=== PATIENT | female | born 1970 | race Caucasian/White ===

== ENCOUNTER 2017-02-10 13:30 | Outpatient (RCR) | payer MEDICAID, SELFPAY ==
--- NOTE | 2017-01-15 08:18 | ST ---
Primary/Secondary Diagnosis: Dysphagia R13.10 Referring Physician: Aleida Carmona Medical History: 46 y/o female presents for outpatient modified barium swallow study with complaints of difficulty swallowing for years that has seemed to have gotten progressively worse. Pt could not say exactly when she noticed increased symptoms, but reports she does have coughing approximately one time per meal/snack. She reports improvement if she drinks soda. Pt describes her swallow as premature which she clarifies as swallowing starts before she is ready. She reports choking on saliva. She reports 40lb weight gain over the past 3 years. 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 Pt reports having increased stress for most of her life. She reports she does see a mental health counselor and works on [employer] with journaling and exercise. Other PMH: asthma, fibromyalgia, back pain, ADHD, anxiety, depression, tobacco use. Reason for Referral: further evaluation of pharyngeal swallow function Current Diet: regular/thin Dentition: present, natural Mental Status: pleasant, reports nervous Respiratory Status: oxygenating on room air Previous Modified Barium Swallow: none Study Findings: This patient was seen for a Modified Barium Swallow. Dr. Chacon was the radiologist present for this evaluation. This study was recorded in the lateral view and images were sent to PACs for storage. The following consistencies were presented to this patient for analysis of oropharyngeal swallow function: thin liquid, pudding, and a cookie. Oral Phase ? Labial seal: no labial escape ? Tongue control during bolus hold: posterior escape of less than half of bolus ? Bolus preparation/mastication: timely and efficient chewing and mashing ? Bolus transport/lingual motion: delayed initiation of tongue motion ? Oral residue: complete oral clearance Pharyngeal Phase ? Initiation of pharyngeal swallow: bolus head in pyriforms ? Soft palate elevation: no bolus between soft palate and pharyngeal wall ? Laryngeal elevation: complete superior movement of thyroid cartilage with complete approximation of arytenoids cartilage to epiglottic petiole ? Anterior hyoid excursion: complete anterior movement ? Epiglottic movement: complete inversion ? Laryngeal vestibule closure at height of swallow: incomplete; narrow column of air/contrast in laryngeal vestibule ? Pharyngeal stripping wave: present complete ? Pharyngoesophageal segment opening: complete distension and complete duration; no obstruction of flow ? Tongue base retraction: no contrast between tongue base and posterior pharyngeal wall trace column of contrast between tongue base and posterior pharyngeal wall ? Pharyngeal residue: trace residue within or on pharyngeal structures Esophageal Phase ? Esophageal bolus clearance in the upright position: complete clearance Penetration-Aspiration Scale 1 = does not enter airway 2 = enters airway/above vocal folds/ejected 3 = enters airway/above vocal folds/not ejected 4 = enters airway/contacts vocal folds/ejected 5 = enters airway/contacts vocal folds/not ejected 6 = enters airway/below vocal folds/ejected 7 = enters airway/below vocal folds/not ejected despite effort 8 = enters airway/below vocal folds/no effort Penetration-Aspiration Scale Score: thin tsp 4 = enters airway/contacts vocal folds/ejected thin cup (natural chin tuck) 1 = does not enter airway NOTE: pt coughed after thin sequential 2 = enters airway/above vocal folds/ejected pudding 1 = does not enter airway cookie 1 = does not enter airway thin via straw 1 = does not enter airway Effects of Treatment Strategies Attempted: natural chin tuck = effective to prevent penetration Diagnosis: Mild oropharyngeal dysphagia Impression: Patient presents with swallow function that is mildly impaired. Oral phase grossly WFL marked by no anterior spillage of bolus efficient rotary mastication effective bolus preparation and manipulation Oropharyngeal phase mildly impaired premature a-p transit of bolus delayed swallow onset initiates at the level of the pyriforms with liquids cohesive bolus no nasal regurgitation Pharyngeal phase marked by no aspiration transient penetration with thin liquids, all penetration is ejected smooth bolus flow through the pharynx into the PE segment timely and efficient hyolaryngeal excursion resulting in full epiglottic range of motion incomplete laryngeal vestibule closure with thin liquids, resulting in penetration minimal to no residue on pharyngeal structures after the swallow. Esophageal phase unremarkable at this time. Recommendations Diet: regular/thin, consider use of chin tuck with liquids Compensatory Strategies Recommended: chin tuck, fully upright, slow rate of intake Need for Skilled Speech Therapy Services: Consider outpatient speech/swallow therapy services to target oropharyngeal swallow deficits. Consider exercise program that may include franklin, effortful swallow as well as training in use of chin tuck. ADDITIONAL COMMENTS/RECOMMENDATIONS: Results were reported to the pt following this study as well as recommendations to continue with use of chin tuck and consider ongoing swallow therapy. For Medicare only: Swallowing [id number] Current status: Swallowing [id number] Goal Status: 12/09/16 1524 <Electronically signed by Skye Infante > Date Skye Infante
--- NOTE | 2017-01-15 08:23 | HP.SP.AD_ITS ---
History - History Date of Eval: 01/13/17 Medical Diagnosis (from RX): Dysphagia Date of Onset of Diagnosis: 12/09/16 Previous speech therapy: No Other Relevant Medical History/Diagnoses/Surgery: asthma, fibromyalgia, back pain, adhd, anxiety, depression. 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 Right Hearing Abillity: Normal Left Hearing Abillity: Normal Visual Assistive Devices: None Patients Living Arrangements: With Family Patient Allergies - Allergies Allergies doxycycline Allergy (Verified 09/04/16 15:47) Rash latex Allergy (Verified 09/04/16 15:47) Rash nabumetone [From Relafen] Allergy (Verified 09/04/16 15:47) Other Penicillins Allergy (Verified 09/04/16 15:47) Rash pseudoephedrine Allergy (Verified 09/04/16 15:47) Other Sulfa (Sulfonamide Antibiotics) Allergy (Verified 09/04/16 15:47) Rash acetaminophen [From Darvocet-N] Adverse Reaction (Verified 09/04/16 15:47) Other amitriptyline Adverse Reaction (Verified 09/04/16 15:47) Other budesonide [From Symbicort] Adverse Reaction (Verified 09/04/16 15:47) Rash celecoxib [From Celebrex] Adverse Reaction (Verified 09/04/16 15:47) Other duloxetine HCl [From Cymbalta] Adverse Reaction (Verified 09/04/16 15:47) Other formoterol fumarate [From Symbicort] Adverse Reaction (Verified 09/04/16 15:47) Rash naproxen sodium [From Aleve] Adverse Reaction (Verified 09/04/16 15:47) Vomiting pregabalin [From Lyrica] Adverse Reaction (Verified 09/04/16 15:47) Other propoxyphene napsylate [From Darvocet-N] Adverse Reaction (Verified 09/04/16 15: 47) Other tramadol Adverse Reaction (Verified 09/04/16 15:47) Other CAMEL HAIR Allergy (Uncoded 07/22/16 12:15) Rash FEATHERS Allergy (Uncoded 07/22/16 12:15) Rash FRAGRANCES Allergy (Uncoded 07/22/16 12:15) Rash SAGEBRUSH Allergy (Uncoded 07/22/16 12:15) Rash Subjective Oral Motor - Comments Comments: Patient reported biting herself often when eating in oral cavity. Objective Oral Motor - Oral Status Dentition: WNL - Labial Observation at Rest: WNL Closure: WNL Pucker: WNL Retraction: WNL Alternating Pucker/Retraction: WNL Involuntary Movement noted: No - Lingual Protrusion: WNL Retraction: WNL Lateralization: WNL Involuntary Movement: No - Jaw Opening: WNL Closing: WNL - Respiratory Status Respiratory Status: Room Air Subjective Dysphagia - Symptoms Reported Symptoms/Problems with: Choking, Difficulty Swallowing Liquids, Food gets stuck - Current Diet Solids Current Diet: Regular - Current Diet Liquids Current Liquids: Thin Objective Dysphagia - Administered by Administered by: Self - Thin Liquids Administred via: Cup Laryngeal Elevation: WFL Oral Holding: No Duration: Slight holding noted. Gagging: No Patient Report: Patient reported needing to double/triple swallow. Comments: Patient had a natural double swallow. No overt signs or symptoms of dysphagia today. Patient reports that nearly every meal she coughs or chokes at least once. She now eats alone to reduce distractions. - Results Swallowing Diagnosis: Oropharyngeal Phase Dysphagia Severity: Mild Modified Barium Results Hx MBS Report Entered: Yes MBS Results (from prior exam): 01/15/17 08:18 Speech Therapy by Fidencio Shah Primary/Secondary Diagnosis: Dysphagia R13.10 Referring Physician: Aleida Carmona Medical History: 46 y/o female presents for outpatient modified barium swallow study with complaints of difficulty swallowing for years that has seemed to have gotten progressively worse. Pt could not say exactly when she noticed increased symptoms, but reports she does have coughing approximately one time per meal/snack. She reports improvement if she drinks soda. Pt describes her swallow as premature which she clarifies as swallowing starts before she is ready. She reports choking on saliva. She reports 40lb weight gain over the past 3 years. 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 Pt reports having increased stress for most of her life. She reports she does see a mental health counselor and works on [employer] with journaling and exercise. Other PMH: asthma, fibromyalgia, back pain, ADHD, anxiety, depression, tobacco use. Reason for Referral: further evaluation of pharyngeal swallow function Current Diet: regular/thin Dentition: present, natural Mental Status: pleasant, reports nervous Respiratory Status: oxygenating on room air Previous Modified Barium Swallow: none Study Findings: This patient was seen for a Modified Barium Swallow. Dr. Chacon was the radiologist present for this evaluation. This study was recorded in the lateral view and images were sent to PACs for storage. The following consistencies were presented to this patient for analysis of oropharyngeal swallow function: thin liquid, pudding, and a cookie. Oral Phase ? Labial seal: no labial escape ? Tongue control during bolus hold: posterior escape of less than half of bolus ? Bolus preparation/mastication: timely and efficient chewing and mashing ? Bolus transport/lingual motion: delayed initiation of tongue motion ? Oral residue: complete oral clearance Pharyngeal Phase ? Initiation of pharyngeal swallow: bolus head in pyriforms ? Soft palate elevation: no bolus between soft palate and pharyngeal wall ? Laryngeal elevation: complete superior movement of thyroid cartilage with complete approximation of arytenoids cartilage to epiglottic petiole ? Anterior hyoid excursion: complete anterior movement ? Epiglottic movement: complete inversion ? Laryngeal vestibule closure at height of swallow: incomplete; narrow column of air/contrast in laryngeal vestibule ? Pharyngeal stripping wave: present complete ? Pharyngoesophageal segment opening: complete distension and complete duration; no obstruction of flow ? Tongue base retraction: no contrast between tongue base and posterior pharyngeal wall trace column of contrast between tongue base and posterior pharyngeal wall ? Pharyngeal residue: trace residue within or on pharyngeal structures Esophageal Phase ? Esophageal bolus clearance in the upright position: complete clearance Penetration-Aspiration Scale 1 = does not enter airway 2 = enters airway/above vocal folds/ejected 3 = enters airway/above vocal folds/not ejected 4 = enters airway/contacts vocal folds/ejected 5 = enters airway/contacts vocal folds/not ejected 6 = enters airway/below vocal folds/ejected 7 = enters airway/below vocal folds/not ejected despite effort 8 = enters airway/below vocal folds/no effort Penetration-Aspiration Scale Score: thin tsp 4 = enters airway/contacts vocal folds/ejected thin cup (natural chin tuck) 1 = does not enter airway NOTE: pt coughed after thin sequential 2 = enters airway/above vocal folds/ejected pudding 1 = does not enter airway cookie 1 = does not enter airway thin via straw 1 = does not enter airway Effects of Treatment Strategies Attempted: natural chin tuck = effective to prevent penetration Diagnosis: Mild oropharyngeal dysphagia Impression: Patient presents with swallow function that is mildly impaired. Oral phase grossly WFL marked by no anterior spillage of bolus efficient rotary mastication effective bolus preparation and manipulation Oropharyngeal phase mildly impaired premature a-p transit of bolus delayed swallow onset initiates at the level of the pyriforms with liquids cohesive bolus no nasal regurgitation Pharyngeal phase marked by no aspiration transient penetration with thin liquids, all penetration is ejected smooth bolus flow through the pharynx into the PE segment timely and efficient hyolaryngeal excursion resulting in full epiglottic range of motion incomplete laryngeal vestibule closure with thin liquids, resulting in penetration minimal to no residue on pharyngeal structures after the swallow. Esophageal phase unremarkable at this time. Recommendations Diet: regular/thin, consider use of chin tuck with liquids Compensatory Strategies Recommended: chin tuck, fully upright, slow rate of intake Need for Skilled Speech Therapy Services: Consider outpatient speech/swallow therapy services to target oropharyngeal swallow deficits. Consider exercise program that may include franklin, effortful swallow as well as training in use of chin tuck. ADDITIONAL COMMENTS/RECOMMENDATIONS: Results were reported to the pt following this study as well as recommendations to continue with use of chin tuck and consider ongoing swallow therapy. For Medicare only: Swallowing G8996 Current status: Swallowing G8997 Goal Status: 12/09/16 1524 <Electronically signed by Skye Infante > Date Skye Infante Electronically signed by Fidencio Shah M.A., [facility] on 01/15/17 08:19 Initialized on 01/15/17 08:18 - END OF NOTE Dysphagia Assessment - Swallowing Impairment Contributing Factors to Swallowing Impairment: Impaired Oral-Pharyngeal Transport - Impact Impact on Safety & Functioning: Risk for Aspiration - Recommendations Modified Barium Swallow/Cookie Swallow Recommended: No Swallowing Treatment: Yes - Diet Texture Recommendations Solids Other: Regular Liquids: Thin - Safety Saftey Precautions/Swallowing Recommendations (Check all that Apply): Reduce Distractions, Upright Position at Least 30 Minutes After Meals, Small Sips & Bites when Eating, Multiple Swallows Other: Double swallow as needed. - Compensatory Strategies Compensatory Strategies: Chin Tuck Plan - Plan Plan: Speech therapy is warranted for dysphagia therapy as during her modified barium swallow study she exhibited penetration on thin liquids. - Recommendations MBS: No Treatment Warranted: Yes - Frequency Frequency: Monthly Duration: 3 Months Visits in this POC: 3 - Prognosis Prognosis: Good - Goals that are Established: Determination:: Goals will be added/modified as deemed necessary and appropriate. Therapy will be discontinued when results of re-evaluation indicate therapy is no longer needed or lack of progress has been documented. - Goal #1-5 Goal #1: Helena will complete pharyngeal strengthening exercises independently. Goal #2: Helena will report decreased need to double swallows to less than half her swallows. Goal #3: Recommend a follow up MBS in 3-6 months to determine progress. Education - Patient Instruction Patient Education: Diagnosis, Treatment Plan, Goals, Safety Precautions, Diet Level, Home Exercise Program Other Education: Dysphagia exercises. Person Taught: Patient Teaching Method: Discussion, Handout
--- NOTE | 2017-08-26 15:22 | HP.SP.DC_ITS ---
ST Discharge Summary - Discharged: Discharge: Helena Gray is discharged from [facility] as of August 26, 2017. She was evaluated on January 13, 2017 and had one follow up appointment scheduled in which she did not show. She was contacted as a follow up in July 2017 to determine if she was still having difficulty swallowing. She stated that she was and she would call back to schedule. She has not scheduled any further visits and will be discharged. A copy of this discharge summary will be sent to her referring physician.
== END 2017-02-10 14:00 | disposition home or self-care (01) ==
LOC: SP 13:30
PROVIDERS: Family Provider Internal Medicine; PCP Internal Medicine; Visit Provider Internal Medicine
DX: R13.12 Dysphagia, oropharyngeal phase (principal)
CPT/HCPCS: 92610

== ENCOUNTER 2018-08-07 21:16 | Emergency (ER) | payer MEDICAID, SELFPAY ==
[2018-08-07 21:17] VITALS: BP 118/79; PULSE 91; RESP 18; TEMP 36.8; O2SAT 95; BMI 33.6
--- NOTE | 2018-08-07 21:38 | ED.DCSUM_ITS ---
- ER Visit Summary Date of Service: 08/07/18 Chief Complaint: [] History of Present Illness: The patient is a 48 F presents to the emergency department after mechanical fall. The patient was at the top of her stairs. She that she was walking down, lost her balance, and fell. She struck her left knee, left foot, and right elbow. She did not strike her head. She denies loss of consciousness. She did suffer an abrasion to the foot and was having difficulty walking on it. She presented here for further evaluation. Physical Examination: Exam relatively unremarkable. Well-appearing female no acute distress. GCS 15. Head is normocephalic, atraumatic. Pupils equal round reactive. Neck nontender. Shoulders nontender. Chest is nontender. Lungs are clear. Heart is regular rhythm. Abdomen soft, nontender, nondistended. Pelvis stable. Patient has mild tenderness palpation of the right elbow, left knee, and an abrasion on the left foot. Pulses are normal. Test Results: [] Emergency Department Course and Treatment: The patient presents after mechanical fall. She does have an abrasion on the dorsum of the left foot. Pulses are normal. I did obtain plain films of the right elbow, left foot, and left knee. These are unremarkable for acute fracture. The patient's wound was cleaned and dressed. She declined analgesics. At this time, she will be discharged home. She will continue ice and elevation. She will return with any worsening symptoms. Treatment Plan: [] Disposition: Discharge Impression: 1. Left foot abrasion status post fall 2. Left knee contusion status post fall 3. Right elbow contusion status post fall This note was generated with [employer] dictation software. It may contain incorrect words, spelling, and punctuation that were not noted in review of the chart prior to signing ED Disposition - Plan for ED Patient: Chief Complaint: Fall Instructions: ED Mechanical Fall, ED [facility] [facility] Referrals: Aleida Carmona MD [Primary Care Provider] -
--- NOTE | 2018-08-07 21:42 | RAD_ITS ---
HISTORY: PAIN S/P FALL COMPARISON: None FINDINGS: # of images incl. paperwork: 3 XR Elbow Min 3 Views: 3 view right elbow. SOFT TISSUES: Unremarkable. No radiopaque foreign body. BONES: No acute fracture or subluxation. No sclerotic or destructive changes observed. JOINTS: Preservation of the joint space. Articular surfaces are unremarkable. RAD/Elbow min 3 Views IMPRESSION: Negative. at 2213 Reported and signed by: Matt Jane MD Electronically Signed: Matt Jane, at 22:12 EST Tel , Service support ,
--- NOTE | 2018-08-07 21:42 | RAD_ITS ---
HISTORY: PAIN S/P FALL COMPARISON: None FINDINGS: # of images incl. paperwork: 3 XR Foot Min 3 Views: 3 view left foot. SOFT TISSUES: Unremarkable. No radiopaque foreign body. BONES: No acute fracture or subluxation. No sclerotic or destructive changes observed. Small plantar calcaneal spur. JOINTS: Preservation of the joint space. Articular surfaces are unremarkable. RAD/Foot min 3 Views IMPRESSION: Negative. at 2214 Reported and signed by: Matt Jane MD Electronically Signed: Matt Jane, at 22:13 EST Tel , Service support ,
--- NOTE | 2018-08-07 21:42 | RAD_ITS ---
HISTORY: PAIN S/P FALL COMPARISON: None FINDINGS: # of images incl. paperwork: 4 XR Knee Complete 4 Views or More: 4 view left knee. SOFT TISSUES: Unremarkable. No radiopaque foreign body. BONES: No acute fracture or subluxation. No sclerotic or destructive changes observed. JOINTS: Preservation of the joint space. Articular surfaces are unremarkable. No apparent effusion. RAD/Knee 4 or More Views IMPRESSION: Negative. at 2215 Reported and signed by: Matt Jane MD Electronically Signed: Matt Jane, at 22:14 EST Tel , Service support ,
[2018-08-07 22:30] VITALS: BP 121/80; PULSE 78; RESP 16; O2SAT 98
--- OUTSIDE RECORDS SUMMARY | 2018-10-12 08:45 | XMS RPT_ITS ---
:1970 Author Organization [facility] Care Team Providers Name Role Phone TALAMPAS, LISA D Referring Unavailable TALAMPAS, LISA D Attending Unavailable TALAMPAS, LISA D Referring Unavailable ARMANI, GENE A Attending Unavailable ARMANI, GENE A Attending Unavailable ARMANI, GENE A Attending Unavailable ARMANI, GENE A Attending Unavailable ARMANI, GENE A Attending Unavailable ARMANI, GENE A Attending Unavailable ARMANI, GENE A Attending Unavailable ARMANI, GENE A Attending Unavailable TALAMPAS, LISA D Attending Unavailable TALAMPAS, LISA D Referring Unavailable ARMANI, GENE A Attending Unavailable ARMANI, GENE A Attending Unavailable ARMANI, GENE A Attending Unavailable ARMANI, GENE A Attending Unavailable ARMANI, GENE A Attending Unavailable ARMANI, GENE A Attending Unavailable TALAMPAS, LISA D Attending Unavailable TALAMPAS, LISA D Attending Unavailable TALAMPAS, LISA D Referring Unavailable Talampas, Lisa Primary Care Unavailable Pete Sierra Attending Unavailable Talampas, Lisa Attending Unavailable Talampas, Lisa Primary Care Unavailable PROBLEMS PROBLEMS DATE TYPE CONDITION / CODE ATTENDING STATUS SOURCE 02/17/2018 Active Unknown / ARMANI, GENE A Active [facility] UNK(Unknown) [facility] [place] Rep[facility] 06/18/2016 Active Vitamin D NA Active [facility] deficiency, [facility] [place] unspecified / Repository E55.9(ICD-10) 10/27/2014 Active Copper deficiency / NA Active [facility] E61.0(ICD-10) [facility] [place] Rep[facility] 11/04/2017 Active Other care home NA Active [facility] (current) drug [facility] [place] therapy / Repository Z79.899(ICD-10) 11/04/2017 Active Metabolic syndrome NA Active [facility] / E88.81(ICD-10) [facility] [place] Rep[facility] 09/18/2017 Unknown R13.12 - Dysphagia, Lisa Carmona Active [facility] / R13.12(ICD-10) Hospital Repository PROCEDURES PROCEDURES No Procedure Records FoundRESULTS RESULTS EMERGENCY DEPARTMENT Observed: 08/07/2018 Status: F Source: KATIE SUMMARY 10:27 PM [facility] REPOSITORY [facility] Medical Records Department [address] [place] [address] Emergency Department Summary 08/07/18 2137 MR#: [id number] Acct: [id number] Name: HELENA POTTER Rep #: [id number] : 1970 48 From: Pete Sierra MD PCP: Lias Carmona MD Status: REG ER - ER Visit Summary Date of Service: 08/07/18 Chief Complaint: [] History of Present Illness: The patient is a 48 F presents to the emergency department after mechanical fall. The patient was at the top of her stairs. She that she was walking down, lost her balance, and fell. She struck her left knee, left foot, and right elbow. She did not strike her head. She denies loss of consciousness. She did suffer an abrasion to the foot and was having difficulty walking on it. She presented here for further evaluation. Physical Examination: Exam relatively unremarkable. Well- appearing female no acute distress. GCS 15. Head is normocephalic, atraumatic. Pupils equal round reactive. Neck nontender. Shoulders nontender. Chest is nontender. Lungs are clear. Heart is regular rhythm. Abdomen soft, nontender, nondistended. Pelvis stable. Patient has mild tenderness palpation of the right elbow, left knee, and an abrasion on the left foot. Pulses are normal. Test Results: [] Emergency Department Course and Treatment: The patient presents after mechanical fall. She does have an abrasion on the dorsum of the left foot. Pulses are normal. I did obtain plain films of the right elbow, left foot, and left knee. These are unremarkable for acute fracture. The patient's wound was cleaned and dressed. She declined analgesics. At this time, she will be discharged home. She will continue ice and elevation. She will return with any worsening symptoms. Treatment Plan: [] Disposition: Discharge Impression: 1. Left foot abrasion status post fall 2. Left knee contusion status post fall 3. Right elbow contusion status post fall This note was generated with [employer] dictation software. It may contain incorrect words, spelling, and punctuation that were not noted in review of the chart prior to signing ED Disposition - Plan for ED Patient: Chief Complaint: Fall Instructions: ED Mechanical Fall, ED Avulsion Dermal Referrals: Lisa Carmona MD [Primary Care Provider] - What to do if you have Problems For any increased pain, shortness of breath, bleeding, nausea or vomiting, chest pain, or any unexpected problems, contact your Primary Care Provider. Call [facility] ([phone]) or report to the closest Emergency Room. Call 911 if necessary. 08/07/182226 <Electronically signed by Pete Sierra MD> Date Pete Sierra MD Cosigner Signature (If Indicated): Date CC: Lisa Carmona MD ELBOW MIN 3 VIEWS Observed: 08/07/2018 Status: F Source: [place] 9:30 PM [facility] REPOSITORY [facility] Imaging Services [address] [place] [id number] Elbow min 3 Views MR#: [id number] Acct: [id number] Name: HELENA POTTER Rep #: [id number] : 1970 F 48 From: Matt Jnae MD PCP: Lisa Carmona MD Status: REG ER Study: Elbow min 3 Views Date of Exam: 08/07/18 Exam# [id number] Ordering Dr: Pete Sierra MD HISTORY: PAIN S/P FALL COMPARISON: None FINDINGS: # of images incl. paperwork: 3 XR Elbow Min 3 Views: 3 view right elbow. SOFT TISSUES: Unremarkable. No radiopaque foreign body. BONES: No acute fracture or subluxation. No sclerotic or destructive changes observed. JOINTS: Preservation of the joint space. Articular surfaces are unremarkable. RAD/Elbow min 3 Views IMPRESSION: Negative. at 2213 Reported and signed by: Matt Jane MD Electronically Signed: Matt Jane, at 22:12 EST Tel , Service support , CC: Lisa Carmona MD; Pete Sierra MD Rubber Thread Spooler: Signed FOOT MIN 3 VIEWS Observed: 08/07/2018 Status: F Source: KATIE 9:30 PM [facility] REPOSITORY [facility] Imaging Services [address] [place] [id number] Foot min 3 Views MR#: [id number] Acct: [id number] Name: HELENA POTTER Rep #: [id number] : 1970 F 48 From: Matt Jane MD PCP: Lisa Carmona MD Status: REG ER Study: Foot min 3 Views Date of Exam: 08/07/18 Exam# [id number] Ordering Dr: Pete Sierra MD HISTORY: PAIN S/P FALL COMPARISON: None FINDINGS: # of images incl. paperwork: 3 XR Foot Min 3 Views: 3 view left foot. SOFT TISSUES: Unremarkable. No radiopaque foreign body. BONES: No acute fracture or subluxation. No sclerotic or destructive changes observed. Small plantar calcaneal spur. JOINTS: Preservation of the joint space. Articular surfaces are unremarkable. RAD/Foot min 3 Views IMPRESSION: Negative. at 2214 Reported and signed by: Matt Jane MD Electronically Signed: Matt Jane, at 22:13 EST Tel , Service support , CC: Lisa Carmona MD; Pete Sierra MD Rubber Thread Spooler: Signed KNEE 4 OR MORE Observed: 08/07/2018 Status: F Source: KATIE VIEWS 9:30 PM [facility] REPOSITORY [facility] Imaging Services [address] [place] [address] Knee 4 or More Views MR#: [id number] Acct: [id number] Name: HELENA POTTER Rep #: [id number] : 1970 F 48 From: Matt Jane MD PCP: Lisa Carmona MD Status: REG ER Study: Knee 4 or More Views Date of Exam: 08/07/18 Exam# [id number] Ordering Dr: Pete Sierra MD HISTORY: PAIN S/P FALL COMPARISON: None FINDINGS: # of images incl. paperwork: 4 XR Knee Complete 4 Views or More: 4 view left knee. SOFT TISSUES: Unremarkable. No radiopaque foreign body. BONES: No acute fracture or subluxation. No sclerotic or destructive changes observed. JOINTS: Preservation of the joint space. Articular surfaces are unremarkable. No apparent effusion. RAD/Knee 4 or More Views IMPRESSION: Negative. at 2215 Reported and signed by: Matt Jane MD Electronically Signed: Matt Jane, at 22:14 EST Tel , Service support , CC: Lisa Carmona MD; Pete Sierra MD Rubber Thread Spooler: Signed PROGRESS Observed: 06/15/2018 Status: COMPLETED Source: [place] 4:[address] [facility] [place] REPOSITORY HNO ID: [id number] Author: Lisa Carmona Service: (none) Author Type: Physician Type: Progress Notes Filed: 07/01/2018 7:09 AM Note Text: Patient presents with: Recheck: Follow up Imm/Inj: Flu Vaccine SUBJECTIVE: Helena Potter is a 48 year old year old lady here today for 6 month follow up appointment for review of medical conditions. Had sacral injection and did well for a few months--was sleeping better and able to eat well and lose weight. A week started with storm of pain in legs. Will have facet injections in acouple weeks--was denied first time but was able to get prior authorization done finally. Already did lots of PT. Also noted bra line level of back pain with electric shock up and down spine when bends head down. Yesterday had episode that mouth went open then snapped shut. Made her bite tongue. None before or after this episode. Reviewed prior MRI 2012 with nonspecific white matter changes--neurologist did not think was MS. Noted gets trouble breathing certain perfumes, etc. Still gets episodes of stumbling--wonders if from pain from nerve being pinched. Knee can give out. Does do some chair yoga. PAST MEDICAL HISTORY Diagnosis Date - Abnormal glandular Papanicolaou smear of cervix Abn. Pap smear (cervix) - ADHD (attention deficit hyperactivity disorder) 07/29/2013 - Atherosclerosis of abdominal aorta ([facility]) 02/19/2012 <70% stenosisof celiac and superior mesenteric arteries; <60% stenosis of bilateral renal arteries - COPD (chronic obstructive pulmonary disease) ([facility]) - Degenerative disc disease lumbar - Dysthymic disorder Depression (non-psychotic). Patient contests this, Full Psychiatric evaluation found no evidence of this, 03/24/2014, TO - Eczema - Fibromyalgia - Hypercholesterolemia with LDL greater than 190 mg/dL Genetic with multiple family members; declines treatment and rechecking labs - IBS (irritable bowel syndrome) - Migraine, unspecified, with intractable migraine, so stated, without mention of status migrainosus Migraine - Shingles - Smoker - Steroid long-term use 3 months, 1979, prescribed by Demographic Analyst. TO 03/24/14 Current Outpatient Prescriptions: hydrOXYzine HCl (ATARAX) 25 mg tablet TAKE 1-4 TABLETS BY MOUTH EVERY 4 HOURS NEEDED FOR ITCHING/RASH (AND ALLERGIC RHINITIS). albuterol HFA (VENTOLIN HFA) 90 mcg/actuation inhaler Inhale 2 Puffs as instructed every 4 hours as needed for Wheezing/Shortness of Breath. acetaminophen-codeine (TYLENOL-COD #3) 300-30 mg per tablet Take 1-2 tablets by mouth every 4 hours as needed for up to 30 days. Takes up to 5 pills max per day during a flare up MUCINEX 600 mg 12 hr tablet TAKE 1-2 TABLETS BY MOUTH TWICE DAILY. NEEDED montelukast (SINGULAIR) 10 mg tablet Take 1 tablet by mouth daily at bedtime. orphenadrine ER (NORFLEX) 100 mg tablet Take 1 tablet by mouth twice daily as needed. Cholecalciferol, Vitamin D3, 5,000 unit cap Take 1 capsule by mouth once daily. acetaminophen 325 mg-caffeine 40 mg-butalbital 50 mg (FIORICET) per tablet Take 1 tablet by mouth every 6 hours as needed for Headache. azelastine (ASTELIN,ASTEPRO) 0.1% nasal spray Use 1-2 Sprays in each nostril twice daily. As directed fluticasone (FLONASE) 50 mcg/actuation nasal spray Use 2 sprays to each nostril one to two times daily fluticasone-salmeterol HFA (ADVAIR HFA) 230-21 mcg/actuation inhaler Inhale 2 Puffs as instructed twice daily. cetirizine (ZYRTEC) 10 mg tablet TAKE 1 TABLET BY MOUTH ONCE DAILY. diclofenac sodium (VOLTAREN) 1 % topical gel Apply 2 g to affected area four times daily. Ipratropium Nebo (ATROVENT) 0.03 % nasal spray Use 2 Sprays in the nose every 12 hours. As directed triamcinolone acetonide (KENALOG) 0.1 % ointment Apply to affected areas twice a day as needed. Avoid use on the face. albuterol (PROVENTIL) 2.5 mg /3 mL (0.083 %) nebulizer solution Use 3 mL via nebulizer every 6 hours as needed for Wheezing/Shortness of Breath. 1 vial contains 3 ml. hydrocortisone 2.5 % ointment Apply 1 application to affected area twice daily as needed. Avoid use on the eyelids. ceramides 1,3,6-11 (CERAVE) Apply 2 to 3 times daily. Dispense: one large tub (not 1g) DX: L30.9 Eczema EPINEPHrine (EPIPEN) 0.3 mg/0.3 mL (1:1,000) auto-injector Inject 0.3 mL intramuscularly as needed (for allergic reaction.Seek emergent medical care immediately after use.Disp:one 2-packw/personal trainer). Back Brace misc Use as instructed TENS Units Layne Use as directed. Copper Gluconate 5 mg Tab Take by mouth. vitamin b complex Tab Take 1 tablet by mouth once daily. multivitamin tablet Take 1 tablet by mouth once daily. CALCIUM CARBONATE/VITAMIN D3 (CALCIUM + D ORAL) Take by mouth. acetaminophen-codeine (TYLENOL-COD #3) 300-30 mg per tablet Take 1-2 tablets by mouth every 4 hours as needed for up to 30 days. Takes up to 5 pills max per day during a flare up acetaminophen-codeine (TYLENOL-COD #3) 300-30 mg per tablet Take 1-2 tablets by mouth every 4 hours as needed for up to 30 days. Takes up to 5 pills max per day during a flare up lidocaine (LIDODERM) 5 % Apply 1 Patch as directed every 12 hours as needed. Remove old patch prior to placing new patch. (Patient not taking: Reported on 12/01/2017 ) albuterol 5 mg/mL INHALATION Nebu Inhale 0.5 mL as instructed every 4 hours as needed for 7 days. 1 DOSE NOW - BACK OFFICE. PLACE 0.5 ML PER DROPPER AND 2.5 ML OF NORMAL SALINE INTO RESERVOIR. No current facility-administered medications for this visit. OBJECTIVE: BP 140/80 Pulse 104 Resp 20 Wt 87.9 kg (193 lb 12.8 oz) BMI 34.33 kg/m? Patient is alert, oriented times 3, no apparent distress, affect is bright, reactive. Last 5 Encounter BP Readings: Date: BP: 06/15/2018 140/80 02/10/2018 100/70 12/01/2017 110/66 11/04/2017 132/78 10/27/2017 124/86 Last 5 Encounter Wt Readings: Date: Wt: 06/15/2018 87.9 kg (193 lb 12.8 oz) 02/10/2018 89.4 kg (197 lb) 12/01/2017 88.9 kg (196 lb) 11/04/2017 88.5 kg (195 lb) 10/27/2017 88.9 kg (196 lb) Heart: Regular rate, rhythm, no murmurs, gallops, rubs. Lungs: Clear to auscultation, bilaterally, breathing non labored. Ext: No cyanosis, clubbing, or edema. ASSESSMENT AND PLAN: Encounter Diagnosis ICD-10-CM 1. Fibromyalgia M79.7 acetaminophen-codeine (TYLENOL-COD #3) 300-30 mg per tablet acetaminophen-codeine (TYLENOL-COD #3) 300-30 mg per tablet acetaminophen-codeine (TYLENOL-COD #3) 300-30 mg per tablet orphenadrine ER (NORFLEX) 100 mg tablet 2. PTSD (post-traumatic stress disorder) F43.10 3. TMJ (dislocation of temporomandibular joint), subsequent encounter S03.00XD acetaminophen-codeine (TYLENOL-COD #3) 300-30 mg per tablet acetaminophen-codeine (TYLENOL-COD #3) 300-30 mg per tablet acetaminophen-codeine (TYLENOL-COD #3) 300-30 mg per tablet orphenadrine ER (NORFLEX) 100 mg tablet DISCONTINUED: orphenadrine ER (NORFLEX) 100 mg tablet sounds like also had sialoadenitis in the right side 4. Lumbar radiculopathy M54.16 orphenadrine ER (NORFLEX) 100 mg tablet 5. Spinal stenosis of lumbar region, unspecified whether neurogenic claudication present M48.061 orphenadrine ER (NORFLEX) 100 mg tablet 6. Muscle spasm of back M62.830 orphenadrine ER (NORFLEX) 100 mg tablet 7. TONNY (generalized anxiety disorder) F41.1 8. Need for vaccination Z23 INFLUENZA VACCINE QUADRIVALENT AGE 3 YRS PLUS + IM Above issues addressed with patient. Patient involved in shared decision making for management of medical issues. History and medications reviewed. Epic updated as needed Refills taken care of and meds adjusted as indicated after reviewed history, exam and labs. Health Maintenance reviewed. Updated record and/or ordered tests as recorded. Encouraged on efforts at healthy diet and regular exercise and adequate sleep. Needs to keep working on diet and exercise with lifestyle changes for effective weight loss. Noted anxiety with seeing providers but able to come to appointment with me without severe anxiety now. Emotional support given. Stable with control of pain with Tylenol with codeine but having exacerbation of pain as noted in HPI--following with for procedure as noted in HPI. No signs of diversion or abuse of medication(s); no adverse effects. Continue present management. Further evaluation and treatment as indicated. PDMP website checked and validated. All prescriptions have been APPROPRIATELY filled. No suspicious activity was identified. 06/15/2018 by Lisa Carmona MD The majority of the visit was spent counseling and/or coordinating care for the patient. Mgbd-wa-lmaf time was at least 25 minutes. Lisa Carmona MD PROGRESS Observed: 06/15/2018 Status: COMPLETED Source: [place]I 4:[address] [facility] REPOSITORY HNO ID: [id number] Author: Bridget Raines LPN Service: (none) Author Type: (none) Type: Progress Notes Filed: 07/01/2018 7:09 AM Note Text: 48 year old female here for INACTIVATED INFLUENZA VACCINE. 0260-1425 Season Patient is identified by name and date of : Yes [] CONTRAINDICATIONS color enhanced section Age less than 6 months? No Allergy to eggs, chicken, chicken feathers, or chicken dander? No Allergy to thimerosal (a preservative) or formaldehyde, gelatin? No History of severe reaction to any vaccine component or a previous dose of influenza vaccination? No History of Guillain-Cherry Log Syndrome within 6 weeks after a previous influenza vaccine? No Patient is not moderately or severely ill? No Current temperature greater or equal to 100.4F? No History of Bone Marrow Transplant prior 6 months or solid organ transplant in the past 3 months ? No History of fainting after a prior injection or medical procedure? No- ? If patient has fainted in the past, the CDC recommends sitting or lying down for 15 minutes after the vaccination. [] VERIFICATION color enhanced section Was the answer Yes for any of the above contraindications? No contraindications present. Acceptable to proceed with vaccine. Patient/guardian agrees the above answers are true to the best of their knowledge? Yes Flu vaccine information sheet given? Yes See immunization activity in [facility] for details of immunizations adminstered today. Patient age: [age] year old For The 7008-3176 Flu Season 6-35 months old: Fluzone 0.25 ml - IM (Preservative Free) 3 years of age: Fluzone 0.5 ml - IM (Preservative Free) 3 years and older: Fluzone 0.5 ml- IM-(with Preservatives) 65+ years old: 2-49 years old Fluzone High-Dose 0.5 ml - IM (Preservative Free) FLUMIST- intranasal REMEMBER: If patient is less than 9 years of age and this is the first vaccine of Influenza to be received in any flu season, they should receive a second dose in one months time. CNOV Observed: 06/15/2018 Status: COMPLETED Source: [place] 3:40 PM [facility] REPOSITORY Office Visit (INTMWS) HELENA POTTER ([id number]) 1970 F Date Time Provider Department 06/15/18 3:40 PM LISA CARMONA INTMWS During your visit today, we recorded the following information about you: Pulse Respiration Blood pressure Weight 104/minute 20/minute 140/80 87.9 kg Bridget Raines LPN 07/01/2018 7:09 AM Signed 48 year old female here for INACTIVATED INFLUENZA VACCINE. 1987-7583 Season Patient is identified by name and date of : Yes [] CONTRAINDICATIONS color enhanced section Age less than 6 months? No Allergy to eggs, chicken, chicken feathers, or chicken dander? No Allergy to thimerosal (a preservative) or formaldehyde, gelatin? No History of severe reaction to any vaccine component or a previous dose of influenza vaccination? No History of Guillain-Cherry Log Syndrome within 6 weeks after a previous influenza vaccine? No Patient is not moderately or severely ill? No Current temperature greater or equal to 100.4F? No History of Bone Marrow Transplant prior 6 months or solid organ transplant in the past 3 months ? No History of fainting after a prior injection or medical procedure? No- ? If patient has fainted in the past, the CDC recommends sitting or lying down for 15 minutes after the vaccination. [] VERIFICATION color enhanced section Was the answer Yes for any of the above contraindications? No contraindications present. Acceptable to proceed with vaccine. Patient/guardian agrees the above answers are true to the best of their knowledge? Yes Flu vaccine information sheet given? Yes See immunization activity in [facility] for details of immunizations adminstered today. Patient age: [age] year old For The 4175-7225 Flu Season 6-35 months old: Fluzone 0.25 ml - IM (Preservative Free) 3 years of age: Fluzone 0.5 ml - IM (Preservative Free) 3 years and older: Fluzone 0.5 ml- IM-(with Preservatives) 65+ years old: 2-49 years old Fluzone High-Dose 0.5 ml - IM (Preservative Free) FLUMIST- intranasal REMEMBER: If patient is less than 9 years of age and this is the first vaccine of Influenza to be received in any flu season, they should receive a second dose in one months time. Lisa Carmona MD 07/01/2018 7:09 AM Signed Patient presents with: Recheck: Follow up Imm/Inj: Flu Vaccine SUBJECTIVE: Helena Potter is a 48 year old year old lady here today for 6 month follow up appointment for review of medical conditions. Had sacral injection and did well for a few months--was sleeping better and able to eat well and lose weight. A week started with storm of pain in legs. Will have facet injections in acouple weeks--was denied first time but was able to get prior authorization done finally. Already did lots of PT. Also noted bra line level of back pain with electric shock up and down spine when bends head down. Yesterday had episode that mouth went open then snapped shut. Made her bite tongue. None before or after this episode. Reviewed prior MRI 2012 with nonspecific white matter changes--neurologist did not think was MS. Noted gets trouble breathing certain perfumes, etc. Still gets episodes of stumbling--wonders if from pain from nerve being pinched. Knee can give out. Does do some chair yoga. PAST MEDICAL HISTORY Diagnosis Date - Abnormal glandular Papanicolaou smear of cervix Abn. Pap smear (cervix) - ADHD (attention deficit hyperactivity disorder) 07/29/2013 - Atherosclerosis of abdominal aorta ([facility]) 02/19/2012 <70% stenosisof celiac and superior mesenteric arteries; <60% stenosis of bilateral renal arteries - COPD (chronic obstructive pulmonary disease) ([facility]) - Degenerative disc disease lumbar - Dysthymic disorder Depression (non-psychotic). Patient contests this, Full Psychiatric evaluation found no evidence of this, 03/24/2014, TO - Eczema - Fibromyalgia - Hypercholesterolemia with LDL greater than 190 mg/dL Genetic with multiple family members; declines treatment and rechecking labs - IBS (irritable bowel syndrome) - Migraine, unspecified, with intractable migraine, so stated, without mention of status migrainosus Migraine - Shingles - Smoker - Steroid long-term use 3 months, 1979, prescribed by Demographic Analyst. TO 03/24/14 Current Outpatient Prescriptions: hydrOXYzine HCl (ATARAX) 25 mg tablet TAKE 1-4 TABLETS BY MOUTH EVERY 4 HOURS NEEDED FOR ITCHING/RASH (AND ALLERGIC RHINITIS). albuterol HFA (VENTOLIN HFA) 90 mcg/actuation inhaler Inhale 2 Puffs as instructed every 4 hours as needed for Wheezing/Shortness of Breath. acetaminophen-codeine (TYLENOL-COD #3) 300-30 mg per tablet Take 1-2 tablets by mouth every 4 hours as needed for up to 30 days. Takes up to 5 pills max per day during a flare up MUCINEX 600 mg 12 hr tablet TAKE 1-2 TABLETS BY MOUTH TWICE DAILY. NEEDED montelukast (SINGULAIR) 10 mg tablet Take 1 tablet by mouth daily at bedtime. orphenadrine ER (NORFLEX) 100 mg tablet Take 1 tablet by mouth twice daily as needed. Cholecalciferol, Vitamin D3, 5,000 unit cap Take 1 capsule by mouth once daily. acetaminophen 325 mg-caffeine 40 mg-butalbital 50 mg (FIORICET) per tablet Take 1 tablet by mouth every 6 hours as needed for Headache. azelastine (ASTELIN,ASTEPRO) 0.1% nasal spray Use 1-2 Sprays in each nostril twice daily. As directed fluticasone (FLONASE) 50 mcg/actuation nasal spray Use 2 sprays to each nostril one to two times daily fluticasone-salmeterol HFA (ADVAIR HFA) 230-21 mcg/actuation inhaler Inhale 2 Puffs as instructed twice daily. cetirizine (ZYRTEC) 10 mg tablet TAKE 1 TABLET BY MOUTH ONCE DAILY. diclofenac sodium (VOLTAREN) 1 % topical gel Apply 2 g to affected area four times daily. Ipratropium Nebo (ATROVENT) 0.03 % nasal spray Use 2 Sprays in the nose every 12 hours. As directed triamcinolone acetonide (KENALOG) 0.1 % ointment Apply to affected areas twice a day as needed. Avoid use on the face. albuterol (PROVENTIL) 2.5 mg /3 mL (0.083 %) nebulizer solution Use 3 mL via nebulizer every 6 hours as needed for Wheezing/Shortness of Breath. 1 vial contains 3 ml. hydrocortisone 2.5 % ointment Apply 1 application to affected area twice daily as needed. Avoid use on the eyelids. ceramides 1,3,6-11 (CERAVE) Apply 2 to 3 times daily. Dispense: one large tub (not 1g) DX: L30.9 Eczema EPINEPHrine (EPIPEN) 0.3 mg/0.3 mL (1:1,000) auto-injector Inject 0.3 mL intramuscularly as needed (for allergic reaction.Seek emergent medical care immediately after use.Disp:one 2-packw/personal trainer). Back Brace misc Use as instructed TENS Units Layne Use as directed. Copper Gluconate 5 mg Tab Take by mouth. vitamin b complex Tab Take 1 tablet by mouth once daily. multivitamin tablet Take 1 tablet by mouth once daily. CALCIUM CARBONATE/VITAMIN D3 (CALCIUM + D ORAL) Take by mouth. acetaminophen-codeine (TYLENOL-COD #3) 300-30 mg per tablet Take 1-2 tablets by mouth every 4 hours as needed for up to 30 days. Takes up to 5 pills max per day during a flare up acetaminophen-codeine (TYLENOL-COD #3) 300-30 mg per tablet Take 1-2 tablets by mouth every 4 hours as needed for up to 30 days. Takes up to 5 pills max per day during a flare up lidocaine (LIDODERM) 5 % Apply 1 Patch as directed every 12 hours as needed. Remove old patch prior to placing new patch. (Patient not taking: Reported on 12/01/2017 ) albuterol 5 mg/mL INHALATION Nebu Inhale 0.5 mL as instructed every 4 hours as needed for 7 days. 1 DOSE NOW - BACK OFFICE. PLACE 0.5 ML PER DROPPER AND 2.5 ML OF NORMAL SALINE INTO RESERVOIR. No current facility-administered medications for this visit. OBJECTIVE: BP 140/80 Pulse 104 Resp 20 Wt 87.9 kg (193 lb 12.8 oz) BMI 34.33 kg/m? Patient is alert, oriented times 3, no apparent distress, affect is bright, reactive. Last 5 Encounter BP Readings: Date: BP: 06/15/2018 140/80 02/10/2018 100/70 12/01/2017 110/66 11/04/2017 132/78 10/27/2017 124/86 Last 5 Encounter Wt Readings: Date: Wt: 06/15/2018 87.9 kg (193 lb 12.8 oz) 02/10/2018 89.4 kg (197 lb) 12/01/2017 88.9 kg (196 lb) 11/04/2017 88.5 kg (195 lb) 10/27/2017 88.9 kg (196 lb) Heart: Regular rate, rhythm, no murmurs, gallops, rubs. Lungs: Clear to auscultation, bilaterally, breathing non labored. Ext: No cyanosis, clubbing, or edema. ASSESSMENT AND PLAN: Encounter Diagnosis ICD-10-CM 1. Fibromyalgia M79.7 acetaminophen-codeine (TYLENOL-COD #3) 300-30 mg per tablet acetaminophen-codeine (TYLENOL-COD #3) 300-30 mg per tablet acetaminophen-codeine (TYLENOL-COD #3) 300-30 mg per tablet orphenadrine ER (NORFLEX) 100 mg tablet 2. PTSD (post-traumatic stress disorder) F43.10 3. TMJ (dislocation of temporomandibular joint), subsequent encounter S03.00XD acetaminophen-codeine (TYLENOL-COD #3) 300-30 mg per tablet acetaminophen-codeine (TYLENOL-COD #3) 300-30 mg per tablet acetaminophen-codeine (TYLENOL-COD #3) 300-30 mg per tablet orphenadrine ER (NORFLEX) 100 mg tablet DISCONTINUED: orphenadrine ER (NORFLEX) 100 mg tablet sounds like also had sialoadenitis in the right side 4. Lumbar radiculopathy M54.16 orphenadrine ER (NORFLEX) 100 mg tablet 5. Spinal stenosis of lumbar region, unspecified whether neurogenic claudication present M48.061 orphenadrine ER (NORFLEX) 100 mg tablet 6. Muscle spasm of back M62.830 orphenadrine ER (NORFLEX) 100 mg tablet 7. TONNY (generalized anxiety disorder) F41.1 8. Need for vaccination Z23 INFLUENZA VACCINE QUADRIVALENT AGE 3 YRS PLUS + IM Above issues addressed with patient. Patient involved in shared decision making for management of medical issues. History and medications reviewed. Epic updated as needed Refills taken care of and meds adjusted as indicated after reviewed history, exam and labs. Health Maintenance reviewed. Updated record and/or ordered tests as recorded. Encouraged on efforts at healthy diet and regular exercise and adequate sleep. Needs to keep working on diet and exercise with lifestyle changes for effective weight loss. Noted anxiety with seeing providers but able to come to appointment with me without severe anxiety now. Emotional support given. Stable with control of pain with Tylenol with codeine but having exacerbation of pain as noted in HPI--following with for procedure as noted in HPI. No signs of diversion or abuse of medication(s); no adverse effects. Continue present management. Further evaluation and treatment as indicated. PDMP website checked and validated. All prescriptions have been APPROPRIATELY filled. No suspicious activity was identified. 06/15/2018 by Lisa Carmona MD The majority of the visit was spent counseling and/or coordinating care for the patient. [id number] time was at least 25 minutes. Lisa Carmona MD Referring Provider: SELF [200] Allergies As of Date: 06/15/2018 Noted Allergy Reaction DOXYCYCLINE 07/13/2013 2 - Rash Comments: 07/13/13 LATEX 03/05/2010 2 - Rash Comments: Positive Latex Skin Test 11/29/13 ALEVE (NAPROXEN SODIUM) 03/05/2010 11 - Vomiting Comments: DIZZINESS AMITRIPTYLINE 03/05/2010 Comments: SLEEPWALKING CAMEL HAIR 08/21/2012 2 - Rash CELEBREX (CELECOXIB) 03/05/2010 1 - Mental Status Change Comments: RAGE CYMBALTA (DULOXETINE) 03/29/2010 1 - Mental Status Change Comments: Made her angry, in a rage DARVOCET A500 (PROPOXYPHENE N-REBECCA*03/05/2010 1 - Mental Status Change Comments: HALLUCINATIONS DULERA (MOMETASONE-FORMOTEROL) 03/21/2015 12 - Shortness of Breath FEATHERS 08/21/2012 2 - Rash FRAGRANCES 03/05/2010 2 - Rash INSECTICIDES 08/21/2012 2 - Rash LYRICA (PREGABALIN) 07/30/2011 5 - Intolerance Comments: Did not tolerate even lowest dose; did not help much; made her loopy and happy NAPROXEN 03/05/2010 11 - Vomiting Comments: DIZZINESS PENICILLINS 03/05/2010 2 - Rash POLLEN 03/05/2010 2 - Rash PSEUDOEPHEDRINE 03/05/2010 5 - Intolerance Comments: SPASMS of blood vesselsIN FEET RELAFEN (NABUMETONE) 03/05/2010 5 - Intolerance Comments: SPASMS of blood vessels IN FEET SAGEBRUSH 08/14/2012 2 - Rash 9 - Itching SEASONAL ALLERGIES 11/29/2013 14 - Other: See Comments Comments: Cats Horses Cockroach Dust mites trees (September, October and November) grasses (November and December) weeds (February, March and April) ragweed (February, March and April) SULFA (SULFONAMIDE ANTIBIOTICS) 03/05/2010 2 - Rash SYMBICORT (BUDESONIDE-FORMOTEROL) 03/13/2015 14 - Other: See Comments Comments: Stinging/burning mouth, itchy roof of throat/palette TRAMADOL HCL 03/29/2010 5 - Intolerance Comments: States it made her dizzy and nauseated Date Reviewed: 02/10/2018 Reviewed by: Bridget Raines LPN - Fully Assessed Reason for Visit: Recheck [92] Cmt: Follow up Imm/Inj [58] Cmt: Flu Vaccine Reason For Visit History Recorded Primary Visit Diagnosis:Fibromyalgia [M79.7] Other Visit Diagnoses:PTSD (post-traumatic stress disorder) [F43.10] TMJ (dislocation of temporomandibular joint), subsequent encounter [S03.00XD] Comment:sounds like also had sialoadenitis in the right side Lumbar radiculopathy [M54.16] Spinal stenosis of lumbar region, unspecified whether neurogenic claudication present [M48.061] Muscle spasm of back [M62.830] TONNY (generalized anxiety disorder) [F41.1] Need for vaccination [Z23] Order(s):INFLUENZA VACCINE QUADRIVALENT AGE 3 YRS PLUS + IM [[id number]] Order #: [id number] acetaminophen-codeine (TYLENOL-COD #3) 300-30 mg per tabletTake 1-2 tablets by mouth every 4 hours as needed for up to 30 days. Takes up to 5 pills max per day during a flare upDisp: 30 tabletRfl: 0 [START ON 07/23/2018] acetaminophen-codeine (TYLENOL- COD #3) 300-30 mg per tabletTake 1-2 tablets by mouth every 4 hours as needed for up to 30 days. Takes up to 5 pills max per day during a flare upDisp: 30 tabletRfl: 0 [START ON 08/22/2018] acetaminophen-codeine (TYLENOL- COD #3) 300-30 mg per tabletTake 1-2 tablets by mouth every 4 hours as needed for up to 30 days. Takes up to 5 pills max per day during a flare upDisp: 30 tabletRfl: 0 [START ON 07/15/2018] orphenadrine ER (NORFLEX) 100 mg tabletTake 1 tablet by mouth twice daily as needed.Disp: 30 tabletRfl: 2 Prescriptions as of 06/15/2018 Sig: [id number]* Take 1 tablet by mouth every * ACETAMINOPHEN 300 MG-CODEINE * Take 1-2 tablets by mouth hien* ACETAMINOPHEN 300 MG-CODEINE * Take 1-2 tablets by mouth hien* ACETAMINOPHEN 300 MG-CODEINE * Take 1-2 tablets by mouth hien* ALBUTEROL SULFATE 2.5 MG/3 ML* Use 3 mL via nebulizer every * ALBUTEROL SULFATE HFA 90 MCG/* Inhale 2 Puffs as instructed * AZELASTINE 137 MCG (0.1 %) NA* Use 1-2 Sprays in each nostri* BACK BRACE Use as instructed * CALCIUM + D ORAL Take by mouth. CERAMIDES 1,3,6-11 TOPICAL CR* Apply 2 to 3 times daily. D* CETIRIZINE 10 MG TABLET TAKE 1 TABLET BY MOUTH ONCE D* CHOLECALCIFEROL (VITAMIN D3) * Take 1 capsule by mouth once * COPPER 5 MG TABLET Take by mouth. DICLOFENAC 1 % TOPICAL GEL Apply 2 g to affected area fo* EPINEPHRINE 0.3 MG/0.3 ML INJ* Inject 0.3 mL intramuscularly* FLUTICASONE 50 MCG/ACTUATION * Use 2 sprays to each nostril * FLUTICASONE-SALMETEROL 230 MC* Inhale 2 Puffs as instructed * HYDROCORTISONE 2.5 % TOPICAL * Apply 1 application to affect* HYDROXYZINE HCL 25 MG TABLET TAKE 1-4 TABLETS BY MOUTH HIEN* IPRATROPIUM BROMIDE 0.03 % NA* Use 2 Sprays in the nose ever* MONTELUKAST 10 MG TABLET Take 1 tablet by mouth daily * MUCINEX 600 MG TABLET, EXTEND* TAKE 1-2 TABLETS BY MOUTH TWI* * MULTIVITAMIN TABLET Take 1 tablet by mouth once d* ORPHENADRINE CITRATE ER 100 M* Take 1 tablet by mouth twice * TRANSCUTANEOUS ELECTRICAL NER* Use as directed. TRIAMCINOLONE ACETONIDE 0.1 %* Apply to affected areas twice* VITAMIN B COMPLEX TABLET Take 1 tablet by mouth once d* ALBUTEROL SULFATE CONCENTRATE* Inhale 0.5 mL as instructed e* LIDOCAINE 5 % TOPICAL PATCH Apply 1 Patch as directed hien* Patient not taking: Reported on 12/01/2017 Medication notes this encounter ORPHENADRINE CITRATE ER 100 MG TABLET,EXTENDED RELEASE >> Lisa Carmona MD 06/15/2018 5:01 PM >> LISA CARMONA MD FriJun 15, 2018 5:01 PM Printed one in case pharmacy loses refill in computer since does not need yet Problem List As Of Date 06/15/2018 Noted Resolved Fibromyalgia [M79.7] Dysthymic Disorder [F34.1] More... Eczema [L30.9] More... Shingles [B02.9] Migraine NOS/Intractable [G43.919] More... IBS (Irritable Bowel Syndrome) [K58.9] Degenerative Disc Disease [RAQ8908] Dyspareunia [EKL2382] INVALID FOR* Lumbago [M54.5] INVALID FOR* Lumbar disc displacement without myelopathy [M5*INVALID FOR* Lumbar radiculopathy [M54.16] INVALID FOR* Family history of abdominal aortic aneurysm [Z8*INVALID FOR* Atherosclerosis of abdominal aorta [I70.0] INVALID FOR* More... 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 Takes up to 5 pills max per day during a flare up ACETAMINOPHEN 300 MG-CODEINE 30 MG T* 30 t* 0 07/23/2018 08/22/2018 Class: Print RX Route: ORAL Sig: Take 1-2 tablets by mouth every 4 hours as needed for up to 30 days. Takes up to 5 pills max per day during a flare up ACETAMINOPHEN 300 MG-CODEINE 30 MG T* 30 t* 0 08/22/2018 09/21/2018 Class: Print RX Route: ORAL Sig: Take 1-2 tablets by mouth every 4 hours as needed for up to 30 days. Takes up to 5 pills max per day during a flare up ORPHENADRINE CITRATE ER 100 MG TABLE* 30 t* 2 07/15/2018 06/15/2018 Route: ORAL Sig: Take 1 tablet by mouth twice daily as needed. ORPHENADRINE CITRATE ER 100 MG TABLE* 30 t* 2 07/15/2018 Class: Print RX Route: ORAL Sig: Take 1 tablet by mouth twice daily as needed. Medications Discontinued During This Encounter acetaminophen-codeine (TYLENOL-COD #* 30 t* 0 05/23/2018 06/15/2018 Class: Print RX Route: ORAL Sig: Take 1-2 tablets by mouth every 4 hours as needed for up to 30 days. Takes up to 5 pills max per day during a flare up Disc: Reason for discontinue is not on file. orphenadrine ER (NORFLEX) 100 mg tab* 30 t* 2 02/10/2018 06/15/2018 Route: ORAL Sig: Take 1 tablet by mouth twice daily as needed. Disc: Reason for discontinue is not on file. orphenadrine ER (NORFLEX) 100 mg tab* 30 t* 2 07/15/2018 06/15/2018 Route: ORAL Sig: Take 1 tablet by mouth twice daily as needed. Disc: Reason for discontinue is not on file. acetaminophen-codeine (TYLENOL-COD #* 30 t* 0 04/04/2018 06/15/2018 Class: Print RX Cmt: Will be getting prior authorization for oil heaterman pain medication Route: ORAL Sig: Take 1-2 tablets by mouth every 4 hours as needed for up to 30 days. Takes up to 5 pills max per day during a flare up Disc: Reason for discontinue is not on file. acetaminophen-codeine (TYLENOL-COD #* 30 t* 0 05/04/2018 06/15/2018 Class: Print RX Cmt: Will be getting prior authorization for care home pain medication Route: ORAL Sig: Take 1-2 tablets by mouth every 4 hours as needed for up to 30 days. Takes up to 5 pills max per day during a flare up Disc: Reason for discontinue is not on file. Disposition: Return for Add next 3 month follow up (has the next one scheduled). Follow-up and Disposition History Recorded Encounter Status:Closed by LISA CARMONA MD on 07/01/18 PROGRESS Observed: 05/19/2018 Status: COMPLETED Source: [place] 4:[address] [facility] [place] REPOSITORY HNO ID: [id number] Author: Omar Bravo Service: (none) Author Type: Psychologist Type: Progress Notes Filed: 05/19/2018 4:04 PM Note Text: [facility] Progress Note Helena Potter 05/19/2018 [id number] Provider: Omar Bravo, PHD CPT Code: 18809 Psychotherapy 38-52 minutes Time: Approximately 50 minutes was spent in therapy. Parties Present: Patient Patient Presentation/Concerns: Pt doing better w her son and he at school... 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 Mental Status: Mood: variable Affect: mood-congruent Thoughts/Associations:goal directed Suicidal/Homicidal Ideation: None expressed or evidenced Other Observations: None Therapy Focus Self-care, Stress management, Mood/affect regulation, Parenting and Self-esteem MEDICATIONS: Per medical record: Current Outpatient Prescriptions: MUCINEX 600 mg 12 hr tablet TAKE 1-2 TABLETS BY MOUTH TWICE DAILY. NEEDED acetaminophen-codeine (TYLENOL-COD #3) 300-30 mg per tablet Take 1-2 tablets by mouth every 4 hours as needed for up to 30 days. Takes up to 5 pills max per day during a flare up acetaminophen-codeine (TYLENOL-COD #3) 300-30 mg per tablet Take 1-2 tablets by mouth every 4 hours as needed for up to 30 days. Takes up to 5 pills max per day during a flare up acetaminophen-codeine (TYLENOL-COD #3) 300-30 mg per tablet Take 1-2 tablets by mouth every 4 hours as needed for up to 30 days. Takes up to 5 pills max per day during a flare up montelukast (SINGULAIR) 10 mg tablet Take 1 tablet by mouth daily at bedtime. orphenadrine ER (NORFLEX) 100 mg tablet Take 1 tablet by mouth twice daily as needed. Cholecalciferol, Vitamin D3, 5,000 unit cap Take 1 capsule by mouth once daily. hydrOXYzine HCl (ATARAX) 25 mg tablet TAKE 1-4 TABLETS BY MOUTH EVERY 4 HOURS NEEDED FOR ITCHING/RASH (AND ALLERGIC RHINITIS). acetaminophen 325 mg-caffeine 40 mg-butalbital 50 mg (FIORICET) per tablet Take 1 tablet by mouth every 6 hours as needed for Headache. azelastine (ASTELIN,ASTEPRO) 0.1% nasal spray Use 1-2 Sprays in each nostril twice daily. As directed fluticasone (FLONASE) 50 mcg/actuation nasal spray Use 2 sprays to each nostril one to two times daily fluticasone-salmeterol HFA (ADVAIR HFA) 230-21 mcg/actuation inhaler Inhale 2 Puffs as instructed twice daily. cetirizine (ZYRTEC) 10 mg tablet TAKE 1 TABLET BY MOUTH ONCE DAILY. diclofenac sodium (VOLTAREN) 1 % topical gel Apply 2 g to affected area four times daily. Ipratropium Nebo (ATROVENT) 0.03 % nasal spray Use 2 Sprays in the nose every 12 hours. As directed albuterol HFA (VENTOLIN HFA) 90 mcg/actuation inhaler Inhale 2 Puffs as instructed every 4 hours as needed for Wheezing/Shortness of Breath. triamcinolone acetonide (KENALOG) 0.1 % ointment Apply to affected areas twice a day as needed. Avoid use on the face. lidocaine (LIDODERM) 5 % Apply 1 Patch as directed every 12 hours as needed. Remove old patch prior to placing new patch. (Patient not taking: Reported on 12/01/2017 ) albuterol (PROVENTIL) 2.5 mg /3 mL (0.083 %) nebulizer solution Use 3 mL via nebulizer every 6 hours as needed for Wheezing/Shortness of Breath. 1 vial contains 3 ml. hydrocortisone 2.5 % ointment Apply 1 application to affected area twice daily as needed. Avoid use on the eyelids. ceramides 1,3,6-11 (CERAVE) Apply 2 to 3 times daily. Dispense: one large tub (not 1g) DX: L30.9 Eczema EPINEPHrine (EPIPEN) 0.3 mg/0.3 mL (1:1,000) auto-injector Inject 0.3 mL intramuscularly as needed (for allergic reaction.Seek emergent medical care immediately after use.Disp:one 2-packw/personal trainer). Back Brace misc Use as instructed TENS Units Layne Use as directed. Copper Gluconate 5 mg Tab Take by mouth. vitamin b complex Tab Take 1 tablet by mouth once daily. multivitamin tablet Take 1 tablet by mouth once daily. CALCIUM CARBONATE/VITAMIN D3 (CALCIUM + D ORAL) Take by mouth. No current facility-administered medications for this visit. Psychiatric Medication Issues: No change from previous appointment DIAGNOSIS: [place] I:?? 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 ADHD, Combined Type ? PTSD ? Fibromyalgia Chronic Pain ? AXIS II :?Deferred ? AXIS III :?See Epic medical notes ? AXIS IV:?Problems related to the social environment, Occupational problems, Economic problems and Other psychosocial and environmental problems ? AXIS V:?GAF: 50 ---50-41 Serious symptoms or any serious impairment in social, occupational or school functioning Treatment Modality/Interventions: Cognitive Behavioral Reassurance/Supportive Problem solving TREATMENT ASSESSMENT/PROGRESS: . Progressing satisfactorily. TREATMENT PLAN/GOALS: Continue in therapy focusing on self- care, stress management, affect management and self-esteem. Next appointment: as scheduled Omar Bravo PHD PROGRESS Observed: 05/12/2018 Status: COMPLETED Source: [place] 6:[address] [facility] REPOSITORY O ID: [id number] Author: Omar Bravo Service: (none) Author Type: Psychologist Type: Progress Notes Filed: 05/12/2018 6:55 PM Note Text: [facility] Progress Note Helena Potter 05/12/2018 [id number] Provider: Omar Bravo, PHD CPT Code: 59683 Psychotherapy 38-52 minutes Time: Approximately 50 minutes was spent in therapy. Parties Present: Patient Patient Presentation/Concerns: pt churning around some distress about son slowly getting to do better again... working w the school who are helpful ... he is doing better at home only so far pt tends to have to break thru fatigue and anxiety to get going in the day once there... she does quite a bit better.... likes to sleep in the day when son away at school Mental Status: Mood: variable Affect: mood-congruent Thoughts/Associations:goal directed Suicidal/Homicidal Ideation: None expressed or evidenced Other Observations: None Therapy Focus Self-care, Stress management, Mood/affect regulation, Parenting and Self-esteem MEDICATIONS: Per medical record: Current Outpatient Prescriptions: MUCINEX 600 mg 12 hr tablet TAKE 1-2 TABLETS BY MOUTH TWICE DAILY. NEEDED acetaminophen-codeine (TYLENOL-COD #3) 300-30 mg per tablet Take 1-2 tablets by mouth every 4 hours as needed for up to 30 days. Takes up to 5 pills max per day during a flare up acetaminophen-codeine (TYLENOL-COD #3) 300-30 mg per tablet Take 1-2 tablets by mouth every 4 hours as needed for up to 30 days. Takes up to 5 pills max per day during a flare up acetaminophen-codeine (TYLENOL-COD #3) 300-30 mg per tablet Take 1-2 tablets by mouth every 4 hours as needed for up to 30 days. Takes up to 5 pills max per day during a flare up montelukast (SINGULAIR) 10 mg tablet Take 1 tablet by mouth daily at bedtime. orphenadrine ER (NORFLEX) 100 mg tablet Take 1 tablet by mouth twice daily as needed. Cholecalciferol, Vitamin D3, 5,000 unit cap Take 1 capsule by mouth once daily. hydrOXYzine HCl (ATARAX) 25 mg tablet TAKE 1-4 TABLETS BY MOUTH EVERY 4 HOURS NEEDED FOR ITCHING/RASH (AND ALLERGIC RHINITIS). acetaminophen 325 mg-caffeine 40 mg-butalbital 50 mg (FIORICET) per tablet Take 1 tablet by mouth every 6 hours as needed for Headache. azelastine (ASTELIN,ASTEPRO) 0.1% nasal spray Use 1-2 Sprays in each nostril twice daily. As directed fluticasone (FLONASE) 50 mcg/actuation nasal spray Use 2 sprays to each nostril one to two times daily fluticasone-salmeterol HFA (ADVAIR HFA) 230-21 mcg/actuation inhaler Inhale 2 Puffs as instructed twice daily. cetirizine (ZYRTEC) 10 mg tablet TAKE 1 TABLET BY MOUTH ONCE DAILY. diclofenac sodium (VOLTAREN) 1 % topical gel Apply 2 g to affected area four times daily. Ipratropium Nebo (ATROVENT) 0.03 % nasal spray Use 2 Sprays in the nose every 12 hours. As directed albuterol HFA (VENTOLIN HFA) 90 mcg/actuation inhaler Inhale 2 Puffs as instructed every 4 hours as needed for Wheezing/Shortness of Breath. triamcinolone acetonide (KENALOG) 0.1 % ointment Apply to affected areas twice a day as needed. Avoid use on the face. lidocaine (LIDODERM) 5 % Apply 1 Patch as directed every 12 hours as needed. Remove old patch prior to placing new patch. (Patient not taking: Reported on 12/01/2017 ) albuterol (PROVENTIL) 2.5 mg /3 mL (0.083 %) nebulizer solution Use 3 mL via nebulizer every 6 hours as needed for Wheezing/Shortness of Breath. 1 vial contains 3 ml. hydrocortisone 2.5 % ointment Apply 1 application to affected area twice daily as needed. Avoid use on the eyelids. ceramides 1,3,6-11 (CERAVE) Apply 2 to 3 times daily. Dispense: one large tub (not 1g) DX: L30.9 Eczema EPINEPHrine (EPIPEN) 0.3 mg/0.3 mL (1:1,000) auto-injector Inject 0.3 mL intramuscularly as needed (for allergic reaction.Seek emergent medical care immediately after use.Disp:one 2-packw/personal trainer). Back Brace misc Use as instructed TENS Units Layne Use as directed. Copper Gluconate 5 mg Tab Take by mouth. vitamin b complex Tab Take 1 tablet by mouth once daily. multivitamin tablet Take 1 tablet by mouth once daily. CALCIUM CARBONATE/VITAMIN D3 (CALCIUM + D ORAL) Take by mouth. No current facility-administered medications for this visit. Psychiatric Medication Issues: see med record DIAGNOSIS: [place] I:?? 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 ADHD, Combined Type ? PTSD ? Fibromyalgia Chronic Pain ? AXIS II :?Deferred ? AXIS III :?See Epic medical notes ? AXIS IV:?Problems related to the social environment, Occupational problems, Economic problems and Other psychosocial and environmental problems ? AXIS V:?GAF: 50 ---50-41 Serious symptoms or any serious impairment in social, occupational or school functioning Treatment Modality/Interventions: Cognitive Behavioral Reassurance/Supportive Problem solving TREATMENT ASSESSMENT/PROGRESS: . Progressing satisfactorily. TREATMENT PLAN/GOALS: Continue in therapy focusing on self- care, stress management, affect management and anxiety management. Next appointment: as scheduled Omar Bravo PHD PROGRESS Observed: 04/28/2018 Status: COMPLETED Source: [place] 3:[address] [facility] REPOSITORY O ID: [id number] Author: Omar Bravo Service: (none) Author Type: Psychologist Type: Progress Notes Filed: 04/28/2018 3:59 PM Note Text: [facility] Progress Note Helena Potter 04/28/2018 [id number] Provider: Omar Bravo PHD CPT Code: 04048 Psychotherapy 38-52 minutes Time: Approximately 50 minutes was spent in therapy. Parties Present: Patient Patient Presentation/Concerns: breathing difficulties from allergies son's meds changed back to lower dose w lots of effort pt feeling 'down' from son's struggles at school and battling there along w allergies more severe discussed coping at length Mental Status: Mood: variable, dysphoric Affect: mood-congruent Thoughts/Associations:goal directed Suicidal/Homicidal Ideation: None expressed or evidenced Other Observations: None Therapy Focus Self-care, Stress management, Mood/affect regulation and Coping with chronic illness MEDICATIONS: Per medical record: Current Outpatient Prescriptions: acetaminophen-codeine (TYLENOL-COD #3) 300-30 mg per tablet Take 1-2 tablets by mouth every 4 hours as needed for up to 30 days. Takes up to 5 pills max per day during a flare up acetaminophen-codeine (TYLENOL-COD #3) 300-30 mg per tablet Take 1-2 tablets by mouth every 4 hours as needed for up to 30 days. Takes up to 5 pills max per day during a flare up [START ON 05/04/2018] acetaminophen-codeine (TYLENOL-COD #3) 300-30 mg per tablet Take 1-2 tablets by mouth every 4 hours as needed for up to 30 days. Takes up to 5 pills max per day during a flare up montelukast (SINGULAIR) 10 mg tablet Take 1 tablet by mouth daily at bedtime. orphenadrine ER (NORFLEX) 100 mg tablet Take 1 tablet by mouth twice daily as needed. Cholecalciferol, Vitamin D3, 5,000 unit cap Take 1 capsule by mouth once daily. hydrOXYzine HCl (ATARAX) 25 mg tablet TAKE 1-4 TABLETS BY MOUTH EVERY 4 HOURS NEEDED FOR ITCHING/RASH (AND ALLERGIC RHINITIS). acetaminophen 325 mg-caffeine 40 mg-butalbital 50 mg (FIORICET) per tablet Take 1 tablet by mouth every 6 hours as needed for Headache. azelastine (ASTELIN,ASTEPRO) 0.1% nasal spray Use 1-2 Sprays in each nostril twice daily. As directed fluticasone (FLONASE) 50 mcg/actuation nasal spray Use 2 sprays to each nostril one to two times daily fluticasone-salmeterol HFA (ADVAIR HFA) 230-21 mcg/actuation inhaler Inhale 2 Puffs as instructed twice daily. cetirizine (ZYRTEC) 10 mg tablet TAKE 1 TABLET BY MOUTH ONCE DAILY. diclofenac sodium (VOLTAREN) 1 % topical gel Apply 2 g to affected area four times daily. Ipratropium Nebo (ATROVENT) 0.03 % nasal spray Use 2 Sprays in the nose every 12 hours. As directed albuterol HFA (VENTOLIN HFA) 90 mcg/actuation inhaler Inhale 2 Puffs as instructed every 4 hours as needed for Wheezing/Shortness of Breath. guaiFENesin (MUCINEX) 600 mg 12 hr tablet Take 1-2 tablets by mouth twice daily. As needed triamcinolone acetonide (KENALOG) 0.1 % ointment Apply to affected areas twice a day as needed. Avoid use on the face. lidocaine (LIDODERM) 5 % Apply 1 Patch as directed every 12 hours as needed. Remove old patch prior to placing new patch. (Patient not taking: Reported on 12/01/2017 ) albuterol (PROVENTIL) 2.5 mg /3 mL (0.083 %) nebulizer solution Use 3 mL via nebulizer every 6 hours as needed for Wheezing/Shortness of Breath. 1 vial contains 3 ml. hydrocortisone 2.5 % ointment Apply 1 application to affected area twice daily as needed. Avoid use on the eyelids. ceramides 1,3,6-11 (CERAVE) Apply 2 to 3 times daily. Dispense: one large tub (not 1g) DX: L30.9 Eczema EPINEPHrine (EPIPEN) 0.3 mg/0.3 mL (1:1,000) auto-injector Inject 0.3 mL intramuscularly as needed (for allergic reaction.Seek emergent medical care immediately after use.Disp:one 2-packw/personal trainer). Back Brace misc Use as instructed TENS Units Layne Use as directed. Copper Gluconate 5 mg Tab Take by mouth. vitamin b complex Tab Take 1 tablet by mouth once daily. multivitamin tablet Take 1 tablet by mouth once daily. CALCIUM CARBONATE/VITAMIN D3 (CALCIUM + D ORAL) Take by mouth. No current facility-administered medications for this visit. Psychiatric Medication Issues: No change from previous appointment DIAGNOSIS: [place] I:?? 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 ADHD, Combined Type ? PTSD ? Fibromyalgia Chronic Pain ? AXIS II :?Deferred ? AXIS III :?See Epic medical notes ? AXIS IV:?Problems related to the social environment, Occupational problems, Economic problems and Other psychosocial and environmental problems ? AXIS V:?GAF: 50 ---50-41 Serious symptoms or any serious impairment in social, occupational or school functioning Treatment Modality/Interventions: Cognitive Behavioral Reassurance/Supportive Problem solving TREATMENT ASSESSMENT/PROGRESS: . Progressing satisfactorily. TREATMENT PLAN/GOALS: Continue in therapy focusing on self- care, stress management, affect management and anxiety management. Next appointment: as scheduled Omar Bravo PHD PROGRESS Observed: 04/21/2018 Status: COMPLETED Source: [place] 4:[address] [facility] REPOSITORY HNO ID: [id number] Author: Omar Bravo Service: (none) Author Type: Psychologist Type: Progress Notes Filed: 04/21/2018 4:18 PM Note Text: [facility] Progress Note Helena Potter 04/21/2018 [id number] Provider: Omar Bravo PHD CPT Code: 54765 Psychotherapy 38-52 minutes Time: Approximately 50 minutes was spent in therapy. Parties Present: Patient Patient Presentation/Concerns: son: acting out both home and school... aggressive and fatigued... has upped his med and also in school now several weeks...... pt feeling anxious trying to get everyone on the same page... she knows a little ritalin would likely help but doesnt do so discussed how her anomia gets in the way more when anxious Mental Status: Mood: variable, anxious Affect: mood-congruent Thoughts/Associations:goal directed Suicidal/Homicidal Ideation: None expressed or evidenced Other Observations: None Therapy Focus Self-care, Stress management, Mood/affect regulation, Parenting and Self-esteem MEDICATIONS: Per medical record: Current Outpatient Prescriptions: acetaminophen-codeine (TYLENOL-COD #3) 300-30 mg per tablet Take 1-2 tablets by mouth every 4 hours as needed for up to 30 days. Takes up to 5 pills max per day during a flare up acetaminophen-codeine (TYLENOL-COD #3) 300-30 mg per tablet Take 1-2 tablets by mouth every 4 hours as needed for up to 30 days. Takes up to 5 pills max per day during a flare up [START ON 05/04/2018] acetaminophen-codeine (TYLENOL-COD #3) 300-30 mg per tablet Take 1-2 tablets by mouth every 4 hours as needed for up to 30 days. Takes up to 5 pills max per day during a flare up montelukast (SINGULAIR) 10 mg tablet Take 1 tablet by mouth daily at bedtime. orphenadrine ER (NORFLEX) 100 mg tablet Take 1 tablet by mouth twice daily as needed. Cholecalciferol, Vitamin D3, 5,000 unit cap Take 1 capsule by mouth once daily. hydrOXYzine HCl (ATARAX) 25 mg tablet TAKE 1-4 TABLETS BY MOUTH EVERY 4 HOURS NEEDED FOR ITCHING/RASH (AND ALLERGIC RHINITIS). acetaminophen 325 mg-caffeine 40 mg-butalbital 50 mg (FIORICET) per tablet Take 1 tablet by mouth every 6 hours as needed for Headache. azelastine (ASTELIN,ASTEPRO) 0.1% nasal spray Use 1-2 Sprays in each nostril twice daily. As directed fluticasone (FLONASE) 50 mcg/actuation nasal spray Use 2 sprays to each nostril one to two times daily fluticasone-salmeterol HFA (ADVAIR HFA) 230-21 mcg/actuation inhaler Inhale 2 Puffs as instructed twice daily. cetirizine (ZYRTEC) 10 mg tablet TAKE 1 TABLET BY MOUTH ONCE DAILY. diclofenac sodium (VOLTAREN) 1 % topical gel Apply 2 g to affected area four times daily. Ipratropium Nebo (ATROVENT) 0.03 % nasal spray Use 2 Sprays in the nose every 12 hours. As directed albuterol HFA (VENTOLIN HFA) 90 mcg/actuation inhaler Inhale 2 Puffs as instructed every 4 hours as needed for Wheezing/Shortness of Breath. guaiFENesin (MUCINEX) 600 mg 12 hr tablet Take 1-2 tablets by mouth twice daily. As needed triamcinolone acetonide (KENALOG) 0.1 % ointment Apply to affected areas twice a day as needed. Avoid use on the face. lidocaine (LIDODERM) 5 % Apply 1 Patch as directed every 12 hours as needed. Remove old patch prior to placing new patch. (Patient not taking: Reported on 12/01/2017 ) albuterol (PROVENTIL) 2.5 mg /3 mL (0.083 %) nebulizer solution Use 3 mL via nebulizer every 6 hours as needed for Wheezing/Shortness of Breath. 1 vial contains 3 ml. hydrocortisone 2.5 % ointment Apply 1 application to affected area twice daily as needed. Avoid use on the eyelids. ceramides 1,3,6-11 (CERAVE) Apply 2 to 3 times daily. Dispense: one large tub (not 1g) DX: L30.9 Eczema EPINEPHrine (EPIPEN) 0.3 mg/0.3 mL (1:1,000) auto-injector Inject 0.3 mL intramuscularly as needed (for allergic reaction.Seek emergent medical care immediately after use.Disp:one 2-packw/personal trainer). Back Brace misc Use as instructed TENS Units Layne Use as directed. Copper Gluconate 5 mg Tab Take by mouth. vitamin b complex Tab Take 1 tablet by mouth once daily. multivitamin tablet Take 1 tablet by mouth once daily. CALCIUM CARBONATE/VITAMIN D3 (CALCIUM + D ORAL) Take by mouth. No current facility-administered medications for this visit. Psychiatric Medication Issues: No change from previous appointment DIAGNOSIS: [place] I:?? 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 ADHD, Combined Type ? PTSD ? Fibromyalgia Chronic Pain ? AXIS II :?Deferred ? AXIS III :?See Epic medical notes ? AXIS IV:?Problems related to the social environment, Occupational problems, Economic problems and Other psychosocial and environmental problems ? AXIS V:?GAF: 50 ---50-41 Serious symptoms or any serious impairment in social, occupational or school functioning Treatment Modality/Interventions: Cognitive Behavioral Reassurance/Supportive Problem solving Communication skills training TREATMENT ASSESSMENT/PROGRESS: . Progressing satisfactorily. TREATMENT PLAN/GOALS: Continue in therapy focusing on self-care, assertiveness skills and stress management. Next appointment: as scheduled Omar Bravo, PHD PROGRESS Observed: 03/24/2018 Status: COMPLETED Source: [place] 3:[address] [facility] [place] REPOSITORY O ID: [id number] Author: Omar Bravo Service: (none) Author Type: Psychologist Type: Progress Notes Filed: 03/24/2018 3:58 PM Note Text: [facility] Progress Note Helena Potter 03/24/2018 [id number] Provider: Omar Bravo, PHD CPT Code: 27970 Psychotherapy 38-52 minutes Time: Approximately 50 minutes was spent in therapy. Parties Present: Patient Patient Presentation/Concerns: Pt in a little more pain than usual from working on her special project [employer] she does every year It went better than expected had a tiff w her daughter but that has been resolved explored anxiety at length about having to be a witness in court about observing a parent mistreat a child Mental Status: Mood: variable Affect: mood-congruent Thoughts/Associations:goal directed Suicidal/Homicidal Ideation: None expressed or evidenced Other Observations: None Therapy Focus Self-care, Stress management and Mood/affect regulation MEDICATIONS: Per medical record: Current Outpatient Prescriptions: acetaminophen-codeine (TYLENOL-COD #3) 300-30 mg per tablet Take 1-2 tablets by mouth every 4 hours as needed for up to 30 days. Takes up to 5 pills max per day during a flare up [START ON 04/04/2018] acetaminophen-codeine (TYLENOL-COD #3) 300-30 mg per tablet Take 1-2 tablets by mouth every 4 hours as needed for up to 30 days. Takes up to 5 pills max per day during a flare up [START ON 05/04/2018] acetaminophen-codeine (TYLENOL-COD #3) 300-30 mg per tablet Take 1-2 tablets by mouth every 4 hours as needed for up to 30 days. Takes up to 5 pills max per day during a flare up montelukast (SINGULAIR) 10 mg tablet Take 1 tablet by mouth daily at bedtime. orphenadrine ER (NORFLEX) 100 mg tablet Take 1 tablet by mouth twice daily as needed. Cholecalciferol, Vitamin D3, 5,000 unit cap Take 1 capsule by mouth once daily. hydrOXYzine HCl (ATARAX) 25 mg tablet TAKE 1-4 TABLETS BY MOUTH EVERY 4 HOURS NEEDED FOR ITCHING/RASH (AND ALLERGIC RHINITIS). acetaminophen 325 mg-caffeine 40 mg-butalbital 50 mg (FIORICET) per tablet Take 1 tablet by mouth every 6 hours as needed for Headache. azelastine (ASTELIN,ASTEPRO) 0.1% nasal spray Use 1-2 Sprays in each nostril twice daily. As directed fluticasone (FLONASE) 50 mcg/actuation nasal spray Use 2 sprays to each nostril one to two times daily fluticasone-salmeterol HFA (ADVAIR HFA) 230-21 mcg/actuation inhaler Inhale 2 Puffs as instructed twice daily. cetirizine (ZYRTEC) 10 mg tablet TAKE 1 TABLET BY MOUTH ONCE DAILY. diclofenac sodium (VOLTAREN) 1 % topical gel Apply 2 g to affected area four times daily. Ipratropium Nebo (ATROVENT) 0.03 % nasal spray Use 2 Sprays in the nose every 12 hours. As directed albuterol HFA (VENTOLIN HFA) 90 mcg/actuation inhaler Inhale 2 Puffs as instructed every 4 hours as needed for Wheezing/Shortness of Breath. guaiFENesin (MUCINEX) 600 mg 12 hr tablet Take 1-2 tablets by mouth twice daily. As needed triamcinolone acetonide (KENALOG) 0.1 % ointment Apply to affected areas twice a day as needed. Avoid use on the face. lidocaine (LIDODERM) 5 % Apply 1 Patch as directed every 12 hours as needed. Remove old patch prior to placing new patch. (Patient not taking: Reported on 12/01/2017 ) albuterol (PROVENTIL) 2.5 mg /3 mL (0.083 %) nebulizer solution Use 3 mL via nebulizer every 6 hours as needed for Wheezing/Shortness of Breath. 1 vial contains 3 ml. hydrocortisone 2.5 % ointment Apply 1 application to affected area twice daily as needed. Avoid use on the eyelids. ceramides 1,3,6-11 (CERAVE) Apply 2 to 3 times daily. Dispense: one large tub (not 1g) DX: L30.9 Eczema EPINEPHrine (EPIPEN) 0.3 mg/0.3 mL (1:1,000) auto-injector Inject 0.3 mL intramuscularly as needed (for allergic reaction.Seek emergent medical care immediately after use.Disp:one 2-packw/personal trainer). Back Brace misc Use as instructed TENS Units Layne Use as directed. Copper Gluconate 5 mg Tab Take by mouth. vitamin b complex Tab Take 1 tablet by mouth once daily. multivitamin tablet Take 1 tablet by mouth once daily. CALCIUM CARBONATE/VITAMIN D3 (CALCIUM + D ORAL) Take by mouth. No current facility-administered medications for this visit. Psychiatric Medication Issues: No change from previous appointment DIAGNOSIS: [place] I:?? 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 ADHD, Combined Type ? PTSD ? Fibromyalgia Chronic Pain ? AXIS II :?Deferred ? AXIS III :?See Epic medical notes ? AXIS IV:?Problems related to the social environment, Occupational problems, Economic problems and Other psychosocial and environmental problems ? AXIS V:?GAF: 50 ---50-41 Serious symptoms or any serious impairment in social, occupational or school functioning Treatment Modality/Interventions: Cognitive Behavioral Reassurance/Supportive Problem solving TREATMENT ASSESSMENT/PROGRESS: . Progressing satisfactorily. TREATMENT PLAN/GOALS: Continue in therapy focusing on self- care, stress management and affect management. Next appointment: as scheduled Omar Bravo PHD PROGRESS Observed: 02/17/2018 Status: COMPLETED Source: [place] 4:[address] [facility] [place] REPOSITORY HNO ID: [id number] Author: Omar Bravo Service: (none) Author Type: Psychologist Type: Progress Notes Filed: 02/17/2018 4:04 PM Note Text: [facility] Progress Note Helena Potter 02/17/2018 [id number] Provider: Omar Bravo, PHD CPT Code: 24866 Psychotherapy 38-52 minutes Time: Approximately 50 minutes was spent in therapy. Parties Present: Patient Patient Presentation/Concerns: MEDS: pt reports that Adderall has helped feel more like herself and brain and speech coordinate better She has been letting son know she is intentionally engaging/bonding w him daily and he has done well having the label AVIVA is going well... pt delighted worked on coping PLAN: do [employer] nxt visit Mental Status: Mood: variable Affect: mood-congruent Thoughts/Associations:goal directed Suicidal/Homicidal Ideation: None expressed or evidenced Other Observations: None Therapy Focus Self-care, Stress management, Mood/affect regulation, Parenting and Self-esteem MEDICATIONS: Per medical record: Current Outpatient Prescriptions: [START ON 03/05/2018] acetaminophen-codeine (TYLENOL-COD #3) 300-30 mg per tablet Take 1-2 tablets by mouth every 4 hours as needed for up to 30 days. Takes up to 5 pills max per day during a flare up [START ON 04/04/2018] acetaminophen-codeine (TYLENOL-COD #3) 300-30 mg per tablet Take 1-2 tablets by mouth every 4 hours as needed for up to 30 days. Takes up to 5 pills max per day during a flare up [START ON 05/04/2018] acetaminophen-codeine (TYLENOL-COD #3) 300-30 mg per tablet Take 1-2 tablets by mouth every 4 hours as needed for up to 30 days. Takes up to 5 pills max per day during a flare up montelukast (SINGULAIR) 10 mg tablet Take 1 tablet by mouth daily at bedtime. orphenadrine ER (NORFLEX) 100 mg tablet Take 1 tablet by mouth twice daily as needed. Cholecalciferol, Vitamin D3, 5,000 unit cap Take 1 capsule by mouth once daily. hydrOXYzine HCl (ATARAX) 25 mg tablet TAKE 1-4 TABLETS BY MOUTH EVERY 4 HOURS NEEDED FOR ITCHING/RASH (AND ALLERGIC RHINITIS). acetaminophen 325 mg-caffeine 40 mg-butalbital 50 mg (FIORICET) per tablet Take 1 tablet by mouth every 6 hours as needed for Headache. azelastine (ASTELIN,ASTEPRO) 0.1% nasal spray Use 1-2 Sprays in each nostril twice daily. As directed fluticasone (FLONASE) 50 mcg/actuation nasal spray Use 2 sprays to each nostril one to two times daily fluticasone-salmeterol HFA (ADVAIR HFA) 230-21 mcg/actuation inhaler Inhale 2 Puffs as instructed twice daily. cetirizine (ZYRTEC) 10 mg tablet TAKE 1 TABLET BY MOUTH ONCE DAILY. diclofenac sodium (VOLTAREN) 1 % topical gel Apply 2 g to affected area four times daily. Ipratropium Nebo (ATROVENT) 0.03 % nasal spray Use 2 Sprays in the nose every 12 hours. As directed albuterol HFA (VENTOLIN HFA) 90 mcg/actuation inhaler Inhale 2 Puffs as instructed every 4 hours as needed for Wheezing/Shortness of Breath. guaiFENesin (MUCINEX) 600 mg 12 hr tablet Take 1-2 tablets by mouth twice daily. As needed triamcinolone acetonide (KENALOG) 0.1 % ointment Apply to affected areas twice a day as needed. Avoid use on the face. lidocaine (LIDODERM) 5 % Apply 1 Patch as directed every 12 hours as needed. Remove old patch prior to placing new patch. (Patient not taking: Reported on 12/01/2017 ) albuterol (PROVENTIL) 2.5 mg /3 mL (0.083 %) nebulizer solution Use 3 mL via nebulizer every 6 hours as needed for Wheezing/Shortness of Breath. 1 vial contains 3 ml. hydrocortisone 2.5 % ointment Apply 1 application to affected area twice daily as needed. Avoid use on the eyelids. ceramides 1,3,6-11 (CERAVE) Apply 2 to 3 times daily. Dispense: one large tub (not 1g) DX: L30.9 Eczema EPINEPHrine (EPIPEN) 0.3 mg/0.3 mL (1:1,000) auto-injector Inject 0.3 mL intramuscularly as needed (for allergic reaction.Seek emergent medical care immediately after use.Disp:one 2-packw/personal trainer). Back Brace misc Use as instructed TENS Units Layne Use as directed. Copper Gluconate 5 mg Tab Take by mouth. vitamin b complex Tab Take 1 tablet by mouth once daily. multivitamin tablet Take 1 tablet by mouth once daily. CALCIUM CARBONATE/VITAMIN D3 (CALCIUM + D ORAL) Take by mouth. No current facility-administered medications for this visit. Psychiatric Medication Issues: No change from previous appointment DIAGNOSIS: [place] I:?? 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 ADHD, Combined Type ? PTSD ? Fibromyalgia Chronic Pain ? AXIS II :?Deferred ? AXIS III :?See [facility] medical notes ? AXIS IV:?Problems related to the social environment, Occupational problems, Economic problems and Other psychosocial and environmental problems ? AXIS V:?GAF: 50 ---50-41 Serious symptoms or any serious impairment in social, occupational or school functioning Treatment Modality/Interventions: Cognitive Behavioral Reassurance/Supportive Insight oriented Problem solving TREATMENT ASSESSMENT/PROGRESS: . Progressing satisfactorily. TREATMENT PLAN/GOALS: Continue in therapy focusing on self-care, improving communication, assertiveness skills, stress management, affect management and anxiety management. Next appointment: as scheduled Oamr Bravo, PHD PROGRESS Observed: 02/10/2018 Status: COMPLETED Source: [place] 5:[address] [facility] REPOSITORY O ID: [id number] Author: Lisa Carmona Service: (none) Author Type: Physician Type: Progress Notes Filed: 02/21/2018 7:33 PM Note Text: Patient presents with: Recheck: Follow up SUBJECTIVE: Helenayolanda Potter is a 47 year old year old lady here today for 3 month follow up appointment for review of medical conditions. Periods irregular. Lower back pain ongoing--voltaren gel helps a little but still hurts. Keeps waking her up at night. Dream sleep a lot. Restless when sleeping. Allergies acting up--taking antihistamines. Considering seeing product test specialist (?surgeon versus pain management). Pain can be debilitating. Interferes with ability to exercise and lose weight. Prefers to stay in [place]. Does have anxiety about seeing new providers because of anxiety and trust issues, but pain at this time pain bad enough willing to see a new provider to help get pain better controlled. PAST MEDICAL HISTORY Diagnosis Date - Abnormal glandular Papanicolaou smear of cervix Abn. Pap smear (cervix) - ADHD (attention deficit hyperactivity disorder) 07/29/2013 - Atherosclerosis of abdominal aorta ([facility]) 02/19/2012 <70% stenosisof celiac and superior mesenteric arteries; <60% stenosis of bilateral renal arteries - COPD (chronic obstructive pulmonary disease) ([facility]) - Degenerative disc disease lumbar - Dysthymic disorder Depression (non-psychotic). Patient contests this, Full Psychiatric evaluation found no evidence of this, 03/24/2014, TO - Eczema - Fibromyalgia - Hypercholesterolemia with LDL greater than 190 mg/dL Genetic with multiple family members; declines treatment and rechecking labs - IBS (irritable bowel syndrome) - Migraine, unspecified, with intractable migraine, so stated, without mention of status migrainosus Migraine - Shingles - Smoker - Steroid long-term use 3 months, 1979, prescribed by Demographic Analyst. TO 03/24/14 Current Outpatient Prescriptions: hydrOXYzine HCl (ATARAX) 25 mg tablet TAKE 1-4 TABLETS BY MOUTH EVERY 4 HOURS NEEDED FOR ITCHING/RASH (AND ALLERGIC RHINITIS). methylPREDNISolone (MEDROL DOSE-PACK) 4 mg Dose-Pack As Instructed per package acetaminophen 325 mg-caffeine 40 mg-butalbital 50 mg (FIORICET) per tablet Take 1 tablet by mouth every 6 hours as needed for Headache. azelastine (ASTELIN,ASTEPRO) 0.1% nasal spray Use 1-2 Sprays in each nostril twice daily. As directed fluticasone (FLONASE) 50 mcg/actuation nasal spray Use 2 sprays to each nostril one to two times daily fluticasone-salmeterol HFA (ADVAIR HFA) 230-21 mcg/actuation inhaler Inhale 2 Puffs as instructed twice daily. orphenadrine ER (NORFLEX) 100 mg tablet Take 1 tablet by mouth twice daily as needed. acetaminophen-codeine (TYLENOL-COD #3) 300-30 mg per tablet Take 1-2 tablets by mouth every 4 hours as needed for up to 90 days. cetirizine (ZYRTEC) 10 mg tablet TAKE 1 TABLET BY MOUTH ONCE DAILY. diclofenac sodium (VOLTAREN) 1 % topical gel Apply 2 g to affected area four times daily. Ipratropium Nebo (ATROVENT) 0.03 % nasal spray Use 2 Sprays in the nose every 12 hours. As directed albuterol HFA (VENTOLIN HFA) 90 mcg/actuation inhaler Inhale 2 Puffs as instructed every 4 hours as needed for Wheezing/Shortness of Breath. clotrimazole (LOTRIMIN, CLOTRIM) 1 % cream Apply 1 application to affected area twice daily. And continue for a week after rash resolves then as needed guaiFENesin (MUCINEX) 600 mg 12 hr tablet Take 1-2 tablets by mouth twice daily. As needed triamcinolone acetonide (KENALOG) 0.1 % ointment Apply to affected areas twice a day as needed. Avoid use on the face. montelukast (SINGULAIR) 10 mg tablet TAKE 1 TABLET BY MOUTH DAILY AT BEDTIME. lidocaine (LIDODERM) 5 % Apply 1 Patch as directed every 12 hours as needed. Remove old patch prior to placing new patch. (Patient not taking: Reported on 12/01/2017 ) albuterol (PROVENTIL) 2.5 mg /3 mL (0.083 %) nebulizer solution Use 3 mL via nebulizer every 6 hours as needed for Wheezing/Shortness of Breath. 1 vial contains 3 ml. hydrocortisone 2.5 % ointment Apply 1 application to affected area twice daily as needed. Avoid use on the eyelids. ceramides 1,3,6-11 (CERAVE) Apply 2 to 3 times daily. Dispense: one large tub (not 1g) DX: L30.9 Eczema Cholecalciferol, Vitamin D3, 2,000 unit cap Take 1 tablet by mouth once daily. (Taking OTC dose) EPINEPHrine (EPIPEN) 0.3 mg/0.3 mL (1:1,000) auto-injector Inject 0.3 mL intramuscularly as needed (for allergic reaction.Seek emergent medical care immediately after use.Disp:one 2-packw/personal trainer). Back Brace misc Use as instructed TENS Units Layne Use as directed. Copper Gluconate 5 mg Tab Take by mouth. vitamin b complex Tab Take 1 tablet by mouth once daily. multivitamin tablet Take 1 tablet by mouth once daily. CALCIUM CARBONATE/VITAMIN D3 (CALCIUM + D ORAL) Take by mouth. No current facility-administered medications for this visit. OBJECTIVE: BP 100/70 Pulse 76 Resp 12 Wt 89.4 kg (197 lb) BMI 34.90 kg/m? Last 5 Encounter BP Readings: Date: BP: 02/10/2018 100/70 12/01/2017 110/66 11/04/2017 132/78 10/27/2017 124/86 05/05/2017 120/82 Last 5 Encounter Wt Readings: Date: Wt: 02/10/2018 89.4 kg (197 lb) 12/01/2017 88.9 kg (196 lb) 11/04/2017 88.5 kg (195 lb) 10/27/2017 88.9 kg (196 lb) 05/05/2017 86.6 kg (191 lb) PHYSICAL EXAM: General Appearance: Well appearing, alert, in no acute distress, well-hydrated, well nourished. and Obese. Heart: RRR without murmur, gallop, or rubs. No ectopy. Abdomen: Normal abdominal exam, Abdomen soft, non-tender. Bowel sounds normal. No masses, organomegaly. Extremities: No deformities, edema, skin discoloration, clubbing or cyanosis. Good capillary refill. . Component Latest Ref Rng AND Units 11/16/2015 03/15/2016 09/17/2016 11/04/2017 WBC 3.70 - 11.00 k/uL 9.74 RBC 3.90 - 5.20 m/uL 4.82 Hemoglobin 11.5 - 15.5 g/dL 15.0 Hematocrit 36.0 - 46.0 % 44.8 MCV 80.0 - 100.0 fL 92.9 MCH 26.0 - 34.0 pG 31.1 MCHC 30.5 - 36.0 g/dL 33.5 RDW-CV 11.5 - 15.0 % 13.4 Platelet Count 150 - 400 k/uL 361 MPV 9.0 - 12.7 fL 9.5 Neut% % 64.0 Abs Neut (ANC) 1.45 - 7.50 k/uL 6.23 Lymph% % 28.9 Abs Lymph 1.00 - 4.00 k/uL 2.81 Whiteside% % 4.8 Abs [place]iteside <0.87 k/uL 0.47 Eosin% % 1.8 Abs Eosin <0.46 k/uL 0.18 Baso% % 0.5 Abs Baso <0.11 k/uL 0.05 Nucleated Reds 0 /100 WBC 0.0 Absolute nRBC <0.01 k/uL <0.01 Diff Type Auto Diff WBC, [place] 3.70 - 11.00 k/uL 6.57 RBC, [place] 3.90 - 5.20 m/uL 3.99 Hemoglobin, [place] 11.5 - 15.5 g/dL 12.8 Hematocrit, [place] 36.0 - 46.0 % 37.0 MCV, [place] 80.0 - 100.0 fL 92.7 MCH, [place] 26.0 - 34.0 pg 32.1 MCHC, [place] 30.5 - 36.0 g/dL 34.6 RDW, [place] 11.5 - 15.0 % 13.5 Platelet Cnt, [place] 150 - 400 k/uL 296 MPV, [place] 9.0 - 12.7 fL 8.7 (L) Neut%, [place] % 58.5 Lymp%, [place] % 31.1 Whiteside%, [place] % 7.2 Eos%, [place] % 2.9 Baso%, [place] % 0.3 Abs Neut, [place] 1.45 - 7.50 k/uL 3.85 Abs Lymp, [place] 1.00 - 4.00 k/uL 2.04 Abs Whiteside, [place] 0.00 - 0.86 k/uL 0.47 Abs Eos, [place] 0.00 - 0.45 k/uL 0.19 Abs Baso, [place] 0.00 - 0.10 k/uL 0.02 Protein, Total 6.3 - 8.0 g/dL 6.8 Albumin 3.9 - 4.9 g/dL 4.3 Calcium 8.5 - 10.2 mg/dL 9.4 8.4 (L) Bilirubin, Total 0.2 - 1.3 mg/dL 0.2 Alkaline Phosphatase 32 - 117 U/L 56 AST 13 - 35 U/L 14 Glucose 74 - 99 mg/dL 78 95 BUN 7 - 21 mg/dL 12 7 Creatinine 0.58 - 0.96 mg/dL 0.82 0.76 Sodium 136 - 144 mmol/L 134 134 (L) Potassium 3.7 - 5.1 mmol/L 4.5 4.1 Chloride 97 - 105 mmol/L 97 (L) 96 (L) CO2 22 - 30 mmol/L 22 (L) 20 (L) Anion Gap 9 - 18 mmol/L 15 18 ALT 7 - 38 U/L 11 eGFR- >60 >60 eGFR-All Other Races . >60 >60 Hemoglobin A1C 4.3 - 5.6 % 5.9 (H) Estimated Average Glucose mg/dL 123 TSH 0.400 - 5.500 uU/mL 1.530 1.800 1.890 Vitamin D 25 Hydroxy 31.0 - 80.0 ng/mL 11.8 (L) 5.9 (L) 5.1 (L) Magnesium 1.7 - 2.6 mg/dL 2.3 Copper 85 - 155 ug/dL 78 (L) 83 (L) Free T3 2.3 - 4.1 pg/mL 2.7 3.8 Free T4 0.9 - 1.7 ng/dL 1.0 1.2 WSR 0 - 20 mm/hr 2 CRP <0.9 mg/dL <0.1 Component Copper Latest Ref Rng AND Units 85 - 155 ug/dL 09/16/2012 76 (L) 10/28/2014 77 (L) 03/15/2016 78 (L) 11/04/2017 83 (L) ASSESSMENT AND PLAN: Encounter Diagnosis ICD-10-CM 1. Fibromyalgia M79.7 acetaminophen-codeine (TYLENOL-COD #3) 300-30 mg per tablet acetaminophen-codeine (TYLENOL-COD #3) 300-30 mg per tablet acetaminophen-codeine (TYLENOL-COD #3) 300-30 mg per tablet 2. TMJ (dislocation of temporomandibular joint), subsequent encounter S03.00XD acetaminophen-codeine (TYLENOL-COD #3) 300-30 mg per tablet acetaminophen-codeine (TYLENOL-COD #3) 300-30 mg per tablet acetaminophen-codeine (TYLENOL-COD #3) 300-30 mg per tablet sounds like also had sialoadenitis in the right side Staying as active as able. Referral placed for pain management. See how takes [facility]. Continue present management for now with prn Tylenol #3 and Norflex. Noted TMJ issues. Norflex for this and see if Tylenol #3 for above pain helps for this when takes it for chronic pain issues. Further evaluation and treatment as indicated. Above issues addressed with patient. Patient involved in shared decision making for management of her medical issues. History and medications reviewed. Epic updated as needed Refills taken care of and meds adjusted as indicated after reviewed history, exam and labs. Health Maintenance reviewed. Updated record and/or ordered tests as recorded. Encouraged on efforts at healthy diet and regular exercise and adequate sleep. The majority of the visit was spent counseling and/or coordinating care for the patient. [id number]-[id number] time was at least 25 minutes. Lisa Carmona MD CNOV Observed: 02/10/2018 Status: COMPLETED Source: [place] 5:40 PM [facility] REPOSITORY Office Visit (INTMWS) HELENA POTTER ([id number]) 1970 F Date Time Provider Department 02/10/18 5:40 PM LISA CARMONA INTMWS During your visit today, we recorded the following information about you: Pulse Respiration Blood pressure Weight 76/minute 12/minute 100/70 89.4 kg Lisa Carmona MD 02/21/2018 7:33 PM Signed Patient presents with: Recheck: Follow up SUBJECTIVE: Helena Potter is a 47 year old year old lady here today for 3 month follow up appointment for review of medical conditions. Periods irregular. Lower back pain ongoing--voltaren gel helps a little but still hurts. Keeps waking her up at night. Dream sleep a lot. Restless when sleeping. Allergies acting up--taking antihistamines. Considering seeing product test specialist (?surgeon versus pain management). Pain can be debilitating. Interferes with ability to exercise and lose weight. Prefers to stay in [place]. Does have anxiety about seeing new providers because of anxiety and trust issues, but pain at this time pain bad enough willing to see a new provider to help get pain better controlled. PAST MEDICAL HISTORY Diagnosis Date - Abnormal glandular Papanicolaou smear of cervix Abn. Pap smear (cervix) - ADHD (attention deficit hyperactivity disorder) 07/29/2013 - Atherosclerosis of abdominal aorta ([facility]) 02/19/2012 <70% stenosisof celiac and superior mesenteric arteries; <60% stenosis of bilateral renal arteries - COPD (chronic obstructive pulmonary disease) ([facility]) - Degenerative disc disease lumbar - Dysthymic disorder Depression (non-psychotic). Patient contests this, Full Psychiatric evaluation found no evidence of this, 03/24/2014, TO - Eczema - Fibromyalgia - Hypercholesterolemia with LDL greater than 190 mg/dL Genetic with multiple family members; declines treatment and rechecking labs - IBS (irritable bowel syndrome) - Migraine, unspecified, with intractable migraine, so stated, without mention of status migrainosus Migraine - Shingles - Smoker - Steroid long-term use 3 months, 1979, prescribed by Demographic Analyst. TO 03/24/14 Current Outpatient Prescriptions: hydrOXYzine HCl (ATARAX) 25 mg tablet TAKE 1-4 TABLETS BY MOUTH EVERY 4 HOURS NEEDED FOR ITCHING/RASH (AND ALLERGIC RHINITIS). methylPREDNISolone (MEDROL DOSE-PACK) 4 mg Dose-Pack As Instructed per package acetaminophen 325 mg-caffeine 40 mg-butalbital 50 mg (FIORICET) per tablet Take 1 tablet by mouth every 6 hours as needed for Headache. azelastine (ASTELIN,ASTEPRO) 0.1% nasal spray Use 1-2 Sprays in each nostril twice daily. As directed fluticasone (FLONASE) 50 mcg/actuation nasal spray Use 2 sprays to each nostril one to two times daily fluticasone-salmeterol HFA (ADVAIR HFA) 230-21 mcg/actuation inhaler Inhale 2 Puffs as instructed twice daily. orphenadrine ER (NORFLEX) 100 mg tablet Take 1 tablet by mouth twice daily as needed. acetaminophen-codeine (TYLENOL-COD #3) 300-30 mg per tablet Take 1-2 tablets by mouth every 4 hours as needed for up to 90 days. cetirizine (ZYRTEC) 10 mg tablet TAKE 1 TABLET BY MOUTH ONCE DAILY. diclofenac sodium (VOLTAREN) 1 % topical gel Apply 2 g to affected area four times daily. Ipratropium Nebo (ATROVENT) 0.03 % nasal spray Use 2 Sprays in the nose every 12 hours. As directed albuterol HFA (VENTOLIN HFA) 90 mcg/actuation inhaler Inhale 2 Puffs as instructed every 4 hours as needed for Wheezing/Shortness of Breath. clotrimazole (LOTRIMIN, CLOTRIM) 1 % cream Apply 1 application to affected area twice daily. And continue for a week after rash resolves then as needed guaiFENesin (MUCINEX) 600 mg 12 hr tablet Take 1-2 tablets by mouth twice daily. As needed triamcinolone acetonide (KENALOG) 0.1 % ointment Apply to affected areas twice a day as needed. Avoid use on the face. montelukast (SINGULAIR) 10 mg tablet TAKE 1 TABLET BY MOUTH DAILY AT BEDTIME. lidocaine (LIDODERM) 5 % Apply 1 Patch as directed every 12 hours as needed. Remove old patch prior to placing new patch. (Patient not taking: Reported on 12/01/2017 ) albuterol (PROVENTIL) 2.5 mg /3 mL (0.083 %) nebulizer solution Use 3 mL via nebulizer every 6 hours as needed for Wheezing/Shortness of Breath. 1 vial contains 3 ml. hydrocortisone 2.5 % ointment Apply 1 application to affected area twice daily as needed. Avoid use on the eyelids. ceramides 1,3,6-11 (CERAVE) Apply 2 to 3 times daily. Dispense: one large tub (not 1g) DX: L30.9 Eczema Cholecalciferol, Vitamin D3, 2,000 unit cap Take 1 tablet by mouth once daily. (Taking OTC dose) EPINEPHrine (EPIPEN) 0.3 mg/0.3 mL (1:1,000) auto-injector Inject 0.3 mL intramuscularly as needed (for allergic reaction.Seek emergent medical care immediately after use.Disp:one 2-packw/personal trainer). Back Brace misc Use as instructed TENS Units [place] Use as directed. Copper Gluconate 5 mg Tab Take by mouth. vitamin b complex Tab Take 1 tablet by mouth once daily. multivitamin tablet Take 1 tablet by mouth once daily. CALCIUM CARBONATE/VITAMIN D3 (CALCIUM + D ORAL) Take by mouth. No current facility-administered medications for this visit. OBJECTIVE: BP 100/70 Pulse 76 Resp 12 Wt 89.4 kg (197 lb) BMI 34.90 kg/m? Last 5 Encounter BP Readings: Date: BP: 02/10/2018 100/70 12/01/2017 110/66 11/04/2017 132/78 10/27/2017 124/86 05/05/2017 120/82 Last 5 Encounter Wt Readings: Date: Wt: 02/10/2018 89.4 kg (197 lb) 12/01/2017 88.9 kg (196 lb) 11/04/2017 88.5 kg (195 lb) 10/27/2017 88.9 kg (196 lb) 05/05/2017 86.6 kg (191 lb) PHYSICAL EXAM: General Appearance: Well appearing, alert, in no acute distress, well-hydrated, well nourished. and Obese. Heart: RRR without murmur, gallop, or rubs. No ectopy. Abdomen: Normal abdominal exam, Abdomen soft, non-tender. Bowel sounds normal. No masses, organomegaly. Extremities: No deformities, edema, skin discoloration, clubbing or cyanosis. Good capillary refill. . Component Latest Ref Rng AND Units 11/16/2015 03/15/2016 09/17/2016 11/04/2017 WBC 3.70 - 11.00 k/uL 9.74 RBC 3.90 - 5.20 m/uL 4.82 Hemoglobin 11.5 - 15.5 g/dL 15.0 Hematocrit 36.0 - 46.0 % 44.8 MCV 80.0 - 100.0 fL 92.9 MCH 26.0 - 34.0 pG 31.1 MCHC 30.5 - 36.0 g/dL 33.5 RDW-CV 11.5 - 15.0 % 13.4 Platelet Count 150 - 400 k/uL 361 MPV 9.0 - 12.7 fL 9.5 Neut% % 64.0 Abs Neut (ANC) 1.45 - 7.50 k/uL 6.23 Lymph% % 28.9 Abs Lymph 1.00 - 4.00 k/uL 2.81 Whiteside% % 4.8 Abs [place] <0.87 k/uL 0.47 Eosin% % 1.8 Abs Eosin <0.46 k/uL 0.18 Baso% % 0.5 Abs Baso <0.11 k/uL 0.05 Nucleated Reds 0 /100 WBC 0.0 Absolute nRBC <0.01 k/uL <0.01 Diff Type Auto Diff WBC, [place] 3.70 - 11.00 k/uL 6.57 RBC, [place] 3.90 - 5.20 m/uL 3.99 Hemoglobin, [place] 11.5 - 15.5 g/dL 12.8 Hematocrit, [place] 36.0 - 46.0 % 37.0 MCV, [place] 80.0 - 100.0 fL 92.7 MCH, [place] 26.0 - 34.0 pg 32.1 MCHC, [place] 30.5 - 36.0 g/dL 34.6 RDW, [place] 11.5 - 15.0 % 13.5 Platelet Cnt, [place] 150 - 400 k/uL 296 MPV, [place] 9.0 - 12.7 fL 8.7 (L) Neut%, [place] % 58.5 Lymp%, [place] % 31.1 Whiteside%, [place] % 7.2 Eos%, [place] % 2.9 Baso%, [place] % 0.3 Abs Neut, [place] 1.45 - 7.50 k/uL 3.85 Abs Lymp, [place] 1.00 - 4.00 k/uL 2.04 Abs Whiteside, [place] 0.00 - 0.86 k/uL 0.47 Abs Eos, [place] 0.00 - 0.45 k/uL 0.19 Abs Baso, [place] 0.00 - 0.10 k/uL 0.02 Protein, Total 6.3 - 8.0 g/dL 6.8 Albumin 3.9 - 4.9 g/dL 4.3 Calcium 8.5 - 10.2 mg/dL 9.4 8.4 (L) Bilirubin, Total 0.2 - 1.3 mg/dL 0.2 Alkaline Phosphatase 32 - 117 U/L 56 AST 13 - 35 U/L 14 Glucose 74 - 99 mg/dL 78 95 BUN 7 - 21 mg/dL 12 7 Creatinine 0.58 - 0.96 mg/dL 0.82 0.76 Sodium 136 - 144 mmol/L 134 134 (L) Potassium 3.7 - 5.1 mmol/L 4.5 4.1 Chloride 97 - 105 mmol/L 97 (L) 96 (L) CO2 22 - 30 mmol/L 22 (L) 20 (L) Anion Gap 9 - 18 mmol/L 15 18 ALT 7 - 38 U/L 11 eGFR- >60 >60 eGFR-All Other Races . >60 >60 Hemoglobin A1C 4.3 - 5.6 % 5.9 (H) Estimated Average Glucose mg/dL 123 TSH 0.400 - 5.500 uU/mL 1.530 1.800 1.890 Vitamin D 25 Hydroxy 31.0 - 80.0 ng/mL 11.8 (L) 5.9 (L) 5.1 (L) Magnesium 1.7 - 2.6 mg/dL 2.3 Copper 85 - 155 ug/dL 78 (L) 83 (L) Free T3 2.3 - 4.1 pg/mL 2.7 3.8 Free T4 0.9 - 1.7 ng/dL 1.0 1.2 WSR 0 - 20 mm/hr 2 CRP <0.9 mg/dL <0.1 Component Copper Latest Ref Rng AND Units 85 - 155 ug/dL 09/16/2012 76 (L) 10/28/2014 77 (L) 03/15/2016 78 (L) 11/04/2017 83 (L) ASSESSMENT AND PLAN: Encounter Diagnosis ICD-10-CM 1. Fibromyalgia M79.7 acetaminophen-codeine (TYLENOL-COD #3) 300-30 mg per tablet acetaminophen-codeine (TYLENOL-COD #3) 300-30 mg per tablet acetaminophen-codeine (TYLENOL-COD #3) 300-30 mg per tablet 2. TMJ (dislocation of temporomandibular joint), subsequent encounter S03.00XD acetaminophen-codeine (TYLENOL-COD #3) 300-30 mg per tablet acetaminophen-codeine (TYLENOL-COD #3) 300-30 mg per tablet acetaminophen-codeine (TYLENOL-COD #3) 300-30 mg per tablet sounds like also had sialoadenitis in the right side Staying as active as able. Referral placed for pain management. See how takes [facility]. Continue present management for now with prn Tylenol #3 and Norflex. Noted TMJ issues. Norflex for this and see if Tylenol #3 for above pain helps for this when takes it for chronic pain issues. Further evaluation and treatment as indicated. Above issues addressed with patient. Patient involved in shared decision making for management of her medical issues. History and medications reviewed. Epic updated as needed Refills taken care of and meds adjusted as indicated after reviewed history, exam and labs. Health Maintenance reviewed. Updated record and/or ordered tests as recorded. Encouraged on efforts at healthy diet and regular exercise and adequate sleep. The majority of the visit was spent counseling and/or coordinating care for the patient. [id number]-rg-xwwy time was at least 25 minutes. MD Sirena Alberts LPN 02/11/2018 8:26 AM Signed Printed rx for acetaminophen with codeine all faxed to the pharmacy. Referring Provider: LISA CARMONA [[id number]] Allergies As of Date: 02/10/2018 Noted Allergy Reaction DOXYCYCLINE 07/13/2013 2 - Rash Comments: 07/13/13 LATEX 03/05/2010 2 - Rash Comments: Positive Latex Skin Test 11/29/13 ALEVE (NAPROXEN SODIUM) 03/05/2010 11 - Vomiting Comments: DIZZINESS AMITRIPTYLINE 03/05/2010 Comments: SLEEPWALKING CAMEL HAIR 08/21/2012 2 - Rash CELEBREX (CELECOXIB) 03/05/2010 1 - Mental Status Change Comments: RAGE CYMBALTA (DULOXETINE) 03/29/2010 1 - Mental Status Change Comments: Made her angry, in a rage DARVOCET A500 (PROPOXYPHENE N-REBECCA*03/05/2010 1 - Mental Status Change Comments: HALLUCINATIONS DULERA (MOMETASONE-FORMOTEROL) 03/21/2015 12 - Shortness of Breath FEATHERS 08/21/2012 2 - Rash FRAGRANCES 03/05/2010 2 - Rash INSECTICIDES 08/21/2012 2 - Rash LYRICA (PREGABALIN) 07/30/2011 5 - Intolerance Comments: Did not tolerate even lowest dose; did not help much; made her loopy and happy NAPROXEN 03/05/2010 11 - Vomiting Comments: DIZZINESS PENICILLINS 03/05/2010 2 - Rash POLLEN 03/05/2010 2 - Rash PSEUDOEPHEDRINE 03/05/2010 5 - Intolerance Comments: SPASMS of blood vesselsIN FEET RELAFEN (NABUMETONE) 03/05/2010 5 - Intolerance Comments: SPASMS of blood vessels IN FEET SAGEBRUSH 08/14/2012 2 - Rash 9 - Itching SEASONAL ALLERGIES 11/29/2013 14 - Other: See Comments Comments: Cats Horses Cockroach Dust mites trees (September, October and November) grasses (November and December) weeds (February, March and April) ragweed (February, March and April) SULFA (SULFONAMIDE ANTIBIOTICS) 03/05/2010 2 - Rash SYMBICORT (BUDESONIDE-FORMOTEROL) 03/13/2015 14 - Other: See Comments Comments: Stinging/burning mouth, itchy roof of throat/palette TRAMADOL HCL 03/29/2010 5 - Intolerance Comments: States it made her dizzy and nauseated Date Reviewed: 02/10/2018 Reviewed by: Bridget Raines LPN - Fully Assessed Reason for Visit: Recheck [92] Cmt: Follow up Primary Visit Diagnosis:Fibromyalgia [M79.7] Other Visit Diagnoses: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 Takes up to 5 pills max per day during a flare upDisp: 30 tabletRfl: 0 [START ON 04/04/2018] acetaminophen-codeine (TYLENOL- COD #3) 300-30 mg per tabletTake 1-2 tablets by mouth every 4 hours as needed for up to 30 days. Takes up to 5 pills max per day during a flare upDisp: 30 tabletRfl: 0 [START ON 05/04/2018] acetaminophen-codeine (TYLENOL- COD #3) 300-30 mg per tabletTake 1-2 tablets by mouth every 4 hours as needed for up to 30 days. Takes up to 5 pills max per day during a flare upDisp: 30 tabletRfl: 0 montelukast (SINGULAIR) 10 mg tabletTake 1 tablet by mouth daily at bedtime.Disp: 90 tabletRfl: 3 orphenadrine ER (NORFLEX) 100 mg tabletTake 1 tablet by mouth twice daily as needed.Disp: 30 tabletRfl: 2 Cholecalciferol, Vitamin D3, 5,000 unit capTake 1 capsule by mouth once daily.Disp: 30 capsuleRfl: 11 CONSULT TO PAIN MGT ANESTHESIA [[id number]] Order #: [id number]: 1 Prescriptions as of 02/10/2018 Sig: MONTELUKAST 10 MG TABLET Take 1 tablet by mouth daily * ORPHENADRINE CITRATE ER 100 M* Take 1 tablet by mouth twice * HYDROXYZINE HCL 25 MG TABLET TAKE 1-4 TABLETS BY MOUTH HIEN* [id number]* Take 1 tablet by mouth every * AZELASTINE 137 MCG (0.1 %) NA* Use 1-2 Sprays in each nostri* FLUTICASONE 50 MCG/ACTUATION * Use 2 sprays to each nostril * FLUTICASONE-SALMETEROL 230 MC* Inhale 2 Puffs as instructed * CETIRIZINE 10 MG TABLET TAKE 1 TABLET BY MOUTH ONCE D* DICLOFENAC 1 % TOPICAL GEL Apply 2 g to affected area fo* IPRATROPIUM BROMIDE 0.03 % NA* Use 2 Sprays in the nose ever* ALBUTEROL SULFATE HFA 90 MCG/* Inhale 2 Puffs as instructed * GUAIFENESIN ER 600 MG TABLET,* Take 1-2 tablets by mouth twi* TRIAMCINOLONE ACETONIDE 0.1 %* Apply to affected areas twice* ALBUTEROL SULFATE 2.5 MG/3 ML* Use 3 mL via nebulizer every * HYDROCORTISONE 2.5 % TOPICAL * Apply 1 application to affect* CERAMIDES 1,3,6-11 TOPICAL CR* Apply 2 to 3 times daily. D* EPINEPHRINE 0.3 MG/0.3 ML INJ* Inject 0.3 mL intramuscularly* BACK BRACE Use as instructed TRANSCUTANEOUS ELECTRICAL NER* Use as directed. COPPER 5 MG TABLET Take by mouth. VITAMIN B COMPLEX TABLET Take 1 tablet by mouth once d* * MULTIVITAMIN TABLET Take 1 tablet by mouth once d* * CALCIUM + D ORAL Take by mouth. ACETAMINOPHEN 300 MG-CODEINE * Take 1-2 tablets by mouth hien* ACETAMINOPHEN 300 MG-CODEINE * Take 1-2 tablets by mouth hien* ACETAMINOPHEN 300 MG-CODEINE * Take 1-2 tablets by mouth hien* CHOLECALCIFEROL (VITAMIN D3) * Take 1 capsule by mouth once * LIDOCAINE 5 % TOPICAL PATCH Apply 1 Patch as directed hien* Patient not taking: Reported on 12/01/2017 Problem List As Of Date 02/10/2018 Noted Resolved Fibromyalgia [M79.7] Dysthymic Disorder [F34.1] More... Eczema [L30.9] More... Shingles [B02.9] Migraine NOS/Intractable [G43.919] More... IBS (Irritable Bowel Syndrome) [K58.9] Degenerative Disc Disease [[id number]] Dyspareunia [LOS1598] INVALID FOR* Lumbago [M54.5] INVALID FOR* Lumbar disc displacement without myelopathy [M5*INVALID FOR* Lumbar radiculopathy [M54.16] INVALID FOR* Family history of abdominal aortic aneurysm [Z8*INVALID FOR* Atherosclerosis of abdominal aorta [I70.0] INVALID FOR* More... 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 Prescriptions ordered this encounter Disp Refills Start End ACETAMINOPHEN 300 MG-CODEINE 30 MG T* 30 t* 0 03/05/2018 04/04/2018 Class: Print RX Cmt: Will be getting prior authorization for oil heaterman pain medication Route: ORAL Sig: Take 1-2 tablets by mouth every 4 hours as needed for up to 30 days. Takes up to 5 pills max per day during a flare up ACETAMINOPHEN 300 MG-CODEINE 30 MG T* 30 t* 0 04/04/2018 05/04/2018 Class: Print RX Cmt: Will be getting prior authorization for care home pain medication Route: ORAL Sig: Take 1-2 tablets by mouth every 4 hours as needed for up to 30 days. Takes up to 5 pills max per day during a flare up ACETAMINOPHEN 300 MG-CODEINE 30 MG T* 30 t* 0 05/04/2018 06/03/2018 Class: Print RX Cmt: Will be getting prior authorization for care home pain medication Route: ORAL Sig: Take 1-2 tablets by mouth every 4 hours as needed for up to 30 days. Takes up to 5 pills max per day during a flare up MONTELUKAST 10 MG TABLET 90 t* 3 02/10/2018 Route: ORAL Sig: Take 1 tablet by mouth daily at bedtime. ORPHENADRINE CITRATE ER 100 MG TABLE* 30 t* 2 02/10/2018 Route: ORAL Sig: Take 1 tablet by mouth twice daily as needed. CHOLECALCIFEROL (VITAMIN D3) 5,000 U* 30 c* 11 02/10/2018 Route: ORAL Sig: Take 1 capsule by mouth once daily. Medications Discontinued During This Encounter acetaminophen-codeine (TYLENOL-COD #* 30 t* 2 11/04/2017 02/10/2018 Class: Print RX Cmt: Each prescription lasts at least 30 days Route: ORAL Sig: Take 1-2 tablets by mouth every 4 hours as needed for up to 90 days. Disc: Reason for discontinue is not on file. clotrimazole (LOTRIMIN, CLOTRIM) 1 %* 60 g 1 05/05/2017 02/10/2018 Route: TOPICAL Sig: Apply 1 application to affected area twice daily. And continue for a week after rash resolves then as needed Patient not taking: Reported on 02/10/2018 Disc: Course of therapy completed methylPREDNISolone (MEDROL DOSE-PACK* 1 Pa* 0 12/01/2017 02/10/2018 Sig: As Instructed per package Patient not taking: Reported on 02/10/2018 Disc: Course of therapy completed montelukast (SINGULAIR) 10 mg tablet 90 t* 3 02/12/2017 02/10/2018 Sig: TAKE 1 TABLET BY MOUTH DAILY AT BEDTIME. Disc: Reason for discontinue is not on file. orphenadrine ER (NORFLEX) 100 mg tab* 30 t* 2 11/04/2017 02/10/2018 Class: Print RX Route: ORAL Sig: Take 1 tablet by mouth twice daily as needed. Disc: Reason for discontinue is not on file. Cholecalciferol, Vitamin D3, 2,000 u* 12/08/2015 02/10/2018 Class: OTC Route: ORAL Sig: Take 1 tablet by mouth once daily. (Taking OTC dose) Disc: Reason for discontinue is not on file.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 daily. multivitamin tablet Take 1 tablet by mouth once daily. CALCIUM CARBONATE/VITAMIN D3 (CALCIUM + D ORAL) Take by mouth. No current facility-administered medications for this visit. Psychiatric Medication Issues: No change from previous appointment DIAGNOSIS: [place] I:?? 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 ADHD, Combined Type ? PTSD ? Fibromyalgia Chronic Pain ? AXIS II :?Deferred ? AXIS III :?See [facility] medical notes ? AXIS IV:?Problems related to the social environment, Occupational problems, Economic problems and Other psychosocial and environmental problems ? AXIS V:?GAF: 50 ---50-41 Serious symptoms or any serious impairment in social, occupational or school functioning Treatment Modality/Interventions: Cognitive Behavioral Reassurance/Supportive Insight oriented Problem solving TREATMENT ASSESSMENT/PROGRESS: . Progressing satisfactorily. TREATMENT PLAN/GOALS: Continue in therapy focusing on self- care, affect management and self-esteem. Next appointment: as scheduled Omar Bravo PHD PROGRESS Observed: 01/01/2018 Status: COMPLETED Source: [place] 8:[address] [facility] REPOSITORY O ID: [id number] Author: Omar Bravo Service: (none) Author Type: Psychologist Type: Progress Notes Filed: 01/01/2018 8:33 PM Note Text: [facility] Progress Note Helena Potter 01/01/2018 [id number] Provider: Omar Bravo PHD CPT Code: 38466 Psychotherapy 38-52 minutes Time: Approximately 50 minutes was spent in therapy. Parties Present: Patient Patient Presentation/Concerns: Pt physical symptoms seem to be acting up likely because of weather changes discussed family relations and coping strategies at length Mental Status: Mood: variable Affect: mood-congruent Thoughts/Associations:goal directed Suicidal/Homicidal Ideation: None expressed or evidenced Other Observations: None Therapy Focus Self-care, Stress management and Mood/affect regulation MEDICATIONS: Per medical record: Current Outpatient Prescriptions: methylPREDNISolone (MEDROL DOSE-PACK) 4 mg Dose-Pack As Instructed per package acetaminophen 325 mg-caffeine 40 mg-butalbital 50 mg (FIORICET) per tablet Take 1 tablet by mouth every 6 hours as needed for Headache. azelastine (ASTELIN,ASTEPRO) 0.1% nasal spray Use 1-2 Sprays in each nostril twice daily. As directed fluticasone (FLONASE) 50 mcg/actuation nasal spray Use 2 sprays to each nostril one to two times daily fluticasone-salmeterol HFA (ADVAIR HFA) 230-21 mcg/actuation inhaler Inhale 2 Puffs as instructed twice daily. orphenadrine ER (NORFLEX) 100 mg tablet Take 1 tablet by mouth twice daily as needed. acetaminophen-codeine (TYLENOL-COD #3) 300-30 mg per tablet Take 1-2 tablets by mouth every 4 hours as needed for up to 90 days. cetirizine (ZYRTEC) 10 mg tablet TAKE 1 TABLET BY MOUTH ONCE DAILY. diclofenac sodium (VOLTAREN) 1 % topical gel Apply 2 g to affected area four times daily. Ipratropium Nebo (ATROVENT) 0.03 % nasal spray Use 2 Sprays in the nose every 12 hours. As directed albuterol HFA (VENTOLIN HFA) 90 mcg/actuation inhaler Inhale 2 Puffs as instructed every 4 hours as needed for Wheezing/Shortness of Breath. hydrOXYzine HCl (ATARAX) 25 mg tablet Take 1-4 tablets by mouth every 4 hours as needed for Itching/Rash (and allergic rhinitis). clotrimazole (LOTRIMIN, CLOTRIM) 1 % cream Apply 1 application to affected area twice daily. And continue for a week after rash resolves then as needed guaiFENesin (MUCINEX) 600 mg 12 hr tablet Take 1-2 tablets by mouth twice daily. As needed triamcinolone acetonide (KENALOG) 0.1 % ointment Apply to affected areas twice a day as needed. Avoid use on the face. montelukast (SINGULAIR) 10 mg tablet TAKE 1 TABLET BY MOUTH DAILY AT BEDTIME. lidocaine (LIDODERM) 5 % Apply 1 Patch as directed every 12 hours as needed. Remove old patch prior to placing new patch. (Patient not taking: Reported on 12/01/2017 ) albuterol (PROVENTIL) 2.5 mg /3 mL (0.083 %) nebulizer solution Use 3 mL via nebulizer every 6 hours as needed for Wheezing/Shortness of Breath. 1 vial contains 3 ml. hydrocortisone 2.5 % ointment Apply 1 application to affected area twice daily as needed. Avoid use on the eyelids. ceramides 1,3,6-11 (CERAVE) Apply 2 to 3 times daily. Dispense: one large tub (not 1g) DX: L30.9 Eczema Cholecalciferol, Vitamin D3, 2,000 unit cap Take 1 tablet by mouth once daily. (Taking OTC dose) EPINEPHrine (EPIPEN) 0.3 mg/0.3 mL (1:1,000) auto-injector Inject 0.3 mL intramuscularly as needed (for allergic reaction.Seek emergent medical care immediately after use.Disp:one 2-packw/personal trainer). Back Brace misc Use as instructed TENS Units Layne Use as directed. Copper Gluconate 5 mg Tab Take by mouth. vitamin b complex Tab Take 1 tablet by mouth once daily. multivitamin tablet Take 1 tablet by mouth once daily. CALCIUM CARBONATE/VITAMIN D3 (CALCIUM + D ORAL) Take by mouth. No current facility-administered medications for this visit. Psychiatric Medication Issues: No change from previous appointment DIAGNOSIS: [place] I:?? 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 ADHD, Combined Type ? PTSD ? Fibromyalgia Chronic Pain ? AXIS II :?Deferred ? AXIS III :?See [facility] medical notes ? AXIS IV:?Problems related to the social environment, Occupational problems, Economic problems and Other psychosocial and environmental problems ? AXIS V:?GAF: 50 ---50-41 Serious symptoms or any serious impairment in social, occupational or school functioning Treatment Modality/Interventions: Cognitive Behavioral Reassurance/Supportive Problem solving TREATMENT ASSESSMENT/PROGRESS: . Progressing satisfactorily. TREATMENT PLAN/GOALS: Continue in therapy focusing on self- care, stress management, affect management and anxiety management. Next appointment: as scheduled Omar Bravo, PHD PROGRESS Observed: 12/25/2017 Status: COMPLETED Source: [place] 2:[address] [facility] [place] REPOSITORY [facility] ID: [id number] Author: Omar Bravo Service: (none) Author Type: Psychologist Type: Progress Notes Filed: 12/25/2017 2:52 PM Note Text: [facility] Progress Note Helena Rae Tariq 12/25/2017 [id number] Provider: Omar Bravo, PHD CPT Code: 42618 Psychotherapy 38-52 minutes Time: Approximately 50 minutes was spent in therapy. Parties Present: Patient Patient Presentation/Concerns: anxiety Pt reports that central to her currently is that she has many thoughts and tangents of these thoughts that interrupt focus PLAN: she has a 3 min rule she can sometimes use .. so we explored how time or task might help with focus daughter missed $ deadlines a yr ago and is currently living w her father and undecided about school or not coping strategies were our central focus of discussion today also.... we talked about how difficult it is to read the nature of a question from the questioners point of view Mental Status: Mood: variable Affect: mood-congruent Thoughts/Associations:goal directed Suicidal/Homicidal Ideation: None expressed or evidenced Other Observations: None Therapy Focus Self-care, Stress management, Mood/affect regulation, Interpersonal and Self-esteem MEDICATIONS: Per medical record: Current Outpatient Prescriptions: methylPREDNISolone (MEDROL DOSE-PACK) 4 mg Dose-Pack As Instructed per package acetaminophen 325 mg-caffeine 40 mg-butalbital 50 mg (FIORICET) per tablet Take 1 tablet by mouth every 6 hours as needed for Headache. azelastine (ASTELIN,ASTEPRO) 0.1% nasal spray Use 1-2 Sprays in each nostril twice daily. As directed fluticasone (FLONASE) 50 mcg/actuation nasal spray Use 2 sprays to each nostril one to two times daily fluticasone-salmeterol HFA (ADVAIR HFA) 230-21 mcg/actuation inhaler Inhale 2 Puffs as instructed twice daily. orphenadrine ER (NORFLEX) 100 mg tablet Take 1 tablet by mouth twice daily as needed. acetaminophen-codeine (TYLENOL-COD #3) 300-30 mg per tablet Take 1-2 tablets by mouth every 4 hours as needed for up to 90 days. cetirizine (ZYRTEC) 10 mg tablet TAKE 1 TABLET BY MOUTH ONCE DAILY. diclofenac sodium (VOLTAREN) 1 % topical gel Apply 2 g to affected area four times daily. Ipratropium Nebo (ATROVENT) 0.03 % nasal spray Use 2 Sprays in the nose every 12 hours. As directed albuterol HFA (VENTOLIN HFA) 90 mcg/actuation inhaler Inhale 2 Puffs as instructed every 4 hours as needed for Wheezing/Shortness of Breath. hydrOXYzine HCl (ATARAX) 25 mg tablet Take 1-4 tablets by mouth every 4 hours as needed for Itching/Rash (and allergic rhinitis). clotrimazole (LOTRIMIN, CLOTRIM) 1 % cream Apply 1 application to affected area twice daily. And continue for a week after rash resolves then as needed guaiFENesin (MUCINEX) 600 mg 12 hr tablet Take 1-2 tablets by mouth twice daily. As needed triamcinolone acetonide (KENALOG) 0.1 % ointment Apply to affected areas twice a day as needed. Avoid use on the face. montelukast (SINGULAIR) 10 mg tablet TAKE 1 TABLET BY MOUTH DAILY AT BEDTIME. lidocaine (LIDODERM) 5 % Apply 1 Patch as directed every 12 hours as needed. Remove old patch prior to placing new patch. (Patient not taking: Reported on 12/01/2017 ) albuterol (PROVENTIL) 2.5 mg /3 mL (0.083 %) nebulizer solution Use 3 mL via nebulizer every 6 hours as needed for Wheezing/Shortness of Breath. 1 vial contains 3 ml. hydrocortisone 2.5 % ointment Apply 1 application to affected area twice daily as needed. Avoid use on the eyelids. ceramides 1,3,6-11 (CERAVE) Apply 2 to 3 times daily. Dispense: one large tub (not 1g) DX: L30.9 Eczema Cholecalciferol, Vitamin D3, 2,000 unit cap Take 1 tablet by mouth once daily. (Taking OTC dose) EPINEPHrine (EPIPEN) 0.3 mg/0.3 mL (1:1,000) auto-injector Inject 0.3 mL intramuscularly as needed (for allergic reaction.Seek emergent medical care immediately after use.Disp:one 2-packw/personal trainer). Back Brace misc Use as instructed TENS Units Layne Use as directed. Copper Gluconate 5 mg Tab Take by mouth. vitamin b complex Tab Take 1 tablet by mouth once daily. multivitamin tablet Take 1 tablet by mouth once daily. CALCIUM CARBONATE/VITAMIN D3 (CALCIUM + D ORAL) Take by mouth. No current facility-administered medications for this visit. Psychiatric Medication Issues: No change from previous appointment DIAGNOSIS: [place] I:?? 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 ADHD, Combined Type ? PTSD ? Fibromyalgia Chronic Pain ? AXIS II :?Deferred ? AXIS III :?See [facility] medical notes ? AXIS IV:?Problems related to the social environment, Occupational problems, Economic problems and Other psychosocial and environmental problems ? AXIS V:?GAF: 50 ---50-41 Serious symptoms or any serious impairment in social, occupational or school functioning Treatment Modality/Interventions: Cognitive Behavioral Reassurance/Supportive Problem solving TREATMENT ASSESSMENT/PROGRESS: . Progressing satisfactorily. TREATMENT PLAN/GOALS: Continue in therapy focusing on self-care, improving communication, stress management, affect management and anxiety management. Next appointment: as scheduled Omar Bravo, PHD PROGRESS Observed: 12/01/2017 Status: COMPLETED Source: [place] 2:[address] [facility] REPOSITORY O ID: [id number] Author: Sisi Maloney (El) Service: (none) Author Type: Nurse Practitioner Type: Progress Notes Filed: 12/01/2017 3:00 PM Note Text: Subjective HPI HPI Helena Potter is a 47 year old female who presents today for CC of bilateral jaw pain. This started 3 days ago. Has tried ibuprofen with mild relief, also tried heat/ice. Symptoms are worsened by opening mouth wide. Risk factors hx of chronic TMJ. Patient concerned bc jaw got stuck open on Friday. Has seen pcp and dentist for this. .Patient presents with: Pain: right side pain x friday, jaw stuck in place while eating PAST MEDICAL HISTORY Diagnosis Date - Abnormal glandular Papanicolaou smear of cervix Abn. Pap smear (cervix) - ADHD (attention deficit hyperactivity disorder) 07/29/2013 - Atherosclerosis of abdominal aorta (HCC) 02/19/2012 <70% stenosisof celiac and superior mesenteric arteries; <60% stenosis of bilateral renal arteries - COPD (chronic obstructive pulmonary disease) (HCC) - Degenerative disc disease lumbar - Dysthymic disorder Depression (non-psychotic). Patient contests this, Full Psychiatric evaluation found no evidence of this, 03/24/2014, TO - Eczema - Fibromyalgia - Hypercholesterolemia with LDL greater than 190 mg/dL Genetic with multiple family members; declines treatment and rechecking labs - IBS (irritable bowel syndrome) - Migraine, unspecified, with intractable migraine, so stated, without mention of status migrainosus Migraine - Shingles - Smoker - Steroid long-term use 3 months1979, prescribed by Demographic Analyst. TO 03/24/14 PAST SURGICAL HISTORY Procedure Laterality Date - APPENDECTOMY - DELIVERY ONLY 08/2010 , low transverse - PAST SURGICAL HISTORY OF RIGHT FOOT ALLERGIES Doxycycline; Latex; Aleve [Naproxen Sodium]; Amitriptyline; Camel Hair; Celebrex [Celecoxib]; Cymbalta [Duloxetine]; Darvocet A500 [Propoxyphene N-Acetaminophen]; Dulera [Mometasone-Formoterol]; Feathers; Fragrances; Insecticides; Lyrica [Pregabalin]; Naproxen; Penicillins; Pollen; Pseudoephedrine; Relafen [Nabumetone]; Sagebrush; Seasonal Allergies; Sulfa (Sulfonamide Antibiotics); Symbicort [Budesonide-Formoterol]; Tramadol Hcl MEDICATIONS acetaminophen 325 mg-caffeine 40 mg-butalbital 50 mg (FIORICET) per tablet Take 1 tablet by mouth every 6 hours as needed for Headache. azelastine (ASTELIN,ASTEPRO) 0.1% nasal spray Use 1-2 Sprays in each nostril twice daily. As directed fluticasone (FLONASE) 50 mcg/actuation nasal spray Use 2 sprays to each nostril one to two times daily fluticasone-salmeterol HFA (ADVAIR HFA) 230-21 mcg/actuation inhaler Inhale 2 Puffs as instructed twice daily. orphenadrine ER (NORFLEX) 100 mg tablet Take 1 tablet by mouth twice daily as needed. acetaminophen-codeine (TYLENOL-COD #3) 300-30 mg per tablet Take 1-2 tablets by mouth every 4 hours as needed for up to 90 days. cetirizine (ZYRTEC) 10 mg tablet TAKE 1 TABLET BY MOUTH ONCE DAILY. diclofenac sodium (VOLTAREN) 1 % topical gel Apply 2 g to affected area four times daily. Ipratropium Nebo (ATROVENT) 0.03 % nasal spray Use 2 Sprays in the nose every 12 hours. As directed albuterol HFA (VENTOLIN HFA) 90 mcg/actuation inhaler Inhale 2 Puffs as instructed every 4 hours as needed for Wheezing/Shortness of Breath. hydrOXYzine HCl (ATARAX) 25 mg tablet Take 1-4 tablets by mouth every 4 hours as needed for Itching/Rash (and allergic rhinitis). clotrimazole (LOTRIMIN, CLOTRIM) 1 % cream Apply 1 application to affected area twice daily. And continue for a week after rash resolves then as needed guaiFENesin (MUCINEX) 600 mg 12 hr tablet Take 1-2 tablets by mouth twice daily. As needed triamcinolone acetonide (KENALOG) 0.1 % ointment Apply to affected areas twice a day as needed. Avoid use on the face. montelukast (SINGULAIR) 10 mg tablet TAKE 1 TABLET BY MOUTH DAILY AT BEDTIME. albuterol (PROVENTIL) 2.5 mg /3 mL (0.083 %) nebulizer solution Use 3 mL via nebulizer every 6 hours as needed for Wheezing/Shortness of Breath. 1 vial contains 3 ml. hydrocortisone 2.5 % ointment Apply 1 application to affected area twice daily as needed. Avoid use on the eyelids. ceramides 1,3,6-11 (CERAVE) Apply 2 to 3 times daily. Dispense: one large tub (not 1g) DX: L30.9 Eczema Cholecalciferol, Vitamin D3, 2,000 unit cap Take 1 tablet by mouth once daily. (Taking OTC dose) EPINEPHrine (EPIPEN) 0.3 mg/0.3 mL (1:1,000) auto-injector Inject 0.3 mL intramuscularly as needed (for allergic reaction.Seek emergent medical care immediately after use.Disp:one 2-packw/personal trainer). Back Brace misc Use as instructed TENS Units Layne Use as directed. Copper Gluconate 5 mg Tab Take by mouth. vitamin b complex Tab Take 1 tablet by mouth once daily. multivitamin tablet Take 1 tablet by mouth once daily. CALCIUM CARBONATE/VITAMIN D3 (CALCIUM + D ORAL) Take by mouth. lidocaine (LIDODERM) 5 % Apply 1 Patch as directed every 12 hours as needed. Remove old patch prior to placing new patch. FAMILY HISTORY Problem Relation Age of Onset - Alcohol/Drug Paternal Grandfather - Arthritis Maternal Grandmother - Arthritis Mother - Cancer Paternal Grandfather - Cancer Father prostate and bladder - Diabetes Father - Diabetes Maternal Grandfather - Emphysema Maternal Grandfather - Emphysema Paternal Uncle - Heart Father - Hypertension Father - Hypertension Paternal Uncle - Lipids Father - Lipids Paternal Grandmother - Lipids Paternal Uncle - Lipids Brother - Lipids Paternal Uncle - Thyroid Paternal Grandmother - Emphysema Maternal Grandmother Social History Substance Use Topics - Smoking status: Current Every Day Smoker Packs/day: 1.30 Years: 25.00 Types: Cigarettes Start date: 03/24/1989 - Smokeless tobacco: Never Used Comment: Parents smoked in childhood home. Ex-spouse was smoker. - Alcohol use Yes Comment: Occasionally, but not when . Review of Systems Constitutional: Negative for chills and fever. Respiratory: Negative for cough and wheezing. Cardiovascular: Negative for chest pain. Skin: Negative for itching and rash. Objective Blood pressure 110/66, pulse 82, temperature 36.7 ?C (98 ?F), temperature source Tympanic, resp. rate 18, weight 88.9 kg (196 lb). Physical Exam Constitutional: She is oriented to person, place, and time and well-developed, well-nourished, and in no distress. Non-toxic appearance. She does not have a sickly appearance. No distress. HENT: Head: Normocephalic and atraumatic. Cardiovascular: Normal rate, regular rhythm and normal heart sounds. Pulmonary/Chest: Effort normal and breath sounds normal. No accessory muscle usage. No respiratory distress. Lymphadenopathy: She has no cervical adenopathy. Right cervical: No superficial cervical adenopathy present. Left cervical: No superficial cervical adenopathy present. Neurological: She is alert and oriented to person, place, and time. Skin: She is not diaphoretic. ASSESSMENT/PLAN: 1. Bilateral temporomandibular joint pain - ICD9: 524.62, ICD10: M26.623 Given educational handout -discussed exercises and lifestyle modification -f/u with pcp or dentist if symptoms persist. -can also try norflex she has at home. - METHYLPREDNISOLONE 4 MG TABLETS IN A DOSE PACK Prescription instructions reviewed with patient as applicable. Patient advised if symptoms do not improve or if symptoms worsen sooner, to contact the office for further evaluation by their primary care physician. Potential red flag symptoms discussed with the patient. Reviewed appropriate action plan to take if red flag symptoms occur. Patient agreeable to treatment plan. Sisi Maloney APRN.TECHNICAL DESIGNER CNOV Observed: 12/01/2017 Status: COMPLETED Source: [place] 2:15 PM [facility] REPOSITORY Office Visit (WSTR) TARIQHELENA ([id number]) 1970 F Date Time Provider Department 12/01/17 2:15 PM SISI MALONEY (EL) [facility] During your visit today, we recorded the following information about you: Temperature Pulse Respiration Blood pressure 98 degrees 82/minute 18/minute 110/66 Weight 88.9 kg Sisi Maloney (El) 12/01/2017 3:00 PM Signed Subjective HPI HPI Helena Kyra Vazqueztt is a 47 year old female who presents today for CC of bilateral jaw pain. This started 3 days ago. Has tried ibuprofen with mild relief, also tried heat/ice. Symptoms are worsened by opening mouth wide. Risk factors hx of chronic TMJ. Patient concerned bc jaw got stuck open on Friday. Has seen pcp and dentist for this. .Patient presents with: Pain: right side pain x friday, jaw stuck in place while eating PAST MEDICAL HISTORY Diagnosis Date - Abnormal glandular Papanicolaou smear of cervix Abn. Pap smear (cervix) - ADHD (attention deficit hyperactivity disorder) 07/29/2013 - Atherosclerosis of abdominal aorta (HCC) 02/19/2012 <70% stenosisof celiac and superior mesenteric arteries; <60% stenosis of bilateral renal arteries - COPD (chronic obstructive pulmonary disease) ([facility]) - Degenerative disc disease lumbar - Dysthymic disorder Depression (non-psychotic). Patient contests this, Full Psychiatric evaluation found no evidence of this, 03/24/2014, TO - Eczema - Fibromyalgia - Hypercholesterolemia with LDL greater than 190 mg/dL Genetic with multiple family members; declines treatment and rechecking labs - IBS (irritable bowel syndrome) - Migraine, unspecified, with intractable migraine, so stated, without mention of status migrainosus Migraine - Shingles - Smoker - Steroid long-term use 3 months1979, prescribed by Demographic Analyst. TO 03/24/14 PAST SURGICAL HISTORY Procedure Laterality Date - APPENDECTOMY - DELIVERY ONLY 08/2010 , low transverse - PAST SURGICAL HISTORY OF RIGHT FOOT ALLERGIES Doxycycline; Latex; Aleve [Naproxen Sodium]; Amitriptyline; Camel Hair; Celebrex [Celecoxib]; Cymbalta [Duloxetine]; Darvocet A500 [Propoxyphene N-Acetaminophen]; Dulera [Mometasone-Formoterol]; Feathers; Fragrances; Insecticides; Lyrica [Pregabalin]; Naproxen; Penicillins; Pollen; Pseudoephedrine; Relafen [Nabumetone]; Sagebrush; Seasonal Allergies; Sulfa (Sulfonamide Antibiotics); Symbicort [Budesonide-Formoterol]; Tramadol Hcl MEDICATIONS acetaminophen 325 mg-caffeine 40 mg-butalbital 50 mg (FIORICET) per tablet Take 1 tablet by mouth every 6 hours as needed for Headache. azelastine (ASTELIN,ASTEPRO) 0.1% nasal spray Use 1-2 Sprays in each nostril twice daily. As directed fluticasone (FLONASE) 50 mcg/actuation nasal spray Use 2 sprays to each nostril one to two times daily fluticasone-salmeterol HFA (ADVAIR HFA) 230-21 mcg/actuation inhaler Inhale 2 Puffs as instructed twice daily. orphenadrine ER (NORFLEX) 100 mg tablet Take 1 tablet by mouth twice daily as needed. acetaminophen-codeine (TYLENOL-COD #3) 300-30 mg per tablet Take 1-2 tablets by mouth every 4 hours as needed for up to 90 days. cetirizine (ZYRTEC) 10 mg tablet TAKE 1 TABLET BY MOUTH ONCE DAILY. diclofenac sodium (VOLTAREN) 1 % topical gel Apply 2 g to affected area four times daily. Ipratropium Nebo (ATROVENT) 0.03 % nasal spray Use 2 Sprays in the nose every 12 hours. As directed albuterol HFA (VENTOLIN HFA) 90 mcg/actuation inhaler Inhale 2 Puffs as instructed every 4 hours as needed for Wheezing/Shortness of Breath. hydrOXYzine HCl (ATARAX) 25 mg tablet Take 1-4 tablets by mouth every 4 hours as needed for Itching/Rash (and allergic rhinitis). clotrimazole (LOTRIMIN, CLOTRIM) 1 % cream Apply 1 application to affected area twice daily. And continue for a week after rash resolves then as needed guaiFENesin (MUCINEX) 600 mg 12 hr tablet Take 1-2 tablets by mouth twice daily. As needed triamcinolone acetonide (KENALOG) 0.1 % ointment Apply to affected areas twice a day as needed. Avoid use on the face. montelukast (SINGULAIR) 10 mg tablet TAKE 1 TABLET BY MOUTH DAILY AT BEDTIME. albuterol (PROVENTIL) 2.5 mg /3 mL (0.083 %) nebulizer solution Use 3 mL via nebulizer every 6 hours as needed for Wheezing/Shortness of Breath. 1 vial contains 3 ml. hydrocortisone 2.5 % ointment Apply 1 application to affected area twice daily as needed. Avoid use on the eyelids. ceramides 1,3,6-11 (CERAVE) Apply 2 to 3 times daily. Dispense: one large tub (not 1g) DX: L30.9 Eczema Cholecalciferol, Vitamin D3, 2,000 unit cap Take 1 tablet by mouth once daily. (Taking OTC dose) EPINEPHrine (EPIPEN) 0.3 mg/0.3 mL (1:1,000) auto-injector Inject 0.3 mL intramuscularly as needed (for allergic reaction.Seek emergent medical care immediately after use.Disp:one 2-packw/personal trainer). Back Brace misc Use as instructed TENS Units Layne Use as directed. Copper Gluconate 5 mg Tab Take by mouth. vitamin b complex Tab Take 1 tablet by mouth once daily. multivitamin tablet Take 1 tablet by mouth once daily. CALCIUM CARBONATE/VITAMIN D3 (CALCIUM + D ORAL) Take by mouth. lidocaine (LIDODERM) 5 % Apply 1 Patch as directed every 12 hours as needed. Remove old patch prior to placing new patch. FAMILY HISTORY Problem Relation Age of Onset - Alcohol/Drug Paternal Grandfather - Arthritis Maternal Grandmother - Arthritis Mother - Cancer Paternal Grandfather - Cancer Father prostate and bladder - Diabetes Father - Diabetes Maternal Grandfather - Emphysema Maternal Grandfather - Emphysema Paternal Uncle - Heart Father - Hypertension Father - Hypertension Paternal Uncle - Lipids Father - Lipids Paternal Grandmother - Lipids Paternal Uncle - Lipids Brother - Lipids Paternal Uncle - Thyroid Paternal Grandmother - Emphysema Maternal Grandmother Social History Substance Use Topics - Smoking status: Current Every Day Smoker Packs/day: 1.30 Years: 25.00 Types: Cigarettes Start date: 03/24/1989 - Smokeless tobacco: Never Used Comment: Parents smoked in childhood home. Ex-spouse was smoker. - Alcohol use Yes Comment: Occasionally, but not when . Review of Systems Constitutional: Negative for chills and fever. Respiratory: Negative for cough and wheezing. Cardiovascular: Negative for chest pain. Skin: Negative for itching and rash. Objective Blood pressure 110/66, pulse 82, temperature 36.7 ?C (98 ?F), temperature source Tympanic, resp. rate 18, weight 88.9 kg (196 lb). Physical Exam Constitutional: She is oriented to person, place, and time and well-developed, well-nourished, and in no distress. Non-toxic appearance. She does not have a sickly appearance. No distress. HENT: Head: Normocephalic and atraumatic. Cardiovascular: Normal rate, regular rhythm and normal heart sounds. Pulmonary/Chest: Effort normal and breath sounds normal. No accessory muscle usage. No respiratory distress. Lymphadenopathy: She has no cervical adenopathy. Right cervical: No superficial cervical adenopathy present. Left cervical: No superficial cervical adenopathy present. Neurological: She is alert and oriented to person, place, and time. Skin: She is not diaphoretic. ASSESSMENT/PLAN: 1. Bilateral temporomandibular joint pain - ICD9: 524.62, ICD10: M26.623 Given educational handout -discussed exercises and lifestyle modification -f/u with pcp or dentist if symptoms persist. -can also try norflex she has at home. - METHYLPREDNISOLONE 4 MG TABLETS IN A DOSE PACK Prescription instructions reviewed with patient as applicable. Patient advised if symptoms do not improve or if symptoms worsen sooner, to contact the office for further evaluation by their primary care physician. Potential red flag symptoms discussed with the patient. Reviewed appropriate action plan to take if red flag symptoms occur. Patient agreeable to treatment plan. Sisi Maloney APRN.Sisi Amaro (Clerical Administrative Assistant) 12/01/2017 2:39 PM Signed TEMPOROMANDIBULAR JOINT (TMJ) PAIN: Your exam shows that you have a problem with your TMJ, the joint that moves when you open your mouth or chew food. TMJ problems can result from direct injuries, bite abnormalities, or tension states which cause you to grind or clench your teeth. Typical symptoms include pain around the joint, clicking, restricted movement, and headaches. The TMJ is like any other joint in the body; when it is strained, it needs rest to repair itself. To keep the joint at rest it is important that you do not open your mouth wider than the width of your index finger. If you must yawn, be sure to support your chin with your hand so your mouth does not open wide. Eat a soft diet (nothing firmer than ground beef, no raw vegetables), and do not talk if it causes you pain. Apply topical heat by using a warm, moist cloth placed in front of the ear for 15-20 minutes several times daily. Anti-inflammatory pain medicine and muscle relaxants can also be helpful. A dental orthotic or splint may be used for temporary relief. Long-term problems may require treatment for stress as well as braces or surgery. Please check with your doctor or dentist if your symptoms do not improve within one week. Referring Provider: SELF [[id number]] Allergies As of Date: 12/01/2017 Noted Allergy Reaction DOXYCYCLINE 07/13/2013 2 - Rash Comments: 07/13/13 LATEX 03/05/2010 2 - Rash Comments: Positive Latex Skin Test 11/29/13 ALEVE (NAPROXEN SODIUM) 03/05/2010 11 - Vomiting Comments: DIZZINESS AMITRIPTYLINE 03/05/2010 Comments: SLEEPWALKING CAMEL HAIR 08/21/2012 2 - Rash CELEBREX (CELECOXIB) 03/05/2010 1 - Mental Status Change Comments: RAGE CYMBALTA (DULOXETINE) 03/29/2010 1 - Mental Status Change Comments: Made her angry, in a rage DARVOCET A500 (PROPOXYPHENE N-REBECCA*03/05/2010 1 - Mental Status Change Comments: HALLUCINATIONS DULERA (MOMETASONE-FORMOTEROL) 03/21/2015 12 - Shortness of Breath FEATHERS 08/21/2012 2 - Rash FRAGRANCES 03/05/2010 2 - Rash INSECTICIDES 08/21/2012 2 - Rash LYRICA (PREGABALIN) 07/30/2011 5 - Intolerance Comments: Did not tolerate even lowest dose; did not help much; made her loopy and happy NAPROXEN 03/05/2010 11 - Vomiting Comments: DIZZINESS PENICILLINS 03/05/2010 2 - Rash POLLEN 03/05/2010 2 - Rash PSEUDOEPHEDRINE 03/05/2010 5 - Intolerance Comments: SPASMS of blood vesselsIN FEET RELAFEN (NABUMETONE) 03/05/2010 5 - Intolerance Comments: SPASMS of blood vessels IN FEET SAGEBRUSH 08/14/2012 2 - Rash 9 - Itching SEASONAL ALLERGIES 11/29/2013 14 - Other: See Comments Comments: Cats Horses Cockroach Dust mites trees (September, October and November) grasses (November and December) weeds (February, March and April) ragweed (February, March and April) SULFA (SULFONAMIDE ANTIBIOTICS) 03/05/2010 2 - Rash SYMBICORT (BUDESONIDE-FORMOTEROL) 03/13/2015 14 - Other: See Comments Comments: Stinging/burning mouth, itchy roof of throat/palette TRAMADOL HCL 03/29/2010 5 - Intolerance Comments: States it made her dizzy and nauseated Date Reviewed: 12/01/2017 Reviewed by: Sisi Maloney (El) - Fully Assessed Reason for Visit: Pain [78] Cmt: right side pain x friday, jaw stuck in place while eating Primary Visit Diagnosis:Bilateral temporomandibular joint pain [M26.623] Order(s):methylPREDNISolone (MEDROL DOSE-PACK) 4 mg Dose-PackAs Instructed per packageDisp: 1 PackageRfl: 0 Prescriptions as of 12/01/2017 Sig: [id number]* Take 1 tablet by mouth every * AZELASTINE 137 MCG (0.1 %) NA* Use 1-2 Sprays in each nostri* FLUTICASONE 50 MCG/ACTUATION * Use 2 sprays to each nostril * FLUTICASONE-SALMETEROL 230 MC* Inhale 2 Puffs as instructed * ORPHENADRINE CITRATE ER 100 M* Take 1 tablet by mouth twice * ACETAMINOPHEN 300 MG-CODEINE * Take 1-2 tablets by mouth hien* CETIRIZINE 10 MG TABLET TAKE 1 TABLET BY MOUTH ONCE D* DICLOFENAC 1 % TOPICAL GEL Apply 2 g to affected area fo* IPRATROPIUM BROMIDE 0.03 % NA* Use 2 Sprays in the nose ever* ALBUTEROL SULFATE HFA 90 MCG/* Inhale 2 Puffs as instructed * HYDROXYZINE HCL 25 MG TABLET Take 1-4 tablets by mouth hien* CLOTRIMAZOLE 1 % TOPICAL CREAM Apply 1 application to affect* GUAIFENESIN ER 600 MG TABLET,* Take 1-2 tablets by mouth twi* TRIAMCINOLONE ACETONIDE 0.1 %* Apply to affected areas twice* MONTELUKAST 10 MG TABLET TAKE 1 TABLET BY MOUTH DAILY * ALBUTEROL SULFATE 2.5 MG/3 ML* Use 3 mL via nebulizer every * HYDROCORTISONE 2.5 % TOPICAL * Apply 1 application to affect* CERAMIDES 1,3,6-11 TOPICAL CR* Apply 2 to 3 times daily. D* CHOLECALCIFEROL (VITAMIN D3) * Take 1 tablet by mouth once d* EPINEPHRINE 0.3 MG/0.3 ML INJ* Inject 0.3 mL intramuscularly* BACK BRACE Use as instructed TRANSCUTANEOUS ELECTRICAL NER* Use as directed. COPPER 5 MG TABLET Take by mouth. VITAMIN B COMPLEX TABLET Take 1 tablet by mouth once d* * MULTIVITAMIN TABLET Take 1 tablet by mouth once d* * CALCIUM + D ORAL Take by mouth. METHYLPREDNISOLONE 4 MG TABLE* As Instructed per package LIDOCAINE 5 % TOPICAL PATCH Apply 1 Patch as directed hien* Patient not taking: Reported on 12/01/2017 Problem List As Of Date 12/01/2017 Noted Resolved Fibromyalgia [M79.7] Dysthymic Disorder [F34.1] More... Eczema [L30.9] More... Shingles [B02.9] Migraine NOS/Intractable [G43.919] More... IBS (Irritable Bowel Syndrome) [K58.9] Degenerative Disc Disease [FII0308] Dyspareunia [ORU0078] INVALID FOR* Lumbago [M54.5] INVALID FOR* Lumbar disc displacement without myelopathy [M5*INVALID FOR* Lumbar radiculopathy [M54.16] INVALID FOR* Family history of abdominal aortic aneurysm [Z8*INVALID FOR* Atherosclerosis of abdominal aorta [I70.0] INVALID FOR* More... 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 TMJ problems can result from direct injuries, bite abnormalities, or tension states which cause you to grind or clench your teeth. Typical symptoms include pain around the joint, clicking, restricted movement, and headaches. The TMJ is like any other joint in the body; when it is strained, it needs rest to repair itself. To keep the joint at rest it is important that you do not open your mouth wider than the width of your index finger. If you must yawn, be sure to support your chin with your hand so your mouth does not open wide. Eat a soft diet (nothing firmer than ground beef, no raw vegetables), and do not talk if it causes you pain. Apply topical heat by using a warm, moist cloth placed in front of the ear for 15-20 minutes several times daily. Anti-inflammatory pain medicine and muscle relaxants can also be helpful. A dental orthotic or splint may be used for temporary relief. Long-term problems may require treatment for stress as well as braces or surgery. Please check with your doctor or dentist if your symptoms do not improve within one week. Prescriptions ordered this encounter Disp Refills Start End METHYLPREDNISOLONE 4 MG TABLETS IN A* 1 Pa* 0 12/01/2017 Sig: As Instructed per package Encounter Status:Closed by SISI MALONEY CNP on 12/01/17 PROGRESS Observed: 11/28/2017 Status: COMPLETED Source: [place] 10:[address] [facility] [place] REPOSITORY O ID: [id number] Author: Omar Bravo Service: (none) Author Type: Psychologist Type: Progress Notes Filed: 11/28/2017 10:13 AM Note Text: [facility] Progress Note Helena Potter 11/28/2017 [id number] Provider: Omar Bravo, PHD CPT Code: 37389 Psychotherapy 38-52 minutes Time: Approximately 50 minutes was spent in therapy. Parties Present: Patient Patient Presentation/Concerns: Pt struggling with pain and procrastination PLAN: starting to use model of Acting vs trying to get things perfect or wait for the right moment court: pt and son's bio father were evaluated and OUTCOME: continue to have supervised visitations which his father hasnt and may be unlikely to follow through on.... son seldom talks about father and usually sort of generic.. other kids have a dad why dont i PLAN: we discussed 1... he has people in the role of dad and actually 3 parents pt and her parents.... and his bio f wasnt able to be nice to pt so they and he wasnt able to be nice to son so supervised visitation father has been dx as Narcissistic PD and likely Antisocial PD Mental Status: Mood: variable Affect: mood-congruent Thoughts/Associations:goal directed Suicidal/Homicidal Ideation: None expressed or evidenced Other Observations: None Therapy Focus Self-care, Stress management, Mood/affect regulation, Family relationships and Parenting MEDICATIONS: Per medical record: Current Outpatient Prescriptions: acetaminophen 325 mg-caffeine 40 mg-butalbital 50 mg (FIORICET) per tablet Take 1 tablet by mouth every 6 hours as needed for Headache. azelastine (ASTELIN,ASTEPRO) 0.1% nasal spray Use 1-2 Sprays in each nostril twice daily. As directed fluticasone (FLONASE) 50 mcg/actuation nasal spray Use 2 sprays to each nostril one to two times daily fluticasone-salmeterol HFA (ADVAIR HFA) 230-21 mcg/actuation inhaler Inhale 2 Puffs as instructed twice daily. orphenadrine ER (NORFLEX) 100 mg tablet Take 1 tablet by mouth twice daily as needed. acetaminophen-codeine (TYLENOL-COD #3) 300-30 mg per tablet Take 1-2 tablets by mouth every 4 hours as needed for up to 90 days. cetirizine (ZYRTEC) 10 mg tablet TAKE 1 TABLET BY MOUTH ONCE DAILY. diclofenac sodium (VOLTAREN) 1 % topical gel Apply 2 g to affected area four times daily. Ipratropium Nebo (ATROVENT) 0.03 % nasal spray Use 2 Sprays in the nose every 12 hours. As directed albuterol HFA (VENTOLIN HFA) 90 mcg/actuation inhaler Inhale 2 Puffs as instructed every 4 hours as needed for Wheezing/Shortness of Breath. hydrOXYzine HCl (ATARAX) 25 mg tablet Take 1-4 tablets by mouth every 4 hours as needed for Itching/Rash (and allergic rhinitis). clotrimazole (LOTRIMIN, CLOTRIM) 1 % cream Apply 1 application to affected area twice daily. And continue for a week after rash resolves then as needed guaiFENesin (MUCINEX) 600 mg 12 hr tablet Take 1-2 tablets by mouth twice daily. As needed triamcinolone acetonide (KENALOG) 0.1 % ointment Apply to affected areas twice a day as needed. Avoid use on the face. montelukast (SINGULAIR) 10 mg tablet TAKE 1 TABLET BY MOUTH DAILY AT BEDTIME. lidocaine (LIDODERM) 5 % Apply 1 Patch as directed every 12 hours as needed. Remove old patch prior to placing new patch. albuterol (PROVENTIL) 2.5 mg /3 mL (0.083 %) nebulizer solution Use 3 mL via nebulizer every 6 hours as needed for Wheezing/Shortness of Breath. 1 vial contains 3 ml. hydrocortisone 2.5 % ointment Apply 1 application to affected area twice daily as needed. Avoid use on the eyelids. ceramides 1,3,6-11 (CERAVE) Apply 2 to 3 times daily. Dispense: one large tub (not 1g) DX: L30.9 Eczema Cholecalciferol, Vitamin D3, 2,000 unit cap Take 1 tablet by mouth once daily. (Taking OTC dose) EPINEPHrine (EPIPEN) 0.3 mg/0.3 mL (1:1,000) auto-injector Inject 0.3 mL intramuscularly as needed (for allergic reaction.Seek emergent medical care immediately after use.Disp:one 2-packw/personal trainer). Back Brace misc Use as instructed TENS Units Layne Use as directed. Copper Gluconate 5 mg Tab Take by mouth. vitamin b complex Tab Take 1 tablet by mouth once daily. multivitamin tablet Take 1 tablet by mouth once daily. CALCIUM CARBONATE/VITAMIN D3 (CALCIUM + D ORAL) Take by mouth. No current facility-administered medications for this visit. Psychiatric Medication Issues: see med record DIAGNOSIS: [place] I:?? 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 ADHD, Combined Type ? PTSD ? Fibromyalgia Chronic Pain ? AXIS II :?Deferred ? AXIS III :?See Epic medical notes ? AXIS IV:?Problems related to the social environment, Occupational problems, Economic problems and Other psychosocial and environmental problems ? AXIS V:?GAF: 50 ---50-41 Serious symptoms or any serious impairment in social, occupational or school functioning Treatment Modality/Interventions: Cognitive Behavioral Reassurance/Supportive Problem solving TREATMENT ASSESSMENT/PROGRESS: . Progressing satisfactorily. TREATMENT PLAN/GOALS: Continue in therapy focusing on self-care, interpersonal relationships, affect management and self-esteem. Next appointment: as scheduled Omra Bravo, PHD PROGRESS Observed: 11/04/2017 Status: COMPLETED Source: [place] 4:[address] [facility] [place] REPOS[facility]ORY [facility] ID: [id number] Author: Lisa Carmona Service: (none) Author Type: Physician Type: Progress Notes Filed: 11/11/2017 12:02 AM Note Text: Patient presents with: Recheck SUBJECTIVE: Helena Potter is a 47 year old year old lady here today for 3 month follow up appointment for review of medical conditions. Still good days and bad days. Back pain not can come out of the blue. Pain shoots down more diffusely instead of straight down the legs with a few branches. Episode of heat getting hot off and on throughout the day. Lasted a few hours per day for most of the winter. No discoloration. Some days just her baseline fibro pain. Muscle cramping with albuterol inhaler--takes sparingly only if wheezing bad enough to be worth cramping. Voltaren can help a lot a times. Sometimes not. No menses for several months, then started back 01 of October and then this past Friday. Started facial massage that found on YouTube. Does chair exercises too. Needs Advair but needs prior authorization because of formulary. Already tried other meds--either not effective or cause adverse effects. Reviewed that was told that [facility] requires having done other meds and treatments--already on prior meds for muscle relaxants, other pain meds including NSAIDs, as well as tramadol (did not tolerate). Or has been to PT and used TENS unit. Also using topicals--includes voltaren gel that has helped, and BioFreeze. Tylenol #3 effective without adverse effects. . PAST MEDICAL HISTORY Diagnosis Date - Abnormal glandular Papanicolaou smear of cervix Abn. Pap smear (cervix) - ADHD (attention deficit hyperactivity disorder) 07/29/2013 - Atherosclerosis of abdominal aorta ([facility]) 02/19/2012 <70% stenosisof celiac and superior mesenteric arteries; <60% stenosis of bilateral renal arteries - COPD (chronic obstructive pulmonary disease) ([facility]) - Degenerative disc disease lumbar - Dysthymic disorder Depression (non-psychotic). Patient contests this, Full Psychiatric evaluation found no evidence of this, 03/24/2014, TO - Eczema - Fibromyalgia - Hypercholesterolemia with LDL greater than 190 mg/dL Genetic with multiple family members; declines treatment and rechecking labs - IBS (irritable bowel syndrome) - Migraine, unspecified, with intractable migraine, so stated, without mention of status migrainosus Migraine - Shingles - Smoker - Steroid long-term use 3 months, 1979, prescribed by Demographic Analyst. TO 03/24/14 Current Outpatient Prescriptions: predniSONE (DELTASONE) 10 mg tablet Take 4 tabs daily for 3 days, then 2 tabs daily for 3 days, then 1 tab daily for 3 days with food. cetirizine (ZYRTEC) 10 mg tablet TAKE 1 TABLET BY MOUTH ONCE DAILY. acetaminophen 325 mg-caffeine 40 mg-butalbital 50 mg (FIORICET) per tablet Take 1 tablet by mouth every 6 hours as needed for Headache. diclofenac sodium (VOLTAREN) 1 % topical gel Apply 2 g to affected area four times daily. orphenadrine ER (NORFLEX) 100 mg tablet TAKE 1 TABLET BY MOUTH TWICE DAILY NEEDED. Ipratropium Nebo (ATROVENT) 0.03 % nasal spray Use 2 Sprays in the nose every 12 hours. As directed albuterol HFA (VENTOLIN HFA) 90 mcg/actuation inhaler Inhale 2 Puffs as instructed every 4 hours as needed for Wheezing/Shortness of Breath. hydrOXYzine HCl (ATARAX) 25 mg tablet Take 1-4 tablets by mouth every 4 hours as needed for Itching/Rash (and allergic rhinitis). clotrimazole (LOTRIMIN, CLOTRIM) 1 % cream Apply 1 application to affected area twice daily. And continue for a week after rash resolves then as needed guaiFENesin (MUCINEX) 600 mg 12 hr tablet Take 1-2 tablets by mouth twice daily. As needed triamcinolone acetonide (KENALOG) 0.1 % ointment Apply to affected areas twice a day as needed. Avoid use on the face. montelukast (SINGULAIR) 10 mg tablet TAKE 1 TABLET BY MOUTH DAILY AT BEDTIME. azelastine (ASTELIN,ASTEPRO) 0.1% nasal spray Use 1-2 Sprays in each nostril twice daily. As directed fluticasone (FLONASE) 50 mcg/actuation nasal spray Use 2 sprays to each nostril one to two times daily fluticasone-salmeterol HFA (ADVAIR HFA) 230-21 mcg/actuation inhaler Inhale 2 Puffs as instructed twice daily. diflunisal (DOLOBID) 500 mg tab Take 1 tablet by mouth three times daily. lidocaine (LIDODERM) 5 % Apply 1 Patch as directed every 12 hours as needed. Remove old patch prior to placing new patch. albuterol (PROVENTIL) 2.5 mg /3 mL (0.083 %) nebulizer solution Use 3 mL via nebulizer every 6 hours as needed for Wheezing/Shortness of Breath. 1 vial contains 3 ml. hydrocortisone 2.5 % ointment Apply 1 application to affected area twice daily as needed. Avoid use on the eyelids. ceramides 1,3,6-11 (CERAVE) Apply 2 to 3 times daily. Dispense: one large tub (not 1g) DX: L30.9 Eczema Cholecalciferol, Vitamin D3, 2,000 unit cap Take 1 tablet by mouth once daily. (Taking OTC dose) EPINEPHrine (EPIPEN) 0.3 mg/0.3 mL (1:1,000) auto-injector Inject 0.3 mL intramuscularly as needed (for allergic reaction.Seek emergent medical care immediately after use.Disp:one 2-packw/personal trainer). Back Brace misc Use as instructed TENS Units Layne Use as directed. Copper Gluconate 5 mg Tab Take by mouth. vitamin b complex Tab Take 1 tablet by mouth once daily. multivitamin tablet Take 1 tablet by mouth once daily. CALCIUM CARBONATE/VITAMIN D3 (CALCIUM + D ORAL) Take by mouth. No current facility-administered medications for this visit. OBJECTIVE: BP 132/78 Pulse 74 Resp 20 Wt 88.5 kg (195 lb) BMI 34.54 kg/m2 Patient is alert, oriented times 3, no apparent distress, affect is bright, reactive. Last 5 Encounter BP Readings: Date: BP: 11/04/2017 132/78 10/27/2017 124/86 05/05/2017 120/82 11/26/2016 120/72 09/17/2016 124/89 Last 5 Encounter Wt Readings: Date: Wt: 11/04/2017 88.5 kg (195 lb) 10/27/2017 88.9 kg (196 lb) 05/05/2017 86.6 kg (191 lb) 11/26/2016 88.9 kg (196 lb) 09/17/2016 88.5 kg (195 lb) Heart: Regular rate, rhythm, no murmurs, gallops, rubs. Lungs: Clear to auscultation, bilaterally, breathing non labored. Ext: No cyanosis, clubbing, or edema. ASSESSMENT AND PLAN: Encounter Diagnosis ICD-10-CM 1. Tension headache G44.209 acetaminophen 325 mg-caffeine 40 mg-butalbital 50 mg (FIORICET) per tablet 2. Fibromyalgia M79.7 acetaminophen-codeine (TYLENOL-COD #3) 300-30 mg per tablet 3. Lumbar disc displacement without myelopathy M51.26 4. Lumbar radiculopathy M54.16 5. Non-seasonal allergic rhinitis due to pollen J30.1 azelastine (ASTELIN,ASTEPRO) 0.1% nasal spray fluticasone (FLONASE) 50 mcg/actuation nasal spray 6. Chronic obstructive pulmonary disease, unspecified COPD type (HCC) J44.9 fluticasone-salmeterol HFA (ADVAIR HFA) 230-21 mcg/actuation inhaler 7. TMJ (dislocation of temporomandibular joint), subsequent encounter S03.00XD acetaminophen-codeine (TYLENOL-COD #3) 300-30 mg per tablet sounds like also had sialoadenitis in the right side Above issues addressed with patient. Patient involved in shared decision making for management of her medical issues. History and medications reviewed. Epic updated as needed Refills taken care of and meds adjusted as indicated after reviewed history, exam and labs. Health Maintenance reviewed. Updated record and/or ordered tests as recorded. Encouraged on efforts at healthy diet and regular exercise and adequate sleep. Constipation controlled--keeping her regular plus getting to bathroom right away. Good the past 6 months. Stable with pain control. No signs of diversion or abuse of medication(s); no adverse effects. Continue present management. OARRS website checked and validated. All prescriptions have been APPROPRIATELY filled. No suspicious activity was identified.- 11/11/2017 by Lisa Carmona MD The majority of the visit was spent counseling and/or coordinating care for the patient. Eewx-sx-aavg time was at least 25 minutes. Lisa Carmona MD CNOV Observed: 11/04/2017 Status: COMPLETED Source: [place] 3:20 PM [facility] REPOSITORY Office Visit (INTMWS) HELENA POTTER ([id number]) 1970 F Date Time Provider Department 11/04/17 3:20 PM LISA CARMONA INTMWS During your visit today, we recorded the following information about you: Pulse Respiration Blood pressure Weight 74/minute 20/minute 132/78 88.5 kg Lisa Carmona MD 11/11/2017 12:02 AM Signed Patient presents with: Recheck SUBJECTIVE: Helena Potter is a 47 year old year old lady here today for 3 month follow up appointment for review of medical conditions. Still good days and bad days. Back pain not can come out of the blue. Pain shoots down more diffusely instead of straight down the legs with a few branches. Episode of heat getting hot off and on throughout the day. Lasted a few hours per day for most of the winter. No discoloration. Some days just her baseline fibro pain. Muscle cramping with albuterol inhaler--takes sparingly only if wheezing bad enough to be worth cramping. Voltaren can help a lot a times. Sometimes not. No menses for several months, then started back 01 of October and then this past Friday. Started facial massage that found on YouTube. Does chair exercises too. Needs Advair but needs prior authorization because of formulary. Already tried other meds--either not effective or cause adverse effects. Reviewed that was told that [employer] requires having done other meds and treatments--already on prior meds for muscle relaxants, other pain meds including NSAIDs, as well as tramadol (did not tolerate). Or has been to PT and used TENS unit. Also using topicals--includes voltaren gel that has helped, and BioFreeze. Tylenol #3 effective without adverse effects. . PAST MEDICAL HISTORY Diagnosis Date - Abnormal glandular Papanicolaou smear of cervix Abn. Pap smear (cervix) - ADHD (attention deficit hyperactivity disorder) 07/29/2013 - Atherosclerosis of abdominal aorta (HCC) 02/19/2012 ANDlt;70% stenosisof celiac and superior mesenteric arteries; ANDlt;60% stenosis of bilateral renal arteries - COPD (chronic obstructive pulmonary disease) ([facility]) - Degenerative disc disease lumbar - Dysthymic disorder Depression (non-psychotic). Patient contests this, ANDquot;Full Psychiatric evaluation found no evidence of this,ANDquot; 03/24/2014, TO - Eczema - Fibromyalgia - Hypercholesterolemia with LDL greater than 190 mg/dL Genetic with multiple family members; declines treatment and rechecking labs - IBS (irritable bowel syndrome) - Migraine, unspecified, with intractable migraine, so stated, without mention of status migrainosus Migraine - Shingles - Smoker - Steroid long-term use 3 months, 1979, prescribed by Demographic Analyst. TO 03/24/14 Current Outpatient Prescriptions: predniSONE (DELTASONE) 10 mg tablet Take 4 tabs daily for 3 days, then 2 tabs daily for 3 days, then 1 tab daily for 3 days with food. cetirizine (ZYRTEC) 10 mg tablet TAKE 1 TABLET BY MOUTH ONCE DAILY. acetaminophen 325 mg-caffeine 40 mg-butalbital 50 mg (FIORICET) per tablet Take 1 tablet by mouth every 6 hours as needed for Headache. diclofenac sodium (VOLTAREN) 1 % topical gel Apply 2 g to affected area four times daily. orphenadrine ER (NORFLEX) 100 mg tablet TAKE 1 TABLET BY MOUTH TWICE DAILY NEEDED. Ipratropium Nebo (ATROVENT) 0.03 % nasal spray Use 2 Sprays in the nose every 12 hours. As directed albuterol HFA (VENTOLIN HFA) 90 mcg/actuation inhaler Inhale 2 Puffs as instructed every 4 hours as needed for Wheezing/Shortness of Breath. hydrOXYzine HCl (ATARAX) 25 mg tablet Take 1-4 tablets by mouth every 4 hours as needed for Itching/Rash (and allergic rhinitis). clotrimazole (LOTRIMIN, CLOTRIM) 1 % cream Apply 1 application to affected area twice daily. And continue for a week after rash resolves then as needed guaiFENesin (MUCINEX) 600 mg 12 hr tablet Take 1-2 tablets by mouth twice daily. As needed triamcinolone acetonide (KENALOG) 0.1 % ointment Apply to affected areas twice a day as needed. Avoid use on the face. montelukast (SINGULAIR) 10 mg tablet TAKE 1 TABLET BY MOUTH DAILY AT BEDTIME. azelastine (ASTELIN,ASTEPRO) 0.1% nasal spray Use 1-2 Sprays in each nostril twice daily. As directed fluticasone (FLONASE) 50 mcg/actuation nasal spray Use 2 sprays to each nostril one to two times daily fluticasone-salmeterol HFA (ADVAIR HFA) 230-21 mcg/actuation inhaler Inhale 2 Puffs as instructed twice daily. diflunisal (DOLOBID) 500 mg tab Take 1 tablet by mouth three times daily. lidocaine (LIDODERM) 5 % Apply 1 Patch as directed every 12 hours as needed. Remove old patch prior to placing new patch. albuterol (PROVENTIL) 2.5 mg /3 mL (0.083 %) nebulizer solution Use 3 mL via nebulizer every 6 hours as needed for Wheezing/Shortness of Breath. 1 vial contains 3 ml. hydrocortisone 2.5 % ointment Apply 1 application to affected area twice daily as needed. Avoid use on the eyelids. ceramides 1,3,6-11 (CERAVE) Apply 2 to 3 times daily. Dispense: one large tub (not 1g) DX: L30.9 Eczema Cholecalciferol, Vitamin D3, 2,000 unit cap Take 1 tablet by mouth once daily. (Taking OTC dose) EPINEPHrine (EPIPEN) 0.3 mg/0.3 mL (1:1,000) auto-injector Inject 0.3 mL intramuscularly as needed (for allergic reaction.Seek emergent medical care immediately after use.Disp:one 2-packw/personal trainer). Back Brace misc Use as instructed TENS Units Layne Use as directed. Copper Gluconate 5 mg Tab Take by mouth. vitamin b complex Tab Take 1 tablet by mouth once daily. multivitamin tablet Take 1 tablet by mouth once daily. CALCIUM CARBONATE/VITAMIN D3 (CALCIUM + D ORAL) Take by mouth. No current facility-administered medications for this visit. OBJECTIVE: BP 132/78 Pulse 74 Resp 20 Wt 88.5 kg (195 lb) BMI 34.54 kg/m2 Patient is alert, oriented times 3, no apparent distress, affect is bright, reactive. Last 5 Encounter BP Readings: Date: BP: 11/04/2017 132/78 10/27/2017 124/86 05/05/2017 120/82 11/26/2016 120/72 09/17/2016 124/89 Last 5 Encounter Wt Readings: Date: Wt: 11/04/2017 88.5 kg (195 lb) 10/27/2017 88.9 kg (196 lb) 05/05/2017 86.6 kg (191 lb) 11/26/2016 88.9 kg (196 lb) 09/17/2016 88.5 kg (195 lb) Heart: Regular rate, rhythm, no murmurs, gallops, rubs. Lungs: Clear to auscultation, bilaterally, breathing non labored. Ext: No cyanosis, clubbing, or edema. ASSESSMENT AND PLAN: Encounter Diagnosis ICD-10-CM 1. Tension headache G44.209 acetaminophen 325 mg-caffeine 40 mg-butalbital 50 mg (FIORICET) per tablet 2. Fibromyalgia M79.7 acetaminophen-codeine (TYLENOL-COD #3) 300-30 mg per tablet 3. Lumbar disc displacement without myelopathy M51.26 4. Lumbar radiculopathy M54.16 5. Non-seasonal allergic rhinitis due to pollen J30.1 azelastine (ASTELIN,ASTEPRO) 0.1% nasal spray fluticasone (FLONASE) 50 mcg/actuation nasal spray 6. Chronic obstructive pulmonary disease, unspecified COPD type (HCC) J44.9 fluticasone-salmeterol HFA (ADVAIR HFA) 230-21 mcg/actuation inhaler 7. TMJ (dislocation of temporomandibular joint), subsequent encounter S03.00XD acetaminophen-codeine (TYLENOL-COD #3) 300-30 mg per tablet sounds like also had sialoadenitis in the right side Above issues addressed with patient. Patient involved in shared decision making for management of her medical issues. History and medications reviewed. Epic updated as needed Refills taken care of and meds adjusted as indicated after reviewed history, exam and labs. Health Maintenance reviewed. Updated record and/or ordered tests as recorded. Encouraged on efforts at healthy diet and regular exercise and adequate sleep. Constipation controlled--keeping her regular plus getting to bathroom right away. Good the past 6 months. Stable with pain control. No signs of diversion or abuse of medication(s); no adverse effects. Continue present management. OARRS website checked and validated. All prescriptions have been APPROPRIATELY filled. No suspicious activity was identified.- 11/11/2017 by Lisa Carmona MD The majority of the visit was spent counseling and/or coordinating care for the patient. [place]-ia-zqwd time was at least 25 minutes. Lisa Carmona MD Referring Provider: LISA CARMONA [[id number]] Allergies As of Date: 11/04/2017 Noted Allergy Reaction DOXYCYCLINE 07/13/2013 2 - Rash Comments: 07/13/13 LATEX 03/05/2010 2 - Rash Comments: Positive Latex Skin Test 11/29/13 ALEVE (NAPROXEN SODIUM) 03/05/2010 11 - Vomiting Comments: DIZZINESS AMITRIPTYLINE 03/05/2010 Comments: SLEEPWALKING CAMEL HAIR 08/21/2012 2 - Rash CELEBREX (CELECOXIB) 03/05/2010 1 - Mental Status Change Comments: RAGE CYMBALTA (DULOXETINE) 03/29/2010 1 - Mental Status Change Comments: Made her angry, in a rage DARVOCET A500 (PROPOXYPHENE N-REBECCA*03/05/2010 1 - Mental Status Change Comments: HALLUCINATIONS DULERA (MOMETASONE-FORMOTEROL) 03/21/2015 12 - Shortness of Breath FEATHERS 08/21/2012 2 - Rash FRAGRANCES 03/05/2010 2 - Rash INSECTICIDES 08/21/2012 2 - Rash LYRICA (PREGABALIN) 07/30/2011 5 - Intolerance Comments: Did not tolerate even lowest dose; did not help much; made her loopy and happy NAPROXEN 03/05/2010 11 - Vomiting Comments: DIZZINESS PENICILLINS 03/05/2010 2 - Rash POLLEN 03/05/2010 2 - Rash PSEUDOEPHEDRINE 03/05/2010 5 - Intolerance Comments: SPASMS of blood vesselsIN FEET RELAFEN (NABUMETONE) 03/05/2010 5 - Intolerance Comments: SPASMS of blood vessels IN FEET SAGEBRUSH 08/14/2012 2 - Rash 9 - Itching SEASONAL ALLERGIES 11/29/2013 14 - Other: See Comments Comments: Cats Horses Cockroach Dust mites trees (September, October and November) grasses (November and December) weeds (February, March and April) ragweed (February, March and April) SULFA (SULFONAMIDE ANTIBIOTICS) 03/05/2010 2 - Rash SYMBICORT (BUDESONIDE-FORMOTEROL) 03/13/2015 14 - Other: See Comments Comments: Stinging/burning mouth, itchy roof of throat/palette TRAMADOL HCL 03/29/2010 5 - Intolerance Comments: States it made her dizzy and nauseated Date Reviewed: 11/04/2017 Reviewed by: Carmelita Concepcion Polishing Wheel Repairer - Fully Assessed Reason for Visit: Recheck [92] Primary Visit Diagnosis:Tension headache [G44.209] Other Visit Diagnoses:Fibromyalgia [M79.7] Lumbar disc displacement without myelopathy [M51.26] Lumbar radiculopathy [M54.16] Non-seasonal allergic rhinitis due to pollen [J30.1] Chronic obstructive pulmonary disease, unspecified COPD type (HCC) [J44.9] TMJ (dislocation of temporomandibular joint), subsequent encounter [S03.00XD] Comment:sounds like also had sialoadenitis in the right side Order(s):acetaminophen 325 mg-caffeine 40 mg-butalbital 50 mg (FIORICET) per tabletTake 1 tablet by mouth every 6 hours as needed for Headache.Disp: 20 tabletRfl: 1 azelastine (ASTELIN,ASTEPRO) 0.1% nasal sprayUse 1-2 Sprays in each nostril twice daily. As directedDisp: 1 BottleRfl: 11 fluticasone (FLONASE) 50 mcg/actuation nasal sprayUse 2 sprays to each nostril one to two times dailyDisp: 2 BottleRfl: 11 fluticasone-salmeterol HFA (ADVAIR HFA) 230-21 mcg/actuation inhalerInhale 2 Puffs as instructed twice daily.Disp: 1 InhalerRfl: 11 orphenadrine ER (NORFLEX) 100 mg tabletTake 1 tablet by mouth twice daily as needed.Disp: 30 tabletRfl: 2 acetaminophen-codeine (TYLENOL-COD #3) 300-30 mg per tabletTake 1-2 tablets by mouth every 4 hours as needed for up to 90 days.Disp: 30 tabletRfl: 2 Prescriptions as of 11/04/2017 Sig: [id number]* Take 1 tablet by mouth every * AZELASTINE 137 MCG (0.1 %) NA* Use 1-2 Sprays in each nostri* FLUTICASONE 50 MCG/ACTUATION * Use 2 sprays to each nostril * FLUTICASONE-SALMETEROL 230 MC* Inhale 2 Puffs as instructed * ORPHENADRINE CITRATE ER 100 M* Take 1 tablet by mouth twice * ACETAMINOPHEN 300 MG-CODEINE * Take 1-2 tablets by mouth hien* PREDNISONE 10 MG TABLET Take 4 tabs daily for 3 days,* CETIRIZINE 10 MG TABLET TAKE 1 TABLET BY MOUTH ONCE D* DICLOFENAC 1 % TOPICAL GEL Apply 2 g to affected area fo* IPRATROPIUM BROMIDE 0.03 % NA* Use 2 Sprays in the nose ever* ALBUTEROL SULFATE HFA 90 MCG/* Inhale 2 Puffs as instructed * HYDROXYZINE HCL 25 MG TABLET Take 1-4 tablets by mouth hien* CLOTRIMAZOLE 1 % TOPICAL CREAM Apply 1 application to affect* GUAIFENESIN ER 600 MG TABLET,* Take 1-2 tablets by mouth twi* TRIAMCINOLONE ACETONIDE 0.1 %* Apply to affected areas twice* MONTELUKAST 10 MG TABLET TAKE 1 TABLET BY MOUTH DAILY * LIDOCAINE 5 % TOPICAL PATCH Apply 1 Patch as directed hien* ALBUTEROL SULFATE 2.5 MG/3 ML* Use 3 mL via nebulizer every * HYDROCORTISONE 2.5 % TOPICAL * Apply 1 application to affect* CERAMIDES 1,3,6-11 TOPICAL CR* Apply 2 to 3 times daily. D* CHOLECALCIFEROL (VITAMIN D3) * Take 1 tablet by mouth once d* EPINEPHRINE 0.3 MG/0.3 ML INJ* Inject 0.3 mL intramuscularly* BACK BRACE Use as instructed TRANSCUTANEOUS ELECTRICAL NER* Use as directed. COPPER 5 MG TABLET Take by mouth. VITAMIN B COMPLEX TABLET Take 1 tablet by mouth once d* * MULTIVITAMIN TABLET Take 1 tablet by mouth once d* * CALCIUM + D ORAL Take by mouth. Medication notes this encounter DIFLUNISAL 500 MG TABLET >> Lisa Carmona MD 11/04/2017 5:02 PM stopped helping but might try again later Problem List As Of Date 11/04/2017 Noted Resolved Fibromyalgia [M79.7] Dysthymic Disorder [F34.1] More... Eczema [L30.9] More... Shingles [B02.9] Migraine NOS/Intractable [G43.919] More... IBS (Irritable Bowel Syndrome) [K58.9] Degenerative Disc Disease [NZC2052] Dyspareunia [REE9807] INVALID FOR* Lumbago [M54.5] INVALID FOR* Lumbar disc displacement without myelopathy [M5*INVALID FOR* Lumbar radiculopathy [M54.16] INVALID FOR* Family history of abdominal aortic aneurysm [Z8*INVALID FOR* Atherosclerosis of abdominal aorta [I70.0] INVALID FOR* More... 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 AZELASTINE 137 MCG (0.1 %) NASAL SPR* 1 Koko* 11 11/04/2017 Route: EACH NOSTRIL Sig: Use 1-2 Sprays in each nostril twice daily. As directed FLUTICASONE 50 MCG/ACTUATION NASAL S* 2 Koko* 11 11/04/2017 Sig: Use 2 sprays to each nostril one to two times daily FLUTICASONE-SALMETEROL 230 MCG-21 MC* 1 In* 11 11/04/2017 Cmt: Do not substitute with formulary meds since already tried formulary meds and failed to improve on them, except Flovent and Symbicort acaused allergic reaction Route: INHALATION Sig: Inhale 2 Puffs as instructed twice daily. ORPHENADRINE CITRATE ER 100 MG TABLE* 30 t* 2 11/04/2017 Class: Print RX Route: ORAL Sig: Take 1 tablet by mouth twice daily as needed. ACETAMINOPHEN 300 MG-CODEINE 30 MG T* 30 t* 2 11/04/2017 02/02/2018 Class: Print RX Cmt: Each prescription lasts at least 30 days Route: ORAL Sig: Take 1-2 tablets by mouth every 4 hours as needed for up to 90 days. Medications Discontinued During This Encounter acetaminophen 325 mg-caffeine 40 mg-* 20 t* 0 08/25/2017 11/04/2017 Route: ORAL Sig: Take 1 tablet by mouth every 6 hours as needed for Headache. Disc: Reason for discontinue is not on file. azelastine (ASTELIN,ASTEPRO) 0.1% na* 1 Koko* 11 12/11/2016 11/04/2017 Cmt: Give covered generic Route: EACH NOSTRIL Sig: Use 1-2 Sprays in each nostril twice daily. As directed Disc: Reason for discontinue is not on file. diflunisal (DOLOBID) 500 mg tab 30 t* 0 09/09/2016 11/04/2017 Route: ORAL Sig: Take 1 tablet by mouth three times daily. Disc: Reason for discontinue is not on file. fluticasone (FLONASE) 50 mcg/actuati* 2 Koko* 11 12/11/2016 11/04/2017 Sig: Use 2 sprays to each nostril one to two times daily Disc: Reason for discontinue is not on file. fluticasone-salmeterol HFA (ADVAIR H* 1 In* 11 11/26/2016 11/04/2017 Cmt: Will need prior authorization for this since did not tolerate other steroid/LABD inhalers. Route: INHALATION Sig: Inhale 2 Puffs as instructed twice daily. Disc: Reason for discontinue is not on file. orphenadrine ER (NORFLEX) 100 mg tab* 30 t* 2 07/29/2017 11/04/2017 Sig: TAKE 1 TABLET BY MOUTH TWICE DAILY NEEDED. Disc: Reason for discontinue is not on file. acetaminophen-codeine (TYLENOL-COD #* 30 t* 0 08/25/2017 11/04/2017 Class: Print RX Route: ORAL Sig: Take 1-2 tablets by mouth every 4 hours as needed for up to 30 days. Disc: Reason for discontinue is not on file. Disposition: Return for Keep next appt; add next 3 months appt. Follow-up and Disposition History Recorded Encounter Status:Closed by LISA CARMONA MD on 11/11/17 CBC AND DIFFERENTIAL Collected: 11/04/2017 Status: F Source: [place] 2:26 PM [facility] REPOS[facility]ORY TYPE CODE TESTS RESULT OUT OF REFERENCE UNITS RANGE LAB WBC 3.70-11.00 k/uL WBC 9.74 LAB RBC 3.90-5.20 m/uL RBC 4.82 LAB HGB 11.5-15.5 g/dL Hemoglobin 15.0 LAB HCT 36.0-46.0 % Hematocrit 44.8 LAB MCV 80.0-100.0 fL MCV 92.9 LAB MCH 26.0-34.0 pG MCH 31.1 LAB MCHC 30.5-36.0 g/dL MCHC 33.5 LAB RDWCV 11.5-15.0 % RDW-CV 13.4 LAB PLTCT 150-400 k/uL Platelet Count 361 LAB MPV 9.0-12.7 fL MPV 9.5 LAB ANEUT % Neut% 64.0 LAB AANEUT 1.45-7.50 k/uL Abs Neut 6.23 LAB ALYMP % Lymph% 28.9 LAB AALYMP 1.00-4.00 k/uL Abs Lymph 2.81 LAB AMONO % Whiteside% 4.8 LAB AAMONO <0.87 k/uL Abs Whiteside 0.47 LAB AEOS % Eosin% 1.8 LAB AAEOS <0.46 k/uL Abs Eosin 0.18 LAB ABASO % Baso% 0.5 LAB AABASO <0.11 k/uL Abs Baso 0.05 LAB AUNRBC 0 /100 WBC NRBCs 0.0 LAB ABNRBC <0.01 k/uL Absolute nRBC <0.01 LAB DTYP DTYPE Auto Diff Performed By: #### CBCDIF, CMP, TSH, HBA1C, VITD, FREET3, FT4, COPPER #### [facility] [address] [place] [id number] COMP METABOLIC PANEL Collected: 11/04/2017 Status: F Source: [place] 2:26 PM [facility] REPOSITORY TYPE CODE TESTS RESULT OUT OF REFERENCE UNITS RANGE LAB TP 6.3-8.0 g/dL Protein, Total 6.8 LAB ALB 3.9-4.9 g/dL Albumin 4.3 LAB CA 8.5-10.2 mg/dL Low Calcium, Total 8.4 LAB TBIL 0.2-1.3 mg/dL Bilirubin, Total 0.2 LAB ALKP 32-117 U/L Alkaline Phosphatase 56 LAB AST 13-35 U/L AST 14 LAB GLU 74-99 mg/dL Glucose 95 Result Comment: The [place] Diabetes Association (ADA) provides guidance for cutoff values for fasting glucose and random glucose. The ADA defines fasting as no caloric intake for at least 8 hours. Fas ting plasma glucose results between 100 to 125 mg/dL indicate increased risk for diabetes (prediabetes). Fasting plasma glucose results greater than or equal to 126 mg/dL meet the criteria for diagnosis of diabetes. In the absence of unequivocal hyperglycemia, results should be confirmed by repeat testing. In a patient with classic symptoms of hyperglycemia or hyperglycemic crisis, random plasma glucose results greater than or equal to 200 mg/dL meet the criteria for diagnosis of diabetes. Reference: Standards of Medical Care in Diabetes 2016, [place] Diabetes Association. Diabetes Care. 2016.39(Suppl 1). LAB BUN 7-21 mg/dL BUN 7 LAB CRET 0.58-0.96 mg/dL Creatinine 0.76 LAB NA 136-144 mmol/L Sodium Low 134 LAB K 3.7-5.1 mmol/L Potassium 4.1 LAB CL 97-105 mmol/L Chloride Low 96 LAB CO2 22-30 mmol/L CO2 Low 20 LAB AGAP 9-18 mmol/L Anion Gap 18 LAB ALT 7-38 U/L ALT 11 LAB GFRAA eGFR- Amer. >60 LAB GFRNAA . eGFR-All Other Races >60 Result Comment: eGFR (Estimated GFR) Units of measure: mL/min/1.73 meters squared eGFR is derived from the reexpressed MDRD Study equation using the following parameters: serum creatinine, age, gender and race. The creatinine assay has been calibrated to be traceable to IDMS. An eGFR <60 mL/min/1.73m2 for >3 months is consistent with chronic kidney disease. Refer to KDOQI guidelines for clinical interpretation. In patients with unstable renal function, e.g. those with acute kidney injury, the eGFR may not accurately reflect actual GFR. Performed By: #### CBCDIF, CMP, TSH, HBA1C, VITD, FREET3, FT4, COPPER #### [facility] [address] [place], [place] [address] TSH Collected: 11/04/2017 Status: F Source: [place] 2:[address] [facility] REPOSITORY TYPE CODE TESTS RESULT OUT OF RANGE REFERENCE UNITS LAB TSH 0.400-5.500 uU/mL TSH 1.890 Result Comment: If the patient is , TSH reference range varies by gestational period: First Trimester 0.100-2.500 uU/mL Second Trimester 0.200-3.000 uU/mL Third Trimester 0.300-3.000 uU/mL References: 1. Ocampo L, Nano M, Mauricio EK, et al. Management of Thyroid Dysfunction during and : An Endocrine Society Clinical Practice Guideline. J Clin Endocrinol Metab, 2012:97:5808-6828. 2. Preston ZURITA. Overview of thyroid disease in . UpToDate. 2016. Accessed on January 05, 2016. Performed By: #### CBCDIF, CMP, TSH, HBA1C, VITD, FREET3, FT4, COPPER #### [facility] [place] [address] [place] [id number] HEMOGLOBIN A1C Collected: 11/04/2017 Status: F Source: [place] 2:26 PM [facility] REPOSITORY TYPE CODE TESTS RESULT OUT OF REFERENCE UNITS RANGE LAB HGBA1C 4.3-5.6 % High Hemoglobin A1c 5.9 LAB HBA0 mg/dL Est. Average Glucose 123 Result Comment: eAG: (Estimated average glucose) is a calculated value from HgbA1c and is sales representative public utilities of the average blood glucose level in the last 2-3 month period. Performed By: #### CBCDIF, CMP, TSH, HBA1C, VITD, FREET3, FT4, COPPER #### [facility] [place] [address] [place] [address] VITAMIN D 25 HYDROXY Collected: 11/04/2017 Status: F Source: [place] 2:26 PM [facility] REPOSITORY TYPE CODE TESTS RESULT OUT OF REFERENCE UNITS RANGE LAB VITD 31.0-80.0 ng/mL Low Vitamin D 25 5.1 Hydroxy Result Comment: Classification of 25 [place] Vitamin D status: Insufficiency/Moderate Deficiency: < or = 30 ng/mL Sufficiency/Optimal Levels: 31 to 80 ng/mL Toxicity: > 100 ng/mL Test performed by chemiluminescent immunoassay. Performed By: #### CBCDIF, CMP, TSH, HBA1C, VITD, FREET3, FT4, COPPER #### [facility] [address] [place] [id number] FREE T3 Collected: 11/04/2017 Status: F Source: [place] 2:26 PM [facility] REPOSITORY TYPE CODE TESTS RESULT OUT OF RANGE REFERENCE UNITS LAB FREET3 2.3-4.1 pg/mL Free T3 3.8 Performed By: #### CBCDIF, CMP, TSH, HBA1C, VITD, FREET3, FT4, COPPER #### [facility] [address] [place] [address] FREE T4 Collected: 11/04/2017 Status: F Source: [place] 2:26 PM [facility] REPOSITORY TYPE CODE TESTS RESULT OUT OF RANGE REFERENCE UNITS LAB FT4 0.9-1.7 ng/dL Free T4 1.2 Performed By: #### CBCDIF, CMP, TSH, HBA1C, VITD, FREET3, FT4, COPPER #### [facility] [address] [place] [address] COPPER Collected: 11/04/2017 Status: F Source: [place] 2:26 PM [facility] REPOSITORY TYPE CODE TESTS RESULT OUT OF REFERENCE UNITS RANGE LAB COPPER 85-155 ug/dL Low Copper 83 Result Comment: This test was developed and its performance characteristics determined by [place] [facility] Pathology and Laboratory Medicine [place] ([facility]). It has not been cleared or approved by the FDA. [facility] is regulated under CLIA as qualified to perform high-complexity testing. This test is used for clinical purposes. It should not be regarded as investigational or for research. Performed By: #### CBCDIF, CMP, TSH, HBA1C, VITD, FREET3, FT4, COPPER #### [facility] [address] [id number] GROUP A STREP BY Collected: 10/27/2017 Status: F Source: [place] PCR 7:57 PM [facility] REPOSITORY TYPE CODE TESTS RESULT OUT OF REFERENCE UNITS RANGE LAB GASSR Throat Swab GAS Specimen Source LAB PCRGAS Negative for Group A Strep Group A PCR Streptococcus by PCR. Result Comment: This test was developed and its performance characteristics determined by [facility] Pathology and Laboratory Medicine [place] ([facility] It has not been cleared or approved by the FDA. [facility] is regulated under CLIA as qualified to perform high-complexity testing. This test is used for clinical purposes. It should not be regarded as inv estigational or for research. Performed By: #### GASPCR #### [facility] [address] [place], [place] [address] PROGRESS Observed: 10/27/2017 Status: COMPLETED Source: [place]I 6:[address] [facility] [place] REPOSITORY HNO ID: [id number] Author: Sisi Maloney Service: (none) Author Type: Nurse Practitioner Type: Progress Notes Filed: 10/27/2017 6:33 PM Note Text: Subjective HPI HPI Helena Potter is a 47 year old female who presents today for CC of sore throat, fatigue. This started 3 days ago. Has tried ibuprofen with relief. Symptoms are worsened by nothing. Risk factors sick exposures at home. Having body aches Did get flu vaccine this season. Denies possibility of being . Everyday smoker. .Patient presents with: Sore Throat: x last night, fatigue, bodyaches, cough x 3-4 days PAST MEDICAL HISTORY Diagnosis Date - Abnormal glandular Papanicolaou smear of cervix Abn. Pap smear (cervix) - ADHD (attention deficit hyperactivity disorder) 07/29/2013 - Atherosclerosis of abdominal aorta (HCC) 02/19/2012 <70% stenosisof celiac and superior mesenteric arteries; <60% stenosis of bilateral renal arteries - COPD (chronic obstructive pulmonary disease) ([facility]) - Degenerative disc disease lumbar - Dysthymic disorder Depression (non-psychotic). Patient contests this, Full Psychiatric evaluation found no evidence of this, 03/24/2014, TO - Eczema - Fibromyalgia - Hypercholesterolemia with LDL greater than 190 mg/dL Genetic with multiple family members; declines treatment and rechecking labs - IBS (irritable bowel syndrome) - Migraine, unspecified, with intractable migraine, so stated, without mention of status migrainosus Migraine - Shingles - Smoker - Steroid long-term use 3 months, 1979, prescribed by Demographic Analyst. TO 03/24/14 PAST SURGICAL HISTORY Procedure Laterality Date - APPENDECTOMY - DELIVERY ONLY 08/2010 , low transverse - PAST SURGICAL HISTORY OF RIGHT FOOT ALLERGIES Doxycycline; Latex; Aleve [Naproxen Sodium]; Amitriptyline; Camel Hair; Celebrex [Celecoxib]; Cymbalta [Duloxetine]; Darvocet A500 [Propoxyphene N-Acetaminophen]; Dulera [Mometasone-Formoterol]; Feathers; Fragrances; Insecticides; Lyrica [Pregabalin]; Naproxen; Penicillins; Pollen; Pseudoephedrine; Relafen [Nabumetone]; Sagebrush; Seasonal Allergies; Sulfa (Sulfonamide Antibiotics); Symbicort [Budesonide-Formoterol]; Tramadol Hcl MEDICATIONS cetirizine (ZYRTEC) 10 mg tablet TAKE 1 TABLET BY MOUTH ONCE DAILY. acetaminophen 325 mg-caffeine 40 mg-butalbital 50 mg (FIORICET) per tablet Take 1 tablet by mouth every 6 hours as needed for Headache. diclofenac sodium (VOLTAREN) 1 % topical gel Apply 2 g to affected area four times daily. orphenadrine ER (NORFLEX) 100 mg tablet TAKE 1 TABLET BY MOUTH TWICE DAILY NEEDED. Ipratropium Nebo (ATROVENT) 0.03 % nasal spray Use 2 Sprays in the nose every 12 hours. As directed albuterol HFA (VENTOLIN HFA) 90 mcg/actuation inhaler Inhale 2 Puffs as instructed every 4 hours as needed for Wheezing/Shortness of Breath. hydrOXYzine HCl (ATARAX) 25 mg tablet Take 1-4 tablets by mouth every 4 hours as needed for Itching/Rash (and allergic rhinitis). clotrimazole (LOTRIMIN, CLOTRIM) 1 % cream Apply 1 application to affected area twice daily. And continue for a week after rash resolves then as needed guaiFENesin (MUCINEX) 600 mg 12 hr tablet Take 1-2 tablets by mouth twice daily. As needed triamcinolone acetonide (KENALOG) 0.1 % ointment Apply to affected areas twice a day as needed. Avoid use on the face. montelukast (SINGULAIR) 10 mg tablet TAKE 1 TABLET BY MOUTH DAILY AT BEDTIME. azelastine (ASTELIN,ASTEPRO) 0.1% nasal spray Use 1-2 Sprays in each nostril twice daily. As directed fluticasone (FLONASE) 50 mcg/actuation nasal spray Use 2 sprays to each nostril one to two times daily fluticasone-salmeterol HFA (ADVAIR HFA) 230-21 mcg/actuation inhaler Inhale 2 Puffs as instructed twice daily. cyclobenzaprine (FLEXERIL) 10 mg tablet Take 1 tablet by mouth twice daily as needed for Muscle Spasm. FOR PAIN OR SPASMS diflunisal (DOLOBID) 500 mg tab Take 1 tablet by mouth three times daily. lidocaine (LIDODERM) 5 % Apply 1 Patch as directed every 12 hours as needed. Remove old patch prior to placing new patch. albuterol (PROVENTIL) 2.5 mg /3 mL (0.083 %) nebulizer solution Use 3 mL via nebulizer every 6 hours as needed for Wheezing/Shortness of Breath. 1 vial contains 3 ml. hydrocortisone 2.5 % ointment Apply 1 application to affected area twice daily as needed. Avoid use on the eyelids. ceramides 1,3,6-11 (CERAVE) Apply 2 to 3 times daily. Dispense: one large tub (not 1g) DX: L30.9 Eczema Cholecalciferol, Vitamin D3, 2,000 unit cap Take 1 tablet by mouth once daily. (Taking OTC dose) EPINEPHrine (EPIPEN) 0.3 mg/0.3 mL (1:1,000) auto-injector Inject 0.3 mL intramuscularly as needed (for allergic reaction.Seek emergent medical care immediately after use.Disp:one 2-packw/personal trainer). Back Brace misc Use as instructed TENS Units Layen Use as directed. Copper Gluconate 5 mg Tab Take by mouth. vitamin b complex Tab Take 1 tablet by mouth once daily. multivitamin tablet Take 1 tablet by mouth once daily. CALCIUM CARBONATE/VITAMIN D3 (CALCIUM + D ORAL) Take by mouth. predniSONE (DELTASONE) 10 mg tablet Take 4 tabs daily x 3 days, then 3 tabs x 3 days, 2 tabs x 3 days, then 1 tab x3 days with food. As directed FAMILY HISTORY Problem Relation Age of Onset - Alcohol/Drug Paternal Grandfather - Arthritis Maternal Grandmother - Arthritis Mother - Cancer Paternal Grandfather - Cancer Father prostate and bladder - Diabetes Father - Diabetes Maternal Grandfather - Emphysema Maternal Grandfather - Emphysema Paternal Uncle - Heart Father - Hypertension Father - Hypertension Paternal Uncle - Lipids Father - Lipids Paternal Grandmother - Lipids Paternal Uncle - Lipids Brother - Lipids Paternal Uncle - Thyroid Paternal Grandmother - Emphysema Maternal Grandmother Social History Substance Use Topics - Smoking status: Current Every Day Smoker Packs/day: 1.30 Years: 25.00 Types: Cigarettes Start date: 03/24/1989 - Smokeless tobacco: Never Used Comment: Parents smoked in childhood home. Ex-spouse was smoker. - Alcohol use Yes Comment: Occasionally, but not when . Review of Systems Constitutional: Negative for chills, fever and weight loss. HENT: Positive for congestion and sore throat. Negative for ear pain and nosebleeds. Respiratory: Positive for cough. Negative for shortness of breath and wheezing. Musculoskeletal: Negative for neck pain. Skin: Negative for itching and rash. Objective Blood pressure 124/86, pulse 76, temperature 37.1 ?C (98.8 ?F), temperature source Tympanic, resp. rate 16, weight 88.9 kg (196 lb). Physical Exam Constitutional: She is oriented to person, place, and time and well-developed, well-nourished, and in no distress. Non-toxic appearance. She does not have a sickly appearance. No distress. HENT: Head: Normocephalic and atraumatic. Right Ear: Hearing, tympanic membrane, external ear and ear canal normal. Left Ear: Hearing, tympanic membrane, external ear and ear canal normal. Nose: Nose normal. Mouth/Throat: Uvula is midline and mucous membranes are normal. Posterior oropharyngeal erythema (mild) present. No oropharyngeal exudate, posterior oropharyngeal edema or tonsillar abscesses. Eyes: Conjunctivae and lids are normal. Pupils are equal, round, and reactive to light. Right eye exhibits no discharge. Left eye exhibits no discharge. No scleral icterus. Neck: Trachea normal and normal range of motion. Neck supple. Cardiovascular: Normal rate, regular rhythm and normal heart sounds. Pulmonary/Chest: Effort normal. She has wheezes (scattered). Lymphadenopathy: She has no cervical adenopathy. Neurological: She is alert and oriented to person, place, and time. Skin: No rash noted. She is not diaphoretic. ASSESSMENT/PLAN: 1. Asthma with acute exacerbation, unspecified asthma severity, unspecified whether persistent - ICD9: 493.92, ICD10: J45.901 (primary diagnosis) -take medication as prescribed -use inhalers as prescribed -follow up in 3-5 days if symptoms persist, follow up sooner if worse - PREDNISONE 10 MG TABLET 2. Sore throat - ICD9: 462, ICD10: J02.9 - suspect viral - Rapid Strep negative in the office today and Throat culture pending - Discussed supportive care treatment with fluids, rest and analgesia. - The patient should follow up in 3-5 days if symptoms persist or worsen - Call back if drooling, increased temperature, symptoms of dehydration and/or still sick in one week - GROUP A STREPTOCOCCUS BY PCR - RAPID STREP TEST B/O Prescription instructions reviewed with patient as applicable. Patient advised if symptoms do not improve or if symptoms worsen sooner, to contact the office for further evaluation by their primary care physician. Potential red flag symptoms discussed with the patient. Reviewed appropriate action plan to take if red flag symptoms occur. Patient agreeable to treatment plan. Sisi Maloney APRN.CNP CNOV Observed: 10/27/2017 Status: COMPLETED Source: [place] 6:00 PM [facility] REPOSITORY Office Visit (WSTR) HELENA POTTER ([id number]) 1970 F Date Time Provider Department 10/27/17 6:00 PM SISI MALONEY (EL) [facility] During your visit today, we recorded the following information about you: Temperature Pulse Respiration Blood pressure 98.8 degrees 76/minute 16/minute 124/86 Weight 88.9 kg Sisi Maloney APRN.CNP 10/27/2017 6:33 PM Signed Subjective HPI HPI Helena Kyra Vazqueztt is a 47 year old female who presents today for CC of sore throat, fatigue. This started 3 days ago. Has tried ibuprofen with relief. Symptoms are worsened by nothing. Risk factors sick exposures at home. Having body aches Did get flu vaccine this season. Denies possibility of being . Everyday smoker. .Patient presents with: Sore Throat: x last night, fatigue, bodyaches, cough x 3-4 days PAST MEDICAL HISTORY Diagnosis Date - Abnormal glandular Papanicolaou smear of cervix Abn. Pap smear (cervix) - ADHD (attention deficit hyperactivity disorder) 07/29/2013 - Atherosclerosis of abdominal aorta (HCC) 02/19/2012 ANDlt;70% stenosisof celiac and superior mesenteric arteries; ANDlt;60% stenosis of bilateral renal arteries - COPD (chronic obstructive pulmonary disease) ([facility]) - Degenerative disc disease lumbar - Dysthymic disorder Depression (non-psychotic). Patient contests this, ANDquot;Full Psychiatric evaluation found no evidence of this,ANDquot; 03/24/2014, TO - Eczema - Fibromyalgia - Hypercholesterolemia with LDL greater than 190 mg/dL Genetic with multiple family members; declines treatment and rechecking labs - IBS (irritable bowel syndrome) - Migraine, unspecified, with intractable migraine, so stated, without mention of status migrainosus Migraine - Shingles - Smoker - Steroid long-term use 3 months, 1979, prescribed by Demographic Analyst. TO 03/24/14 PAST SURGICAL HISTORY Procedure Laterality Date - APPENDECTOMY - DELIVERY ONLY 08/2010 , low transverse - PAST SURGICAL HISTORY OF RIGHT FOOT ALLERGIES Doxycycline; Latex; Aleve [Naproxen Sodium]; Amitriptyline; Camel Hair; Celebrex [Celecoxib]; Cymbalta [Duloxetine]; Darvocet A500 [Propoxyphene N-Acetaminophen]; Dulera [Mometasone-Formoterol]; Feathers; Fragrances; Insecticides; Lyrica [Pregabalin]; Naproxen; Penicillins; Pollen; Pseudoephedrine; Relafen [Nabumetone]; Sagebrush; Seasonal Allergies; Sulfa (Sulfonamide Antibiotics); Symbicort [Budesonide-Formoterol]; Tramadol Hcl MEDICATIONS cetirizine (ZYRTEC) 10 mg tablet TAKE 1 TABLET BY MOUTH ONCE DAILY. acetaminophen 325 mg-caffeine 40 mg-butalbital 50 mg (FIORICET) per tablet Take 1 tablet by mouth every 6 hours as needed for Headache. diclofenac sodium (VOLTAREN) 1 % topical gel Apply 2 g to affected area four times daily. orphenadrine ER (NORFLEX) 100 mg tablet TAKE 1 TABLET BY MOUTH TWICE DAILY NEEDED. Ipratropium Nebo (ATROVENT) 0.03 % nasal spray Use 2 Sprays in the nose every 12 hours. As directed albuterol HFA (VENTOLIN HFA) 90 mcg/actuation inhaler Inhale 2 Puffs as instructed every 4 hours as needed for Wheezing/Shortness of Breath. hydrOXYzine HCl (ATARAX) 25 mg tablet Take 1-4 tablets by mouth every 4 hours as needed for Itching/Rash (and allergic rhinitis). clotrimazole (LOTRIMIN, CLOTRIM) 1 % cream Apply 1 application to affected area twice daily. And continue for a week after rash resolves then as needed guaiFENesin (MUCINEX) 600 mg 12 hr tablet Take 1-2 tablets by mouth twice daily. As needed triamcinolone acetonide (KENALOG) 0.1 % ointment Apply to affected areas twice a day as needed. Avoid use on the face. montelukast (SINGULAIR) 10 mg tablet TAKE 1 TABLET BY MOUTH DAILY AT BEDTIME. azelastine (ASTELIN,ASTEPRO) 0.1% nasal spray Use 1-2 Sprays in each nostril twice daily. As directed fluticasone (FLONASE) 50 mcg/actuation nasal spray Use 2 sprays to each nostril one to two times daily fluticasone-salmeterol HFA (ADVAIR HFA) 230-21 mcg/actuation inhaler Inhale 2 Puffs as instructed twice daily. cyclobenzaprine (FLEXERIL) 10 mg tablet Take 1 tablet by mouth twice daily as needed for Muscle Spasm. FOR PAIN OR SPASMS diflunisal (DOLOBID) 500 mg tab Take 1 tablet by mouth three times daily. lidocaine (LIDODERM) 5 % Apply 1 Patch as directed every 12 hours as needed. Remove old patch prior to placing new patch. albuterol (PROVENTIL) 2.5 mg /3 mL (0.083 %) nebulizer solution Use 3 mL via nebulizer every 6 hours as needed for Wheezing/Shortness of Breath. 1 vial contains 3 ml. hydrocortisone 2.5 % ointment Apply 1 application to affected area twice daily as needed. Avoid use on the eyelids. ceramides 1,3,6-11 (CERAVE) Apply 2 to 3 times daily. Dispense: one large tub (not 1g) DX: L30.9 Eczema Cholecalciferol, Vitamin D3, 2,000 unit cap Take 1 tablet by mouth once daily. (Taking OTC dose) EPINEPHrine (EPIPEN) 0.3 mg/0.3 mL (1:1,000) auto-injector Inject 0.3 mL intramuscularly as needed (for allergic reaction.Seek emergent medical care immediately after use.Disp:one 2-packw/personal trainer). Back Brace misc Use as instructed TENS Units Layne Use as directed. Copper Gluconate 5 mg Tab Take by mouth. vitamin b complex Tab Take 1 tablet by mouth once daily. multivitamin tablet Take 1 tablet by mouth once daily. CALCIUM CARBONATE/VITAMIN D3 (CALCIUM + D ORAL) Take by mouth. predniSONE (DELTASONE) 10 mg tablet Take 4 tabs daily x 3 days, then 3 tabs x 3 days, 2 tabs x 3 days, then 1 tab x3 days with food. As directed FAMILY HISTORY Problem Relation Age of Onset - Alcohol/Drug Paternal Grandfather - Arthritis Maternal Grandmother - Arthritis Mother - Cancer Paternal Grandfather - Cancer Father prostate and bladder - Diabetes Father - Diabetes Maternal Grandfather - Emphysema Maternal Grandfather - Emphysema Paternal Uncle - Heart Father - Hypertension Father - Hypertension Paternal Uncle - Lipids Father - Lipids Paternal Grandmother - Lipids Paternal Uncle - Lipids Brother - Lipids Paternal Uncle - Thyroid Paternal Grandmother - Emphysema Maternal Grandmother Social History Substance Use Topics - Smoking status: Current Every Day Smoker Packs/day: 1.30 Years: 25.00 Types: Cigarettes Start date: 03/24/1989 - Smokeless tobacco: Never Used Comment: Parents smoked in childhood home. Ex-spouse was smoker. - Alcohol use Yes Comment: Occasionally, but not when . Review of Systems Constitutional: Negative for chills, fever and weight loss. HENT: Positive for congestion and sore throat. Negative for ear pain and nosebleeds. Respiratory: Positive for cough. Negative for shortness of breath and wheezing. Musculoskeletal: Negative for neck pain. Skin: Negative for itching and rash. Objective Blood pressure 124/86, pulse 76, temperature 37.1 ?C (98.8 ?F), temperature source Tympanic, resp. rate 16, weight 88.9 kg (196 lb). Physical Exam Constitutional: She is oriented to person, place, and time and well-developed, well-nourished, and in no distress. Non-toxic appearance. She does not have a sickly appearance. No distress. HENT: Head: Normocephalic and atraumatic. Right Ear: Hearing, tympanic membrane, external ear and ear canal normal. Left Ear: Hearing, tympanic membrane, external ear and ear canal normal. Nose: Nose normal. Mouth/Throat: Uvula is midline and mucous membranes are normal. Posterior oropharyngeal erythema (mild) present. No oropharyngeal exudate, posterior oropharyngeal edema or tonsillar abscesses. Eyes: Conjunctivae and lids are normal. Pupils are equal, round, and reactive to light. Right eye exhibits no discharge. Left eye exhibits no discharge. No scleral icterus. Neck: Trachea normal and normal range of motion. Neck supple. Cardiovascular: Normal rate, regular rhythm and normal heart sounds. Pulmonary/Chest: Effort normal. She has wheezes (scattered). Lymphadenopathy: She has no cervical adenopathy. Neurological: She is alert and oriented to person, place, and time. Skin: No rash noted. She is not diaphoretic. ASSESSMENT/PLAN: 1. Asthma with acute exacerbation, unspecified asthma severity, unspecified whether persistent - ICD9: 493.92, ICD10: J45.901 (primary diagnosis) -take medication as prescribed -use inhalers as prescribed -follow up in 3-5 days if symptoms persist, follow up sooner if worse - PREDNISONE 10 MG TABLET 2. Sore throat - ICD9: 462, ICD10: J02.9 - suspect viral - Rapid Strep negative in the office today and Throat culture pending - Discussed supportive care treatment with fluids, rest and analgesia. - The patient should follow up in 3-5 days if symptoms persist or worsen - Call back if drooling, increased temperature, symptoms of dehydration and/or still sick in one week - GROUP A STREPTOCOCCUS BY PCR - RAPID STREP TEST B/O Prescription instructions reviewed with patient as applicable. Patient advised if symptoms do not improve or if symptoms worsen sooner, to contact the office for further evaluation by their primary care physician. Potential red flag symptoms discussed with the patient. Reviewed appropriate action plan to take if red flag symptoms occur. Patient agreeable to treatment plan. Sisi Maloney APRN.EL Maloney APRN.EL 10/27/2017 6:26 PM Signed ASSESSMENT/PLAN: 1. Asthma with acute exacerbation, unspecified asthma severity, unspecified whether persistent - ICD9: 493.92, ICD10: J45.901 (primary diagnosis) -take medication as prescribed -use inhalers as prescribed -follow up in 3-5 days if symptoms persist, follow up sooner if worse - PREDNISONE 10 MG TABLET 2. Sore throat - ICD9: 462, ICD10: J02.9 - suspect viral - Rapid Strep negative in the office today and Throat culture pending - Discussed supportive care treatment with fluids, rest and analgesia. - The patient should follow up in 3-5 days if symptoms persist or worsen - Call back if drooling, increased temperature, symptoms of dehydration and/or still sick in one week - GROUP A STREPTOCOCCUS BY PCR - RAPID STREP TEST B/O Referring Provider: SELF [200] Allergies As of Date: 10/27/2017 Noted Allergy Reaction DOXYCYCLINE 07/13/2013 2 - Rash Comments: 07/13/13 LATEX 03/05/2010 2 - Rash Comments: Positive Latex Skin Test 11/29/13 ALEVE (NAPROXEN SODIUM) 03/05/2010 11 - Vomiting Comments: DIZZINESS AMITRIPTYLINE 03/05/2010 Comments: SLEEPWALKING CAMEL HAIR 08/21/2012 2 - Rash CELEBREX (CELECOXIB) 03/05/2010 1 - Mental Status Change Comments: RAGE CYMBALTA (DULOXETINE) 03/29/2010 1 - Mental Status Change Comments: Made her angry, in a rage DARVOCET A500 (PROPOXYPHENE N-REBECCA*03/05/2010 1 - Mental Status Change Comments: HALLUCINATIONS DULERA (MOMETASONE-FORMOTEROL) 03/21/2015 12 - Shortness of Breath FEATHERS 08/21/2012 2 - Rash FRAGRANCES 03/05/2010 2 - Rash INSECTICIDES 08/21/2012 2 - Rash LYRICA (PREGABALIN) 07/30/2011 5 - Intolerance Comments: Did not tolerate even lowest dose; did not help much; made her loopy and happy NAPROXEN 03/05/2010 11 - Vomiting Comments: DIZZINESS PENICILLINS 03/05/2010 2 - Rash POLLEN 03/05/2010 2 - Rash PSEUDOEPHEDRINE 03/05/2010 5 - Intolerance Comments: SPASMS of blood vesselsIN FEET RELAFEN (NABUMETONE) 03/05/2010 5 - Intolerance Comments: SPASMS of blood vessels IN FEET SAGEBRUSH 08/14/2012 2 - Rash 9 - Itching SEASONAL ALLERGIES 11/29/2013 14 - Other: See Comments Comments: Cats Horses Cockroach Dust mites trees (September, October and November) grasses (November and December) weeds (February, March and April) ragweed (February, March and April) SULFA (SULFONAMIDE ANTIBIOTICS) 03/05/2010 2 - Rash SYMBICORT (BUDESONIDE-FORMOTEROL) 03/13/2015 14 - Other: See Comments Comments: Stinging/burning mouth, itchy roof of throat/palette TRAMADOL HCL 03/29/2010 5 - Intolerance Comments: States it made her dizzy and nauseated Date Reviewed: 10/27/2017 Reviewed by: [facility] Hospital[facility]enn Maloney - Fully Assessed Reason for Visit: Sore Throat [200] Cmt: x last night, fatigue, bodyaches, cough x 3-4 days Reason For Visit History Recorded Primary Visit Diagnosis:Asthma with acute exacerbation, unspecified asthma severity, unspecified whether persistent [J45.901] Other Visit Diagnosis:Sore throat [J02.9] Order(s):GROUP A STREPTOCOCCUS BY PCR [SQGASPCR] Order #: [id number] RAPID STREP TEST B/O [[id number]] Order #: [id number] predniSONE (DELTASONE) 10 mg tabletTake 4 tabs daily for 3 days, then 2 tabs daily for 3 days, then 1 tab daily for 3 days with food.Disp: 21 tabletRfl: 0 Prescriptions as of 10/27/2017 Sig: CETIRIZINE 10 MG TABLET TAKE 1 TABLET BY MOUTH ONCE D* [id number]-[id number]* Take 1 tablet by mouth every * DICLOFENAC 1 % TOPICAL GEL Apply 2 g to affected area fo* ORPHENADRINE CITRATE ER 100 M* TAKE 1 TABLET BY MOUTH TWICE * IPRATROPIUM BROMIDE 0.03 % NA* Use 2 Sprays in the nose ever* ALBUTEROL SULFATE HFA 90 MCG/* Inhale 2 Puffs as instructed * HYDROXYZINE HCL 25 MG TABLET Take 1-4 tablets by mouth hien* CLOTRIMAZOLE 1 % TOPICAL CREAM Apply 1 application to affect* GUAIFENESIN ER 600 MG TABLET,* Take 1-2 tablets by mouth twi* TRIAMCINOLONE ACETONIDE 0.1 %* Apply to affected areas twice* MONTELUKAST 10 MG TABLET TAKE 1 TABLET BY MOUTH DAILY * AZELASTINE 137 MCG (0.1 %) NA* Use 1-2 Sprays in each nostri* FLUTICASONE 50 MCG/ACTUATION * Use 2 sprays to each nostril * FLUTICASONE-SALMETEROL 230 MC* Inhale 2 Puffs as instructed * DIFLUNISAL 500 MG TABLET Take 1 tablet by mouth three * LIDOCAINE 5 % TOPICAL PATCH Apply 1 Patch as directed hien* ALBUTEROL SULFATE 2.5 MG/3 ML* Use 3 mL via nebulizer every * HYDROCORTISONE 2.5 % TOPICAL * Apply 1 application to affect* CERAMIDES 1,3,6-11 TOPICAL CR* Apply 2 to 3 times daily. D* CHOLECALCIFEROL (VITAMIN D3) * Take 1 tablet by mouth once d* EPINEPHRINE 0.3 MG/0.3 ML INJ* Inject 0.3 mL intramuscularly* BACK BRACE Use as instructed TRANSCUTANEOUS ELECTRICAL NER* Use as directed. COPPER 5 MG TABLET Take by mouth. VITAMIN B COMPLEX TABLET Take 1 tablet by mouth once d* * MULTIVITAMIN TABLET Take 1 tablet by mouth once d* * CALCIUM + D ORAL Take by mouth. PREDNISONE 10 MG TABLET Take 4 tabs daily for 3 days,* Medication notes this encounter PREDNISONE 10 MG TABLET >> Hilaria Moya Ma 10/27/2017 5:57 PM >> HILARIA MOYA MA FriOct 27, 2017 5:57 PM done Problem List As Of Date 10/27/2017 Noted Resolved Fibromyalgia [M79.7] Dysthymic Disorder [F34.1] More... Eczema [L30.9] More... Shingles [B02.9] Migraine NOS/Intractable [G43.919] More... IBS (Irritable Bowel Syndrome) [K58.9] Degenerative Disc Disease [LHF9890] Dyspareunia [RVN8318] INVALID FOR* Lumbago [M54.5] INVALID FOR* Lumbar disc displacement without myelopathy [M5*INVALID FOR* Lumbar radiculopathy [M54.16] INVALID FOR* Family history of abdominal aortic aneurysm [Z8*INVALID FOR* Atherosclerosis of abdominal aorta [I70.0] INVALID FOR* More... 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 Asthma with acute exacerbation, unspecified asthma severity, unspecified whether persistent - ICD9: 493.92, ICD10: J45.901 (primary diagnosis) -take medication as prescribed -use inhalers as prescribed -follow up in 3-5 days if symptoms persist, follow up sooner if worse - PREDNISONE 10 MG TABLET 2. Sore throat - ICD9: 462, ICD10: J02.9 - suspect viral - Rapid Strep negative in the office today and Throat culture pending - Discussed supportive care treatment with fluids, rest and analgesia. - The patient should follow up in 3-5 days if symptoms persist or worsen - Call back if drooling, increased temperature, symptoms of dehydration and/or still sick in one week - GROUP A STREPTOCOCCUS BY PCR - RAPID STREP TEST B/O Prescriptions ordered this encounter Disp Refills Start End PREDNISONE 10 MG TABLET 21 t* 0 10/27/2017 11/05/2017 Sig: Take 4 tabs daily for 3 days, then 2 tabs daily for 3 days, then 1 tab daily for 3 days with food. Medications Discontinued During This Encounter cyclobenzaprine (FLEXERIL) 10 mg tab* 30 t* 0 11/20/2016 10/27/2017 Cmt: Trying this med while trying to get prior authorization for Norflex; please let me know if this needs prior authorization too Route: ORAL Sig: Take 1 tablet by mouth twice daily as needed for Muscle Spasm. FOR PAIN OR SPASMS Disc: Discontinued by another Health Care Provider predniSONE (DELTASONE) 10 mg tablet 30 t* 0 08/19/2017 10/27/2017 Sig: Take 4 tabs daily x 3 days, then 3 tabs x 3 days, 2 tabs x 3 days, then 1 tab x3 days with food. As directed Disc: Discontinued by another Health Care Provider Encounter Status:Closed by SISI MALONEY CNP on 10/27/17 JESSICA Observed: 10/21/2017 Status: COMPLETED Source: N[place] 12:00 AM [facility] REPOSITORY Patient Outreach (FAMPST) HELENA POTTER ([id number]) 1970 F Date Time Provider Department 10/21/17 [facility] During your visit today, we recorded the following information about you: Allergies As of Date: 10/21/2017 Noted Allergy Reaction DOXYCYCLINE 07/13/2013 2 - Rash Comments: 07/13/13 LATEX 03/05/2010 2 - Rash Comments: Positive Latex Skin Test 11/29/13 ALEVE (NAPROXEN SODIUM) 03/05/2010 11 - Vomiting Comments: DIZZINESS AMITRIPTYLINE 03/05/2010 Comments: SLEEPWALKING CAMEL HAIR 08/21/2012 2 - Rash CELEBREX (CELECOXIB) 03/05/2010 1 - Mental Status Change Comments: RAGE CYMBALTA (DULOXETINE) 03/29/2010 1 - Mental Status Change Comments: Made her angry, in a rage DARVOCET A500 (PROPOXYPHENE N-REBECCA*03/05/2010 1 - Mental Status Change Comments: HALLUCINATIONS DULERA (MOMETASONE-FORMOTEROL) 03/21/2015 12 - Shortness of Breath FEATHERS 08/21/2012 2 - Rash FRAGRANCES 03/05/2010 2 - Rash INSECTICIDES 08/21/2012 2 - Rash LYRICA (PREGABALIN) 07/30/2011 5 - Intolerance Comments: Did not tolerate even lowest dose; did not help much; made her loopy and happy NAPROXEN 03/05/2010 11 - Vomiting Comments: DIZZINESS PENICILLINS 03/05/2010 2 - Rash POLLEN 03/05/2010 2 - Rash PSEUDOEPHEDRINE 03/05/2010 5 - Intolerance Comments: SPASMS of blood vesselsIN FEET RELAFEN (NABUMETONE) 03/05/2010 5 - Intolerance Comments: SPASMS of blood vessels IN FEET SAGEBRUSH 08/14/2012 2 - Rash 9 - Itching SEASONAL ALLERGIES 11/29/2013 14 - Other: See Comments Comments: Cats Horses Cockroach Dust mites trees (September, October and November) grasses (November and December) weeds (February, March and April) ragweed (February, March and April) SULFA (SULFONAMIDE ANTIBIOTICS) 03/05/2010 2 - Rash SYMBICORT (BUDESONIDE-FORMOTEROL) 03/13/2015 14 - Other: See Comments Comments: Stinging/burning mouth, itchy roof of throat/palette TRAMADOL HCL 03/29/2010 5 - Intolerance Comments: States it made her dizzy and nauseated Date Reviewed: 05/05/2017 Reviewed by: Carmelita Concepcion Polishing Wheel Repairer - Fully Assessed Visit Diagnosis:Medication management [Z79.899] Order(s):LIPID PANEL BASIC [SQLIPB] Order #: [id number] FUTURE Prescriptions as of 10/21/2017 Sig: CETIRIZINE 10 MG TABLET TAKE 1 TABLET BY MOUTH ONCE D* X [id number]* Take 1 tablet by mouth every * X ACETAMINOPHEN 300 MG-CODEINE * Take 1-2 tablets by mouth hien* DICLOFENAC 1 % TOPICAL GEL Apply 2 g to affected area fo* X PREDNISONE 10 MG TABLET Take 4 tabs daily x 3 days, t* X ORPHENADRINE CITRATE ER 100 M* TAKE 1 TABLET BY MOUTH TWICE * IPRATROPIUM BROMIDE 0.03 % NA* Use 2 Sprays in the nose ever* ALBUTEROL SULFATE HFA 90 MCG/* Inhale 2 Puffs as instructed * X HYDROXYZINE HCL 25 MG TABLET Take 1-4 tablets by mouth hien* X CLOTRIMAZOLE 1 % TOPICAL CREAM Apply 1 application to affect* Patient not taking: Reported on 02/10/2018 X GUAIFENESIN ER 600 MG TABLET,* Take 1-2 tablets by mouth twi* TRIAMCINOLONE ACETONIDE 0.1 %* Apply to affected areas twice* X MONTELUKAST 10 MG TABLET TAKE 1 TABLET BY MOUTH DAILY * X AZELASTINE 137 MCG (0.1 %) NA* Use 1-2 Sprays in each nostri* X FLUTICASONE 50 MCG/ACTUATION * Use 2 sprays to each nostril * X FLUTICASONE-SALMETEROL 230 MC* Inhale 2 Puffs as instructed * X CYCLOBENZAPRINE 10 MG TABLET Take 1 tablet by mouth twice * LIDOCAINE 5 % TOPICAL PATCH Apply 1 Patch as directed hien* Patient not taking: Reported on 12/01/2017 X DIFLUNISAL 500 MG TABLET Take 1 tablet by mouth three * ALBUTEROL SULFATE 2.5 MG/3 ML* Use 3 mL via nebulizer every * HYDROCORTISONE 2.5 % TOPICAL * Apply 1 application to affect* CERAMIDES 1,3,6-11 TOPICAL CR* Apply 2 to 3 times daily. D* X CHOLECALCIFEROL (VITAMIN D3) * Take 1 tablet by mouth once d* EPINEPHRINE 0.3 MG/0.3 ML INJ* Inject 0.3 mL intramuscularly* BACK BRACE Use as instructed TRANSCUTANEOUS ELECTRICAL NER* Use as directed. COPPER 5 MG TABLET Take by mouth. VITAMIN B COMPLEX TABLET Take 1 tablet by mouth once d* * MULTIVITAMIN TABLET Take 1 tablet by mouth once d* * CALCIUM + D ORAL Take by mouth. Problem List As Of Date 10/21/2017 Noted Resolved Fibromyalgia [M79.7] Dysthymic Disorder [F34.1] More... Eczema [L30.9] More... Shingles [B02.9] Migraine NOS/Intractable [G43.919] More... IBS (Irritable Bowel Syndrome) [K58.9] Degenerative Disc Disease [NYG3012] Dyspareunia [ZEO2653] INVALID FOR* Lumbago [M54.5] INVALID FOR* Lumbar disc displacement without myelopathy [M5*INVALID FOR* Lumbar radiculopathy [M54.16] INVALID FOR* Family history of abdominal aortic aneurysm [Z8*INVALID FOR* Atherosclerosis of abdominal aorta [I70.0] INVALID FOR* More... 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] INVALID FOR* Menstrual pain [N94.6] INVALID FOR* Chronic pain [G89.29] INVALID FOR* Copper deficiency [E61.0] INVALID FOR* COPD (chronic obstructive pulmonary disease) (H* Attention deficit hyperactivity disorder (ADHD)*INVALID FOR* Vitamin D deficiency [E55.9] INVALID FOR* Acute midline low back pain without sciatica [M*INVALID FOR* Encounter Status:Closed by SADAF, PRODUSER on 05/01/18 D/C SUMMARY- SP Observed: 08/26/2017 Status: F Source: KATIE 3:22 PM [facility] REPOSITORY [facility] Speech Pathology [facility] [address] [place] [address] Rd[address] [place] [address] Fax REHABILITATION SERVICES DISCHARGE SUMMARY MR#: [id number] Acct: [id number] Name: HELENA POTTER Rep #: [id number] : 1970 47 From: Fidencio Shah M.A., CCC-BUILDING GUARD DEPUTY SHERIFF Referring Dr.: Lisa Carmona MD Status: REG R Insurance: [facility] Hot[employer] Discharge Summary - Discharged: Discharge: Helena Potter is discharged from [facility] as of August 26, 2017. She was evaluated on January 13, 2017 and had one follow up appointment scheduled in which she did not show. She was contacted as a follow up in July 2017 to determine if she was still having difficulty swallowing. She stated that she was and she would call back to schedule. She has not scheduled any further visits and will be discharged. A copy of this discharge summary will be sent to her referring physician. <Electronically signed by Fidencio Shah M.A., CCC-BUILDING GUARD DEPUTY SHERIFF> 08/26/17 1522 CC: Lisa Carmona MD SANDRA Signed ADULT EVALUATION - SP Observed: 01/15/2017 Status: F Source: KATIE 8:23 AM [facility] REPOSITORY [facility] Speech [facility] [address] [place] [address] [address] [place], [place] [id number] Fax REHABILITATION SERVICES INITIAL EVALUATION MR#: [id number] Acct: [id number] Name: HELENA POTTER Rep #: [id number] : 1970 46 From: Fidencio Shah M.A., [facility]-BUILDING GUARD DEPUTY SHERIFF Referring DrBarry: Lisa Carmona MD Status: REG [facility] Insurance: [facility] History - History Date of Eval: 01/13/17 Medical Diagnosis (from RX): Dysphagia Date of Onset of Diagnosis: 12/09/16 Previous speech therapy: No Other Relevant Medical History/Diagnoses/Surgery: asthma, fibromyalgia, back pain, adhd, anxiety, depression. 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 Right Hearing Abillity: Normal Left Hearing Abillity: Normal Visual Assistive Devices: None Patients Living Arrangements: With Family Patient Allergies - Allergies Allergies doxycycline Allergy (Verified 09/04/16 15:47) Rash latex Allergy (Verified 09/04/16 15:47) Rash nabumetone [From Relafen] Allergy (Verified 09/04/16 15:47) Other Penicillins Allergy (Verified 09/04/16 15:47) Rash pseudoephedrine Allergy (Verified 09/04/16 15:47) Other Sulfa (Sulfonamide Antibiotics) Allergy (Verified 09/04/16 15:47) Rash acetaminophen [From Darvocet-N] Adverse Reaction (Verified 09/04/16 15:47) Other amitriptyline Adverse Reaction (Verified 09/04/16 15:47) Other budesonide [From Symbicort] Adverse Reaction (Verified 09/04/16 15:47) Rash celecoxib [From Celebrex] Adverse Reaction (Verified 09/04/16 15:47) Other duloxetine HCl [From Cymbalta] Adverse Reaction (Verified 09/04/16 15:47) Other formoterol fumarate [From Symbicort] Adverse Reaction (Verified 09/04/16 15:47) Rash naproxen sodium [From Aleve] Adverse Reaction (Verified 09/04/16 15:47) Vomiting pregabalin [From Lyrica] Adverse Reaction (Verified 09/04/16 15:47) Other propoxyphene napsylate [From Darvocet-N] Adverse Reaction (Verified 09/04/16 15:47) Other tramadol Adverse Reaction (Verified 09/04/16 15:47) Other CAMEL HAIR Allergy (Uncoded 07/22/16 12:15) Rash FEATHERS Allergy (Uncoded 07/22/16 12:15) Rash FRAGRANCES Allergy (Uncoded 07/22/16 12:15) Rash SAGEBRUSH Allergy (Uncoded 07/22/16 12:15) Rash Subjective Oral Motor - Comments Comments: Patient reported biting herself often when eating in oral cavity. Objective Oral Motor - Oral Status Dentition: WNL - Labial Observation at Rest: WNL Closure: WNL Pucker: WNL Retraction: WNL Alternating Pucker/Retraction: WNL Involuntary Movement noted: No - Lingual Protrusion: WNL Retraction: WNL Lateralization: WNL Involuntary Movement: No - Jaw Opening: WNL Closing: WNL - Respiratory Status Respiratory Status: Room Air Subjective Dysphagia - Symptoms Reported Symptoms/Problems with: Choking, Difficulty Swallowing Liquids, Food gets stuck - Current Diet Solids Current Diet: Regular - Current Diet Liquids Current Liquids: Thin Objective Dysphagia - Administered by Administered by: Self - Thin Liquids Administred via: Cup Laryngeal Elevation: WFL Oral Holding: No Duration: Slight holding noted. Gagging: No Patient Report: Patient reported needing to double/triple swallow. Comments: Patient had a natural double swallow. No overt signs or symptoms of dysphagia today. Patient reports that nearly every meal she coughs or chokes at least once. She now eats alone to reduce distractions. - Results Swallowing Diagnosis: Oropharyngeal Phase Dysphagia Severity: Mild Modified Barium Results Hx MBS Report Entered: Yes MBS Results (from prior exam): 01/15/17 08:18 Speech Therapy by Fidencio Shah Primary/Secondary Diagnosis: Dysphagia R13.10 Referring Physician: Lisa Carmona Medical History: 46 y/o female presents for outpatient modified barium swallow study with complaints of difficulty swallowing for years that has seemed to have gotten progressively worse. Pt could not say exactly when she noticed increased symptoms, but reports she does have coughing approximately one time per meal/snack. She reports improvement if she drinks soda. Pt describes her swallow as premature which she clarifies as swallowing starts before she is ready. She reports choking on saliva. She reports 40lb weight gain over the past 3 years. 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 Pt reports having increased stress for most of her life. She reports she does see a mental health counselor and works on destressing with journaling and exercise. Other PMH: asthma, fibromyalgia, back pain, ADHD, anxiety, depression, tobacco use. Reason for Referral: further evaluation of pharyngeal swallow function Current Diet: regular/thin Dentition: present, natural Mental Status: pleasant, reports nervous Respiratory Status: oxygenating on room air Previous Modified Barium Swallow: none Study Findings: This patient was seen for a Modified Barium Swallow. Dr. Chacon was the radiologist present for this evaluation. This study was recorded in the lateral view and images were sent to PACs for storage. The following consistencies were presented to this patient for analysis of oropharyngeal swallow function: thin liquid, pudding, and a cookie. Oral Phase Labial seal: no labial escape Tongue control during bolus hold: posterior escape of less than half of bolus Bolus preparation/mastication: timely and efficient chewing and mashing Bolus transport/lingual motion: delayed initiation of tongue motion Oral residue: complete oral clearance Pharyngeal Phase Initiation of pharyngeal swallow: bolus head in pyriforms Soft palate elevation: no bolus between soft palate and pharyngeal wall Laryngeal elevation: complete superior movement of thyroid cartilage with complete approximation of arytenoids cartilage to epiglottic petiole Anterior hyoid excursion: complete anterior movement Epiglottic movement: complete inversion Laryngeal vestibule closure at height of swallow: incomplete; narrow column of air/contrast in laryngeal vestibule Pharyngeal stripping wave: present complete Pharyngoesophageal segment opening: complete distension and complete duration; no obstruction of flow Tongue base retraction: no contrast between tongue base and posterior pharyngeal wall trace column of contrast between tongue base and posterior pharyngeal wall Pharyngeal residue: trace residue within or on pharyngeal structures Esophageal Phase Esophageal bolus clearance in the upright position: complete clearance Penetration-Aspiration Scale 1 = does not enter airway 2 = enters airway/above vocal folds/ejected 3 = enters airway/above vocal folds/not ejected 4 = enters airway/contacts vocal folds/ejected 5 = enters airway/contacts vocal folds/not ejected 6 = enters airway/below vocal folds/ejected 7 = enters airway/below vocal folds/not ejected despite effort 8 = enters airway/below vocal folds/no effort Penetration-Aspiration Scale Score: thin tsp 4 = enters airway/contacts vocal folds/ejected thin cup (natural chin tuck) 1 = does not enter airway NOTE: pt coughed after thin sequential 2 = enters airway/above vocal folds/ejected pudding 1 = does not enter airway cookie 1 = does not enter airway thin via straw 1 = does not enter airway Effects of Treatment Strategies Attempted: natural chin tuck = effective to prevent penetration Diagnosis: Mild oropharyngeal dysphagia Impression: Patient presents with swallow function that is mildly impaired. Oral phase grossly WFL marked by no anterior spillage of bolus efficient rotary mastication effective bolus preparation and manipulation Oropharyngeal phase mildly impaired premature a-p transit of bolus delayed swallow onset initiates at the level of the pyriforms with liquids cohesive bolus no nasal regurgitation Pharyngeal phase marked by no aspiration transient penetration with thin liquids, all penetration is ejected smooth bolus flow through the pharynx into the PE segment timely and efficient hyolaryngeal excursion resulting in full epiglottic range of motion incomplete laryngeal vestibule closure with thin liquids, resulting in penetration minimal to no residue on pharyngeal structures after the swallow. Esophageal phase unremarkable at this time. Recommendations Diet: regular/thin, consider use of chin tuck with liquids Compensatory Strategies Recommended: chin tuck, fully upright, slow rate of intake Need for Skilled Speech Therapy Services: Consider outpatient speech/swallow therapy services to target oropharyngeal swallow deficits. Consider exercise program that may include franklin, effortful swallow as well as training in use of chin tuck. ADDITIONAL COMMENTS/RECOMMENDATIONS: Results were reported to the pt following this study as well as recommendations to continue with use of chin tuck and consider ongoing swallow therapy. For Medicare only: Swallowing G8996 Current status: Swallowing G8997 Goal Status: 12/09/16 1524 <Electronically signed by Skye Infante > Date Skye Infante Electronically signed by Fidencio Shah M.A., [facility]-BUILDING GUARD DEPUTY SHERIFF on 01/15/17 08:19 Initialized on 01/15/17 08:18 - END OF NOTE Dysphagia Assessment - Swallowing Impairment Contributing Factors to Swallowing Impairment: Impaired Oral- Pharyngeal Transport - Impact Impact on Safety AND Functioning: Risk for Aspiration - Recommendations Modified Barium Swallow/Cookie Swallow Recommended: No Swallowing Treatment: Yes - Diet Texture Recommendations Solids Other: Regular Liquids: Thin - Safety Saftey Precautions/Swallowing Recommendations (Check all that Apply): Reduce Distractions, Upright Position at Least 30 Minutes After Meals, Small Sips AND Bites when Eating, Multiple Swallows Other: Double swallow as needed. - Compensatory Strategies Compensatory Strategies: Chin Tuck Plan - Plan Plan: Speech therapy is warranted for dysphagia therapy as during her modified barium swallow study she exhibited penetration on thin liquids. - Recommendations MBS: No Treatment Warranted: Yes - Frequency Frequency: Monthly Duration: 3 Months Visits in this POC: 3 - Prognosis Prognosis: Good - Goals that are Established: Determination:: Goals will be added/modified as deemed necessary and appropriate. Therapy will be discontinued when results of re-evaluation indicate therapy is no longer needed or lack of progress has been documented. - Goal #1-5 Goal #1: Helena will complete pharyngeal strengthening exercises independently. Goal #2: Helena will report decreased need to double swallows to less than half her swallows. Goal #3: Recommend a follow up MBS in 3-6 months to determine progress. Education - Patient Instruction Patient Education: Diagnosis, Treatment Plan, Goals, Safety Precautions, Diet Level, Home Exercise Program Other Education: Dysphagia exercises. Person Taught: Patient Teaching Method: Discussion, Handout <Electronically signed by Fidencio Shah M.A., [facility]-BUILDING GUARD DEPUTY SHERIFF> 01/15/17 0823 CC: Lisa Carmona MD SANDRA Signed For Medicare only, by signing this I certify the plan of care. Physicians Signature Date ALLERGIES ALLERGIES DATE TYPE / CODE NAME / CODE REACTION SEVERITY SOURCE 08/07/19 Drug propoxyphene Other Unknown [place] [facility] Allergy/[id number] napsylate/[id number] [facility] (SNOM[facility] 6([facility]NORM) [facility] Repository 08/07/19 Drug naproxen Vomiting Unknown [place] [facility] Allergy/966437575 sodium/[id number](R [facility] (SN[facility]) XNORM) [facility] Repository 08/07/19 Drug formoterol Rash Unknown [place] [facility] Allergy/871731289 fumarate/[id number] [facility] (SNOMED CT) (RXNORM) Hospital Repository 08/07/19 Drug duloxetine Other Unknown [place] 19 Allergy/237589828 HCl/[id number](RXNO [facility] (SNOMED [facility]) ) Hospital Repository 08/07/19 Drug Penicillins/Q070488 Rash Unknown [place] [facility] Allergy/588168543 476(RXNORM) [facility] (SNOMED CT) Hospital Repository 08/07/19 Drug Sulfa (Sulfonamide Rash Unknown [place] 19 Allergy/892241415 Antibiotics)/[id number] [facility] (SNOMED CT) 0491(RXNORM) Hospital Repository 08/07/19 Drug chlordiazepoxide/F0 Rash Unknown [place] 19 Allergy/825237275 95395380(RXNORM) [facility] (SNOMED CT) Hospital Repository 08/07/19 Drug acetaminophen/F0060 Other Unknown [place] 19 Allergy/725001150 87102(RXNORM) [facility] (SNOMED CT) Hospital Repository 08/07/19 Drug pseudoephedrine/F00 Other Unknown [place] 19 Allergy/513944703 1758553(RXNORM) [facility] (SNOMED CT) Hospital Repository 08/07/19 Drug doxycycline/B550451 Rash Unknown [place] 19 Allergy/745475020 748(RXNORM) [facility] (SNOMED CT) Hospital Repository 08/07/19 Drug nabumetone/Y6399653 Other Unknown [place] 19 Allergy/451696150 22(RXNORM) [facility] (SNOMED CT) Hospital Repository 08/07/19 Drug tramadol/[id number] Other Unknown [place] [facility] Allergy/372879173 (RXNORM) [facility] (SNOMED CT) Hospital Repository 08/07/19 Drug budesonide/E9302843 Rash Unknown [place] 19 Allergy/454038509 14(RXNORM) [facility] (SNOMED CT) Hospital Repository 08/07/19 Drug amitriptyline/F0060 Other Unknown [place] 19 Allergy/158818983 76090(RXNORM) [facility] (SNOMED CT) Hospital Repository 08/07/19 Drug celecoxib/F51151969 Other Unknown [place] 19 Allergy/020667263 1(RXNORM) [facility] (SNOMED CT) Hospital Repository 08/07/19 Drug latex/[id number](RX Rash Unknown [place] 19 Allergy/811779079 NORM) [facility] (SNOMED CT) Hospital Repository 08/07/19 Drug pregabalin/U8220789 Other Unknown [place] 19 Allergy/969128038 83(RXNORM) [facility] (SNOMED CT) Hospital Repository 08/07/19 Miscellaneous CAMEL HAIR Rash Unknown [place] 19 Allergy/221709340 [facility] (SNOMED CT) Hospital Repository 08/07/19 Miscellaneous FEATHERS Rash Unknown [place] 19 Allergy/004034142 [facility] (SNOMED CT) Hospital Repository 08/07/19 Miscellaneous FRAGRANCES Rash Unknown [place] 19 Allergy/318616347 [facility] (SNOMED CT) Hospital Repository 08/07/19 Miscellaneous SAGEBRUSH Rash Unknown [place] 19 Allergy/089031167 [facility] (SNOMED CT) Hospital Repository 03/16/20 Drug propoxyphene Other [place] 17 Allergy/645044615 napsylate/[id number] [facility] (SNOMED CT) 6(RXNORM) Hospital Repository 03/16/20 Drug naproxen Vomiting [place] 17 Allergy/696652214 sodium/Q655526319(R [facility] (SNOMED CT) XNORM) Hospital Repository 03/16/20 Drug formoterol Rash [place] 17 Allergy/453968847 fumarate/[id number] [facility] (SNOMED CT) (RXNORM) Hospital Repository 03/16/20 Drug duloxetine Other [place] 17 Allergy/343050172 HCl/Y556218909(RXNO [facility] (SNOMED CT) RM) Hospital Repository 03/16/20 Drug Penicillins/P068393 Rash [place] 17 Allergy/091238019 476(RXNORM) [facility] (SNOMED CT) Hospital Repository 03/16/20 Drug Sulfa (Sulfonamide Rash [place] 17 Allergy/958421106 Antibiotics)/A68140 [facility] (SNOMED CT) 0491(RXNORM) Hospital Repository 03/16/20 Drug acetaminophen/F0060 Other [place] 17 Allergy/937160015 08874(RXNORM) [facility] (SNOMED CT) Hospital Repository 03/16/20 Drug pseudoephedrine/F00 Other [place] 17 Allergy/874339953 8946086(RXNORM) [facility] (SNOMED CT) Hospital Repository 03/16/20 Drug doxycycline/E500720 Rash [place] 17 Allergy/120435350 748(RXNORM) [facility] (SNOMED CT) Hospital Repository 03/16/20 Drug nabumetone/W9571774 Other [place] 17 Allergy/857050716 22(RXNORM) [facility] (SNOMED CT) Hospital Repository 03/16/20 Drug tramadol/P811000050 Other [place] 17 Allergy/896876810 (RXNORM) [facility] (SNOMED CT) Hospital Repository 03/16/20 Drug budesonide/B2856673 Rash [place] 17 Allergy/708974080 14(RXNORM) [facility] (SNOMED CT) Hospital Repository 03/16/20 Drug amitriptyline/F0060 Other [place] 17 Allergy/040446648 32756(RXNORM) [facility] (SNOMED CT) Hospital Repository 03/16/20 Drug celecoxib/W62901874 Other [place] 17 Allergy/248167036 1(RXNORM) [facility] (SNOMED CT) Hospital Repository 03/16/20 Drug latex/X940617165(RX Rash [place] 17 Allergy/230903684 NORM) [facility] (SNOMED CT) Hospital Repository 03/16/20 Drug pregabalin/J6202138 Other [place] 17 Allergy/493398972 83(RXNORM) [facility] (SNOMED CT) Hospital Repository 03/16/20 FT/763410707(SNOM CAMEL HAIR Rash [place] [address]) [facility] Hospital Repository 03/16/20 FT/540267901(SNOM FEATHERS Rash [place] [address] [facility] Hospital Repository 03/16/20 FT/937593285(SNOM FRAGRANCES Rash [place] [address] [facility] Hospital Repository 03/16/20 FT/329256490(SNOM SAGEBRUSH Rash [place] [address] [facility] Hospital Repository 03/21/20 DRUG/654109618(SN MOMETASONE-FORMOTER SHORTNESS OF [place] [address]) [facility] [place] Repository 03/13/20 DRUG/254641689(SN BUDESONIDE-FORMOTER OTHER: SEE Diamond [place] [address] [facility] [place] Repository 11/30/19 Environ/746043613 SEASONAL ALLERGIES OTHER: SEE Diamond [place] 14 (SNOMED CT) [facility] [place] Repository 07/13/20 DRUG DOXYCYCLINE RASH [place] 13 INGREDI/671812869 [facility] (SNOMED CT) [place] Repository 08/21/19 Animal/428839158( CAMEL HAIR RASH [place] [address]) [facility] [place] Repository 08/21/19 DRUG FEATHERS RASH [place] INGREDI/238172237 [facility] (SNOMED [facility]) [place] Repository 08/21/19 Environ/331507768 INSECTICIDES RASH [place] [address] (SNOMED CT) [facility] [place] Repository 08/14/19 Plant/511631366(S SAGEBRUSH RASH [place] [address]) [facility] [place] Repository 07/30/19 DRUG PREGABALIN INTOLERANCE [place] INGREDI/960729260 [facility] (SNOMED [facility]) [place] Repository 03/29/20 DRUG DULOXETINE Mental Chg [place] 10 INGREDI/965571436 [facility] (SNOMED [facility]) [place] Repository 03/29/20 DRUG TRAMADOL HCL INTOLERANCE [place] INGREDI/189936320 [facility] (SNOMED [facility]) [place] Repository 03/05/20 DRUG LATEX RASH [place] 10 INGREDI/368718443 [facility] (SNOMED [facility]) [place] Repository 03/05/20 DRUG NAPROXEN SODIUM Vomiting [place] 10 INGREDI/974099534 [facility] (SNOMED [facility]) [place] Repository 03/05/20 DRUG AMITRIPTYLINE [place] 10 INGREDI/862673050 [facility] (SNOMED [facility]) [place] Repository 03/05/20 DRUG CELECOXIB [facility] [place] 10 INGREDI/244785879 [facility] (SNOMED CT) [place] Repository 03/05/20 DRUG/895457136(SN PROPOXYPHENE [facility] [place] [address]) N-ACETAMINOPHEN [facility] [place] Repository 03/05/20 Environ/302669175 FRAGRANCES RASH [place] 10 (SNOMED CT) [facility] [place] Repository 03/05/20 DRUG NAPROXEN Vomiting [place] 10 INGREDI/090524555 [facility] (SNOMED [facility]) [place] Repository 03/05/20 Drug PENICILLINS RASH [place] 10 Class/651068735(S [facility] NOMED [facility]) [place] Repository 03/05/20 Environ/302013924 POLLEN RASH [place] 10 (SNOMED CT) [facility] [place] Repository 03/05/20 DRUG PSEUDOEPHEDRINE INTOLERANCE [place] 10 INGREDI/161570805 [facility] (SNOMED [facility]) [place] Repository 03/05/20 DRUG NABUMETONE INTOLERANCE [place] 10 INGREDI/512465805 [facility] (SNOMED CT) [place] Repository 03/05/20 Drug SULFA (SULFONAMIDE RASH [place] 10 Class/613788677(S ANTIBIOTICS) [facility] NOMED CT[facility] [place] Repository ENCOUNTERS ENCOUNTERS ADMIT/DISCHARGE ACCOUNT ADMITTING ENCOUNTER LOCATION SOURCE NUMBER CLASS 08/14/2018/08/14/19 [id number] Ambulatory [place] 19 [facility] [place] Repository 08/07/2018/08/07/19 [id number] Emergency Katie [place] 19 [facility] ing:ED Repository 06/15/2018/07/02/20 [id number] Ambulatory [place] 18 [facility] [place] Repository 05/19/2018/05/20/20 [id number] Ambulatory [place] 18 [facility] [place] Repository 05/12/2018/05/13/20 [id number] Ambulatory [place] 18 [facility] [place] Repository 04/28/2018/04/29/20 [id number] Ambulatory [place] 18 [facility] [place] Repository 04/21/2018/04/21/20 [id number] Ambulatory [place] 18 [facility] [place] Repository 03/24/2018/03/24/20 [id number] Ambulatory [place] 18 [facility] [place] Repository 02/17/2018/02/19/20 [id number] Ambulatory [place] 18 [facility] [place] Repository 02/10/2018/02/24/20 [id number] Ambulatory [place] 18 [facility] [place] Repository 02/10/2018/02/12/20 [id number] Ambulatory [place] 18 [facility] [place] Repository 02/03/2018/02/06/20 [id number] Ambulatory [place] 18 [facility] [place] Repository 01/27/2018/01/29/20 [id number] Ambulatory [place] 18 [facility] [place] Repository 01/20/2018/01/23/20 [id number] Ambulatory [place] 18 [facility] [place] Repository 01/15/2018/01/17/20 [id number] Ambulatory [place] 18 [facility] [place] Repository 01/01/2018/01/03/20 [id number] Ambulatory [place] 18 [facility] [place] Repository 12/25/2017/12/27/19 [id number] Ambulatory [place] 18 [facility] [place] Repository 12/01/2017/12/04/19 [id number] Ambulatory [address] Repository 11/28/2017/12/02/19 [id number] Ambulatory [address] Repository 11/04/2017/11/13/19 [id number] Ambulatory [address] Repository 11/04/2017/11/05/19 [id number] Ambulatory [address] Repository 10/27/2017/10/29/19 [id number] Ambulatory [address] Repository 02/10/2017/02/11/20 [id number] Amb[place] [address] [place] [address] ing:SP Repository PAYERS PAYERS ENCOUNTER GUARANTOR PAYER SUBSCRIBER SOURCE 08/07/2018 [place] A Primary [place] A Katie [id number] Insurance:CARESOURCEP ElliottDOB: [facility]: [id number] Repository [place], [place] Date:2018-08-07P O 80118Hkx: (330) [address]ATTN: CLAIMS [phone] () [place] [address]HB: 08/07/2018 Secondary NOT GIVENUNK [place] Insurance:SELF PAY [facility] Number: Effective Repository Date:2018-08-07 02/10/2017 HELENA A Primary HELENA A Katie [id number] Insurance:CARESOJESUSITA MUÑOZB: [facility]: [id number] [id number] Repository [place], [place] Date:2016-12-19P O 48834Wwe: (330) [address]ATTN: CLAIMS [phone] (HP) [place] [address]LS:
== END 2018-08-07 22:53 | disposition home or self-care (01) ==
LOC: ED 21:59
PROVIDERS: Emergency Provider Emergency Medicine; Family Provider Internal Medicine; PCP Internal Medicine
DX: S90.812A Abrasion, left foot, initial encounter (principal); S80.02XA Contusion of left knee, initial encounter; S50.01XA Contusion of right elbow, initial encounter; I10 Essential (primary) hypertension; Z79.51 Long term (current) use of inhaled steroids; Z79.899 Other long term (current) drug therapy; W10.9XXA Fall (on) (from) unspecified stairs and steps, initial encounter; Y93.01 Activity, walking, marching and hiking; Y92.009 Unspecified place in unspecified non-institutional (private) residence as the place of occurrence of the external cause; Y99.8 Other external cause status
CPT/HCPCS: 73080; 73564; 73630; 99282

== ENCOUNTER 2019-08-20 21:31 | Emergency (ER) | payer SELFPAY ==
[2019-08-20 21:32] VITALS: BP 111/73; PULSE 86; RESP 18; TEMP 37.2; O2SAT 97; BMI 32.1
--- NOTE | 2019-08-20 22:00 | ED.VIS.INJ ---
History of Present Illness Chief Complaint: Other, Pain/Inj Detail of Chief Complaint: Electrical shock Informant: Patient Onset: Today - 2029 Quality of Pain: - - Tingling Location: Right index and thumb Current Severity: Gone Maximum Severity: Moderate Worsened by: Patient states her fibromyalgia was exacerbated Relieved by: Nothing Associated Symptoms: Parasthesias. Negative for: Weakness, Loss of function Narrative: Patient is a middle-age woman with history of fibromyalgia who uses medical marijuana for her fibromyalgia. She is on no other medicines. She has no other medical problems. She states she was plugging in a light. She felt zing between her right index and thumb. She is right-hand dominant. She presently has no complaints. She felt this caused her arm to hurt and cause a flare of her fibromyalgia. She presently has no increased pain or symptoms. Tetanus Immunization: 5-10 years Prior similar symptoms: No Recent Illness/Hospitalization: No - Past Medical History (1) Fibromyalgia Status: Acute Past Medical History - Allergies and Home Meds Allergies/Adverse Reactions: Allergies chlordiazepoxide Allergy (Verified 08/20/19 21:35) Rash doxycycline Allergy (Verified 08/20/19 21:35) Rash latex Allergy (Verified 08/20/19 21:35) Rash nabumetone [From Relafen] Allergy (Verified 08/20/19 21:35) Other Penicillins Allergy (Verified 08/20/19 21:35) Rash pseudoephedrine Allergy (Verified 08/20/19 21:35) Other Sulfa (Sulfonamide Antibiotics) Allergy (Verified 08/20/19 21:35) Rash acetaminophen [From Darvocet-N] Adverse Reaction (Verified 08/20/19 21:35) Other amitriptyline Adverse Reaction (Verified 08/20/19 21:35) Other budesonide [From Symbicort] Adverse Reaction (Verified 08/20/19 21:35) Rash celecoxib [From Celebrex] Adverse Reaction (Verified 08/20/19 21:35) Other duloxetine HCl [From Cymbalta] Adverse Reaction (Verified 08/20/19 21:35) Other formoterol fumarate [From Symbicort] Adverse Reaction (Verified 08/20/19 21:35) Rash naproxen sodium [From Aleve] Adverse Reaction (Verified 08/20/19 21:35) Vomiting pregabalin [From Lyrica] Adverse Reaction (Verified 08/20/19 21:35) Other propoxyphene napsylate [From Darvocet-N] Adverse Reaction (Verified 08/20/19 21:35) Other tramadol Adverse Reaction (Verified 08/20/19 21:35) Other CAMEL HAIR Allergy (Uncoded 08/20/19 21:35) Rash FEATHERS Allergy (Uncoded 08/20/19 21:35) Rash FRAGRANCES Allergy (Uncoded 08/20/19 21:35) Rash SAGEBRUSH Allergy (Uncoded 08/20/19 21:35) Rash Primary Care Physician: Aleida Carmona MD [Primary Care Provider] - Prior records reviewed: Yes Surgical History: noncontributory Smoking Status: Current every day smoker Alcohol: Rare Drugs: Marijuana Review of Systems General: Denies: Chills, Fever Eyes: Denies: Visual changes - bilaterally, Blurred Vision - bilaterally Cardiovascular: Denies: Chest pain, Palpitations, Heart racing Respiratory: Denies: Dyspnea Musculoskeletal: Reports: Extremity Pain - Initially. Denies: Myalgias, Arthralgias, Neck pain, Back pain, Swelling Skin: Denies: Rash, Wounds Neurological: Reports: Parasthesia. Denies: Weakness, Numbness Hematologic: Denies: Easy bruising, Easy bleeding Physical Exam Vital Signs/Narrative: Vital Signs Temp Pulse Resp BP Pulse Ox 08/20/19 21:32 98.9 F 86 18 111/73 97 Inital Vital Signs reviewed: Yes General: Well nourished, Well developed Head: Normocephalic, Atraumatic Eyes: Perrl, EOMI ENT: TM's clear, No hemotympanum or drainage, No trauma Neck: Nontender, Full ROM Cardiovascular: Regular rate, Regular rhythm, No murmurs Respiratory: No distress, CTA bilaterally, Chest nontender Abdomen: Soft, Nontender, Nondistended, Normal bowel sounds Back: Nontender Extremeties: There is no wound or burn noted to the digits of the right hand. Extensor and flexor mechanism intact. Axillary, median, radial and ulnar function intact. Radial pulses palpable. Skin: Normal color, No rash Neurological: Alert, Oriented x3, Cranial nerves II-XII grossly intact, Normal Strength, Normal Sensation Psychological: Normal affect - Glascow Coma Scale Eye Opening: Spontaneous Motor: Obeys Commands Verbal: Oriented Coma Scale Total: 15 Diagnostic/Tx/Re-eval - Medical Decision Making And had transient shock. Low voltage/house outlet. No testing is indicated. ED Disposition - Plan for ED Patient: Disposition: Home or Assisted Living Diagnosis: Electrical shock of hand Instructions: First Aid: Electrical Shocks Referrals: Aleida Carmona MD [Primary Care Provider] - As Needed
== END 2019-08-20 22:22 | disposition home or self-care (01) ==
LOC: ED 22:07
PROVIDERS: Emergency Provider Emergency Medicine; PCP Internal Medicine
DX: T75.4XXA Electrocution, initial encounter (principal); M79.7 Fibromyalgia; F17.200 Nicotine dependence, unspecified, uncomplicated
CPT/HCPCS: 99282

== ENCOUNTER 2019-12-05 04:19 | Emergency (ER) | payer MEDICAID, SELFPAY ==
[2019-12-05 04:21] VITALS: BP 113/86; PULSE 101; RESP 18; TEMP 36.8; O2SAT 95; BMI 33.6
--- NOTE | 2019-12-05 04:42 | ED.DCSUM_ITS ---
History of Present Illness Chief Complaint: Lower Extremity Injury Informant: Patient Onset: Yesterday Current Severity: Mild Maximum Severity: Moderate Narrative: Patient twisted her right ankle yesterday, she has been able to ambulate on it but felt more pain today she also has some tib-fib tenderness. The mechanism was a pothole, it sounds like she inverted her ankle. No other injury she denies back pain or head injury. Past Medical History - Allergies and Home Meds Allergies/Adverse Reactions: Allergies chlordiazepoxide Allergy (Verified 12/05/19 04:19) Rash doxycycline Allergy (Verified 12/05/19 04:19) Rash latex Allergy (Verified 12/05/19 04:19) Rash nabumetone [From Relafen] Allergy (Verified 12/05/19 04:19) Other Penicillins Allergy (Verified 12/05/19 04:19) Rash pseudoephedrine Allergy (Verified 12/05/19 04:19) Other Sulfa (Sulfonamide Antibiotics) Allergy (Verified 12/05/19 04:19) Rash acetaminophen [From Darvocet-N] Adverse Reaction (Verified 12/05/19 04:19) Other amitriptyline Adverse Reaction (Verified 12/05/19 04:19) Other budesonide [From Symbicort] Adverse Reaction (Verified 12/05/19 04:19) Rash celecoxib [From Celebrex] Adverse Reaction (Verified 12/05/19 04:19) Other duloxetine HCl [From Cymbalta] Adverse Reaction (Verified 12/05/19 04:19) Other formoterol fumarate [From Symbicort] Adverse Reaction (Verified 12/05/19 04:19) Rash naproxen sodium [From Aleve] Adverse Reaction (Verified 12/05/19 04:19) Vomiting pregabalin [From Lyrica] Adverse Reaction (Verified 12/05/19 04:19) Other propoxyphene napsylate [From Darvocet-N] Adverse Reaction (Verified 12/05/19 04:19) Other tramadol Adverse Reaction (Verified 12/05/19 04:19) Other CAMEL HAIR Allergy (Uncoded 12/05/19 04:19) Rash FEATHERS Allergy (Uncoded 12/05/19 04:19) Rash FRAGRANCES Allergy (Uncoded 12/05/19 04:19) Rash SAGEBRUSH Allergy (Uncoded 12/05/19 04:19) Rash Primary Care Physician: Aleida Carmona MD [Primary Care Provider] - Past Medical History: - - Fibromyalgia Surgical History: noncontributory Smoking Status: Current every day smoker Review of Systems General: Reports: - - No head injury or loss of consciousness Musculoskeletal: Reports: Extremity Pain Skin: Denies: Wounds Neurological: Denies: Weakness, Parasthesia Hematologic: Denies: Easy bruising, Easy bleeding Physical Exam Vital Signs/Narrative: Vital Signs Temp Pulse Resp BP Pulse Ox 12/05/19 04:21 98.3 F 101 H 18 113/86 H 95 General: Well nourished, Well developed ENT: Moist mucous membranes Respiratory: No distress Back: Nontender, Normal Inspection Extremities: - - She has right ankle tenderness mostly lateral malleolus swelling and edema no tenderness at the proximal fifth metatarsal. There is some tenderness over the anterior leg region right below the knee. There is no knee tenderness. Skin: Normal color, - - Slight contusion over the lateral malleolus Neurological: Normal Strength, Normal Sensation Diagnostic/Tx/Re-eval Right ankle x-ray read by me shows normal alignment, slight soft tissue swelling, there is no fracture normal alignment. Tib-fib x-ray read by me shows normal alignment, no fracture. - Medical Decision Making Patient has a normal x-ray I will put her in an Aircast and discharge her with reassurance. ED Disposition - Plan for ED Patient: Disposition: Home or Assisted Living Diagnosis: Ankle sprain Instructions: ED Sprain Ankle Prescriptions: Naproxen [Naprosyn] 500 mg PO BID PRN #20 tab Transmission Status: Pending to [facility]/pharmacy #[id number] Referrals: Aleida Carmona MD [Primary Care Provider] - 3-5 Days
--- NOTE | 2019-12-05 05:05 | RAD_ITS ---
STUDY: X-RAY - RIGHT ANKLE REASON FOR EXAM: Female, 49 years old. PAIN AND SWELLING OVER LATERAL MALLEOLUS TECHNIQUE: 3 view(s) of the ankle. COMPARISON: None. FINDINGS: Normal visualized distal tibia and fibula. Normal medial and lateral malleoli. Normal tibiotalar articulation and ankle mortise. Normal visualized talus and calcaneus. The visualized subtalar, talonavicular, calcaneocuboid and tarsal articulations are normal. There is lateral soft tissue swelling. RAD/Ankle min 3 Views IMPRESSION: Normal x-ray examination of the ankle. Electronically Signed: Abimael Lazo MD at 5:44 EDT , Service support ,
--- NOTE | 2019-12-05 05:05 | RAD_ITS ---
STUDY: X-RAY - RIGHT TIBIA AND FIBULA REASON FOR EXAM: Female, 49 years old. PAIN LATERAL MALLEOLUS AFTER INJURY TECHNIQUE: 2 view(s) of the tibia and fibula were obtained. COMPARISON: None. FINDINGS: Normal visualized tibia. Normal visualized fibula. The soft tissue structures are unremarkable. RAD/Tibia & Fibula 2 Views IMPRESSION: Normal x-ray examination of the tibia and fibula. Electronically Signed: Abimael Lazo MD at 5:42 EDT , Service support ,
[2019-12-05 06:01] VITALS: RESP 17
--- OUTSIDE RECORDS SUMMARY | 2020-05-02 11:47 | XMS RPT_ITS | CCD ---
:1970 External Reference #:[id number] Author Organization [facility] Care Team Providers Name Role Phone Primo Carmona Primary Care Provider Allergies Reported Allergen Reaction(s) Severity Date of Onset Location Amitriptyline 03-05-2010 - [facility] ic (39495) Budesonide / formoterol Other: See Comments 03-13-2015 - [facility] (01841) Camel Hair Rash 08-21-2012 - [facility] (39459) celecoxib Mental Status Change 03-05-2010 - [facility] (93521) Doxycycline Rash High 07-13-2013 - [facility] (39724) DULoxetine Mental Status Change 03-29-2010 - [facility] (23576) Feather Rash 08-21-2012 [facility] (64438) formoterol / Mometasone Shortness of Breath 03-21-2015 - [facility] (14393) Fragrances Rash 03-05-2010 - [facility] (46816) Insecticides Rash 08-21-2012 - [facility] (95485) Latex Rash High 03-05-2010 - [facility] (05887) nabumetone Intolerance 03-05-2010 - [facility] (25758) Naproxen Vomiting 03-05-2010 - [facility] (67871) Naproxen Vomiting 03-05-2010 - [facility] (19935) Penicillins Rash 03-05-2010 - [facility] (07381) Pollen Rash 03-05-2010 - [facility] (39364) pregabalin Intolerance 07-30-2011 - [facility] (69914) Propoxyphene Mental Status Change 03-05-2010 - [facility] N-Acetaminophen (98786) Pseudoephedrine Intolerance 03-05-2010 - [facility] inic (79547) Sagebrush Rash, Itching 08-14-2012 - [facility] (89522) Seasonal allergy Other: See Comments 11-29-2013 - [facility] (53208) Sulfonamides Rash 03-05-2010 - [facility] (Antibiotic) (06795) traMADol Intolerance 03-29-2010 - [facility] (45661) Medications Medication Name Sig Date Prescriber Location Acetaminophen / acetaminophen 325 02-16-2019 Lisa Tillman [place] [facility] butalbital / Caffeine mg-caffeine 40 Lisa Primo [place] ( 15469) mg-butalbital 50 mg (FIORICET) per tablet Indications: Tension headache Take 1 tablet by mouth every 6 hours as needed for Headache. 20 tablet 1 02/16/2019 Active Comment: Take 1 tablet by mouth every 6 hours as needed for Headache. Acetaminophen / acetaminophen-codeine 11-16-2019 - Lisa Tillman [facility] Codeine (TYLENOL-COD #3) 300-30 mg 03-21-2020 [facility] per tablet Indications: (441 95) Fibromyalgia , TMJ (dislocation of temporomandibular joint), subsequent encounter Take 1-2 tablets by mouth three times daily as needed for up to 7 days. Takes up to 5 pills max per day during a flare up 18 tablet 0 03/21/2020 Active Comment: Take 1-2 tablets by mouth th ree times daily as needed for up to 7 days. Takes up to 5 pills max per day during a flare up Albuterol albuterol HFA (VENTOLIN HFA) 10-01-2019 Lisa lu [facility] 90 mcg/actuation inhaler (44 195) Inhale 2 Puffs as instructed every 4 hours as needed for Wheezing/Shortness of Breath. 1 Inhaler 3 10/01/2019 Active albuterol (PROVENTIL) 2.5 mg /3 07-16-2016 Sandra chiang [facility] mL (0.083 %) nebulizer solution (31287) Indications: Acute bronchitis, unspecified organism Use 3 mL via nebulizer every 6 hours as needed for Wheezing/Shortness of Breath. 1 vial contains 3 ml. 100 Vial 0 07/16/2016 Active Comment: Use 3 mL via nebulizer every 6 hours as needed for Wheezing/Shortness of Breath. 1 vial contains 3 ml . Inhale 2 Puffs as instructed every 4 hours as needed for Wheezing/Shortness of Breath. azelastine azelastine 02-16-2019 - Lisa D [place] [facility] inic (ASTELIN,ASTEPRO) 0.1% 03-21-2020 (4419 5) nasal spray Indications: Non-seasonal allergic rhinitis due to pollen Use 1-2 Sprays in each nostril twice daily. As directed 1 Bottle 11 03/21/2020 Active Comment: Use 1-2 Sprays in each nostr il twice daily. As directed [facility] 02-09-2014 Syed Plunkett [facility] Indications: Lumbago , Syed Plunkett (4419 5) Lumbar radiculopathy , Lumbar disc displacement without myelopathy Use as instructed 1 Each 0 02/09/2014 Active Comment: Use as instructed Calcium Carbonate / CALCIUM CARBONATE/VITAMIN [facility] Prov ider Ccf [facility] vitamin D3 D3 (CALCIUM + D ORAL) Take Provider ( 73652) by mouth. 0 Active Comment: Take by mouth. Cetirizine cetirizine (ZYRTEC) 10 07-07-2018 Lisa D [place] [facility] mg tablet Take 1 D [place] (26535) tablet by mouth once daily. 90 tablet 3 07/07/2018 Active Comment: Take 1 tablet by mouth once daily. Cholecalciferol Cholecalciferol, Vitamin 11-16-2019 Lisa D Talamp as [facility] D3, 125 mcg (5,000 unit) Lisa D [place] (44064) cap Indications: Vitamin D deficiency Take 1 capsule by mouth once daily. 30 capsule 11 11/16/2019 Active Comment: Take 1 capsule by mouth once daily. Copper Gluconate Copper Gluconate 5 mg Ccf Provider Cc f [facility] Tab Take by mouth. 0 Provider (88213) Active Comment: Take by mouth. Diclofenac diclofenac sodium 09-21-2018 Lisa D Talampas [facility] (VOLTAREN) 1 % topical Lisa D [place] (4 4195) gel Indications: Lumbar disc displacement without myelopathy , Acute midline low back pain without sciatica Apply 2 g to affected area four times daily. 100 g 5 09/21/2018 Active Comment: Apply 2 g to affected area f our times daily. EPINEPHrine EPINEPHrine (EPIPEN) 0.3 02-16-2019 [facility] mg/0.3 mL auto-injector Lisa D [facility] ( 80860) Inject 0.3 mL intramuscularly as needed (for allergic reaction.Seek emergent medical care immediately after use. Disp:One 2-pack). 1 Each 1 02/16/2019 Active Comment: Inject 0.3 mL intramuscularl y as needed (for allergic reaction.Seek emergent medical care immediately aft er use. Disp:One 2-pack). fluticasone fluticasone (FLONASE) 09-21-2018 - [facility] 50 mcg/actuation nasal 03-21-2020 (4419 5) spray Indications: Non-seasonal allergic rhinitis due to pollen Use 2 sprays to each nostril one to two times daily 2 Bottle 11 03/21/2020 Active Comment: Use 2 sprays to each nostril one to two times daily fluticasone / fluticasone-salmeterol HFA 03-21-2020 [facility] salmeterol (ADVAIR HFA) 230-21 [facility] ( 44308) mcg/actuation inhaler Indications: Chronic obstructive pulmonary disease, unspecified COPD type (HCC) Inhale 2 Puffs as instructed twice daily. 1 Inhaler 11 03/21/2020 Active fluticasone-salmeterol HFA 11-05-2018 - [facility] (ADVAIR HFA) 230-21 03-21-2020 (01549) mcg/actuation inhaler Indications: Chronic obstructive pulmonary disease, unspecified COPD type (HCC) Inhale 2 Puffs as instructed twice daily. 1 Inhaler 11 11/05/2018 03/21/2020 Discontinued Comment: Inhale 2 Puffs as instructed twice daily. guaiFENesin guaiFENesin (MUCINEX) 07-19-2019 [facility] 600 mg 12 hr tablet [facility] (4419 5) Take 1-2 tablets by mouth twice daily. As needed 60 tablet 5 07/19/2019 Active Comment: Take 1-2 tablets by mouth tw ice daily. As needed Hydrocortisone hydrocortisone 2.5 % 11-16-2019 Lisa Pagelucio [facility] ointment Indications: Lisa D Kristine (44 195) Eczema, unspecified type Apply 1 application to affected area twice daily as needed. Avoid use on the eyelids. 60 g 5 11/16/2019 Active Comment: Apply 1 application to affec nicloette area twice daily as needed. Avoid use on the eyelids. hydrOXYzine hydrOXYzine HCl 10-01-2019 [facility] (AT[facility]AX[facility] 25 mg tablet Lisa Carmona (44 195) Indications: Eczema, unspecified type , Chronic nonseasonal allergic rhinitis due to pollen Take 1-4 tablets by mouth every 4 hours as needed for Itching/Rash (and allergic rhinitis). 180 tablet 2 10/01/2019 Active Comment: Take 1-4 tablets by mouth ev teodora 4 hours as needed for Itching/Rash (and allergic rhinitis). Ipratropium Ipratropium [place] 09-21-2018 Lisa Carmona [facility] (ATROVENT) 0.03 % nasal Lisa Carmona ( 41656) spray Use 2 Sprays in the nose every 12 hours. As directed 1 Bottle 2 09/21/2018 Active Comment: Use 2 Sprays in the nose benita ry 12 hours. As directed montelukast montelukast 02-16-2019 - Lisa Carmona [facility] inic (SINGULAIR) 10 mg 03-21-2020 Lisa Primo [place] (11692) tablet Take 1 tablet by mouth daily at bedtime. 90 tablet 3 02/16/2019 03/21/2020 Discontinued Comment: Take 1 tablet by mouth daily at bedtime. multivitamin tablet multivitamin tablet 05-13-2012 Lisa D Baoampa s [facility] Take 1 tablet by Lisa [place] (30018) mouth once daily. 0 05/13/2012 Active Comment: Take 1 tablet by mouth once daily. Orphenadrine orphenadrine ER (NORFLEX) 10-01-2019 [facility] 100 mg tablet Indications: Lisa D [place] (24360) Fibromyalgia , Lumbar radiculopathy , Spinal stenosis of lumbar region, unspecified whether neurogenic claudication present , Muscle spasm of back , TMJ (dislocation of temporomandibular joint), subsequent encounter Take 1 tablet by mouth twice daily as needed. 30 tablet 2 10/01/2019 Active Comment: Take 1 tablet by mouth twice daily as needed. TENS Units Layne TENS Units Layne Use as 11-20-2012 Syed gu [facility] directed. 1 Device 0 Diamond Plunkett (57077) 11/20/2012 Active Comment: Use as directed. Triamcinolone triamcinolone acetonide 11-16-2019 Lisa D Talampas [facility] (KENALOG) 0.1 % Lisa Primo [place] (55500) ointment Indications: Eczema, unspecified type Apply to affected areas twice a day as needed. Avoid use on the face. 60 g 2 11/16/2019 Active Comment: Apply to affected areas twic e a day as needed. Avoid use on the face. Vitamin B Complex vitamin b complex Tab 09-22-2012 Ashley lombardi [facility] Indications: Vitamin Ashley Mccoy (44 195) B6 deficiency Take 1 tablet by mouth once daily. 30 tablet 3 09/22/2012 Active Comment: Take 1 tablet by mouth once daily. Problems Active Problems Category Problem Name Status Date Location Allergic reactions Eczema Active [facility] (60394) Anxiety disorders Generalized anxiety Active 06-27-2014 - [facility] disorder (23348) Attention-deficit Attention deficit Active 02-03-2015 - [facility] conduct and disruptive hyperactivity disorder, (06656) behavior disorders combined type Chronic obstructive Chronic obstructive lung Active [facility] pulmonary disease and disease (54499 ) bronchiectasis Conditions associated Dizziness Active [facility] with dizziness or (85831) vertigo Genitourinary symptoms Urinary incontinence Active 03-14-2014 - [facility] and ill-defined (18367) conditions Headache; including Refractory migraine Active [facility] migraine (85824) Joint disorders and Dislocation of Active [facility] dislocations; temporomandibular joint (44 195) trauma-related Menstrual disorders Dysmenorrhea Active 09-02-2014 - [facility] (09203) Mood disorders Dysthymia Active [facility] janie (93202) Nutritional deficiencies Vitamin D deficiency Active 10-28-19 - [facility] (20531) Other connective tissue Fibromyalgia Active [facility] disease (43284) Other female genital Dyspareunia Active 05-16-2010 - [facility] disorders (25484) Other gastrointestinal Irritable bowel syndrome Active [facility] disorders (87897) Other upper respiratory Allergic rhinitis due to Active [facility] disease pollen (18862) Peripheral and visceral Abdominal aortic Active 02-19-2012 - [facility] atherosclerosis atherosclerosis (55233) Residual codes; Chronic pain Active 09-02-2014 - [facility] unclassified (09359) Spondylosis; Displacement of lumbar Active 09-23-2011 - [facility] intervertebral disc intervertebral disc ( 00250) disorders; other back without myelopathy problems Substance-related Smoker Active [facility] disorders (87781) Viral infection Herpes zoster Active [facility] linic (42305) Past or Other Problems Category Problem Name Status Date Location Other connective Muscle pain Completed 08-06-2012 - [facility] tissue disease (90748) Residual codes; Family history of Completed 01-13-2012 - [facility] unclassified ischemic heart (97638) disease and other diseases of the circulatory system Results Result Name Value Range Unit Interpretation Flag Date Location progress on 2020-03 PROGRESS HNO ID: [id number] Normal 03-21-2020 [facility] Author: Lisa Carmona [place] ([id number]) Service: ? Author Type: Physician Type: Progress Notes Filed: 04/16/2020 5:02 PM Note Text: This Team Access Model visit is a phone encounter. It requir ed patient-provider interaction for the medical decision making as documented below. This note was created using [facility]. Subjective Helena Potter is a 50 year old female. Patient presents with: F/U 3 months SUBJECTIVE: Helena Potter is a 50 year old year old lady here toda y for 3 month follow up appointment for review of medical conditions. Noted stressors. Son 9yo seems to be going through puberty a nd behaviors noted. Allergy season. Flared up now though has all year round. Just needs Tyl #3 for 3 months with a few pills. Thinks has a cyst above pelvic bone. Seemed to go flat and t urned black. Told to use hot compresses and it did help that the resolve. Has a recurrence but there is a lump down deep under the skin. See ps blood and pus. Not hot and red. Dark color like prior. Few cm after pr ior. The lump keeps coming back. Heavier so when sitting it area that gets compressed. Has had a lot of dizziness. Started 2 weeks ago. Checks BP--within normal limits Checked sugar with mom's meter--was fine. Drank sports drink--no better. Does meditation daily. Thinks stress might contribute but happens even when not str essed. Can be while sitting and watching a show. Almost feels like when was drunk in her youth. Can get dizzy when stands up and turns--this is not the trig derrick for dizziness now. Not the neck tightness trigger. Vitamin D--misses some but tolerates. Not really using medical marijuana on any regular basis. No longer needing Tylenol#3 on any regular basis. PAST MEDICAL HISTORY Diagnosis Date - Abnormal glandular Papanicolaou smear of cervix Abn. Pap smear (cervix) - ADHD (attention deficit hyperactivity disorder) 07/29/2013 - Atherosclerosis of abdominal aorta ([facility]) 02/19/2012 <70% stenosisof celiac and superior mesenteric arteries; <60 % stenosis of bilateral renal arteries - COPD (chronic obstructive pulmonary disease) ([facility]) - Degenerative disc disease lumbar - Dysthymic disorder Depression (non-psychotic). Patient contests this, Full Psy chiatric evaluation found no evidence of this, 03/24/2014, TO - Eczema - Fibromyalgia - Hypercholesterolemia with LDL greater than 190 mg/dL Genetic with multiple family members; declines treatment and rechecking labs - IBS (irritable bowel syndrome) - Migraine, unspecified, with intractable migraine, so state d, without mention of status migrainosus Migraine - Shingles - Smoker - Steroid long-term use 3 months, 1979, prescribed by Descriptive Catalog Librarian. TO 03/24/14 Current Outpatient Medications Medication Sig - acetaminophen-codeine (TYLENOL-COD #3) 300-30 mg per table t Take 1-2 tablets by mouth three times daily as needed for up to 7 day s. Takes up to 5 pills max per day during a flare up - hydrocortisone 2.5 % ointment Apply 1 application to affec nicolette area twice daily as needed. Avoid use on the eyelids. - triamcinolone acetonide (KENALOG) 0.1 % ointment Apply to affected areas twice a day as needed. Avoid use on the face. - Cholecalciferol, Vitamin D3, 125 mcg (5,000 unit) cap Take 1 capsule by mouth once daily. - albuterol HFA (VENTOLIN HFA) 90 mcg/actuation inhaler Inha le 2 Puffs as instructed every 4 hours as needed for Wheezing/Shortness of Breath. - orphenadrine ER (NORFLEX) 100 mg tablet Take 1 tablet by m outh twice daily as needed. - hydrOXYzine HCl (ATARAX) 25 mg tablet Take 1-4 tablets by mouth every 4 hours as needed for Itching/Rash (and allergic rhinitis). - guaiFENesin (MUCINEX) 600 mg 12 hr tablet Take 1-2 tablets by mouth twice daily. As needed - acetaminophen 325 mg-caffeine 40 mg-butalbital 50 mg (MENDEL ICET) per tablet Take 1 tablet by mouth every 6 hours as needed for He adache. - montelukast (SINGULAIR) 10 mg tablet Take 1 tablet by mout h daily at bedtime. - EPINEPHrine (EPIPEN) 0.3 mg/0.3 mL auto-injector Inject 0. 3 mL intramuscularly as needed (for allergic reaction.Seek emerge nt medical care immediately after use. Disp:One 2-pack). - azelastine (ASTELIN,ASTEPRO) 0.1% nasal spray Use 1-2 Spra ys in each nostril twice daily. As directed - fluticasone-salmeterol HFA (ADVAIR HFA) 230-21 mcg/actuati on inhaler Inhale 2 Puffs as instructed twice daily. - Ipratropium [place] (ATROVENT) 0.03 % nasal spray Use 2 Sp rays in the nose every 12 hours. As directed - diclofenac sodium (VOLTAREN) 1 % topical gel Apply 2 g to affected area four times daily. - fluticasone (FLONASE) 50 mcg/actuation nasal spray Use 2 s prays to each nostril one to two times daily - cetirizine (ZYRTEC) 10 mg tablet Take 1 tablet by mouth on ce daily. - albuterol (PROVENTIL) 2.5 mg /3 mL (0.083 %) nebulizer rhina ution Use 3 mL via nebulizer every 6 hours as needed for Wheezing/Shortness of Breath. 1 vial contains 3 ml. - Back Brace misc Use as instructed (Patient not taking: Rep orted on 02/16/2019 ) - TENS Units Layne Use as directed. - Copper Gluconate 5 mg Tab Take by mouth. - vitamin b complex Tab Take 1 tablet by mouth once daily. - multivitamin tablet Take 1 tablet by mouth once daily. - CALCIUM CARBONATE/VITAMIN D3 (CALCIUM + D ORAL) Take by [facility]. No current facility-administered medications for this visit. Review of Systems Objective LMP 02/13/2018 (Within Days) Physical Exam Neurological: Mental Status: She is oriented to person, place, and time. Psychiatric: Attention and Perception: Attention and perception normal. Mood and Affect: Mood normal. Speech: Speech normal. Behavior: Behavior normal. Thought Content: Thought content normal. Cognition and Memory: Cognition normal. Judgment: Judgment normal. Assessment and Plan Encounter Diagnosis ICD-10-CM 1. Vitamin D deficiency E55.9 VITAMIN D 25 HYDROXY 2. Non-seasonal allergic rhinitis due to pollen J30.1 azelas ginger (ASTELIN,ASTEPRO) 0.1% nasal spray fluticasone (FLONASE) 50 mcg/actuation nasal spray 3. Fibromyalgia M79.7 acetaminophen-codeine (TYLENOL-COD #3) 300-30 mg per tablet 4. TMJ (dislocation of temporomandibular joint), subsequent encounter S03.00XD acetaminophen-codeine (TYLENOL-COD #3) 300-30 mg pe r tablet sounds like also had sialoadenitis in the right side 5. Dizziness R42 HGB A1C COMP METABOLIC PANEL CBC VITAMIN D 25 HYDROXY TSH BLD T4 FREE/FREE THYROX T3 FREE BLD 6. Copper deficiency E61.0 COPPER BLOOD Sebaceous cyst lesion noted. Will try gauze, warm compresses , and try acne type med (salicylic acid). Will upload picture into [email or web address]. Further evaluation and clint atment as indicated. Postconcussion syndrome.dizziness seems to have come back. F urther evaluation and treatment as indicated. Above issues addressed with patient. Patient involved in shared decision making for management of medical issues. History and medications reviewed. Epic updated as needed Refills and/or prescriptions taken care of and meds adjusted as indicated after reviewed history, exam and labs. The majority of the visit was spent counseling and/or coordi nating care for the patient. Telephone visit time was at least 29 minute s. Lisa Carmona MD cnpn on 2019-12-07 CNPN Telephone (INTMWS) Normal 12-07-2019 [place] [facility] HELENA POTTER ([id number]) 1970 [facility] Date Time Provider Department (63039) 12/07/19 LISA CARMONA INTMWS During your visit today, we recorded the following informati on about you: Tyesha Jang RN 12/07/2019 11:37 AM Signed Pt called, verified by name and birthdate. Pt states she was at [facility] ER on 12-05-2019 for rt ankle pain. Pt states she is still having rt ankle pain and it feels different than previous ankle sprains. Pt want s to know if she needs repeat x-rays or referral to ortho. Please advise Tyesha Taylor APRN.[employer] 12/07/2019 1:10 PM Addendum [facility] ER notes show twisted ankle / stepped in pothole. XR completed 12/05/2019. No fracture of tibial or fibula. She was given aircast. Should be using that. Ice and elevation can help with pain. OTC tylenol, ibuprofen or aleve as needed for pain. Can refer to orthopedic doct or if not done in ER. Consult placed, please process Sirena Siddiqui LPN 12/07/2019 2:14 PM Signed Called pt and all reviewed. She would like ortho consult. Pl ease call this number to arrange Isaura Jocelyn 12/13/2019 11:54 AM Signed Spoke with patient and scheduled for 01/06. Allergies As of Date: 12/07/2019 Noted Allergy Reaction DOXYCYCLINE 07/13/2013 2 - [...] DARVOCET A500 (PROPOXYPHENE N-REBECCA*03/05/2010 1 - Mental Stat us Change Comments: HALLUCINATIONS DULERA (MOMETASONE-FORMOTEROL) 03/21/2015 12 - Shortness of Breath FEATHERS 08/21/2012 2 - Rash FRAGRANCES 03/05/2010 2 - Rash INSECTICIDES 08/21/2012 2 - Rash LYRICA (PREGABALIN) 07/30/2011 5 - Intolerance Comments: Did not tolerate even lowest dose; did not help mu ch; made her loopy and happy NAPROXEN 03/05/2010 [...] Comments Comments: Stinging/burning mouth, itchy roof of throat/palet te TRAMADOL HCL 03/29/2010 5 - Intolerance Comments: States it made her dizzy and nauseated Date Reviewed: 05/18/2019 Reviewed by: Bridget Raines LPN - Fully Assessed Reason for Visit: Ankle Pain [1036] Primary Visit Diagnosis:Injury of right ankle, subsequent encounter [S99.911D] Order(s):CONSULT TO ORTHOPAEDICS [9005] Order #: [id number] ty: 1 FUTURE Prescriptions as of 12/07/2019 Sig: HYDROCORTISONE 2.5 % TOPICAL * Apply 1 application to affect * TRIAMCINOLONE ACETONIDE 0.1 %* Apply to affected areas twice * CHOLECALCIFEROL (VITAMIN D3) * Take 1 capsule by mouth once * ALBUTEROL SULFATE HFA 90 MCG/* Inhale 2 Puffs as instructed * ORPHENADRINE CITRATE ER 100 M* Take 1 tablet by mouth twice * HYDROXYZINE HCL 25 MG TABLET Take 1-4 tablets by mouth benita* MUCINEX 600 MG TABLET, EXTEND* Take 1-2 tablets by mouth twi * [id number]-[id number]-GTYK* Take 1 tablet by mouth every * MONTELUKAST 10 MG TABLET Take 1 tablet by mouth daily * EPINEPHRINE 0.3 MG/0.3 ML INJ* Inject 0.3 mL intramuscularly * AZELASTINE 137 MCG (0.1 %) NA* Use 1-2 Sprays in each nostri * FLUTICASONE PROPIONATE 230 MC* Inhale 2 Puffs as instructed * IPRATROPIUM BROMIDE 0.03 % NA* Use 2 Sprays in the nose ever * DICLOFENAC 1 % TOPICAL GEL Apply 2 g to affected area fo* FLUTICASONE PROPIONATE 50 MCG* Use 2 sprays to each nostril * CETIRIZINE 10 MG TABLET Take 1 tablet by mouth once d* ALBUTEROL SULFATE 2.5 MG/3 ML* Use 3 mL via nebulizer every * BACK BRACE Use as instructed Patient not taking: Reported on 02/16/2019 TRANSCUTANEOUS ELECTRICAL NER* Use as directed. COPPER 5 MG TABLET Take by mouth. VITAMIN B COMPLEX TABLET Take 1 tablet by mouth once d* * MULTIVITAMIN TABLET Take 1 tablet by mouth once d* * CALCIUM + D ORAL Take by mouth. Problem List As Of Date 12/07/2019 Noted Resolved Fibromyalgia [M79.7] Dysthymic Disorder [F34.1] More... Eczema [L30.9] More... Shingles [B02.9] Migraine NOS/Intractable [G43.919] More... IBS (Irritable Bowel Syndrome) [K58.9] Degenerative Disc Disease [[id number]] Dyspareunia [[id number]] 05/16/2010 Lumbago [M54.5] 09/23/2011 Lumbar disc displacement without myelopathy [M5*12/06/2011 Lumbar radiculopathy [M54.16] 12/06/2011 Family history of abdominal aortic aneurysm [Z8*01/13/2012 Atherosclerosis of abdominal aorta [I70.0] 02/19/2012 More... 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 Author Type: Physician Type: Progress Notes Filed: 12/07/2019 12:01 AM Note Text: This Team Access Model visit is a phone encounter. It requir ed patient-provider interaction for the medical decision making as documented below. This note was created using Lobsterriter. Subjective Helena Potter is a 49 year old female. No chief complaint on file. SUBJECTIVE: Helena Potter is a 49 year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 TRAMADOL HCL 03/29/2010 5 - Intolerance Comments: States it made her dizzy and nauseated Date Reviewed: 05/18/2019 Reviewed by: Bridget Raines LPN - Fully Assessed Visit Diagnosis:Medication management [Z79.899] Order(s):LIPID PANEL BASIC [SQLIPB] Order #: [id number] FUTU RE Prescriptions as of 08/10/2019 Sig: MUCINEX 600 MG TABLET, EXTEND* Take 1-2 tablets by mouth twi * ACETAMINOPHEN 300 MG-CODEINE * Take 1-2 tablets by mouth benita * [id number]* Take 1 tablet by mouth every * ORPHENADRINE CITRATE ER 100 M* Take 1 tablet by mouth twice * MONTELUKAST 10 MG TABLET Take 1 tablet by mouth daily * HYDROXYZINE HCL 25 MG TABLET Take 1-4 tablets by mouth benita* EPINEPHRINE 0.3 MG/0.3 ML INJ* Inject 0.3 mL intramuscularly * AZELASTINE 137 MCG (0.1 %) NA* Use 1-2 Sprays in each nostri * FLUTICASONE PROPIONATE 230 MC* Inhale 2 Puffs as instructed * IPRATROPIUM BROMIDE 0.03 % NA* Use 2 Sprays in the nose ever * DICLOFENAC 1 % TOPICAL GEL Apply 2 g to affected area fo* FLUTICASONE PROPIONATE 50 MCG* Use 2 sprays to each nostril * CETIRIZINE 10 MG TABLET Take 1 tablet by mouth once d* ALBUTEROL SULFATE HFA 90 MCG/* Inhale 2 Puffs as instructed * CHOLECALCIFEROL (VITAMIN D3) * Take 1 capsule by mouth once * TRIAMCINOLONE ACETONIDE 0.1 %* Apply to affected areas twice * ALBUTEROL SULFATE 2.5 MG/3 ML* Use 3 mL via nebulizer every * HYDROCORTISONE 2.5 % TOPICAL * Apply 1 application to affect * CERAMIDES 1,3,6-11 TOPICAL CR* Apply 2 to 3 times daily. D* Patient not taking: Reported on 02/16/2019 BACK BRACE Use as instructed Patient not taking: Reported on 02/16/2019 TRANSCUTANEOUS ELECTRICAL NER* Use as directed. COPPER 5 MG TABLET Take by mouth. VITAMIN B COMPLEX TABLET Take 1 tablet by mouth once d* * MULTIVITAMIN TABLET Take 1 tablet by mouth once d* * CALCIUM + D ORAL Take by mouth. Problem List As Of Date 08/10/2019 Noted Resolved Fibromyalgia [M79.7] Dysthymic Disorder [F34.1] More... Eczema [L30.9] More... Shingles [B02.9] Migraine NOS/Intractable [G43.919] More... IBS (Irritable Bowel Syndrome) [K58.9] Degenerative Disc Disease [[id number]] Dyspareunia [[id number]] 05/16/2010 Lumbago [M54.5] 09/23/2011 Lumbar disc displacement without myelopathy [M5*12/06/2011 Lumbar radiculopathy [M54.16] 12/06/2011 Family history of abdominal aortic aneurysm [Z8*01/13/2012 Atherosclerosis of abdominal aorta [I70.0] 02/19/2012 More... Myalgia and myositis, unspecified [[id number]] 08/06/2012 Smoker [F17.200] Urinary retention [R33.9] 03/14/2014 Incontinence of urine [R32] 03/14/2014 TONNY (generalized anxiety disorder) [F41.1] 06/27/2014 PTSD (post-traumatic stress disorder) [F43.10] 06/27/2014 Specific phobia [F40.298] 08/26/2014 Menstrual pain [N94.6] 09/02/2014 Chronic pain [G89.29] 09/02/2014 Copper deficiency [E61.0] 10/27/2014 COPD (chronic obstructive pulmonary disease) (H* Attention deficit hyperactivity disorder (ADHD)*02/03/2015 Vitamin D deficiency [E55.9] 06/18/2016 Acute midline low back pain without sciatica [M*09/23/2016 Encounter Status:Closed by CALOS TALAVERA on 08/25/19 obsolete on 2019-06 OBSOLETE Refill (INTMWS) Normal 07-19-2019 [facility] HELENA POTTER ([id number]) 1970 [facility] Date Time Provider Department ([id number]) 07/19/19 LISA CARMONA INTPoloWS During your visit today, we recorded the following informati on about you: Sindhu Silva RN, RN 07/19/2019 8:24 AM Signed Patient has been identified by name and date of : Yes Patient phones for refill(s): Pending Prescriptions Disp Refills MUCINEX 600 MG TABLET, EXTENDED RELEASE 60 tablet 5 Sig: Take 1-2 tablets by mouth twice daily. As needed TYRONE: No Date of last office visit in primary care: 05/18/19 Last 2 Encounter Wt Readings: Date: Wt: 05/18/2019 82.6 kg (182 lb) 02/16/2019 84.4 kg (186 lb) Previous labs/tests for medication: Not applicable Please advise. Thank you. Sindhu Silva RN Allergies As of Date: 07/19/2019 Noted Allergy Reaction DOXYCYCLINE 07/13/2013 2 - [...] DARVOCET A500 (PROPOXYPHENE N-REBECCA*03/05/2010 1 - Mental Stat us Change Comments: HALLUCINATIONS DULERA (MOMETASONE-FORMOTEROL) 03/21/2015 12 - Shortness of Breath FEATHERS 08/21/2012 2 - Rash FRAGRANCES 03/05/2010 2 - Rash INSECTICIDES 08/21/2012 2 - Rash LYRICA (PREGABALIN) 07/30/2011 5 - Intolerance Comments: Did not tolerate even lowest dose; did not help mu ch; made her loopy and happy NAPROXEN 03/05/2010 [...] Comments Comments: Stinging/burning mouth, itchy roof of throat/palet te TRAMADOL HCL 03/29/2010 5 - Intolerance Comments: States it made her dizzy and nauseated Date Reviewed: 05/18/2019 Reviewed by: Bridget Raines LPN - Fully Assessed Reason for Visit: Refill Request [94] Cmt: Mucinex Reason For Visit History Recorded Order(s):guaiFENesin (MUCINEX) 600 mg 12 hr tabletTake 1-2 tablets by mouth twice daily. As neededDisp: 60 tabletRfl: 5 Prescriptions as of 07/19/2019 Sig: MUCINEX 600 MG TABLET, EXTEND* Take 1-2 tablets by mouth twi * ACETAMINOPHEN 300 MG-CODEINE * Take 1-2 tablets by mouth benita * [id number]* Take 1 tablet by mouth every * ORPHENADRINE CITRATE ER 100 M* Take 1 tablet by mouth twice * MONTELUKAST 10 MG TABLET Take 1 tablet by mouth daily * HYDROXYZINE HCL 25 MG TABLET Take 1-4 tablets by mouth benita* EPINEPHRINE 0.3 MG/0.3 ML INJ* Inject 0.3 mL intramuscularly * AZELASTINE 137 MCG (0.1 %) NA* Use 1-2 Sprays in each nostri * FLUTICASONE PROPIONATE 230 MC* Inhale 2 Puffs as instructed * IPRATROPIUM BROMIDE 0.03 % NA* Use 2 Sprays in the nose ever * DICLOFENAC 1 % TOPICAL GEL Apply 2 g to affected area fo* FLUTICASONE PROPIONATE 50 MCG* Use 2 sprays to each nostril * CETIRIZINE 10 MG TABLET Take 1 tablet by mouth once d* ALBUTEROL SULFATE HFA 90 MCG/* Inhale 2 Puffs as instructed * CHOLECALCIFEROL (VITAMIN D3) * Take 1 capsule by mouth once * TRIAMCINOLONE ACETONIDE 0.1 %* Apply to affected areas twice * ALBUTEROL SULFATE 2.5 MG/3 ML* Use 3 mL via nebulizer every * HYDROCORTISONE 2.5 % TOPICAL * Apply 1 application to affect * CERAMIDES 1,3,6-11 TOPICAL CR* Apply 2 to 3 times daily. D* Patient not taking: Reported on 02/16/2019 BACK BRACE Use as instructed Patient not taking: Reported on 02/16/2019 TRANSCUTANEOUS ELECTRICAL NER* Use as directed. COPPER 5 MG TABLET Take by mouth. VITAMIN B COMPLEX TABLET Take 1 tablet by mouth once d* * MULTIVITAMIN TABLET Take 1 tablet by mouth once d* * CALCIUM + D ORAL Take by mouth. Problem List As Of Date 07/19/2019 Noted Resolved Fibromyalgia [M79.7] Dysthymic Disorder [F34.1] More... Eczema [L30.9] More... Shingles [B02.9] Migraine NOS/Intractable [G43.919] More... IBS (Irritable Bowel Syndrome) [K58.9] Degenerative Disc Disease [WAA0533] Dyspareunia [WZT3076] 05/16/2010 Lumbago [M54.5] 09/23/2011 Lumbar disc displacement without myelopathy [M5*12/06/2011 Lumbar radiculopathy [M54.16] 12/06/2011 Family history of abdominal aortic aneurysm [Z8*01/13/2012 Atherosclerosis of abdominal aorta [I70.0] 02/19/2012 More... Myalgia and myositis, unspecified [OBO7693] 08/06/2012 Smoker [F17.200] Urinary retention [R33.9] 03/14/2014 Incontinence of urine [R32] 03/14/2014 TONNY (generalized anxiety disorder) [F41.1] 06/27/2014 PTSD (post-traumatic stress disorder) [F43.10] 06/27/2014 Specific phobia [F40.298] 08/26/2014 Menstrual pain [N94.6] 09/02/2014 Chronic pain [G89.29] 09/02/2014 Copper deficiency [E61.0] 10/27/2014 COPD (chronic obstructive pulmonary disease) (H* Attention deficit hyperactivity disorder (ADHD)*02/03/2015 Vitamin D deficiency [E55.9] 06/18/2016 Acute midline low back pain without sciatica [M*09/23/2016 Prescriptions ordered this encounter Disp Refills Start End MUCINEX 600 MG TABLET, EXTENDED RELE* 60 t* 5 07/19/2019 Route: ORAL Sig: Take 1-2 tablets by mouth twice daily. As needed Medications Discontinued During This Encounter MUCINEX 600 mg 12 hr tablet 60 t* 5 05/01/2018 07/19/2019 Route: ORAL Sig: TAKE 1-2 TABLETS BY MOUTH TWICE DAILY. NEEDED Disc: Reason for discontinue is not on file. Encounter Status:Closed by LISA CARMONA MD on 07/19/19 progress on 2019-04 PROGRESS HNO ID: [id number] Normal 05-18-2019 [facility] Author: Lisa Carmona [place] ([id number]) Service: ? Author Type: Physician Type: Progress Notes Filed: 05/27/2019 10:39 AM Note Text: Patient presents with: Follow Up SUBJECTIVE: Helena Potter is a 49 year old year old lady here toda y for 3 month follow up appointment for review of medical conditions. Doing well. Has not needed Singulair recently. Asthma better since MM. Anxiety better. Sleeping better. Having UTI symptoms with pain, burning and cramping. Started Friday. Tolerated Cipro and keflex in the past. Cod liver oil discussed Doing okay with Veronique bird #3. Not needing as much as use d to. PAST MEDICAL HISTORY Diagnosis Date - Abnormal glandular Papanicolaou smear of cervix Abn. Pap smear (cervix) - ADHD (attention deficit hyperactivity disorder) 07/29/2013 - Atherosclerosis of abdominal aorta (HCC) 02/19/2012 <70% stenosisof celiac and superior mesenteric arteries; <60 % stenosis of bilateral renal arteries - COPD (chronic obstructive pulmonary disease) (HCC) - Degenerative disc disease lumbar - Dysthymic disorder Depression (non-psychotic). Patient contests this, Full Psy chiatric evaluation found no evidence of this, 03/24/2014, TO - Eczema - Fibromyalgia - Hypercholesterolemia with LDL greater than 190 mg/dL Genetic with multiple family members; declines treatment and rechecking labs - IBS (irritable bowel syndrome) - Migraine, unspecified, with intractable migraine, so state d, without mention of status migrainosus Migraine - Shingles - Smoker - Steroid long-term use 3 months1979, prescribed by Descriptive Catalog Librarian. TO 03/24/14 Current Outpatient Medications: acetaminophen 325 mg-caffeine 40 mg-butalbital 50 mg (FIORIC ET) per tablet Take 1 tablet by mouth every 6 hours as needed for Headache. orphenadrine ER (NORFLEX) 100 mg tablet Take 1 tablet by sarah th twice daily as needed. hydrOXYzine HCl (ATARAX) 25 mg tablet Take 1-4 tablets by mo uth every 4 hours as needed for Itching/Rash (and allergic rhinitis). EPINEPHrine (EPIPEN) 0.3 mg/0.3 mL auto-injector Inject 0.3 mL intramuscularly as needed (for allergic reaction.Seek emerge nt medical care immediately after use. Disp:One 2-pack). azelastine (ASTELIN,ASTEPRO) 0.1% nasal spray Use 1-2 Sprays in each nostril twice daily. As directed acetaminophen-codeine (TYLENOL-COD #3) 300-30 mg per tablet Take 1-2 tablets by mouth every 4 hours as needed for up to 30 days. Takes up to 5 pills max per day during a flare up fluticasone-salmeterol HFA (ADVAIR HFA) 230-21 mcg/actuation inhaler Inhale 2 Puffs as instructed twice daily. Ipratropium [place] (ATROVENT) 0.03 % nasal spray Use 2 Spra ys in the nose every 12 hours. As directed diclofenac sodium (VOLTAREN) 1 % topical gel Apply 2 g to af fected area four times daily. fluticasone (FLONASE) 50 mcg/actuation nasal spray Use 2 spr ays to each nostril one to two times daily albuterol HFA (VENTOLIN HFA) 90 mcg/actuation inhaler Inhale 2 Puffs as instructed every 4 hours as needed for Wheezing/Shortness of Breath. MUCINEX 600 mg 12 hr tablet TAKE 1-2 TABLETS BY MOUTH TWICE DAILY. NEEDED Cholecalciferol, Vitamin D3, 5,000 unit cap Take 1 capsule b y mouth once daily. triamcinolone acetonide (KENALOG) 0.1 % ointment Apply to af fected areas twice a day as needed. Avoid use on the face. albuterol (PROVENTIL) 2.5 mg /3 mL (0.083 %) nebulizer solut ion Use 3 mL via nebulizer every 6 hours as needed for Wheezing/Shortness of Breath. 1 vial contains 3 ml. hydrocortisone 2.5 % ointment Apply 1 application to affecte d area twice daily as needed. Avoid use on the eyelids. TENS Units Layne Use as directed. Copper Gluconate 5 mg Tab Take by mouth. vitamin b complex Tab Take 1 tablet by mouth once daily. multivitamin tablet Take 1 tablet by mouth once daily. CALCIUM CARBONATE/VITAMIN D3 (CALCIUM + D ORAL) Take by mout h. montelukast (SINGULAIR) 10 mg tablet Take 1 tablet by mouth daily at bedtime. cetirizine (ZYRTEC) 10 mg tablet Take 1 tablet by mouth once daily. ceramides 1,3,6-11 (CERAVE) Apply 2 to 3 times daily. Dispen se: one large tub (not 1g) DX: L30.9 Eczema (Patient not taking: Rep orted on 02/16/2019 ) Back Brace misc Use as instructed (Patient not taking: Repor nicolette on 02/16/2019 ) No current facility-administered medications for this visit. OBJECTIVE: BP 100/74 Pulse 84 Resp 12 Wt 82.6 kg (182 lb) BMI 3 2.24 kg/m? Patient is alert, oriented times 3, no apparent distress, af fect is bright, reactive. Last 5 Encounter BP Readings: Date: BP: 05/18/2019 100/74 02/16/2019 110/64 11/10/2018 104/72 08/14/2018 104/72 06/15/2018 140/80 Last 5 Encounter Wt Readings: Date: Wt: 05/18/2019 82.6 kg (182 lb) 02/16/2019 84.4 kg (186 lb) 11/10/2018 89.8 kg (198 lb) 08/14/2018 87.5 kg (193 lb) 06/15/2018 87.9 kg (193 lb 12.8 oz) Heart: Regular rate, rhythm, no murmurs, gallops, rubs. Lungs: Clear to auscultation, bilaterally, breathing non lab ored. Ext: No cyanosis, clubbing, or edema. Labs ordered ASSESSMENT AND PLAN: Encounter Diagnosis ICD-10-CM 1. Pain with urination R30.9 UA DIP, URINE (POC) ciprofloxacin HCl (CIPRO) 250 mg tablet Urine dip with just small blood; Cipro to take if symptoms p ersist or get worse 2. Urinary frequency R35.0 UA DIP, URINE (POC) ciprofloxacin HCl (CIPRO) 250 mg tablet 3. Fibromyalgia M79.7 acetaminophen-codeine (TYLENOL-COD #3) 300-30 mg per tablet 4. TMJ (dislocation of temporomandibular joint), subsequent encounter S03.00XD acetaminophen-codeine (TYLENOL-COD #3) 300-30 mg pe r tablet sounds like also had sialoadenitis in the right side 5. Need for vaccination Z23 ADMIN OF INFLUENZA VACCINE INFLUENZA VACCINE QUADRIVALENT AGE 3 YRS PLUS + IM Above issues addressed with patient. Treating for UTI empirically. Further evaluation and treatme nt as indicated. Stable with pain control. No signs of diversion or abuse of medication(s); no adverse effects. Continue present management. Discussed w ith patient that benefits outweigh risks at this time. Patient prefers t o stay on current medication. Noted that is doing medical marijuana le gally and benefitting. Anxiety and pain better controlled. Not needing meds for pain as much as used to. Hopeful will need less and less RX pain meds. PDMP website checked and validated. All prescriptions have b een APPROPRIATELY filled. No suspicious activity was identified. 05/18/2019 by Lisa Carmona MD Patient involved in shared decision making for management of medical issues. History and medications reviewed. Epic updated as needed Refills and/or prescriptions taken care of and meds adjusted as indicated after reviewed history, exam and labs. Health Maintenance reviewed. Updated record and/or ordered t ests as recorded. Encouraged on efforts at healthy diet and regular exercise a nd adequate sleep. The majority of the visit was spent counseling and/or coordi nating care for the patient. Dtpr-jf-imfs time was at least 20 minutes. Lisa Carmona MD cnov on 2019-05-18 CNOV Office Visit (INTMWS) Normal 05-18-20 19 [place] [facility] HELENA POTTER ([id number]) 1970 [place] Date Time Provider Department ([id number]) 05/18/19 6:00 PM LISA CARMONA INTMWS During your visit today, we recorded the following informati on about you: Pulse Respiration Blood pressure Weight 84/minute 12/minute 100/74 82.6 kg Lisa Carmona MD 05/27/2019 10:39 AM Signed Patient presents with: Follow Up SUBJECTIVE: Helena Potter is a 49 year old year old lady here toda y for 3 month follow up appointment for review of medical conditions. Doing well. Has not needed Singulair recently. Asthma better since . Anxiety better. Sleeping better. Having UTI symptoms with pain, burning and cramping. Started Friday. Tolerated Cipro and keflex in the past. Cod liver oil discussed Doing okay with Veronique bird #3. Not needing as much as use d to. PAST MEDICAL HISTORY Diagnosis Date - Abnormal glandular Papanicolaou smear of cervix Abn. Pap smear (cervix) - ADHD (attention deficit hyperactivity disorder) 07/29/2013 - Atherosclerosis of abdominal aorta (HCC) 02/19/2012 <70% stenosisof celiac and superior mesenteric arteries; <60 % stenosis of bilateral renal arteries - COPD (chronic obstructive pulmonary disease) ([facility]) - Degenerative disc disease lumbar - Dysthymic disorder Depression (non-psychotic). Patient contests this, Full Psy chiatric evaluation found no evidence of this, 03/24/2014, TO - Eczema - Fibromyalgia - Hypercholesterolemia with LDL greater than 190 mg/dL Genetic with multiple family members; declines treatme nt and rechecking labs - IBS (irritable bowel syndrome) - Migraine, unspecified, with intractabl e migraine, so stated, without mention of status migrainosus Migraine - Shingles - Smoker - Steroid long-term use 3 months, 1979, prescribed by Descriptive Catalog Librarian. TO 03/24/14 Current Outpatient Medications: acetaminophen 325 mg-caffein e 40 mg-butalbital 50 mg (FIORICET) per tablet Take 1 tablet by mouth every 6 hours as needed for Headache. orphenadrine ER (NORFLEX) 100 mg tablet Take 1 t ablet by mouth twice daily as needed. hydrOXYzine HCl (ATARAX) 25 mg tablet Take 1-4 t ablets by mouth every 4 hours as needed for Itching/Rash (and allergic rhinitis). EPINEPHrine (EPIPEN) 0.3 mg/0.3 mL auto- injector Inject 0.3 mL intramuscularly as needed (for allergic reaction.Seek emergent m edical care immediately after use. Disp:One 2-pack). azelastine (ASTELIN,ASTEPRO) 0.1% nasal spray Use 1-2 Sprays in each nostril twice daily. As directed acetaminophen-codeine (TYLEN OL-COD #3) 300-30 mg per tablet Take 1-2 tablets by mouth every 4 hours as needed for up to 30 days. Takes up to 5 pills max per day during a flare up fluticasone-salmeterol HFA (ADVAIR HFA) 230-21 m cg/actuation inhaler Inhale 2 Puffs as instructed twice daily. Ipratropium [place] (ATROVENT) 0.03 % nasal spray Use 2 Spra ys in the nose every 12 hours. As directed diclofenac sodium (VOLTAREN) 1 % topical gel Apply 2 g to affected area four times daily. fluticasone (FLONASE) 50 mcg /actuation nasal spray Use 2 sprays to each nostril one to two times daily albuterol HFA (VENTOLIN HFA) 90 mcg/actuation inhaler Inhale 2 Puffs as instructed every 4 hours as needed for Wheezing/Shortness of Breath. MUCINEX 600 mg 12 hr tablet TAKE 1-2 TABLETS BY MOUTH TWICE DAILY. NEEDED Cholecalciferol, Vitamin D3, 5,000 unit cap Take 1 capsule by mouth once daily. triamcinolone acetonide (KENALOG) 0.1 % ointment Apply to affected areas twice a day as needed. Avoid use on the face. albuterol (PROVENTIL) 2.5 mg /3 mL (0.083 %) nebulizer solution Use 3 mL via nebulizer every 6 hours as needed for Wheezing/Shortness of Breath. 1 vial contains 3 ml. hydrocortisone 2.5 % ointment Apply 1 ap plication to affected area twice daily as needed. Avoid use on the eyelids. TENS Units Layne Use as directed. Copper Gluconate 5 mg Tab Take by mouth. vitamin b complex Tab Take 1 tablet by mouth once daily. multivitamin tablet Take 1 tablet by mouth once daily. CALCIUM CARBONATE/VITAMIN D3 (CALCIUM + D ORAL) Take by mout h. montelukast (SINGULAIR) 10 mg tablet Take 1 tabl et by mouth daily at bedtime. cetirizine (ZYRTEC) 10 mg tablet Take 1 tablet by mouth once daily. ceramides 1,3,6-11 (CERAVE) Apply 2 to 3 times d aily. Dispense: one large tub (not 1g) DX: L30.9 Eczema (Patient not taking: Reported on ) Back Brace misc Use as instructed (Patient not taking: Reported on 02/16/2019 ) No current facility-administered medications for this visit. OBJECTIVE: BP 100/74 Pulse 84 Resp 12 Wt 82.6 kg (182 lb) BMI 3 2.24 kg/m? Patient is alert, oriented times 3, no apparent distress, affect is bright, reactive. Last 5 Encounter BP Readings: Date: BP: 05/18/2019 100/74 02/16/2019 110/64 11/10/2018 104/72 08/14/2018 104/72 06/15/2018 140/80 Last 5 Encounter Wt Readings: Date: Wt: 05/18/2019 82.6 kg (182 lb) 02/16/2019 84.4 kg (186 lb) 11/10/2018 89.8 kg (198 lb) 08/14/2018 87.5 kg (193 lb) 06/15/2018 87.9 kg (193 lb 12.8 oz) Heart: Regular rate, rhythm, no murmurs, gallops, rubs. Lungs: Clear to auscultation, bilaterally, breathing non lab ored. Ext: No cyanosis, clubbing, or edema. Labs ordered ASSESSMENT AND PLAN: Encounter Diagnosis ICD-10-CM 1. Pain with urination R30.9 UA DIP, URINE (POC) ciprofloxacin HCl (CIPRO) 250 mg tablet Urine dip with just small blood; Cipro to take if symptoms p ersist or get worse 2. Urinary frequency R35.0 UA DIP, URINE (POC) ciprofloxacin HCl (CIPRO) 250 mg tablet 3. Fibromyalgia M79.7 acetaminophen-codeine (TYLENOL-COD #3) 300-30 mg per tablet 4. TMJ (dislocation of temporomandibular joint), subsequent encounter S03.00XD acetaminophen-codeine (TYLENOL-COD #3) 300-30 mg per tablet sounds like also had sialoadenitis in the right side 5. Need for vaccination Z23 ADMIN OF INFLUENZA VACCINE INFLUENZA VACCINE QUADRIVALENT AGE 3 YRS PLUS + IM Above issues addressed with patient. Treating for UTI empirically. Further evaluation and t reatment as indicated. Stable with pain control. No signs of diversion or abuse of medication(s); no adverse effects. Continue present management. Discussed with patient that benefits outweigh risks at this time. Patient prefers to sta y on current medication. Noted that is doing medical marijuana legally an d benefitting. Anxiety and pain better controlled. Not needing meds for pain as much as used to. Hopeful will need less and less RX pain meds. PDMP website checked and validated. All prescrip tions have been APPROPRIATELY filled. No suspicious activity was identified. 1 by Lisa Carmona MD Patient involved in shared decision making for managem ent of medical issues. History and medications reviewed. Epic updated as needed Refills and/or prescriptions taken care of and meds adjusted as indicated after reviewed history, exam and labs. Health Maintenance reviewed. Updated record and/ or ordered tests as recorded. Encouraged on efforts at healthy diet an d regular exercise and adequate sleep. The majority of the visit wa s spent counseling and/or coordinating care for the patient. Coyd-ol-yfdl time was at least 20 minutes. Lisa Carmona MD Referring Provider: SELF [200] Allergies As of Date: 05/18/2019 Noted Allergy Reaction DOXYCYCLINE 07/13/2013 2 - [...] DARVOCET A500 (PROPOXYPHENE N-REBECCA*03/05/2010 1 - Mental Stat us Change Comments: HALLUCINATIONS DULERA (MOMETASONE-FORMOTEROL) 03/21/2015 12 - Shortness of Breath FEATHERS 08/21/2012 2 - Rash FRAGRANCES 03/05/2010 2 - Rash INSECTICIDES 08/21/2012 2 - Rash LYRICA (PREGABALIN) 07/30/2011 5 - Intolerance Comments: Did not tolerate even lowest dose; did not help mu ch; made her loopy and happy NAPROXEN 03/05/2010 [...] Comments Comments: Stinging/burning mouth, itchy roof of throat/palet te TRAMADOL HCL 03/29/2010 5 - Intolerance Comments: States it made her dizzy and nauseated Date Reviewed: 05/18/2019 Reviewed by: Bridget Raines LPN - Fully Assessed Reason for Visit: Follow Up [171] Primary Visit Diagnosis:Pain with urination [R30.9] Comment:Urine dip with just small blood; Cipro to take if symptoms persist or get worse Other Visit Diagnoses:Urinary frequency [R35.0] Fibromyalgia [M79.7] TMJ (dislocation of temporomandibular joint), subsequent encounter [S03.00XD] Comment:sounds like also had sialoadenitis in the right side Need for vaccination [Z23] Order(s):UA DIP, URINE (POC) [[id number]] Order #: [id number] ec. #:[id number] ADMIN OF INFLUENZA VACCINE [[id number]] Order #: [id number] : 1 INFLUENZA VACCINE QUADRIVALENT AGE 3 YRS PLUS + IM [[id number] ] Order #: [id number] ciprofloxacin HCl (CIPRO) 250 mg tabletTake 1 tablet by mout h twice daily for 10 days. As directedDisp: 20 tabletRfl: 0 acetaminophen-codeine (TYLENOL-COD #3) 300-30 mg per tabletT manuel 1-2 tablets by mouth every 4 hours as needed for up to 157 days. Takes up to 5 pills max per day during a flare upDisp: 18 tabletRfl: 0 Prescriptions as of 05/18/2019 Sig: ACETAMINOPHEN 300 MG-CODEINE * Take 1-2 tablets by mouth benita * [id number]* Take 1 tablet by mouth every * ORPHENADRINE CITRATE ER 100 M* Take 1 tablet by mouth twice * HYDROXYZINE HCL 25 MG TABLET Take 1-4 tablets by mouth benita* EPINEPHRINE 0.3 MG/0.3 ML INJ* Inject 0.3 mL intramuscularly * AZELASTINE 137 MCG (0.1 %) NA* Use 1-2 Sprays in each nostri * FLUTICASONE PROPIONATE-SALMET* Inhale 2 Puffs as instructed * IPRATROPIUM BROMIDE 0.03 % NA* Use 2 Sprays in the nose ever * DICLOFENAC 1 % TOPICAL GEL Apply 2 g to affected area fo* FLUTICASONE PROPIONATE 50 MCG* Use 2 sprays to each nostril * ALBUTEROL SULFATE HFA 90 MCG/* Inhale 2 Puffs as instructed * MUCINEX 600 MG TABLET, EXTEND* TAKE 1-2 TABLETS BY MOUTH TWI * CHOLECALCIFEROL (VITAMIN D3) * Take 1 capsule by mouth once * TRIAMCINOLONE ACETONIDE 0.1 %* Apply to affected areas twice * ALBUTEROL SULFATE 2.5 MG/3 ML* Use 3 mL via nebulizer every * HYDROCORTISONE 2.5 % TOPICAL * Apply 1 application to affect * TRANSCUTANEOUS ELECTRICAL NER* Use as directed. COPPER 5 MG TABLET Take by mouth. VITAMIN B COMPLEX TABLET Take 1 tablet by mouth once d* * MULTIVITAMIN TABLET Take 1 tablet by mouth once d* * CALCIUM + D ORAL Take by mouth. CIPROFLOXACIN 250 MG TABLET Take 1 tablet by mouth twice * MONTELUKAST 10 MG TABLET Take 1 tablet by mouth daily * CETIRIZINE 10 MG TABLET Take 1 tablet by mouth once d* CERAMIDES 1,3,6-11 TOPICAL CR* Apply 2 to 3 times daily. D* Patient not taking: Reported on 02/16/2019 BACK BRACE Use as instructed Patient not taking: Reported on 02/16/2019 Problem List As Of Date 05/18/2019 Noted Resolved Fibromyalgia [M79.7] Dysthymic Disorder [F34.1] More... Eczema [L30.9] More... Shingles [B02.9] Migraine NOS/Intractable [G43.919] More... IBS (Irritable Bowel Syndrome) [K58.9] Degenerative Disc Disease [BWN2544] Dyspareunia [FIQ0836] INVALID FOR* Lumbago [M54.5] INVALID FOR* Lumbar disc displacement without myelopathy [M5*INVALID FOR* Lumbar radiculopathy [M54.16] INVALID FOR* Family history of abdominal aortic aneurysm [Z8*INVALID FOR* Atherosclerosis of abdominal aorta [I70.0] INVALID FOR* More... Myalgia and myositis, unspecified [FDQ0064] INVALID FOR* Smoker [F17.200] Urinary retention [R33.9] [...] ordered this encounter Disp Refills Start End CIPROFLOXACIN 250 MG TABLET 20 t* 0 05/18/2019 05/28/2019 Route: ORAL Sig: Take 1 tablet by mouth twice daily for 10 days. As dire cted ACETAMINOPHEN 300 MG-CODEINE 30 MG T* 18 t* 0 05/18/201909/2019 Class: Print RX Route: ORAL Sig: Take 1-2 tablets by mouth every 4 hours as needed for u p to 157 days. Takes up to 5 pills max per day during a flare up Medications Discontinued During This Encounter acetaminophen-codeine (TYLENOL-COD #* 18 t* 0 12/12/201804/21 Class: Print RX Route: ORAL Sig: Take 1-2 tablets by sarah th every 4 hours as needed for up to 30 days. Takes up to 5 pills max per day during a flare up Disc: Reason for discontinue is not on file. Disposition: Return for 3 months follow up (make next 2 appo intments). Follow-up and Disposition History Recorded Letter Text Encounter Status:Closed by LISA CARMONA MD on 05/27/19 Encounters Date Type Reason Provider Location 04-16-2020 - Patient encounter Allergic rhinitis Lisa Carmona In ternal Medicine 04-16-2020 procedure due to pollen [place] Comment: Vitamin D deficiency (Primar y Dx); Non-seasonal allergic rhinit is due to pollen; Fibromyalgia; TMJ (dislocation of temporom andibular joint), subsequent encounter; Dizziness; Copper deficiency; Chronic obstructive pulmonar y disease, unspecified COPD type (HCC) 04-16-2020 - 04-16-2020 Telemedicine consultation Lisa Carmona [facility] with patient Procedures Procedure Name Date Provider Location Mammography 08-14-2012 [facility] ([id number]) Plan of Treatment Plan Description Date Location DTAP,TDAP,TD (2 - Td) DTAP,TDAP,TD (2 - Td) 03-16-[address] [facility] ([id number]) ANNUAL PCP TEAM CHRONIC ANNUAL PCP TEAM CHRONIC 03-21-2021 [facility] DISEASE VISIT DISEASE VISIT ([id number]) DIABETES SCREEN DIABETES SCREEN 11-04-2020 [facility] ([id number]) INFLUENZA (#1) INFLUENZA (#1) 2020 [facility] ([id number]) SHINGRIX VACCINE (1 of 2) SHINGRIX VACCINE (1 of 2) 2020 [facility] ([id number]) COLORECTAL CANCER COLORECTAL CANCER 2020 [facility] inic SCREENING,SEE MODIFIER SCREENING,SEE MODIFIER ([id number] [phone]) LIPID SCREEN LIPID SCREEN 10-29-2019 [facility] ([id number]) HPV TESTING HPV TESTING 03-05-2015 [facility] ([id number]) PAP TESTING PAP TESTING 03-05-2015 [facility] ([id number]) MAMMOGRAM MAMMOGRAM 08-14-2013 [facility] ([id number]) CBC CBC Lab Routine Dizziness 03-21-2021 [facility] 1 Occurrences starting ([id number]) 03/21/2020 until 03/21/2021 Comment: 1 Occurrences starting 03/21 until 03/21/2021 COMP METABOLIC PANEL COMP METABOLIC PANEL Lab 03-21-2021 [facility] ([id number]) Routine Dizziness 1 Occurrences starting 03/21/2020 until 03/21/2021 Comment: 1 Occurrences starting 03/21 until 03/21/2021 COPPER BLOOD COPPER BLOOD Lab Routine Copper 03-21-2021 [facility] ([id number]) deficiency 1 Occurrences starting 03/21/2020 until 03/21/2021 Comment: 1 Occurrences starting 03/21 until 03/21/2021 HGB A1C HGB A1C Lab Routine Dizziness 1 03-21-2021 [facility] ([id number]) Occurrences starting 03/21/2020 until 03/21/2021 Comment: 1 Occurrences starting 03/21 until 03/21/2021 T3 FREE BLD T3 FREE BLD Lab Routine Dizziness 1 03-21-2021 [facility] ([id number]) Occurrences starting 03/21/2020 until 03/21/2021 Comment: 1 Occurrences starting 03/21 until 03/21/2021 T4 FREE/FREE THYROX T4 FREE/FREE THYROX Lab 03-21-[address] [facility] ([id number]) Routine Dizziness 1 Occurrences starting 03/21/2020 until 03/21/2021 Comment: 1 Occurrences starting 03/21 until 03/21/2021 TSH BLD TSH BLD Lab Routine Dizziness 1 03-21-2021 [facility] ([id number]) Occurrences starting 03/21/2020 until 03/21/2021 Comment: 1 Occurrences starting 03/21 until 03/21/2021 VITAMIN D 25 HYDROXY VITAMIN D 25 HYDROXY Lab 03-21-2021 [facility] ([id number]) Routine Dizziness Vitamin D deficiency 1 Occurrences starting 03/21/2020 until 03/21/2021 Comment: 1 Occurrences starting 03/21 until 03/21/2021 no information [facility] ([id number]) Immunizations Vaccine Notes Status Date Location Influenza Seasonal influenza, injectable, (completed) 05-18-2019 [facility] Inj Quad Age 6 Mo - quadrivalent, contains (54162) 64 Yrs preservative Influenza Seasonal influenza, injectable, (completed) 06-15-2018 [facility] Inj Quad Age 6 Mo - quadrivalent, contains (63144) 64 Yrs preservative Influenza Seasonal influenza, injectable, (completed) 08-13-2017 [facility] Inj Quad Age 6 Mo - quadrivalent, contains (51257) 64 Yrs preservative Influenza Seasonal influenza, injectable, (completed) 06-18-2016 [facility] Inj Quad Age 6 Mo - quadrivalent, contains (12476) 64 Yrs preservative Influenza Seasonal influenza, injectable, (completed) 07-03-2015 [facility] Inj Quad Age 6 Mo - quadrivalent, contains (11252) 64 Yrs preservative Influenza Seasonal influenza, seasonal, (completed) 05-16-2014 [facility] Inj Age 3+ injectable (06893) Pneumovax pneumococcal (completed) 08-13-2017 [facility] c polysaccharide vaccine, (441 95) 23 valent Pneumovax pneumococcal (completed) 05-16-2014 [facility] polysaccharide vaccine, (441 95) 23 valent Tetanus/Diphtheria tetanus and diphtheria (completed) 07-22-2006 [facility] Unspec toxoids, not adsorbed, (4419 5) for adult use Tdap (Age 7+) tetanus toxoid, reduced (completed) 03-16-2017 [facility] diphtheria toxoid, and (4419 5) acellular pertussis vaccine, adsorbed Payers Payer Name Policy Number Location [employer] [id number] [facility] ([phone]) The following information is from the original human readable contentNo Payer Records Found Social History Type Social History Date Location Description History of tobacco use [facility] [id number]) History SDOH Social 5 11-16-2019 - [facility] inic Connections Phone 11-16-2019 ([id number]) Cigarettes smoked 11-16-2019 - [facility] ic current (pack per day) - 11-16-2019 (75536) Reported Tobacco use and exposure Never used 11-16-2019 [facility] (39663) Alcohol intake Current drinker of 11-16-2019 [facility] alcohol (finding) (00163) History SDOH Alcohol 2 11-16-2019 - [facility] Frequency 11-16-2019 (59791) History SDOH Alcohol 1 11-16-2019 - [facility] Binge 11-16-2019 (00522) Tobacco smoking status Current every day smoker 03-24-1989 [facility] (74353) History SDOH Physical 0 11-16-2019 - [facility] Activity DPW 11-16-2019 (50546) History SDOH Education 12 11-16-2019 [facility] (11471) Tobacco Comment Parents smoked in 03-24-2014 [facility] childhood home. (98495) Ex-spouse was smoker. Alcohol Comment Occasionally, but not 03-24-2014 [facility] when . (99047) Sex Assigned At Not on file [facility] (82009) Exposure to SARS-CoV-2 Not sure [facility] (event) (52002) The following information is from the original human readable contentNo Social History Records Found Summary Purpose Family History No Family History Records Found Advance Directives No Advanced Directives Records Found Reason for Referral Status Reason Specialty Diagnoses / Procedures Referred By Diamond be Referred To Contact Closed Diagnoses Non-seasonal allergic rhinitis due to pollen Lisa Carmona [address], [place] [address] Phone: History of Present Illness Lisa Carmona - 03/21/2020 8:05 PM EDT This Team Access Model visit is a phone encounter. It required patient-provider interaction for the medical decision making as documented below. This note was created using Lobster[employer]. Subjective Helena Potter is a 50 year old female. Patient presents with: F/U 3 months SUBJECTIVE: Helena Potter is a 50 year old year old lady here today for 3 month follow up appointment for review of medical conditions. Noted stressors. Son 9yo seems to be going through puberty and behaviors noted. Allergy season. Flared up now though has all year round. Just needs Tyl #3 for 3 months with a few pills. Thinks has a cyst above pelvic bone. Seemed to go flat and turned black. Told to use hot compresses and it did help that the resolve. Has a recurrence but there is a lump down deep under the skin. Seeps blood and pus. Not hot and red. Dark color like prior. Few cm after prior. The lump keeps coming back. Heavier so when sitting it area that gets compressed. Has had a lot of dizziness. Started 2 weeks ago. Checks BP--within normal limits Checked sugar with mom's meter--was fine. Drank sports drink--no better. Does meditation daily. Thinks stress might contribute but happens even when not stressed. Can be while sitting and watching a show. Almost feels like when was drunk in her youth. Can get dizzy when stands up and turns--this is not the trigger for dizziness now. Not the neck tightness trigger. Vitamin D--misses some but tolerates. Not really using medical marijuana on any regular basis. No longer needing Tylenol#3 on any regular basis. PAST MEDICAL HISTORY Diagnosis Date ? Abnormal glandular Papanicolaou smear of cervix Abn. Pap smear (cervix) ? ADHD (attention deficit hyperactivity disorder) 07/29/2013 ? Atherosclerosis of abdominal aorta ([facility]) 02/19/2012 <70% stenosisof celiac and superior mesenteric arteries; <60% stenosis of bilateral renal arteries ? COPD (chronic obstructive pulmonary disease) ([facility]) ? Degenerative disc disease lumbar ? Dysthymic disorder Depression (non-psychotic). Patient contests this, Full Psychiatric evaluation found no evidence of this, 03/24/2014, TO ? Eczema ? Fibromyalgia ? Hypercholesterolemia with LDL greater than 190 mg/dL Genetic with multiple family members; declines treatment and rechecking labs ? IBS (irritable bowel syndrome) ? Migraine, unspecified, with intractable migraine, so stated, without mention of status migrainosus Migraine ? Shingles ? Smoker ? Steroid long-term use 3 months, 1979, prescribed by Descriptive Catalog Librarian. TO 03/24/14 Current Outpatient Medications Medication Sig ? acetaminophen-codeine (TYLENOL-COD #3) 300-30 mg per tablet Take 1-2 tablets by mouth three times daily as needed for up to 7 days. Takes up to 5 pills max per day during a flare up ? hydrocortisone 2.5 % ointment Apply 1 application to affected area twice daily as needed. Avoid use on the eyelids. ? triamcinolone acetonide (KENALOG) 0.1 % ointment Apply to affected areas twice a day as needed. Avoid use on the face. ? Cholecalciferol, Vitamin D3, 125 mcg (5,000 unit) cap Take 1 capsule by mouth once daily. ? albuterol HFA (VENTOLIN HFA) 90 mcg/actuation inhaler Inhale 2 Puffs as instructed every 4 hours as needed for Wheezing/Shortness of Breath. ? orphenadrine ER (NORFLEX) 100 mg tablet Take 1 tablet by mouth twice daily as needed. ? hydrOXYzine HCl (ATARAX) 25 mg tablet Take 1-4 tablets by mouth every 4 hours as needed for Itching/Rash (and allergic rhinitis). ? guaiFENesin (MUCINEX) 600 mg 12 hr tablet Take 1-2 tablets by mouth twice daily. As needed ? acetaminophen 325 mg-caffeine 40 mg-butalbital 50 mg (FIORICET) per tablet Take 1 tablet by mouth every 6 hours as needed for Headache. ? montelukast (SINGULAIR) 10 mg tablet Take 1 tablet by mouth daily at bedtime. ? EPINEPHrine (EPIPEN) 0.3 mg/0.3 mL auto-injector Inject 0.3 mL intramuscularly as needed (for allergic reaction.Seek emergent medical care immediately after use. Disp:One 2-pack). ? azelastine (ASTELIN,ASTEPRO) 0.1% nasal spray Use 1-2 Sprays in each nostril twice daily. As directed ? fluticasone-salmeterol HFA (ADVAIR HFA) 230-21 mcg/actuation inhaler Inhale 2 Puffs as instructed twice daily. ? Ipratropium [place] (ATROVENT) 0.03 % nasal spray Use 2 Sprays in the nose every 12 hours. As directed ? diclofenac sodium (VOLTAREN) 1 % topical gel Apply 2 g to affected area four times daily. ? fluticasone (FLONASE) 50 mcg/actuation nasal spray Use 2 sprays to each nostril one to two times daily ? cetirizine (ZYRTEC) 10 mg tablet Take 1 tablet by mouth once daily. ? albuterol (PROVENTIL) 2.5 mg /3 mL (0.083 %) nebulizer solution Use 3 mL via nebulizer every 6 hours as needed for Wheezing/Shortness of Breath. 1 vial contains 3 ml. ? Back Brace misc Use as instructed (Patient not taking: Reported on 02/16/2019 ) ? TENS Units Layne Use as directed. ? Copper Gluconate 5 mg Tab Take by mouth. ? vitamin b complex Tab Take 1 tablet by mouth once daily. ? multivitamin tablet Take 1 tablet by mouth once daily. ? CALCIUM CARBONATE/VITAMIN D3 (CALCIUM + D ORAL) Take by mouth. No current facility-administered medications for this visit. Review of Systems Objective LMP 02/13/2018 (Within Days) Physical Exam Neurological: Mental Status: She is oriented to person, place, and time. Psychiatric: Attention and Perception: Attention and perception normal. Mood and Affect: Mood normal. Speech: Speech normal. Behavior: Behavior normal. Thought Content: Thought content normal. Cognition and Memory: Cognition normal. Judgment: Judgment normal. Assessment and Plan Encounter Diagnosis ICD-10-CM 1. Vitamin D deficiency E55.9 VITAMIN D 25 HYDROXY 2. Non-seasonal allergic rhinitis due to pollen J30.1 azelastine (ASTELIN,ASTEPRO) 0.1% nasal spray fluticasone (FLONASE) 50 mcg/actuation nasal spray 3. Fibromyalgia M79.7 acetaminophen-codeine (TYLENOL-COD #3) 300-30 mg per tablet 4. TMJ (dislocation of temporomandibular joint), subsequent encounter S03.00XD acetaminophen-codeine(TYLENOL-COD #3) 300-30 mg per tablet sounds like also had sialoadenitis in the right side 5. Dizziness R42 HGB A1C COMP METABOLIC PANEL CBC VITAMIN D 25 HYDROXY TSH BLD T4 FREE/FREE THYROX T3 FREE BLD 6. Copper deficiency E61.0 COPPER BLOOD Sebaceous cyst lesion noted. Will try gauze, warm compresses, and try acne type med (salicylic acid). Will upload picture into [employer]. Further evaluation and treatment as indicated. Postconcussion syndrome.dizziness seems to have come back. Further evaluation and treatment as indicated. Above issues addressed with patient. Patient involved in shared decision making for management of medical issues. History and medications reviewed. Epic updated as needed Refills and/or prescriptions taken care of and meds adjusted as indicated after reviewed history, exam and labs. The majority of the visit was spent counseling and/or coordinating care for the patient. Telephone visit time was at least 29 minutes. Lisa Carmona MD documented in this encounter Assessments Diagnosis Vitamin D deficiency - Primary Unspecified vitamin D deficiency Non-seasonal allergic rhinitis due to po llen Fibromyalgia Mylagia and myositis, unspecified TMJ (dislocation of temporomandibular blanca int), subsequent encounter Dizziness Dizziness and giddiness Copper deficiency Disorders of copper metabolism Chronic obstructive pulmonary disease, u nspecified COPD type (HCC) Additional Source Comments FOR RECORDS PERTAINING TO PATIENTS WHO ARE OR HAVE BEEN ENROLLED IN A CHEMICAL DEPENDENCY/SUBSTANCE ABUSE PROGRAM, SOME INFORMATION MAY BE OMITTED. This clinical summary was aggregated from multiple sources. Caution should be exercised in using it in the provision of clinical care. This summary normalizes information from multiple sources, and as a consequence, information in this document may materially changethe coding, format and clinical context of patient data. In addition, data may be omittedin some cases. CLINICAL DECISIONS SHOULD BE BASED ON THE PRIMARY CLINICAL RECORDS. [employer] [facility] provides no warranty or guarantee of the accuracy or completeness of information in this document. UNRECOGNIZED CONTENT PROVIDED BELOW FOR UNRECOGNIZED SECTION INFORMATION SOURCE DATE CREATED AUTHOR AUTHOR'S ORGANIZATIO N 04/16/2020 [facility] UNRECOGNIZED CONTENT PROVIDED BELOW FOR UNRECOGNIZED SECTION Source Comments In the event this information is protected by the Federal Confidentiality of Alcohol and Drug Abuse Patient Records regulations: The Federal rules restrict any use of the information to criminally investigate or prosecute any alcohol or drug abuse patient.[facility] UNRECOGNIZED CONTENT PROVIDED BELOW FOR UNRECOGNIZED SECTION Reason for Visit Reason Comments F/U 3 months UNRECOGNIZED CONTENT PROVIDED BELOW FOR UNRECOGNIZED SECTION Nursing Notes Bridget Raines LPN - 03/21/2020 6:40 PM EDTSpoke to Helena Potter, confirmed patient is registered on [email or web address] and has downloaded Zoom Application. Confirmed the patient will update medications, allergies, and questionnaires via [email or web address]. Informed patient if provider is not able to connect, provider will call patient. If provider is running late, patient should remain connected to the visit. Patient verbalized understanding. documented in this encounter
--- OUTSIDE RECORDS SUMMARY | 2020-05-02 11:47 | XMS RPT_ITS | CCD ---
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 preservative Influenza Seasonal influenza, injectable, (completed) 07-03-2015 [facility] Inj Quad Age 6 Mo - quadrivalent, contains (47202) 64 Yrs preservative Influenza Seasonal influenza, seasonal, (completed) 05-16-2014 [facility] Inj Age 3+ injectable (98679) Pneumovax pneumococcal (completed) 08-13-2017 [facility] c polysaccharide vaccine, (441 95) 23 valent Pneumovax pneumococcal (completed) 05-16-2014 [facility] polysaccharide vaccine, (441 95) 23 valent Tetanus/Diphtheria tetanus and diphtheria (completed) 07-22-2006 [facility] Unspec toxoids, not adsorbed, (4419 5) for adult use Tdap (Age 7+) tetanus toxoid, reduced (completed) 03-16-2017 [facility] diphtheria toxoid, and (4419 5) acellular pertussis vaccine, adsorbed Payers Payer Name Policy Number Location [employer] [id number] [facility] ([phone]) The following information is from the original human readable contentNo Payer Records Found Social History Type Social History Date Location Description History of tobacco use Cigarette Smoker 03-24-1989 [facility] ([id number]) History SDOH Social 5 11-16-2019 - [facility] inic Connections Phone 11-16-2019 ([id number]) Cigarettes smoked 11-16-2019 - [facility] ic current (pack per day) - 11-16-2019 ([id number]) Reported Tobacco use and exposure Never used 11-16-2019 [facility] ([id number]) Alcohol intake Current drinker of 11-16-2019 [facility] alcohol (finding) ([id number]) History SDOH Alcohol 2 11-16-2019 - [facility] Frequency 11-16-2019 ([id number]) History SDOH Alcohol 1 11-16-2019 - [facility] Binge 11-16-2019 ([id number]) Tobacco smoking status Current every day smoker 03-24-1989 [facility] NHIS ([id number]) History SDOH Physical 0 11-16-2019 - [facility] Activity DPW 11-16-2019 ([id number]) History SDOH Education 12 11-16-2019 [facility] ([id number]) Tobacco Comment Parents smoked in 03-24-2014 [facility] childhood home. ([id number]) Ex-spouse was smoker. Alcohol Comment Occasionally, but not 03-24-2014 [facility] when . ([id number]) Sex Assigned At Not on file [facility] ([id number]) Exposure to SARS-CoV-2 Not sure [facility] (event) ([id number]) The following information is from the original human readable contentNo Social History Records Found Summary Purpose Family History No Family History Records Found Advance Directives No Advanced Directives Records Found Reason for Referral Status Reason Specialty Diagnoses / Procedures Referred By Diamond be Referred To Contact Closed Diagnoses Non-seasonal allergic rhinitis due to pollen Lisa Carmona [address] [place], [place] [address] Phone: History of Present Illness Lisa Carmona - 03/21/2020 8:05 PM EDT This Team Access Model visit is a phone encounter. It required patient-provider interaction for the medical decision making as documented below. This note was created using Shidonniriter. Subjective Helena Potter is a 50 year [...] disorder) 07/29/2013 ? Atherosclerosis of abdominal aorta ([facility]) 02/19/2012 <70% stenosisof celiac and superior mesenteric arteries; <60% stenosis of bilateral renal arteries ? COPD (chronic obstructive pulmonary disease) ([facility]) ? Degenerative disc disease lumbar ? Dysthymic [...] long-term use 3 months, 1979, prescribed by System Designer. TO 03/24/14 Current Outpatient Medications Medication Sig [...] Puffs as instructed twice daily. ? Ipratropium [place] (ATROVENT) 0.03 % nasal spray Use 2 [...] med (salicylic acid). Will upload picture into Jamboolt. Further evaluation and treatment as indicated. Postconcussion [...] BE BASED ON THE PRIMARY CLINICAL RECORDS. Curiously [facility] provides no warranty or guarantee of the [...] or prosecute any alcohol or drug abuse patient.[facility] UNRECOGNIZED CONTENT PROVIDED BELOW FOR UNRECOGNIZED SECTION Reason for Visit Reason Comments F/U 3 months UNRECOGNIZED CONTENT PROVIDED BELOW FOR UNRECOGNIZED SECTION Nursing Notes Bridget Raines LPN - 03/21/2020 6:40 PM EDTSpoke to Helena Potter, confirmed patient is registered on [employer] and has downloaded Zoom Application. Confirmed the patient will update medications, allergies, and questionnaires via [employer]. Informed patient if provider is not able to connect, provider will call patient. If provider is running late, patient should remain connected to the visit. Patient verbalized understanding. documented in this encounter
== END 2019-12-05 06:10 | disposition home or self-care (01) ==
PROVIDERS: Emergency Provider Emergency Medicine; PCP Internal Medicine
DX: S93.401A Sprain of unspecified ligament of right ankle, initial encounter (principal); X58.XXXA Exposure to other specified factors, initial encounter; F17.200 Nicotine dependence, unspecified, uncomplicated
CPT/HCPCS: 73590; 73610; 99283

== ENCOUNTER → 2022-06-20 | Outpatient (CLI) | payer MEDICAID, SELFPAY | END | disposition home or self-care (01) | LOC: LABSPEC 15:36 | PROVIDERS: PCP Internal Medicine; Visit Provider Otolaryngology | DX: J02.9 Acute pharyngitis, unspecified (principal) | CPT/HCPCS: 87070 ==

== ENCOUNTER 2023-03-10 02:34 | Emergency (ER) | payer MEDICAID, SELFPAY ==
[2023-03-10 02:35] VITALS: BP 141/84; PULSE 104; RESP 18; TEMP 36.6; O2SAT 97; BMI 34.7
--- NOTE | 2023-03-10 02:41 | RAD_ITS ---
EXAM: XR RIGHT FOOT COMPLETE, 3 OR MORE VIEWS CLINICAL INDICATION: injury TECHNIQUE: Frontal, lateral and oblique views of the right foot. COMPARISON: Previous right foot radiographs of 07/22/2016. FINDINGS: BONES/JOINTS: Posttraumatic deformity of the distal end of the little toe proximal phalanx is noted, with an oblique lucent line extending through the distal end of this phalanx and with slight cortical disruption affecting the lateral cortex. There is also slight buckling of the medial cortex at the base of the little toe proximal phalanx, a new finding. Lateral view confirms a fracture of the distal end of the little toe proximal phalanx, with 1 mm dorsal displacement of the distal fracture fragment. No acute fracture of the middle or distal phalanges of the little toe is identified. Fifth metatarsal is intact. SOFT TISSUES: Soft tissue swelling about the little toe phalanges, greatest about the proximal phalanx. RAD/Foot min 3 Views IMPRESSION: Slightly displaced intra-articular fracture of the distal end of the right little toe proximal phalanx. Electronically Signed: Asif Mccarthy MD at 3:10 EDT ,
--- NOTE | 2023-03-10 02:41 | ED.VIS.LOWEX ---
HPI History of Present Illness Chief Complaint: Lower Extremity Injury Informant: patient Occured/Mechanism Mechanism/Context: Yes direct blow Onset/Context/Timing Onset: Today Narrative Narrative: Patient presents secondary to right fifth toe injury. About 2 hours ago she caught her right fifth toe on a rolling library cart. She has been icing her foot and did take ibuprofen prior to arrival. No other injury. [facility] Medical History (Updated 03/10/23 @ 03:[address] Mervat Crandall MD) Fibromyalgia Home Medications albuterol sulfate 90 mcg/actuation aerosol inhaler 2 puff IH PRN PRN Sob &/Or Wheezing 12/05/19 [History Last Taken Unknown] fluticasone propionate 230 mcg-salmeterol 21 mcg/actuation HFA inhaler 2 puff IH BID 12/05/19 [History Last Taken Unknown] naproxen 500 mg tablet 500 mg PO BID PRN #20 tabs 12/05/19 [Rx Last Taken Unknown] Allergy/AdvReac Type Severity Reaction Status Date / Time chlordiazepoxide Allergy Rash Verified 03/10/23 02:40 doxycycline Allergy Rash Verified 03/10/23 02:40 Environmental Allergies: Allergy Rash Verified 03/10/23 02:40 Uncoded latex Allergy Rash Verified 03/10/23 02:40 nabumetone [From Relafen] Allergy Other Verified 03/10/23 02:40 Penicillins Allergy Rash Verified 03/10/23 02:40 pseudoephedrine Allergy Other Verified 03/10/23 02:40 Sulfa (Sulfonamide Allergy Rash Verified 03/10/23 02:40 Antibiotics) acetaminophen AdvReac Other Verified 03/10/23 02:40 [From Darvocet-N] amitriptyline AdvReac Other Verified 03/10/23 02:40 budesonide [From Symbicort] AdvReac Rash Verified 03/10/23 02:40 celecoxib [From Celebrex] AdvReac Other Verified 03/10/23 02:40 duloxetine HCl AdvReac Other Verified 03/10/23 02:40 [From Cymbalta] formoterol fumarate AdvReac Rash Verified 03/10/23 02:40 [From Symbicort] naproxen sodium [From Aleve] AdvReac Vomiting Verified 03/10/23 02:40 pregabalin [From Lyrica] AdvReac Other Verified 03/10/23 02:40 propoxyphene napsylate AdvReac Other Verified 03/10/23 02:40 [From Stephen] tramadol AdvReac Other Verified 03/10/23 02:40 Social History Smoking Status: Current every day smoker tobacco type: cigarettes ROS ROS ED Constitutional Constitutional ED: Denies chills or fever(s) ENT ENT ED: Denies sore throat Cardiovascular Cardiovascular: Denies chest pain Respiratory/Chest Respiratory/Chest: Denies cough or dyspnea Gastrointestinal Gastrointestinal: Denies abdominal pain, nausea or vomiting Musculoskeletal Musculoskeletal: Reports extremity pain; Denies back pain Integumentary Denies Abrasions or rash Neurologic Neurologic: Denies headache(s), paresthesias or weakness Psychiatric Psychiatric: Denies anxiety or depression Allergic/Immunologic Allergic/Immunologic ED: Denies lip swelling or urticaria EXAM Physical Exam Const Vital Signs: 03/10/23 02:35 Temperature 97.8 F Temperature Source Temporal Pulse Rate 104 H Respiratory Rate 18 Blood Pressure 141/84 H Blood Pressure Mean 103 Pulse Ox 97 Oxygen Delivery Method Room Air Positive well nourished and well developed General Appearance ED: well developed Eyes PERRL Neck full ROM Chest Wall inspection of chest normal and palpation of chest normal Resp normal respiratory effort and clear to auscultation bilaterally Cardio regular rate and regular rhythm GI non-tender Palpation: soft Extremity Extremity Narrative: Mild tenderness elevation of the right fifth toe. No obvious deformity. Good cap refill and sensation distally. No tenderness along the proximal fifth metatarsal. No tenderness at the ankle. Neuro oriented x3, moves all extremities and no sensory deficits noted Motor Exam: strength 5/5 throughout Psych mental status grossly normal Skin no wounds MDM MDM MDM Narrative Medical decision making narrative: Patient did take ibuprofen prior to arrival. Right foot x-rays are obtained to evaluate for fracture. Treatment and Re-Evaluation Narrative: Right foot x-ray per my interpretation appears to reveal a fracture of the distal aspect of the proximal phalanx. Radiology interpretation is reviewed. Toes will be areli taped. She will continue ibuprofen for pain. Discharge Plan Triage Chief Complaint: Lower Extremity Injury ED Provider: Mervat Crandall Dx/Rx/DC Orders Clinical Impression: Fractured toe Instructions: ED Fracture, Toe, Closed Prescriptions: No Action albuterol sulfate 90 mcg/actuation HFA aerosol inhaler 2 puff IH PRN PRN (Reason: Sob &/Or Wheezing) Patient Comments: INHALE 2 PUFFS INSTRUCTED EVERY 4 HOURS NEEDED FOR WHEEZING/SHORTNESS OF BREATH. fluticasone propion-salmeterol 230-21 mcg/actuation HFA aerosol inhaler 2 puff IH BID Patient Comments: INHALE 2 PUFFS INSTRUCTED TWICE DAILY. naproxen 500 MG tablet 500 mg PO BID PRN Qty: 20 0RF Primary Care Provider: Aleida Carmona Referrals: Aleida Carmona MD [Primary Care Provider] - As Needed Disposition Disposition: Home, Self Care
== END 2023-03-10 03:20 | disposition home or self-care (01) ==
PROVIDERS: Emergency Provider Emergency Medicine; PCP Internal Medicine; Visit Provider Emergency Medicine
DX: S92.511A Displaced fracture of proximal phalanx of right lesser toe(s), initial encounter for closed fracture (principal); F17.210 Nicotine dependence, cigarettes, uncomplicated; W22.8XXA Striking against or struck by other objects, initial encounter
CPT/HCPCS: 73630; 99283

== ENCOUNTER 2024-11-18 14:13 | Emergency (ER) | payer MEDICAID, SELFPAY ==
[2024-11-18 14:14] VITALS: BP 126/100; PULSE 99; RESP 22; TEMP 36.5; O2SAT 97; BMI 32.0
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
--- NOTE | 2024-11-18 15:00 | RAD_ITS ---
PROCEDURE: PELVIS 1 OR 2 VIEWS 11/18/2024 REASON FOR EXAM: PAIN/INJURY TECHNIQUE: 1 view(s) of the pelvis. COMPARISON: None. FINDINGS: Hardware: None. Bones: No acute fracture or traumatic dislocation. No aggressive osseous lesions. Joints: Mild degenerative changes. Soft tissues: Soft tissues are unremarkable. Other: The visualized bowel loops are normal caliber. RAD/Pelvis 1 or 2 Views IMPRESSION: NO EVIDENCE OF PELVIC FRACTURE Reading Location: [id number]
--- NOTE | 2024-11-18 15:00 | RAD_ITS ---
PROCEDURE: LUMBAR SPINE 2 OR 3 VIEWS 11/18/2024 REASON FOR EXAM: PAIN/INJURY TECHNIQUE: 3 view(s) of the lumbar spine COMPARISON: None. FINDINGS: Vertebrae: The vertebral body heights are maintained. No acute fracture or traumatic listhesis. Discs: Moderate multilevel disc space narrowing with endplate osteophytes. Alignment: Normal lumbar alignment. Other: The visualized lower lungs are unremarkable. RAD/Lumbar Spine 2 or 3 Views IMPRESSION: NO EVIDENCE OF LUMBAR FRACTURE. Reading Location: [id number]
[2024-11-18] MEDS: Ketorolac 30 MG/ML Syringe IM (15:23)
[2024-11-18] MEDS: predniSONE 20 MG Tablet 40 MG PO (15:24)
== END 2024-11-18 17:07 | disposition home or self-care (01) ==
PROVIDERS: Emergency Provider Emergency Medicine; PCP Internal Medicine; Referring Provider Emergency Medicine; Visit Provider Emergency Medicine
DX: S39.012A Strain of muscle, fascia and tendon of lower back, initial encounter (principal); F17.210 Nicotine dependence, cigarettes, uncomplicated; E66.9 Obesity, unspecified; X58.XXXA Exposure to other specified factors, initial encounter
CPT/HCPCS: 72100; 72170; 96372; 99282

== ENCOUNTER 2025-02-24 02:15 | Emergency (ER) | payer MEDICAID, SELFPAY ==
[2025-02-24 02:17] VITALS: BP 158/93; PULSE 91; RESP 18; TEMP 37.1; O2SAT 99; BMI 31.8
[2025-02-24 02:32] VITALS: BP 139/88; PULSE 80; RESP 18; TEMP 37.1; O2SAT 98
--- NOTE | 2025-02-24 02:32 | EDS_ITS ---
HPI History of Present Illness Chief Complaint: Dental Narrative Narrative: 54-year-old female past medical history of previous dental problems, PTSD, presents with pain in her left lower jaw and mild jaw swelling that she has had for the last few days. She states that she was placed on antibiotics and pain medications for dental infection in her left lower jaw. However, she feels that her antibiotics probably are not strong enough but she has only been on them for a day and a half. She states she has not seen a dentist in 2 or 3 years for various reasons and was unable to schedule an appointment with 1 recently. She presents to the emergency department with facial swelling and dental pain and requesting a different antibiotic. She states she has tolerated clindamycin in the past although she has extensive allergies to various medications [facility] Medical History Migraine Depression Anxiety ADHD (attention deficit hyperactivity disorder), combined type PTSD (post-traumatic stress disorder) Irritable bowel syndrome Sciatica Cigarette smoker Marijuana smoker Fibromyalgia Home Medications ?Medication ?Instructions ?Recorded ?Last Taken ?Type albuterol sulfate 90 mcg/actuation 2 puff IH PRN PRN S ob &/Or Wheezing 12/05/19 Unknown History aerosol inhaler fluticasone propionate 230 2 puff IH BID 12/05/19 Unkn own History mcg-salmeterol 21 mcg/actuation HFA inhaler naproxen 500 mg tablet 500 mg PO BID PRN #20 tabs 0 12/05/19 Unknown Rx acetaminophen 300 mg-codeine 30 mg 1 tab PO Q8H PRN pa in 3 days #9 11/18/24 Unknown Rx tablet tabs prednisone 20 mg tablet 40 mg (2 x 20 mg) PO DAILY 5 days 11/18/24 Unknown Rx #10 tabs cholecalciferol (vitamin D3) 125 125 mcg PO DAILY 02/11 Unknown History mcg (5,000 unit) capsule clindamycin HCl 300 mg capsule 300 mg PO Q6H #28 CAPSU LES 02/24/25 Unknown Rx (Cleocin HCl) Allergy/AdvReac Type Severity Reaction Status Date / Time chlordiazepoxide Allergy Rash Verified 02/24/25 02:16 doxycycline Allergy Rash Verified 02/24/25 02:16 Environmental Allergies: Allergy Rash Verified 02/24/25 02:16 Uncoded latex Allergy Rash Verified 02/24/25 02:16 nabumetone (From Relafen) Allergy Other Verified 02/24/25 02:16 Penicillins Allergy Rash Verified 02/24/25 02:16 pseudoephedrine Allergy Other Verified 02/24/25 02:16 Sulfa (Sulfonamide Allergy Rash Verified 02/24/25 02:16 Antibiotics) acetaminophen (From AdvReac Other Verified 02/24/25 02:16 Darvocet-N) amitriptyline AdvReac Other Verified 02/24/25 02:16 budesonide (From Symbicort) AdvReac Rash Verified 02/24/25 02:16 celecoxib (From Celebrex) AdvReac Other Verified 02/24/25 02:16 duloxetine HCl (From AdvReac Other Verified 02/24/25 02:16 Cymbalta) formoterol fumarate (From AdvReac Rash Verified 02/24/25 02:16 Symbicort) naproxen sodium (From Aleve) AdvReac Vomiting Verified 02/24/25 02:16 pregabalin (From Lyrica) AdvReac Other Verified 02/24/25 02:16 propoxyphene napsylate (From AdvReac Other Verified 02/24/25 02:16 Darvocet-N) tramadol AdvReac Other Verified 02/24/25 02:16 Social History Smoking Status: Current every day smoker tobacco type: cigarettes and e- cigarettes ROS ROS ED ROS Narrative Review of systems positive for left lower jaw pain, dental pain, poor dentition, and swelling of left lower jaw. No fevers or chills, no difficulty swallowing or breathing. EXAM Physical Exam Narrative Exam Narrative: Afebrile. Vital signs noted. Nontoxic-appearing. Cardiovascular examination regular rate and rhythm. Lungs clear to auscultation bilaterally. Abdomen is soft and nontender positive bowel sounds. Inspection of the mouth shows numerou s dental caries. There is no fluctuance of the gums, no gingival abscess. No drooling or trismus. No Prateek angina. Airway patent. There is mild swelling of the left lower jaw, but no erythema of the face. There is a half broken first molar with noted dental decay past the gumline. Const Vital Signs: 08/07/25 02:17 Temperature 98.7 F Temperature Source Oral Pulse Rate 91 Respiratory Rate 18 Blood Pressure 158/93 H Blood Pressure Mean 114 Pulse Ox 99 Oxygen Delivery Method Room Air MDM MDM MDM Narrative Medical decision making narrative: I do not feel differential diagnosis is applicable in this case. She has a dental abscess with mild swelling of the face. I do not feel she requires laboratory work or imaging. She was told to stop the cephalexin and she was written a prescription for clindamycin 300 mg to take 4 times a day for the next week. She was told to avoid any smoking and to follow-up with a dentist as soon as possible. She will continue the other medication she had been given for analgesia. Disposition is discharged home in stable condition. History & Record Review Discussion w/independent historian: Patient Discharge Plan Triage Chief Complaint: Dental ED Provider: Marko Alvarez Dx/Rx/DC Orders Clinical Impression: Dental abscess, Pain due to dental caries Instructions: ED Dental Pain, ED Dental Abscess Prescriptions: New clindamycin HCl [Cleocin HCl] 300 mg capsule 300 mg PO Q6H Qty: 28 0RF No Action albuterol sulfate 90 mcg/actuation HFA aerosol inhaler 2 puff IH PRN PRN (Reason: Sob &/Or Wheezing) Patient Comments: INHALE 2 PUFFS INSTRUCTED EVERY 4 HOURS NEEDED FOR WHEEZING/SHORTNESS OF BREATH. fluticasone propion-salmeterol 230-21 mcg/actuation HFA aerosol inhaler 2 puff IH BID Patient Comments: INHALE 2 PUFFS INSTRUCTED TWICE DAILY. naproxen 500 MG tablet 500 mg PO BID PRN Qty: 20 0RF acetaminophen-codeine 300-30 mg tablet 1 tab PO Q8H PRN (Reason: pain) 3 Days Qty: 9 0RF prednisone 20 mg tablet 40 mg PO DAILY 5 Days Qty: 10 0RF cholecalciferol (vitamin D3) 125 mcg (5,000 unit) capsule 125 mcg PO DAILY Primary Care Provider: Aleida Carmona Referrals: Aleida Carmona MD [Primary Care Provider] - Activity Restrictions/Additional Instructions: Stop taking the cephalexin and take clindamycin which you have tolerated previously. Follow-up with a dentist as soon as possible. Print Language: Georgian Disposition Disposition: Home, Self Care
--- OUTSIDE RECORDS SUMMARY | 2025-02-24 02:43 | XMS RPT_ITS | CCD ---
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 Name Role Phone Lisa Bradshaw MD Primary Care Provider Lisa Bradshaw MD Primary Care Provider Taylor RAIL WASHER.MATERIAL RECLAIMER, Carmen Unavailable Elle RAIL WASHER.MUD ANALYSIS WELL LOGGING OPERATOR, Shantelle Unavailable Elle RAIL WASHER.MUD ANALYSIS WELL LOGGING OPERATOR, Shantelle Unavailable Elle RAIL WASHER.MUD ANALYSIS WELL LOGGING OPERATOR, Shantelle Unavailable Elle RAIL WASHER.MUD ANALYSIS WELL LOGGING OPERATOR, Shantelle Unavailable Adam Pollard Referring Unavailable Adam Pollard Attending Unavailable Talampas, Lisa D Primary Care Unavailable Taylor RAIL WASHER.MATERIAL RECLAIMER, Carmen Unavailable SHANTELLE FLOWERS Attending Unavailable TALAMPAS, LISA D Primary Care Unavailable SANDRA MELVIN Attending Unavailable TALAMPAS, LISA D Primary Care Unavailable SISI MALONEY Attending Unavailable TALAMPAS, LISA D Primary Care Unavailable SELF Referring Unavailable TALAMPAS, LISA D Attending Unavailable TALAMPAS, LISA D Primary Care Unavailable TALAMPAS, LISA D Primary Care Unavailable TALAMPAS, LISA D Attending Unavailable TALAMPAS, LISA D Referring Unavailable TALAMPAS, LISA D Primary Care Unavailable TALAMPAS, LISA D Primary Care Unavailable TALAMPAS, LISA D Referring Unavailable TALAMPAS, LISA D Primary Care Unavailable TALAMPAS, LISA D Attending Unavailable TALAMPAS, LISA D Primary Care Unavailable TALAMPAS, LISA D Attending Unavailable Allergies Allergy Classification Reported Allergen(s) Allergy Type Date of Onset Reaction(s) Facility Adrenergic Agonists (1 source) Pseudoephedrine Drug Allergy 03-05-20 10 Intolerance [facility] Amitriptyline (1 source) Amitriptyline Drug Allergy 03-05-20 10 [facility] Budesonide / formoterol (1 source) Budesonide / formoterol Drug Allergy 03-13-20 15 Other: See Comments [facility] Chlorhexidine (1 source) Chlorhexidine Drug Allergy 07-04-20 Rash [facility] Doxycycline (1 source) Doxycycline Drug Allergy 07-13-20 13 [facility] DULoxetine (1 source) DULoxetine Drug Allergy 03-29-20 10 Mental Status Change [facility] Feathers (1 source) Feather Substance Allergy 08-21-19 13 Rash [facility] formoterol / Mometasone (1 source) formoterol / Mometasone Drug Allergy 03-21-20 15 Shortness of Breath [facility] Latex (1 source) Latex Substance Allergy 03-05-20 10 [facility] NSAIDs (4 sources) Naproxen Drug Allergy 03-05-20 10 Vomiting, Mental Status Change, Intolerance [facility] Work Phone: Opioid Agonists (1 source) traMADol Drug Allergy 03-29-20 10 Intolerance [facility] Work Phone: Penicillins (antibiotic) (1 source) Penicillins Drug Allergy 03-05-20 10 [facility] Pollen (1 source) Pollen Substance Allergy 03-05-20 10 [facility] pregabalin (1 source) pregabalin Drug Allergy 07-30-19 12 Intolerance [facility] Sulfonamides (antibiotic) (1 source) Sulfonamides (Antibiotic) Drug Allergy 03-05-20 10 [facility] (20 sources) Amitriptyline; Translations: [AMITRIPTYLINE] Drug Allergy 03-05-20 10 Other [facility] Work Phone: (4 sources) Budesonide / formoterol; Translations: [BUDESONIDE-FORMOTE ROL] Drug Allergy 03-13-20 15 Other: See Comments [facility] (20 sources) celecoxib; Translations: [CELECOXIB] Drug Allergy 03-05-20 10 Mental Status Change [facility] (20 sources) Chlorhexidine; Translations: [CHLORHEXIDINE] Drug Allergy 07-04-20 20 [facility] Work Phone: (20 sources) Doxycycline; Translations: [DOXYCYCLINE] Drug Allergy 07-13-20 13 [facility] (20 sources) DULoxetine; Translations: [DULOXETINE] Drug Allergy 03-29-20 10 Mental Status Change [facility] Work Phone: (20 sources) Feather; Translations: [FEATHERS] Drug Allergy 08-21-19 13 [facility] (20 sources) formoterol / Mometasone; Translations: [MOMETASONE-FORMOTE ROL] Drug Allergy 03-21-20 15 Shortness of Breath [facility] (20 sources) Latex; Translations: [LATEX] Drug Allergy 03-05-20 10 [facility] (20 sources) nabumetone; Translations: [NABUMETONE] Drug Allergy 03-05-20 10 Intolerance [facility] Work Phone: (20 sources) Naproxen; Translations: [NAPROXEN SODIUM] Drug Allergy 03-05-20 10 Vomiting [facility] Work Phone: (20 sources) Naproxen; Translations: [NAPROXEN] Drug Allergy 03-05-20 10 Vomiting [facility] Work Phone: [phone] (20 sources) Penicillins; Translations: [PENICILLINS] Propensity to adverse reactions 03-05-20 10 [facility] Work Phone: [phone] (20 sources) Pollen; Translations: [POLLEN] Propensity to adverse reactions 03-05-20 10 [facility] Work Phone: [phone] (20 sources) pregabalin; Translations: [PREGABALIN] Drug Allergy 07-30-19 12 Intolerance [facility] Work Phone: (20 sources) Pseudoephedrine; Translations: [PSEUDOEPHEDRINE] Drug Allergy 03-05-20 10 Intolerance [facility] Work Phone: (20 sources) Seasonal allergy; Translations: [SEASONAL ALLERGIES] Allergy to substance 11-30-19 14 Other: See Comments [facility] (20 sources) Sulfonamides (Antibiotic); Translations: [SULFA (SULFONAMIDE ANTIBIOTICS)] Propensity to adverse reactions 03-05-20 10 [facility] Work Phone: [phone] (20 sources) traMADol; Translations: [TRAMADOL HCL] Drug Allergy 03-29-20 10 Intolerance [facility] Work Phone: (20 sources) Camel Hair; Translations: [CAMEL HAIR] Allergy to substance 08-21-19 13 Rash [facility] (20 sources) Propoxyphene N-Acetaminophen; Translations: [PROPOXYPHENE N-ACETAMINOPHEN] Propensity to adverse reactions 03-05-20 10 Mental Status Change [facility] Work Phone: (20 sources) Fragrances; Translations: [FRAGRANCES] Propensity to adverse reactions 03-05-20 10 Rash [facility] Work Phone: (20 sources) Insecticides; Translations: [INSECTICIDES] Allergy to substance 08-21-19 13 Rash [facility] (20 sources) Sagebrush; Translations: [SAGEBRUSH] Allergy to substance 08-14-19 13 Rash, Itching [facility] (20 sources) Budesonide / formoterol Drug Allergy 03-13-20 15 Other: See Comments [facility] (2 sources) Acetaminophen Drug Allergy 12-05-19 20 Other [facility] (2 sources) Budesonide Drug Allergy 12-05-19 20 [facility] (2 sources) chlordiazePOXIDE Drug Allergy 12-05-19 [facility] (3 sources) DULoxetine; Translations: [duloxetine HCl] Drug Allergy 12-05-[address] [facility] (3 sources) formoterol; Translations: [formoterol fumarate] Drug Allergy 12-05-19 20 [facility] (2 sources) Penicillins Allergy to substance 12-05-19 20 [facility] (3 sources) Propoxyphene; Translations: [propoxyphene napsylate] Drug Allergy 12-05-19 20 Other [facility] (2 sources) Sulfonamides (Antibiotic) Allergy to substance 12-05-19 20 [facility] (2 sources) traMADol Drug Allergy 12-05-[address] [facility] (2 sources) Environmental Allergies: Uncoded; Translations: [Environmental Allergies: Uncoded] Allergy to substance 03-10-20 23 [facility] (10 sources) Penicillins Propensity to adverse reactions 03-05-20 10 Rash [facility] (1 source) Acetaminophen Drug Allergy 11-19-19 [facility] (1 source) Amitriptyline Drug Allergy 11-19-19 [facility] (1 source) Budesonide Drug Allergy 11-19-19 [facility] (1 source) celecoxib Drug Allergy 11-19-19 [facility] (1 source) chlordiazePOXIDE Drug Allergy 11-19-19 [facility] (1 source) Doxycycline Drug Allergy 11-19-19 [facility] (1 source) Latex Drug allergy (disorder) 11-19-19 [facility] (1 source) nabumetone Drug Allergy 11-19-19 [facility] (1 source) Naproxen Drug Allergy 11-19-19 [facility] (1 source) Penicillins Drug allergy (disorder) 11-19-19 [facility] (1 source) pregabalin Drug Allergy 11-19-19 [facility] (1 source) Pseudoephedrine Drug Allergy 11-19-19 [facility] (1 source) Sulfonamides (Antibiotic) Drug allergy (disorder) 11-19-19 [facility] (1 source) traMADol Drug Allergy 11-19-19 [facility] Medications Current Medications Medication Drug Class(es) Dates Sig (Normalized) Sig (Original) acetaminophen 325 mg / butalbital 50 mg / caffeine 40 mg oral tablet (20 sources) Barbiturate, Central Nervous System Stimulant, Methylxanthine Start: 07-04-2020 End: 03-09-2025 take 1 tablet by mouth every six hours as needed for headache acetaminophen 325 mg-caffeine 40 mg-butalbital 50 mg (FIORICET) per tablet Indications: Tension headache Take 1 tablet by mouth every 6 hours as needed for headache for up to 60 days. 20 tablet 1 01/08/2025 03/09/2025 Active Comment on above: Take 1 tablet by sarah th every 6 hours as needed for Headache. acyclovir 400 mg oral tablet (1 source) Herpesvirus Nucleoside Analog DNA Polymerase Inhibitor, Herpes Simplex Virus Nucleoside Analog DNA Polymerase Inhibitor, Herpes Zoster Virus Nucleoside Analog DNA Polymerase Inhibitor Start: 01-18-2025 End: 01-23-2025 take 1 tablet by mouth three times daily acyclovir (ZOVIRAX) 400 mg tablet Take 1 tablet by mouth three times a day for 5 days. 15 tablet 01/18/2025 01/23/2025 Active [id number] 200 actuat albuterol 0.09 mg/actuat metered dose inhaler (20 sources) beta2-Adrenergic Agonist Start: 09-12-2023 End: 11-23-2024 take 2 puff(s) by inhalation every four hours as needed for wheezing albuterol HFA (VENTOLIN HFA) 90 mcg/actuation inhaler Inhale 2 puffs as instructed every 4 hours as needed for wheezing/shortness of breath. 18 g 3 11/23/2024 Active Start: 02-24-2023 take 2 puff(s) by in halation every four hours as needed for wheezing albuterol HFA (VENTOLIN HFA) 90 mcg/actuation inhaler Inhale 2 Puffs as instructed every 4 hours as needed for wheezing/shortness of breath. 18 g 3 02/24/2023 Active Start: 01-02-2021 End: 10-04-2022 take 2 puff(s) by inhalation every four hours as needed for wheezing albuterol HFA (VENTOLIN HFA) 90 mcg/actuation inhaler Inhale 2 Puffs as instructed every 4 hours as needed for wheezing/shortness of breath. 18 g 3 01/02/2021 10/04/2022 Discontinued Start: 12-05-2019 Albuterol Sulf ate Active 2 PUFF IH NEEDED December 05, 2019 12:00am Start: 07-16-2016 End: 06-22-2024 albuterol (PROVENTIL) 2.5 mg /3 mL (0.083 %) nebulizer solution Indications: Asthma with chronic obstructive pulmonary disease (COPD) (HCC) Use 3 mL via nebulizer every 6 hours as needed for wheezing/shortness of breath. 1 vial contains 3 ml. 50 mL 2 06/22/2024 Active Comment on above: Use 3 mL via nebuliz er every 6 hours as needed for Wheezing/Shortness of Breath. 1 vial contains 3 ml. Inhale 2 Puffs as in structed every 4 hours as needed for wheezing/shortness of breath. azelastine hydrochloride 0.137 mg/actuat metered dose nasal spray (20 sources) Histamine-1 Receptor Antagonist Start: 03-21-20 20 End: 09-02-19 25 take 1-2 spray(s) nasal route twice daily azelastine 0.1% nasal spray Indications: Non-seasonal allergic rhinitis due to pollen Use 1-2 Sprays in each nostril two times a day. As directed 30 mL 11 09/03/2024 Active Comment on above: Use 1-2 Sprays in ea ch nostril twice daily. As directed Use 1-2 Sprays in ea ch nostril two times a day. As directed Calcium Carbonate / vitamin D3 (20 sources) CALCIUM CARBONATE/VITAMIN D3 (CALCIUM + D ORAL) Take by mouth. Active CALCIUM CARBONAT E/VITAMIN D3 (CALCIUM + D ORAL) Take by mouth. 0 Active Comment on above: Take by mouth. cetirizine hydrochloride 10 mg oral tablet (20 sources) Histamine-1 Receptor Antagonist Start: 8 take 1 tablet by mouth once daily cetirizine (ZYRTEC) 10 mg tablet Take 1 tablet by mouth once daily. 90 tablet 3 07/07/2018 Active Comment on above: Take 1 tablet by [facility] once daily. cholecalciferol 0.125 mg oral capsule (20 sources) Vitamin D Start: 1 End: 5 take 1 capsule by mouth once daily Cholecalciferol, Vitamin D3, 125 mcg (5,000 unit) cap Indications: Vitamin D deficiency Take 1 capsule by mouth once daily. 30 capsule 11 09/03/2024 Active Comment on above: Take 1 capsule by mo [facility] once daily. Copper Gluconate (20 sources) Copper Gluconate 5 mg Tab Take by mouth. Active Copper Gluconate 5 mg Tab Take by mouth. 0 Active Comment on above: Take by mouth. cyclobenzaprine hydrochloride 10 mg oral tablet (20 sources) Muscle Relaxant Start: 11-20-19 24 End: 03-23-20 24 take 1 tablet by mouth every eight hours as needed cyclobenzaprine (FLEXERIL) 10 mg tablet Take 1 tablet by mouth three times a day as needed for muscle spasm. 18 tablet 11/20/2023 03/23/2024 Discontinued Start: 09-12-2023 End: 09-28-2024 take 1 tablet by mouth twice daily as needed for pain cyclobenzaprine (FLEXERIL) 10 mg tablet Indications: Fibromyalgia , Rib pain , Spasm of muscle Take 1 tablet by mouth two times a day as needed for muscle spasm. FOR PAIN OR SPASMS 60 tablet 09/28/2024 Active Start: 07-25-2021 End: 05-16-2022 take 1 tablet by mouth twice daily as needed for pain cyclobenzaprine (FLEXERIL) 10 mg tablet Indications: Fibromyalgia , Rib pain , Spasm of muscle Take 1 tablet by mouth twice daily as needed for muscle spasm. FOR PAIN OR SPASMS 60 tablet 1 05/16/2022 Active Start: 01-02-2021 End: 07-21-2021 take 1 tablet by mouth twice daily as needed for pain cyclobenzaprine (FLEXERIL) 10 mg tablet Indications: Fibromyalgia , Rib pain , Spasm of muscle Take 1 tablet by mouth twice daily as needed for Muscle Spasm. FOR PAIN OR SPASMS 60 tablet 1 01/02/2021 07/21/2021 Discontinued Comment on above: Take 1 tablet by sarah th twice daily as needed for muscle spasm. FOR PAIN OR SPASMS Take 1 tablet by sarah th two times a day as needed for muscle spasm. FOR PAIN OR SPASMS dexmethylphenidate hydrochloride 5 mg oral tablet (20 sources) Central Nervous System Stimulant Start: dexmethylphenidate HCl (FOCALIN) 5 mg tablet Take 5 mg by mouth every afternoon. with 2.5mg dose 05/21/2023 Active Start: 05-14-2023 take 2 tablets by mouth once D exmethylphenidate HCl (FOCALIN) 2.5 mg tablet Take 5 mg by mouth every afternoon. with 5mg tablet 05/14/2023 Active Start: 05-14-2023 take 1 tablet by mouth once De xmethylphenidate HCl (FOCALIN) 2.5 mg tablet Take 1 tablet by mouth every afternoon. with 5mg tablet 0 05/14/2023 Active Comment on above: Take 5 mg by mouth e very afternoon. with 2.5mg dose Take 1 tablet by sarah th every afternoon. with 5mg tablet diazePAM 5 mg oral tablet (20 sources) Benzodiazepine Start: 023 take 0.25-1 tablets by mouth every twelve hours as needed diazePAM (VALIUM) 5 mg tablet Take 0.25-1 tablets by mouth two times a day as needed. 04/08/2023 Active Comment on above: Take 0.25-1 tablets by mouth two times a day as needed. diclofenac sodium 0.01 mg/mg topical gel (20 sources) Nonsteroidal Anti-inflammatory Drug Start: End: apply 2 g topically four times daily diclofenac (VOLTAREN) 1 % topical gel Indications: Acute midline low back pain with right-sided sciatica , Lumbar disc displacement without myelopathy Apply 2 g to affected area four times daily. 100 g 5 11/22/2024 Active Comment on above: Apply 2 g to affecte d area four times daily. [id number] 0.3 ml EPINEPHrine 1 mg/ml auto-injector (20 sources) alpha-Adrenergic Agonist, beta-Adrenergic Agonist, Catecholamine Start: End: EPINEPHrine (EPIPEN) 0.3 mg/0.3 mL auto-injector Inject 0.3 mL intramuscularly as needed (for allergic reaction.Seek emergent medical care immediately after use. Disp:One 2-pack). 1 Each 03/27/2021 Active Comment on above: Inject 0.3 mL intram uscularly as needed (for allergic reaction.Seek emergent medical care immediately after use. Disp:One 2-pack). estazolam 1 mg oral tablet (3 sources) Benzodiazepine Start: take 1 tablet by mouth every twenty-four hours as needed Estazolam 1 mg tablet Take 1 mg by mouth at bedtime as needed. 12/15/2024 Active fluticasone propionate 0.05 mg/actuat metered dose nasal spray (20 sources) Corticosteroid Start: 024 End: fluticasone (FLONASE) 50 mcg/actuation nasal spray Indications: Non-seasonal allergic rhinitis due to pollen Use 2 Sprays in each nostril once daily. Use 2 sprays to each nostril one to two times daily 2 Each 09/03/2024 Active Start: 03-27-2021 fluticasone (F LONASE) 50 mcg/actuation nasal spray Indications: Non-seasonal allergic rhinitis due to pollen Use 2 Sprays in each nostril once daily. Use 2 sprays to each nostril one to two times daily 2 Each 03/27/2021 Active Start: 03-21-2020 End: 03-27-2021 fluticasone (FLONASE) 50 mcg /actuation nasal spray Indications: Non-seasonal allergic rhinitis due to pollen Use 2 sprays to each nostril one to two times daily 2 Bottle 11 03/21/2020 03/27/2021 Discontinued Comment on above: Use 2 Sprays in each nostril once daily. Use 2 sprays to each nostril one to two times daily 120 actuat fluticasone propionate 0.23 mg/actuat / salmeterol 0.021 mg/actuat metered dose inhaler (20 sources) Corticosteroid, beta2-Adrenergic Agonist Start: End: 5 take 2 puff(s) by inhalation twice daily fluticasone-salmeter ol HFA (ADVAIR HFA) 230-21 mcg/actuation inhaler Indications: Chronic obstructive pulmonary disease, unspecified COPD type (HCC) Inhale 2 Puffs as instructed two times a day. 12 g 11 09/03/2024 Active Start: 03-27-2021 take 2 puff(s) by in halation twice daily fluticasone-salmeterol HFA (ADVAIR HFA) 230-21 mcg/actuation inhaler Indications: Chronic obstructive pulmonary disease, unspecified COPD type (HCC) Inhale 2 Puffs as instructed twice daily. 12 g 11 03/27/2021 Active Start: 03-21-2020 End: 03-27-2021 take 2 puff(s) by inhalation twice daily fluticasone-salmeterol HFA (ADVAIR HFA) 230-21 mcg/actuation inhaler Indications: Chronic obstructive pulmonary disease, unspecified COPD type (HCC) Inhale 2 Puffs as instructed twice daily. 1 Inhaler 03/21/2020 03/27/2021 Discontinued Start: 12-05-2019 take 1 puff(s) by in halation twice daily Fluticasone Propion-Salmeterol Active 2 PUFF IH TWICE A DAY December 05, 2019 12:00am Start: 12-05-2019 take 1 puff(s) by in halation twice daily Fluticasone Propion-Salmeterol Active 2 PUFF IH TWICE A DAY December 04, 2019 11:00pm Comment on above: Inhale 2 Puffs as in structed twice daily. Inhale 2 Puffs as in structed two times a day. 12 hr guaiFENesin 600 mg extended release oral tablet (20 sources) Start: 019 End: take 1 tablet by mouth every twelve hours as needed guaiFENesin (MUCINEX) 600 mg 12 hr tablet Take 1-2 tablets by mouth two times a day. As needed 120 tablet 5 11/23/2024 Active Comment on above: Take 1-2 tablets by mouth twice daily. As needed Take 1-2 tablets by mouth two times a day. As needed hydrocortisone 0.025 mg/mg topical ointment (20 sources) Corticosteroid Start: 024 End: hydrocortisone 2.5 % ointment Indications: Eczema, unspecified type Apply 1 application to affected area two times a day as needed. Avoid use on the eyelids or face. Up to 2 weeks at a time 20 g 2 09/28/2024 Active Start: 11-16-2019 End: 05-16-2022 hydrocortisone 2.5 % ointmen t Indications: Eczema, unspecified type Apply 1 application to affected area twice daily as needed. Avoid use on the eyelids. 60 g 5 11/16/2019 05/16/2022 Discontinued Comment on above: Apply 1 application to affected area twice daily as needed. Avoid use on the eyelids. Apply 1 application to affected area two times a day as needed. Avoid use on the eyelids or face. Up to 2 weeks at a time hydrOXYzine hydrochloride 25 mg oral tablet (20 sources) Antihistamine Start: 09-12-19 24 End: 01-09-20 take 1-4 tablets by mouth every four hours as needed hydrOXYzine HCl (ATARAX) 25 mg tablet Indications: Eczema, unspecified type , Chronic nonseasonal allergic rhinitis due to pollen Take 1-4 tablets by mouth every 4 hours as needed for itching/rash (and allergic rhinitis). Maximum dose 400 mg per day. 180 tablet 1 01/08/2025 Active Start: 02-24-2023 take 1-4 tablets by mouth every four hours as needed hydrOXYzine HCl (ATARAX) 25 mg tablet Indications: Eczema, unspecified type , Chronic nonseasonal allergic rhinitis due to pollen Take 1-4 tablets by mouth every 4 hours as needed for itching/rash (and allergic rhinitis). Maximum dose 400 mg per day. 180 tablet 1 02/24/2023 Active Start: 12-10-2022 take 1-4 tablets by mouth every four hours as needed hydrOXYzine HCl (ATARAX) 25 mg tablet Indications: Eczema, unspecified type , Chronic nonseasonal allergic rhinitis due to pollen Take 1-4 tablets by mouth every 4 hours as needed for itching/rash (and allergic rhinitis). Maximum dose 400 mg per day. 180 tablet 1 12/10/2022 Active Start: 07-25-2021 End: 06-07-2022 take 1-4 tablets by mouth every four hours as needed hydrOXYzine HCl (ATARAX) 25 mg tablet Indications: Eczema, unspecified type , Chronic nonseasonal allergic rhinitis due to pollen Take 1-4 tablets by mouth every 4 hours as needed for itching/rash (and allergic rhinitis). Maximum dose 400 mg per day. 180 tablet 1 06/07/2022 Active Start: 07-04-2020 End: 02-14-2021 take 1-4 tablets by mouth every four hours as needed hydrOXYzine HCl (ATARAX) 25 mg tablet Indications: Eczema, unspecified type , Chronic nonseasonal allergic rhinitis due to pollen Take 1-4 tablets by mouth every 4 hours as needed for Itching/Rash (and allergic rhinitis). 180 tablet 2 07/04/2020 02/14/2021 Discontinued Comment on above: Take 1-4 tablets by mouth every 4 hours as needed for itching/rash (and allergic rhinitis). Take 1-4 tablets by mouth every 4 hours as needed for itching/rash (and allergic rhinitis). Maximum dose 400 mg per day. ketoconazole 20 mg/ml topical cream (20 sources) Azole Antifungal Start: 023 End: ketoconazole (NIZORAL) 2 % cream Apply 1 application to affected area two times a day. Continue to use for another week after rash resolves 60 g 09/28/2024 Active Comment on above: Apply 1 application to affected area twice daily. Continue to use for another week after rash resolves ketorolac tromethamine 10 mg oral tablet (3 sources) Nonsteroidal Anti-inflammatory Drug, Cyclooxygenase Inhibitor Start: End: take 1 tablet by mouth every six hours as needed keTORolac (TORADOL) 10 mg tablet Indications: Acute midline low back pain with right-sided sciatica , Lumbar disc displacement without myelopathy Take 1 tablet by mouth every 6 hours as needed for up to 4 days. 16 tablet 11/22/2024 11/26/2024 Active 50/50 release 24 hr methylphenidate hydrochloride 10 mg extended release oral capsule (20 sources) Central Nervous System Stimulant Start: take 1 capsule by mouth once daily methylphenidate LA (RITALIN LA) 10 mg biphasic capsule Take 10 mg by mouth once daily. 03/08/2024 Active Start: 05-14-2023 End: 03-23-2024 take 1 capsule by mouth once daily in the morning methylphenidate LA (RITALIN LA) 20 mg biphasic capsule Take 20 mg by mouth every morning. 05/14/2023 03/23/2024 Discontinued Comment on above: Take 20 mg by mouth every morning. multivitamin tablet (20 sources) Start: take 1 tablet by mouth once daily multivitamin tablet Take 1 tablet by mouth once daily. 0 05/13/2012 Active Comment on above: Take 1 tablet by sarah once daily. mupirocin 0.02 mg/mg topical ointment (20 sources) RNA Synthetase Inhibitor Antibacterial Start: End: mupirocin (BACTROBAN) 2 % ointment Apply to affected area three times a day. 15 g 09/28/2024 Active Comment on above: Apply to affected ar ea three times a day. naproxen 500 mg oral tablet (2 sources) Nonsteroidal Anti-inflammatory Drug Start: take 500 mg by mouth twice daily as needed Naproxen Active 500 MG PO TWICE DAILY NEEDED December 05, 2019 12:00am Nebulizer Accessories kit (14 sources) Start: Nebulizer Accessories kit Indications: Asthma with chronic obstructive pulmonary disease (COPD) ([facility]) Nebulizer tubing and mouthpiece, etc needed for her home nebulizer. 1 Kit 3 06/22/2024 Active quercetin 500 mg oral capsule (15 sources) Start: take 1 capsule by mouth every twelve hours as needed quercetin 500 mg cap Take 500 mg by mouth two times a day as needed (allergies). 03/23/2024 Active tacrolimus 0.001 mg/mg topical ointment (20 sources) Calcineurin Inhibitor Immunosuppressant Start: tacrolimus (PROTOPIC) 0.1 % ointment Indications: Dyshidrotic hand dermatitis Apply to affected area two times a day. Apply thin layer to affected skin on forearm (area approximately 20 square centimeters). Use till rash clears. If not resolved in 6 weeks, re-evaluate. May treat other areas of eczema that occur 30 g 09/15/2023 Active Start: 09-12-2023 End: 09-15-2023 tacrolimus (PROTOPIC) 0.1 % ointment Indications: Dyshidrotic hand dermatitis Apply to affected area two times a day. Use till rash clears 30 g 0 09/12/2023 09/15/2023 Discontinued Start: 12-12-2022 tacrolimus (ND OTOPIC) 0.1 % ointment Indications: Dyshidrotic hand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 vomiting. Skin: Positive for color change and rash. Neurological: Negative for weakness, numbness and headaches. PAST MEDICAL HISTORY Diagnosis Date Abnormal glandular Papanicolaou smear of cervix Abn. Pap smear (cervix) ADHD (attention deficit hyperactivity disorder) 07/29/2013 Atherosclerosis of abdominal aorta 02/19/2012 <70% stenosisof celiac and superior mesenteric arteries; <60% stenosis of bilateral renal arteries COPD (chronic obstructive pulmonary disease) (HCC) Degenerative disc disease lumbar Dysthymic disorder Depression (non-psychotic). 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 TO 03/24/14 PAST SURGICAL HISTORY Procedure Laterality Date APPENDECTOMY DELIVERY ONLY 08/2010 , low transverse PAST SURGICAL HISTORY OF RIGHT FOOT ALLERGIES Doxycycline, Latex, Aleve [Naproxen Sodium], Amitriptyline, Camel Hair, Celebrex [Celecoxib], Chlorhexidine, Cymbalta [Duloxetine], Darvocet A500 [Propoxyphene N-Acetaminophen], Dulera [Mometasone-Formotero l], Feathers, Fragrances, Insecticides, Lyrica [Pregabalin], Naproxen, Penicillins, Pollen, Pseudoephedrine, Relafen [Nabumetone], Sagebrush, Seasonal Allergies, Sulfa (Sulfonamide Antibiotics), Symbicort [Budesonide-Formotero l], and Tramadol Hcl MEDICATIONS hydrOXYzine HCl (ATARAX) 25 mg tablet Take 1-4 tablets by mouth every 4 hours as needed for itching/rash (and allergic rhinitis). Maximum dose 400 mg per day. Estazolam 1 mg tablet Take 1 mg by mouth at bedtime as needed. acetaminophen 325 mg-caffeine 40 mg-butalbital 50 mg (FIORICET) per tablet Take 1 tablet by mouth every 6 hours as needed for headache for up to 60 days. guaiFENesin (MUCINEX) 600 mg 12 hr tablet Take 1-2 tablets by mouth two times a day. As needed albuterol HFA (VENTOLIN HFA) 90 mcg/actuation inhaler Inhale 2 puffs as instructed every 4 hours as needed for wheezing/shortness of breath. diclofenac (VOLTAREN) 1 % topical gel Apply 2 g to affected area four times daily. cyclobenzaprine (FLEXERIL) 10 mg tablet Take 1 tablet by mouth two times a day as needed for muscle spasm. FOR PAIN OR SPASMS hydrocortisone 2.5 % ointment Apply 1 application to affected area two times a day as needed. Avoid use on the eyelids or face. Up to 2 weeks at a time mupirocin (BACTROBAN) 2 % ointment Apply to affected area three times a day. triamcinolone acetonide (KENALOG) 0.1 % ointment Apply to affected areas twice a day as needed. Avoid use on the face. Use up to 2 weeks as directed per rash recurrence azelastine 0.1% nasal spray Use 1-2 Sprays in each nostril two times a day. As directed Cholecalciferol, Vitamin D3, 125 mcg (5,000 unit) cap Take (more content not included)... Normal [facility] COPPER BLOODon 01-17-2025 Copper [Mass/Vol] 89 ug/dL Normal 80-[address] [facility] Comment on above: Order Comment: Speci men Type: BLOOD SPECIMENOrdering Facility: [facility] Address: [address] [place] [address] Result Comment: This test was developed, and its performance characteristics determined by the [facility] Department of Pathology and Laboratory Medicine. It has not been cleared or approved by the FDA. The [facility] Department of Pathology and Laboratory Medicine is regulated under CLIA as qualified to perform high-complexity testing. This test is used for clinical purposes. It should not be regarded as investigational or for research. Performed By: #### C OPPER ####[facility] LABCLIA [id number] [place] [address] [place] Comprehensive metabolic 2000 panelon 01-17-2025 Albumin [Mass/Vol] 4.4 g/dL Normal 3.9-4.9 [facility] Comment on above: Order Comment: Dominique vasquez Type: BLOOD SPECIMENOrdering Facility: [facility] Address: [address] [place] [address] Performed By: #### 2 4323-8 ####[facility] LABCLIA [id number] [place] [address] [place] ALP [Catalytic activity/Vol] 73 U/L Normal 34-123 [facility] Comment on above: Order Comment: Leanai pedro Type: BLOOD SPECIMENOrdering Facility: [facility] Address: [address] [place] [address] Performed By: #### 2 4323-8 ####[facility] LABCLIA [id number] [place] [address] [place] ALT [Catalytic activity/Vol] 12 U/L Normal 7-38 [facility] Comment on above: Order Comment: Speci men Type: BLOOD SPECIMENOrdering Facility: [facility] Address: [address] [place], [place] [address] Performed By: #### 2 4323-8 ####[facility] LABCLIA [id number] [facility] [address] [place] [address] [place] Anion gap [Moles/Vol] 13 mmol/L Normal 8-15 [facility] Comment on above: Order Comment: Speci men Type: BLOOD SPECIMENOrdering Facility: [facility] Address: [address] [place] [address] Performed By: #### 2 4323-8 ####[facility] LABCLIA [id number] [address] [place] [address] [place] AST [Catalytic activity/Vol] 14 U/L Normal 13-35 [facility] Comment on above: Order Comment: Speci men Type: BLOOD SPECIMENOrdering Facility: [facility] Address: [address] [place] [address] Performed By: #### 2 4323-8 ####[facility] LABCLIA [id number] [address] [address] [place] Bilirubin [Mass/Vol] 0.2 mg/dL Normal 0.2-1.3 [facility] Comment on above: Order Comment: Speci men Type: BLOOD SPECIMENOrdering Facility: [facility] Address: [address] [place], [place] [address] Performed By: #### 2 4323-8 ####[facility] LABCLIA [id number] [address] [place] [address] [place] Calcium [Mass/Vol] 9.1 mg/dL Normal 8.5-10.2 [facility] Comment on above: Order Comment: Speci men Type: BLOOD SPECIMENOrdering Facility: [facility] Address: [address] [place], [place] [address] Performed By: #### 2 4323-8 ####[facility] LABCLIA [id number] [place] [id number] [place] Chloride [Moles/Vol] 95 mmol/L Low 98-107 [facility] Comment on above: Order Comment: Speci men Type: BLOOD SPECIMENOrdering Facility: [facility] Address: [address] [place] [address] Performed By: #### 2 4323-8 ####[facility] LABCLIA [id number] [place] [id number] [place] CO2 [Moles/Vol] 19 mmol/L Low 22-30 [facility] Comment on above: Order Comment: Speci men Type: BLOOD SPECIMENOrdering Facility: [facility] Address: [address] [place] [address] Performed By: #### 2 4323-8 ####[facility] LABCLIA [id number] [address] [place] Creatinine [Mass/Vol] 0.66 mg/dL Normal 0.58-0.96 [facility] Comment on above: Order Comment: Speci men Type: BLOOD SPECIMENOrdering Facility: [facility] Address: [address] [place] [address] Performed By: #### 2 4323-8 ####[facility] LABIA [id number] [address] [facility] Creatinine and Glomerular filtration rate.predicted panel (S/P/Bld) 104 mL/min/1.73m??? Normal >=60 [facility] Comment on above: Order Comment: Speci men Type: BLOOD SPECIMENOrdering Facility: [facility] Address: [address] [place] [address] Result Comment: Jovanna mated Glomerular Filtration Rate (eGFR) is calculated using the 2020 CKD-EPI creatinine equation. This equation utilizes serum creatinine, sex, and age as parameters. The creatinine assay has traceable calibration to isotope dilution-mass spectrometry. Refer to KDIGO guidelines for clinical interpretation. In patients with unstable renal function, e.g. those with acute kidney injury, the eGFR may not accurately reflect actual GFR. Performed By: #### 2 4323-8 ####[facility] [id number] [place] [address] [place] Glucose [Mass/Vol] 115 mg/dL High 74-99 [facility] Comment on above: Order Comment: Dominique men Type: BLOOD SPECIMENOrdering Facility: [facility] Address: [address] [place] [address] Result Comment: The [place] Diabetes Association (ADA) provides guidance for cutoff values for fasting glucose and random glucose. The ADA defines fasting as no caloric intake for at least 8 hours. Fasting plasma glucose results between 100 to 125 [...] Standards of Medical Care in Diabetes 2016, [place] Diabetes Association. Diabetes Care. 2016.39(Suppl 1). Performed By: #### 2 4323-8 ####[facility] LABIA [id number] [place] [id number] [place] Potassium [Moles/Vol] 4.1 mmol/L Normal 3.7-5.1 [facility] Comment on above: Order Comment: Dominique men Type: BLOOD SPECIMENOrdering Facility: [facility] Address: [address] [place] [address] Performed By: #### 2 4323-8 ####[facility] [id number] [place] [id number] [place] Protein [Mass/Vol] 6.8 g/dL Normal 6.3-8.0 [facility] Comment on above: Order Comment: Dominique vasquez Type: BLOOD SPECIMENOrdering Facility: [facility] Address: [address] [place] [address] Performed By: #### 2 4323-8 ####[facility] LABCLIA [id number] [place] [id number] [place] Sodium [Moles/Vol] 127 mmol/L Low 136-144 [facility] Comment on above: Order Comment: Speci men Type: BLOOD SPECIMENOrdering Facility: [facility] Address: [address] [place] [address] Performed By: #### 2 4323-8 ####[facility] LABCLIA [id number] [place] [address] [place] Urea nitrogen [Mass/Vol] 3 mg/dL Low 7-21 [facility] Comment on above: Order Comment: Speci men Type: BLOOD SPECIMENOrdering Facility: [facility] Address: [address] [place] [address] Performed By: #### 2 4323-8 ####[facility] LABCLIA [id number] [place] [address] [place] HSV+VZV DNA KEVIN+probe Ql (Un sp spec)on 01-17-2025 HSV 1 DNA KEVIN+probe Ql (Unsp spec) Not detected Normal Not Detected [facility] Comment on above: Order Comment: Speci men Type: SWABOrdering Facility: [facility] Address: [address] [place] [address] Performed By: #### 3 3027-4 ####[facility] LABCLIA [id number] [place] [id number] [place] HSV 2 DNA KEVIN+probe Ql (Unsp spec) Detected Abnormal Not Detected [facility] Comment on above: Order Comment: Speci men Type: SWABOrdering Facility: [facility] Address: [address] [place] [address] Performed By: #### 3 3027-4 ####[facility] LABCLIA [id number] [address] [place] VZV DNA KEVIN+probe Ql (Unsp spec) Not detected Normal Not Detected [facility] Comment on above: Order Comment: Speci men Type: SWABOrdering Facility: [facility] Address: [address] [place] [address] Performed By: #### 3 3027-4 ####[facility] LABCLIA [id number] [place] [address] [place] HbA1c (Bld)on 01-17-2025 Average glucose Estimated from glycated hemoglobin (Bld) [Mass/Vol] 120 mg/dL Normal [facility] Comment on above: Order Comment: Speci men Type: BLOOD SPECIMENOrdering Facility: [facility] Address: [address] [place] [address] Result Comment: eAG: (Estimated average glucose) is a calculated value from HgbA1c and is medical field representative of the average blood glucose level in the last 2-3 month period. Performed By: #### 5 5454-3 ####[facility] LABCLIA [id number] [place] [address] [place] HbA1c (Bld) [Mass fraction] 5.8 % High 4.3-5.6 [facility] Comment on above: Order Comment: Speci men Type: BLOOD SPECIMENOrdering Facility: [facility] Address: [address] [place] [address] Result Comment: Amer [place] Diabetes Association guidelines indicate that patients with HgbA1c in the range 5.7-6.4% are at increased risk for development of diabetes, and intervention by lifestyle modification may be beneficial. HgbA1c greater or equal to 6.5% is considered diagnostic of diabetes. Performed By: #### 5 5454-3 ####[facility] LABCLIA [id number] [place] [id number] [place] T3Free SerPl-mCncon 01-18-20 25 Free T3 [Mass/Vol] 2.8 pg/mL Normal 2.3-4.1 [facility] Comment on above: Order Comment: Speci men Type: BLOOD SPECIMENOrdering Facility: [facility] Address: [address] [place] [address] Performed By: #### 3 016-3, 3050, 3024-01 ####[facility] LABCLIA [id number] [place] [address] [place] T4 Free SerPl-mCncon 025 Free T4 [Mass/Vol] 1.2 ng/dL Normal 0.9-1.7 [facility] Comment on above: Order Comment: Speci men Type: BLOOD SPECIMENOrdering Facility: [facility] Address: [address] [place] [address] Performed By: #### 3 016-3, 3050-0, 3024-01 ####[facility] LABCLIA [id number] [place] [address] [place] TSH SerPl-aCncon 01-17-2025 TSH Qn 1.140 m[IU]/L Normal 0.270-4.200 [facility] Comment on above: Order Comment: Speci men Type: BLOOD SPECIMENOrdering Facility: [facility] Address: [address] [place] [address] Performed By: #### 3 016-3, 0, 3024-01 ####[facility] LABCLIA [id number] [place] [address] [place] Urinalysis complete panel (U )on 01-17-2025 Bacteria LM.HPF (Urine sed) [#/Area] Negative Normal Negative [facility] Comment on above: Order Comment: Speci men Type: URINE SPECIMENOrdering Facility: [facility] Address: [address] [place] [address] Performed By: #### 2 4356-8 ####[facility] LABCLIA [id number] [place] [address] [place] Bilirubin Ql (U) Negative Normal Negative [facility] Comment on above: Order Comment: Speci men Type: URINE SPECIMENOrdering Facility: [facility] Address: [address] [place] [address] Performed By: #### 2 4356-8 ####[facility] LABCLIA [id number] [address] [place] [address] [place] Clarity (Unsp spec) Clear Normal Clear [facility] Comment on above: Order Comment: Speci men Type: URINE SPECIMENOrdering Facility: [facility] Address: [address] [place] [address] Performed By: #### 2 4356-8 ####[facility] LABCLIA [id number] [address], [facility] [place] Color (U) Yellow Normal Yellow [facility] Comment on above: Order Comment: Speci men Type: URINE SPECIMENOrdering Facility: [facility] Address: [address] [place] [address] Performed By: #### 2 4356-8 ####[facility] LABCLIA [id number] [address], [facility] [place] Epithelial cells LM.HPF (Urine sed) [#/Area] None Seen Normal [facility] Comment on above: Order Comment: Speci men Type: URINE SPECIMENOrdering Facility: [facility] Address: [address] [place] [address] Performed By: #### 2 4356-8 ####[facility] LABCLIA [id number] [address] [place] [address] [place] Glucose Test strip (U) [Mass/Vol] Negative Normal Negative [facility] Comment on above: Order Comment: Speci men Type: URINE SPECIMENOrdering Facility: [facility] Address: [address] [place] [address] Performed By: #### 2 4356-8 ####[facility] LABCLIA [id number] [address], [facility] [place] Hemoglobin Ql (U) Trace Abnormal Negative [facility] Comment on above: Order Comment: Speci men Type: URINE SPECIMENOrdering Facility: [facility] Address: [address] [place] [address] Performed By: #### 2 4356-8 ####[facility] LABCLIA [id number] [place] [address] [place] Hyaline casts (Urine sed) [#/Area] 0 /[LPF] Normal 0 /LPF [facility] Comment on above: Order Comment: Speci men Type: URINE SPECIMENOrdering Facility: [facility] Address: [address] [place] [address] Performed By: #### 2 4356-8 ####[facility] LABCLIA [id number] [place] [address] [place] Ketones Ql (U) Negative Normal Negative [facility] Comment on above: Order Comment: Speci men Type: URINE SPECIMENOrdering Facility: [facility] Address: [address] [place] [address] Performed By: #### 2 4356-8 ####[facility] LABCLIA [id number] [place] [address] [place] Leukocyte esterase Test strip Ql (U) Negative Normal Negative [facility] Comment on above: Order Comment: Speci men Type: URINE SPECIMENOrdering Facility: [facility] Address: [address] [place] [address] Performed By: #### 2 4356-8 ####[facility] LABCLIA [id number] [place] [address] [place] Nitrite Ql (U) Negative Normal Negative [facility] Comment on above: Order Comment: Speci men Type: URINE SPECIMENOrdering Facility: [facility] Address: [address] [place] [address] Performed By: #### 2 4356-8 ####[facility] LABCLIA [id number] [place] [address] [place] pH (U) 6.5 [pH] Normal <8.5 [facility] Comment on above: Order Comment: Speci men Type: URINE SPECIMENOrdering Facility: [facility] Address: [address] [place] [address] Performed By: #### 2 4356-8 ####[facility]IA [id number] [place] [address] [place] Protein (U) [Mass/Vol] Negative Normal Negative [facility] Comment on above: Order Comment: Speci men Type: URINE SPECIMENOrdering Facility: [facility] Address: [address] [place] [address] Performed By: #### 2 4356-8 ####[facility] [id number] [place] [address] [place] RBC LM.HPF (Urine sed) [#/Area] 0-2 /HPF Normal 0-2 /HPF [facility] Comment on above: Order Comment: Speci men Type: URINE SPECIMENOrdering Facility: [facility] Address: [address] [place] [address] Performed By: #### 2 4356-8 ####[facility] [id number] [place] [address] [place] Specific gravity (U) [Rel density] 1.004 Low 1.005-1.030 [facility] Comment on above: Order Comment: Speci men Type: URINE SPECIMENOrdering Facility: [facility] Address: [address] [place] [address] Performed By: #### 2 4356-8 ####[facility]IA [id number] [place] [address] [place] Urobilinogen Ql (U) 0.2 EU/dL Normal 0.2-1.0 EU/dL [facility] Comment on above: Order Comment: Speci men Type: URINE SPECIMENOrdering Facility: [facility] Address: [address] [place] [address] Performed By: #### 2 4356-8 ####[facility] [id number] [address] [place] WBC LM.HPF (Urine sed) [#/Area] 0-5 /HPF Normal 0-5 /HPF [facility] Comment on above: Order Comment: Speci men Type: URINE SPECIMENOrdering Facility: [facility] Address: [address] [place] [address] Performed By: #### 2 4356-8 ####[facility] [id number] [address] [place] [facility] ([id number]) 1970 F Date Time Provider Department 01/07/25 LISA BRADSHAW INTWS During your visit today, we recorded the following information about you: Aidee Espitia 01/07/2025 3:35 PM Signed Patient called to request her appointment for tomorrow 01/08/25 be changed from in office to a virtual visit due to lack of care for her autistic son. PSS changed appointment to virtual visit but is routing message to PCP to have patient advised if needing to be seen in office for physical evaluation. Patient stated that she would only need to be contacted if she needs to reschedule for a later date if needing to be seen in person. OK to leave detailed VM if she is unavailable. Viridiana Syed MA 01/07/2025 3:44 PM Signed Please review ENMANUEL Weiner Liza D, MD 01/07/2025 7:33 PM Signed Okay virtual Allergies As of Date: 01/07/2025 Noted Allergy Reaction DOXYCYCLINE 07/13/2013 2 - Rash Comments: 07/13/13 LATEX 03/05/2010 2 - Rash Comments: Positive Latex Skin Test 11/29/13 ALEVE (NAPROXEN SODIUM) 03/05/2010 11 - Vomiting Comments: DIZZINESS AMITRIPTYLINE 03/05/2010 Comments: SLEEPWALKING CAMEL HAIR 08/21/2012 2 - Rash CELEBREX (CELECOXIB) 03/05/2010 1 - Mental Status Change Comments: RAGE CHLORHEXIDINE 07/04/2020 2 - Rash Comments: Itching then systemic rash and trouble with breathing. CYMBALTA (DULOXETINE) 03/29/2010 1 - Mental Status Change Comments: Made her angry, in a rage DARVOCET A500 (PROPOXYPHENE N-REBECCA*03/05/2010 1 - Mental Status Change Comments: HALLUCINATIONS DULERA (MOMETASONE-FORMOTERO L) 03/21/2015 12 - Shortness of Breath FEATHERS [...] (SULFONAMIDE ANTIBIOTICS) 03/05/2010 2 - Rash SYMBICORT (BUDESONIDE-FORMOTERO L) 03/13/2015 14 - Other: See Comments Comments: Stinging/burning mouth, itchy roof of throat/palette TRAMADOL HCL 03/29/2010 5 - Intolerance Comments: States it made her dizzy and nauseated Date Reviewed: 11/22/2024 Reviewed by: Shantelle Flowers APRN.MUD ANALYSIS 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 Maximum dose 400 mg per day. - Estazolam 1 mg tablet Take 1 mg by mouth at bedtime as needed. - acetaminophen 325 mg-caffeine 40 mg-butalbital 50 mg (FIORICET) per tablet Take 1 tablet by mouth every 6 hours as needed for headache for up to 60 days. - guaiFENesin (MUCINEX) 600 mg 12 hr tablet Take 1-2 tablets by mouth two times a day. As needed - albuterol HFA (VENTOLIN HFA) 90 mcg/actuation inhaler Inhale 2 puffs as instructed every 4 hours as needed for wheezing/shortness of breath. - diclofenac (VOLTAREN) 1 % topical gel Apply 2 g to affected area four times daily. - cyclobenzaprine (FLEXERIL) 10 mg tablet Take 1 tablet by mouth two times a day as needed for muscle spasm. FOR PAIN OR SPASMS - hydrocortisone 2.5 % ointment Apply 1 application to affected area two times a day as needed. Avoid use on the eyelids or face. Up to 2 weeks at a time - ketoconazole (NIZORAL) 2 % cream Apply 1 application to affected area two times a day. Continue to use for another week after rash resolves - mupirocin (BACTROBAN) 2 % ointment Apply to affected area three times a day. - triamcinolone acetonide (KENALOG) 0.1 % ointment Apply to affected areas twice a day as needed. Avoid use on the face. Use up to 2 weeks as directed per rash recurrence - azelastine 0.1% nasal spray Use 1-2 Sprays in each nostril two times a day. As directed - Cholecalciferol, Vitamin D3, 125 mcg (5,000 unit) cap Take 1 capsule by mouth once daily. - fluticasone (FLONASE) 50 mcg/actuation nasal spray Use 2 Sprays in each nostril once daily. Use 2 sprays to each nostril one to two times daily - fluticasone-salmetero l HFA (ADVAIR HFA) 230-21 mcg/actuation inhaler Inhale 2 Puffs as instructed two times a day. - albuterol (PROVENTIL) 2.5 mg /3 mL (0. (more content not included)... Normal [facility] CNOVon 11-22-2024 CNOV Office Visit (INTMWS ) HELENA POTTER ([id number]) 1970 F Date Time Provider Department 11/22/24 10:40 AM SHANTELLE FLOWERS INTMWS During your visit today, we recorded the following information about you: Pulse Blood pressure Weight 125/minute 128/84 82.3 kg Shantelle Flowers APRN.[facility] 11/22/2024 11:28 AM Signed SUBJECTIVE Helena Rae Isaac is a 54 year old female here today for an ER follow up. Chief Complaint Patient presents with: ER F/U: [facility] ER 11/18/24 follow up from a fall while being tackled. Was given injection of toradol, prednisone, and Tylenol 3 HPI Helenachanning Potter is a 54 year old female. She is an established patient of Lisa Bradshaw MD. She is here today for an ER follow up. Seen in ER at [facility] on 11/18/2024. Seen for follow up from a fall that was the result of being tackled. ER note is available to review. Injury occurred as a result of a fall from autistic son. She landed on the coccyx/sacral area. She then developed right leg numbness, coldness, pain. Xray in ER showed no fracture. She has a known history of low back pain and disk herniations and fibromyalgia. She was treated with a Toradol injection, prednisone and tylenol with codeine. Toradol was helpful, pain has improved some but pain continues. MRI of the lower back last done 2017, results were reviewed with today's visit along with prior xrays. No loss of bowel or bladder control and no saddle paresthesias. Her medications were reviewed today and her list is now up to date. Medications Current Outpatient Medications Medication Sig predniSONE (DELTASONE) 20 mg tablet Take 40 mg by mouth once daily. cyclobenzaprine (FLEXERIL) 10 mg tablet Take 1 tablet by mouth two times a day as needed for muscle spasm. FOR PAIN OR SPASMS guaiFENesin (MUCINEX) 600 mg 12 hr tablet Take 1-2 tablets by mouth two times a day. As needed hydrocortisone 2.5 % ointment Apply 1 application to affected area two times a day as needed. Avoid use on the eyelids or face. Up to 2 weeks at a time mupirocin (BACTROBAN) 2 % ointment Apply to affected area three times a day. triamcinolone acetonide (KENALOG) 0.1 % ointment Apply to affected areas twice a day as needed. Avoid use on the face. Use up to 2 weeks as directed per rash recurrence azelastine 0.1% nasal spray Use 1-2 Sprays in each nostril two times a day. As directed Cholecalciferol, Vitamin D3, 125 mcg (5,000 unit) cap Take 1 capsule by mouth once daily. fluticasone (FLONASE) 50 mcg/actuation nasal spray Use 2 Sprays in each nostril once daily. Use 2 sprays to each nostril one to two times daily fluticasone-salmetero l HFA (ADVAIR HFA) 230-21 mcg/actuation inhaler Inhale 2 Puffs as instructed two times a day. hydrOXYzine HCl (ATARAX) 25 mg tablet Take 1-4 tablets by mouth every 4 hours as needed for itching/rash (and allergic rhinitis). Maximum dose 400 mg per day. albuterol (PROVENTIL) 2.5 mg /3 mL (0.083 %) nebulizer solution Use 3 mL via nebulizer every 6 hours as needed for wheezing/shortness of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 sclerosis noted from T8 to T12. No compression fractures. Pedicles intact. Paraspinous soft tissues normal. No scoliosis. Linear stranding versus subsegmental atelectasis noted at the right base. IMPRESSION: Mild degenerative changes as noted above Oncology Social Worker: [facility] Transcribe Date/Time: Oct 01 2024 6:34P Dictated by : TRINA PERRY MD This examination was interpreted and the report reviewed and electronically signed by: TRINA PERRY MD on Oct 01 2024 6:36PM EST [id number] Normal [facility] XR Shoulder - left 3 Viewson 11-20-2023 IMPRESSION: No acute osseous abnormalities are identified. Oncology Social Worker: JEANNETTE Transcribe Date/Time: Nov 20 2023 7:09P Dictated by : BAILEE ISBELL MD This examination was interpreted and the report reviewed and electronically signed by: BAILEE ISBELL MD on Nov 20 2023 7:10PM EST DIVISION OF RADIOLOGY * * *Final Report* * * DATE OF EXAM: Nov 20 2023 5:23PM WOX 5252 - XR SHLDR >/=3V AP/VELMA AP/OTHR LT / PROCEDURE REASON: Acute pain of left shoulder * * * * Physician Interpretation * * * * LEFT SHOULDER X-RAY SERIES HISTORY: Acute pain of left shoulder TECHNIQUE: AP, Grashey, and axillary view COMPARISON: None available. RESULT: No fracture, dislocation or destructive changes. AC joint degenerative changes. DIVISION OF RADIOLOGY Provider, [facility] - 11/20/2023 * * *Final Report* * * DATE OF EXAM: Nov 20 2023 5:23PM WOX 5252 - XR SHLDR >/=3V AP/VELMA AP/OTHR LT / PROCEDURE REASON: Acute pain of left shoulder * * * * Physician Interpretation * * * * LEFT SHOULDER X-RAY SERIES HISTORY: Acute pain of left shoulder TECHNIQUE: AP, Grashey, and axillary view COMPARISON: None available. RESULT: No fracture, dislocation or destructive changes. AC joint degenerative changes. IMPRESSION IMPRESSION: No acute osseous abnormalities are identified. Oncology Social Worker: P[facility] Transcribe Date/Time: Nov 20 2023 7:09P Dictated by : BAILEE ISBELL MD This examination was interpreted and the report reviewed and electronically signed by: BAILEE ISBELL MD on Nov 20 2023 7:10PM EST [facility] Radiology Study observation (narrative) Aurel[facility] XR Shoulder - left 3 ViewsOr dered By: [facility] Provider on 11-20-2023 [facility] No Panel Informationon 01-25 IMPRESSION: Second metatarsal fracture. Oncology Social Worker: JEANNETTE Transcribe Date/Time: Jan 25 2022 12:44P Dictated by : ZOILA VILLAGOMEZ MD This examination was interpreted and the report reviewed and electronically signed by: ZOILA VILLAGOMEZ MD on Jan 25 2022 12:50PM EST [email or web address]_US E_DIVISION OF RADIOLOGY Radiology Study observation (narrative) [facility] No Panel InformationOrdered By: Ccf Provider on 01-25-2022 [facility] XR Ankle - left AP and Later al and obliqueon 01-25-2022 * * *Final Report* * * DATE OF EXAM: Jan 25 2022 12:36PM WOX 5298 - XR ANKLE 3V AP/LAT/OBL LT / PROCEDURE REASON: Injury of left ankle, initial encounter * * * * Physician Interpretation * * * * EXAM TITLE: XR FOOT 3V AP/LAT/OBL LT, XR ANKLE 3V AP/LAT/OBL LT EXAM DATE/TIME: 01/25/2022 12:36 PM COMPARISON: None CLINICAL INDICATION/HISTORY: Twisted left ankle. TECHNIQUE: AP, lateral and oblique views of the left foot are presented. AP, mortise and lateral views of the left ankle are also presented. FINDINGS: Nondisplaced fracture noted in the base of the second metatarsal bone. No acute fractures seen in the left ankle. The joint spaces including the mortise spaces are maintained. Calcaneal enthesophyte visualized. The mineralization of the bones is normal. There is no significant soft tissue swelling. [email or web address]_US E_DIVISION OF RADIOLOGY Provider, [facility] - 01/25/2022 * * *Final Report* * * DATE OF EXAM: Jan 25 2022 12:36PM WOX 5298 - XR ANKLE 3V AP/LAT/OBL LT / PROCEDURE REASON: Injury of left ankle, initial encounter * * * * Physician Interpretation * * * * EXAM TITLE: XR FOOT 3V AP/LAT/OBL LT, XR ANKLE 3V AP/LAT/OBL LT EXAM DATE/TIME: 01/25/2022 12:36 PM COMPARISON: None CLINICAL INDICATION/HISTORY: Twisted left ankle. TECHNIQUE: AP, lateral and oblique views of the left foot are presented. AP, mortise and lateral views of the left ankle are also presented. FINDINGS: Nondisplaced fracture noted in the base of the second metatarsal bone. No acute fractures seen in the left ankle. The joint spaces including the mortise spaces are maintained. Calcaneal enthesophyte visualized. The mineralization of the bones is normal. There is no significant soft tissue swelling. IMPRESSION IMPRESSION: Second metatarsal fracture. Oncology Social Worker: PSC[facility] Transcribe Date/Time: Jan 25 2022 12:44P Dictated by : ZOILA VILLAGOMEZ MD This examination was interpreted and the report reviewed and electronically signed by: ZOILA VILLAGOMEZ MD on Jan 25 2022 12:50PM [facility] XR Foot - left AP and Latera l and obliqueon 01-25-2022 * * *Final Report* * * DATE OF EXAM: Jan 25 2022 12:36PM WOX 5336 - XR FOOT 3V AP/LAT/OBL LT / PROCEDURE REASON: Foot injury, left, initial encounter * * * * Physician Interpretation * * * * EXAM TITLE: XR FOOT 3V AP/LAT/OBL LT, XR ANKLE 3V AP/LAT/OBL LT EXAM DATE/TIME: 01/25/2022 12:36 PM COMPARISON: None CLINICAL INDICATION/HISTORY: Twisted left ankle. TECHNIQUE: AP, lateral and oblique views of the left foot are presented. AP, mortise and lateral views of the left ankle are also presented. FINDINGS: Nondisplaced fracture noted in the base of the second metatarsal bone. No acute fractures seen in the left ankle. The joint spaces including the mortise spaces are maintained. Calcaneal enthesophyte visualized. The mineralization of the bones is normal. There is no significant soft tissue swelling. ZZZ_DO_NOT_US E_DIVISION OF RADIOLOGY Provider, [facility] - 01/25/2022 * * *Final Report* * * DATE OF EXAM: Jan 25 2022 12:36PM WOX 5336 - XR FOOT 3V AP/LAT/OBL LT / PROCEDURE REASON: Foot injury, left, initial encounter * * * * Physician Interpretation * * * * EXAM TITLE: XR FOOT 3V AP/LAT/OBL LT, XR ANKLE 3V AP/LAT/OBL LT EXAM DATE/TIME: 01/25/2022 12:36 PM COMPARISON: None CLINICAL INDICATION/HISTORY: Twisted left ankle. TECHNIQUE: AP, lateral and oblique views of the left foot are presented. AP, mortise and lateral views of the left ankle are also presented. FINDINGS: Nondisplaced fracture noted in the base of the second metatarsal bone. No acute fractures seen in the left ankle. The joint spaces including the mortise spaces are maintained. Calcaneal enthesophyte visualized. The mineralization of the bones is normal. There is no significant soft tissue swelling. IMPRESSION IMPRESSION: Second metatarsal fracture. Oncology Social Worker: [facility] Transcribe Date/Time: Jan 25 2022 12:44P Dictated by : ZOILA VILLAGOMEZ MD This examination was interpreted and the report reviewed and electronically signed by: ZOILA VILLAGOMEZ MD on Jan 25 2022 12:50PM [facility] XR Tibia and Fibula - left A P and Lateralon 02-07-2021 IMPRESSION: No acute osseous abnormality identified. Oncology Social Worker: [facility] Transcribe Date/Time: Feb 07 2021 4:25P Dictated by : ARMIN RIVERA MD This examination was interpreted and the report reviewed and electronically signed by: ARMIN RIVERA MD on Feb 07 2021 4:26PM [facility] DIVISION OF RADIOLOGY * * *Final Report* * * DATE OF EXAM: Feb 07 2021 4:22PM WOX 5265 - XR TIBIA FIBULA 2V AP/LAT LT / PROCEDURE REASON: Leg injuries, left, initial encounter * * * * Physician Interpretation * * * * Right tibia-fibula radiographs HISTORY: 50 years old Clinical information: Leg injuries, left, initial encounter pt states her some kicked her upper lateral side of left tib fib today marked by the arrow. TECHNIQUE: Images: XR TIBIA FIBULA 2V AP/LAT LT Comparison: None. RESULT: Findings: No fracture or dislocation. No soft tissue abnormality identified. DIVISION OF RADIOLOGY Provider, Leah Barraza - 02/07/2021 * * *Final Report* * * DATE OF EXAM: Feb 07 2021 4:22PM WOX 5265 - XR TIBIA FIBULA 2V AP/LAT LT / PROCEDURE REASON: Leg injuries, left, initial encounter * * * * Physician Interpretation * * * * Right tibia-fibula radiographs HISTORY: 50 years old Clinical information: Leg injuries, left, initial encounter pt states her some kicked her upper lateral side of left tib fib today marked by the arrow. TECHNIQUE: Images: XR TIBIA FIBULA 2V AP/LAT LT Comparison: None. RESULT: Findings: No fracture or dislocation. No soft tissue abnormality identified. IMPRESSION IMPRESSION: No acute osseous abnormality identified. Oncology Social Worker: [facility] Transcribe Date/Time: Feb 07 2021 4:25P Dictated by : ARMIN RIVERA MD This examination was interpreted and the report reviewed and electronically signed by: ARMIN RIVERA MD on Feb 07 2021 4:26PM EST [facility] Radiology Study observation (narrative) [facility] XR Tibia and Fibula - left A P and LateralOrdered By: Ccf Provider on 02-07-2021 [facility] Throat specimen bacteria prince ntification by culture Bacteria identified Cx Nom (Throat) streptococcus isolated. [facility] Work Phone: Vital Signs Date Time Vital Sign Value Performing Clinician Facility 01-17-2025 13:08-0400 Body mass index (BMI) [Ratio] 31.91 kg/m2 Sandra Melvin APRN.[facility] Work Phone: [facility] 01-17-2025 13:08-0400 Body temperature 98.1 [degF] Sandra Melvin APRN.[facility] Work Phone: [facility] 01-17-2025 13:08-0400 Body weight 81.7 kg Sandra Melvin APRN.[facility] Work Phone: [facility] 01-17-2025 13:08-0400 Diastolic blood pressure 74 mm[Hg] Sandra Melvin APRN.[facility] Work Phone: [facility] 01-17-2025 13:08-0400 Heart rate 88 /min Sandra Melvin APRN.[facility] Work Phone: [facility] 01-17-2025 13:08-0400 Respiratory rate 16 /min Sandra Melvin APRN.[facility] Work Phone: [facility] 01-17-2025 13:08-0400 SaO2% (BldA) [Mass fraction] 97 % Sandra Melvin APRN.[employer] OPER[employer] Work Phone: [facility] 01-17-2025 13:08-0400 Systolic blood pressure 122 mm[Hg] Sandra Melvin RAIL WASHER.[employer] LO[employer]ING OPERATOR Work Phone: [facility] 11-22-2024 10:53-0400 Body mass index (BMI) [Ratio] 32.14 kg/m2 Shantelle Flowers RAIL WASHER.[employer] LO[employer]ING OPERATOR Work Phone: [facility] 11-22-2024 10:53-0400 Body weight 82.3 kg Shantelle Elle RAIL WASHER.[employer] WE[employer] LOGGING OPERATOR Work Phone: [facility] 11-22-2024 10:53-0400 Diastolic blood pressure 84 mm[Hg] Shantelle Elle RAIL WASHER.[employer] WE[employer] LOGGING OPERATOR Work Phone: [facility] 11-22-2024 10:53-0400 Heart rate 125 /min Shantelle Elle RAIL WASHER.[employer] WE[employer] LOGGING OPERATOR Work Phone: [facility] 11-22-2024 10:53-0400 SaO2% (BldA) [Mass fraction] 97 % Shantelle Elle RAIL WASHER.[employer] WE[employer] LOGGING OPERATOR Work Phone: [facility] 11-22-2024 10:53-0400 Systolic blood pressure 128 mm[Hg] Shantelle Elle RAIL WASHER.[employer] WE[employer] LOGGING OPERATOR Work Phone: [facility] 11-18-2024 13:44-0400 Body mass index (BMI) [Ratio] 31.63 kg/m2 Sisi Maloney RAIL WASHER.[employer] WE[employer] LO[employer]ING OPERATOR Work Phone: [facility] 11-18-2024 13:44-0400 Body temperature 98.4 [degF] Sisi Maloney RAIL WASHER.[employer] WE[employer] LOGGING OPERATOR Work Phone: [facility] 11-18-2024 13:44-0400 Body weight 81 kg Sisi Maloney RAIL WASHER.[employer] WE[employer] LOGGING OPERATOR Work Phone: [facility] 11-18-2024 13:44-0400 Diastolic blood pressure 93 mm[Hg] Sisi Maloney APRN.[employer] OPERATOR Work Phone: [facility] 11-18-2024 13:44-0400 Heart rate 105 /min Sisi Maloney RAIL WASHER.[employer] WE[employer] LOGGING OPERATOR Work Phone: [facility] 11-18-2024 13:44-0400 Respiratory rate 20 /min Sisi Maloney RAIL WASHER.[employer] A[employer] WE[employer] LOGGING OPERATOR Work Phone: [facility] 11-18-2024 13:44-0400 SaO2% (BldA) [Mass fraction] 96 % Sisi Maloney RAIL WASHER.[employer] WE[employer] LOGGING OPERATOR Work Phone: [facility] 11-18-2024 13:44-0400 Systolic blood pressure 133 mm[Hg] Sisi Maloney RAIL WASHER.[employer] WE[employer] LOGGING OPERATOR Work Phone: [facility] 09-28-2024 15:02-0400 Body mass index (BMI) [Ratio] 31.48 kg/m2 Lisa Bradshaw MD Work Phone: [facility] 09-28-2024 15:02-0400 Body temperature 98.29 [degF] Lisa Bradshaw MD Work Phone: [facility] 09-28-2024 15:02-0400 Body weight 80.6 kg Lisa Bradshaw MD Work Phone: [facility] 09-28-2024 15:02-0400 Diastolic blood pressure 82 mm[Hg] Lisa Bradshaw MD Work Phone: [facility] 09-28-2024 15:02-0400 Heart rate 84 /min Lisa Bradshaw MD Work Phone: [facility] 09-28-2024 15:02-0400 Systolic blood pressure 130 mm[Hg] Lisa Bradshaw MD Work Phone: [facility] 11-20-2023 16:53-0400 Body mass index (BMI) [Ratio] 30.85 kg/m2 Skye Thakur RAIL WASHER.[employer] LO[employer]ING OPERATOR Work Phone: [facility] 11-20-2023 16:53-0400 Body temperature 98.4 [degF] Skye Thakur RAIL WASHER.[employer] WE[employer] LOGGING OPERATOR Work Phone: [facility] 11-20-2023 16:53-0400 Body weight 79 kg Skye Thakur RAIL WASHER.[employer] WE[employer] LOGGING OPERATOR Work Phone: [facility] 11-20-2023 16:53-0400 Diastolic blood pressure 99 mm[Hg] Skye Thakur RAIL WASHER.[employer] WE[employer] LOGGING OPERATOR Work Phone: [facility] 11-20-2023 16:53-0400 Heart rate 84 /min Skye Thakur RAIL WASHER.[employer] WE[employer] LOGGING OPERATOR Work Phone: [facility] 11-20-2023 16:53-0400 Respiratory rate 22 /min Skye Thakur RAIL WASHER.[employer] WE[employer] LOGGING OPERATOR Work Phone: [facility] 11-20-2023 16:53-0400 SaO2% (BldA) [Mass fraction] 97 % Skye Thakur RAIL WASHER.[employer] WE[employer] LOGGING OPERATOR Work Phone: [facility] 11-20-2023 16:53-0400 Systolic blood pressure 136 mm[Hg] Skye Thakur RAIL WASHER.[employer] A[employer] WE[employer] LOGGING OPERATOR Work Phone: [facility] 2023 02:35-0400 Body height 160.02 cm [facility] 2023 02:35-0400 Body mass index (BMI) [Ratio] 34.7 kg/m2 [facility] 2023 02:35-0400 Body temperature 97.8 [degF] [facility] 2023 02:35-0400 Body weight 89 kg [facility] 2023 02:35-0400 Diastolic blood pressure 84 mm[Hg] [facility] 2023 02:35-0400 Heart rate 104 /min [facility] 2023 02:35-0400 Respiratory rate 18 /min [facility] 2023 02:35-0400 SaO2% (BldA) [Mass fraction] 97 % [facility] 2023 02:35-0400 Systolic blood pressure 141 mm[Hg] [facility] 06-18-2022 12:22-0500 Body temperature 98.4 [degF] Sandra Melvin RAIL WASHER.[employer] WE[employer] LOGGING OPERATOR Work Phone: [facility] 06-18-2022 12:22-0500 Body weight 83.55 kg Sandra Melvin RAIL WASHER.[employer] WE[employer] LOGGING OPERATOR Work Phone: [facility] 06-18-2022 12:22-0500 Diastolic blood pressure 86 mm[Hg] Sandra Melvin RAIL WASHER.[employer] A[employer] WE[employer] LOGGING OPERATOR Work Phone: [facility] 06-18-2022 12:22-0500 Heart rate 101 /min Sandra Melvin RAIL WASHER.[employer] WE[employer] LOGGING OPERATOR Work Phone: [facility] 06-18-2022 12:22-0500 Respiratory rate 18 /min Sandra Melvin RAIL WASHER.[employer] WE[employer] LOGGING OPERATOR Work Phone: [facility] 06-18-2022 12:22-0500 SaO2% (BldA) [Mass fraction] 96 % Sandra Melvin RAIL WASHER.[employer] ANAL[employer] WELL LOGGING OPERATOR Work Phone: [facility] 06-18-2022 12:22-0500 Systolic blood pressure 138 mm[Hg] Sandra Melvin RAIL WASHER.[employer] ANAL[employer]IS WELL LOGGING OPERATOR Work Phone: [facility] 05-16-2022 15:14-0400 Body weight 81.65 kg Carmen Taylor RAIL WASHER.MATERIAL RECLAIMER Work Phone: [facility] 05-16-2022 15:14-0400 Diastolic blood pressure 92 mm[Hg] Carmen Taylor RAIL WASHER.MATERIAL RECLAIMER Work Phone: [facility] 05-16-2022 15:14-0400 Heart rate 98 /min Carmen Taylor RAIL WASHER.MATERIAL RECLAIMER Work Phone: [facility] 05-16-2022 15:14-0400 Respiratory rate 16 /min Carmen Taylor RAIL WASHER.MATERIAL RECLAIMER Work Phone: [facility] 05-16-2022 15:14-0400 SaO2% (BldA) [Mass fraction] 96 % Carmen Taylor RAIL WASHER.MATERIAL RECLAIMER Work Phone: [facility] 05-16-2022 15:14-0400 Systolic blood pressure 124 mm[Hg] Carmen Taylor RAIL WASHER.MATERIAL RECLAIMER Work Phone: [facility] 01-25-2022 11:12-0400 Body temperature 98.01 [degF] Shai Tamez RAIL WASHER.[employer] ANAL[employer] WE[employer] LOGGING OPERATOR Work Phone: [facility] 01-25-2022 11:12-0400 Body weight 82.56 kg Shai Tamez RAIL WASHER.[employer] A[employer] WE[employer] LOGGING OPERATOR Work Phone: [facility] 01-25-2022 11:12-0400 Diastolic blood pressure 72 mm[Hg] Shai Tamez RAIL WASHER.[employer] A[employer] WE[employer] LOGGING OPERATOR Work Phone: [facility] 01-25-2022 11:12-0400 Heart rate 98 /min Shai Tamez RAIL WASHER.[employer] ANAL[employer]IS WELL LOGGING OPERATOR Work Phone: [facility] 01-25-2022 11:12-0400 Respiratory rate 20 /min Shai Tamez RAIL WASHER.[employer] ANAL[employer]IS WE[employer] LOGGING OPERATOR Work Phone: [facility] 01-25-2022 11:12-0400 SaO2% (BldA) [Mass fraction] 97 % Shai Tamez RAIL WASHER.MUD ANALYSIS WELL LOGGING OPERATOR Work Phone: [facility] 01-25-2022 11:12-0400 Systolic blood pressure 108 mm[Hg] Shai Tamez RAIL WASHER.MUD ANALYSIS WELL LOGGING OPERATOR Work Phone: [facility] Encounters Encounter Date Encounter Type Care Provider Facility Start: 01-18-2025 End: 01-18-2025 Follow-up encounter Skye Thakur RAIL WASHER.MUD ANALYSIS WELL LOGGING OPERATOR Work Phone: [facility] Comment on above: Results Start: 01-17-2025 End: 01-17-2025 ambulatory LISA BRADSHAW Facility:[facility] Start: 01-17-2025 End: 01-17-2025 Patient encounter procedure Sandra Melvin RAIL WASHER.MUD ANALYSIS WELL LOGGING OPERATOR Work Phone: [facility] Comment on above: Rash (Primary Dx) Start: 01-17-2025 End: 01-17-2025 ambulatory SANDRA MELVIN Facility:[facility] Start: 01-08-2025 End: 01-08-2025 Office outpatient visit 40 minutes Lisa Bradshaw MD Work Phone: [facility] [place] Comment on above: Right ankle swelling (Primary Dx); Chronic nonseasonal allergic rhinitis due to pollen; Radiculopathy of lumbar region; Fibromyalgia; Eczema, unspecified type; Fibromyalgia; Lumbar disc displacement without myelopathy; Spasm of muscle; Elevated hemoglobin A1c; Hyponatremia; Copper deficiency; Vitamin D deficiency; Polyarthralgia; Nocturia more than twice per night; Tension headache; Bursitis of right ankle; Chronic pain syndrome; Polydipsia; Polyuria; Insomnia due to medical condition; Encounter for long-term current use of medication Start: 01-08-2025 End: 01-08-2025 ambulatory SELF Facility:[facility] Start: 01-07-2025 End: 01-10-2025 Telephone encounter Lisa Bradshaw MD Work Phone: [facility] [place] Comment on above: Appointment (01/08/25 ) Start: 11-23-2024 End: 11-23-2024 Refill Lisa Bradshaw MD Work Phone: [facility] [place] Comment on above: Refill Request Start: 11-22-2024 End: 11-22-2024 Patient encounter procedure Shantelle Flowers RAIL WASHER.MUD ANALYSIS WELL LOGGING OPERATOR Work Phone: [facility] [place] Comment on above: Acute midline low ba ck pain with right-sided sciatica (Primary Dx); Lumbar disc displacement without myelopathy; Fibromyalgia Start: 11-22-2024 End: 11-22-2024 ambulatory SHANTELLE FLOWERS Facility:[facility] Start: 11-18-2024 End: 11-18-2024 Patient encounter procedure Sisi Maloney APRN.MUD ANALYSIS WELL LOGGING OPERATOR Work Phone: [facility] Comment on above: Leg numbness (Primar y Dx); Injury of back, initial encounter Start: 11-18-2024 End: 11-18-2024 Emergency department patient visit Adam Pollard Facility:[facility] Start: 11-18-2024 End: 11-18-2024 ambulatory SISI MALONEY Facility:[facility] Start: 10-26-2024 End: 11-26-2024 ambulatory Lisa Bradshaw MD Work Phone: Internal [facility] [place] Start: 09-28-2024 End: 09-28-2024 Subsequent hospital visit by physician [facility] [place] Work Phone: Radiology Comment on above: Chronic midline thor acic back pain [M54.6, G89.29] Start: 09-28-2024 End: 09-28-2024 ambulatory LISA BRADSHAW Facility:[facility] Start: 09-28-2024 End: 09-28-2024 Office outpatient visit 25 minutes Lisa Bradshaw MD Work Phone: [facility] [place] Comment on above: Chronic midline thor acic back pain (Primary Dx); Fibromyalgia; Asthma with chronic obstructive pulmonary disease (COPD) ([facility]); Rib pain; Spasm of muscle; Eczema, unspecified type; Smoker; Subacute cough; Encounter for immunization; PTSD (post-traumatic stress disorder); Autism spectrum disorder; Selective mutism; Attention deficit hyperactivity disorder, predominantly hyperactive impulsive type Start: 09-02-2024 End: 09-06-2024 Refill Lisa Bradshaw MD Work Phone: [facility] [place] Comment on above: Refill Request Start: 07-08-2024 End: 07-08-2024 Refill Lisa Bradshaw MD Work Phone: [facility] [place] Comment on above: Refill Request Start: 06-22-2024 End: 06-22-2024 Office outpatient visit 25 minutes Lisa Bradshaw MD Work Phone: [facility] [place] Comment on above: PTSD (post-traumatic stress disorder) (Primary Dx); Asthma with chronic obstructive pulmonary disease (COPD) ([facility]); Attention deficit hyperactivity disorder (ADHD), combined type; Candidal intertrigo; Sternocostal pain; Fibromyalgia; ARMANDO (generalized anxiety disorder); Costochondritis; Vitamin D deficiency; Fibromyalgia; Spasm of muscle; Encounter for long-term current use of medication; Elevated hemoglobin A1c; Copper deficiency; Hyponatremia Start: 06-22-2024 End: 06-22-2024 ambulatory LISA BRADSHAW Facility:[facility] Start: 03-23-2024 End: 03-23-2024 Distance [facility] Lisa Bradshaw MD Work Phone: [facility] [place] Comment on above: Seasonal allergic rh initis due to pollen (Primary Dx); Asthma with chronic obstructive pulmonary disease (COPD) (H[facility]); Fibromyalgia; Spasm of muscle; ARMANDO (generalized anxiety disorder) Start: 03-23-2024 End: 03-23-2024 ambulatory LISA BRADSHAW Facility:[facility] Start: 01-19-2024 End: 01-19-2024 Patient encounter procedure Dana Sandoval PA-C Work Phone: Orthopaedics Comment on above: Arthritis of left ac romioclavicular joint (Primary Dx); Acute pain of left shoulder; Fibromyalgia Start: 01-13-2024 End: 01-13-2024 ambulatory Keren Hayward TANNING WHEEL OPERATOR Work Phone: [facility] Comment on above: Acute pain of left s houlder (Primary Dx) Start: 01-06-2024 End: 01-06-2024 ambulatory Junito Rice PT Work Phone: [facility] Comment on above: Acute pain of left s houlder (Primary Dx) Start: 01-02-2024 Refill Lisa prdao MD Work Phone: [facility] [place] Comment on above: Refill Request Start: 12-04-2023 End: 12-04-2023 ambulatory Junito Rice PT Work Phone: [facility] Comment on above: Acute pain of left s houlder (Primary Dx) Start: 12-03-2023 End: 12-03-2023 Distance [facility] Lisa Bradshaw MD Work Phone: [facility] [place] Comment on above: Acute pain of left s houlder (Primary Dx); Non-seasonal allergic rhinitis due to pollen; ARMANDO (generalized anxiety disorder) Start: 11-26-2023 ambulatory Lisa prado MD Work Phone: [facility] [place] Start: 11-20-2023 End: 11-20-2023 Subsequent hospital visit by physician [facility] Work Phone: Radiology Comment on above: Acute pain of left eve clark [M25.512] Start: 11-20-2023 End: 11-20-2023 Patient encounter procedure Skye Thakur RAIL WASHER.MUD ANALYSIS WELL LOGGING OPERATOR Work Phone: [facility] Comment on above: Acute pain of left eve clark (Primary Dx) Start: 11-20-2023 ambulatory Lisa prado MD Work Phone: [facility] [place] Comment on above: Shoulder Injury Start: 09-29-2023 Refill Carmen Taylor RAIL WASHER.MATERIAL RECLAIMER Work Phone: [facility] [place] Comment on above: Refill Request Start: 09-17-2023 ambulatory Norma jaquez PA-C Work Phone: Pulmonary Medicine Start: 09-12-2023 Telephone encounter Lisa courtney MD Work Phone: [facility] [place] Comment on above: Insurance Authorizat ion Start: 06-13-2023 Telephone encounter Lisa courtney MD Work Phone: [facility] [place] Comment on above: Patient Update Start: 2023 End: 2023 Emergency department patient visit [facility] Work Phone: Start: 12-18-2022 ambulatory Lisa prado MD Work Phone: [facility] [place] Start: 10-04-2022 Refill Lisa prado MD Work Phone: [facility] [place] Comment on above: Refill Request Start: 07-29-2022 End: 07-29-2022 Phys/qhp telephone evaluation 21-30 min Lisa Bradshaw MD Work Phone: [facility] [place] Comment on above: Hyponatremia (Primar y Dx); Fibromyalgia; Episodic tension-type headache, not intractable; Eyes sensitive to light, bilateral; Sound sensitivity in both ears; Persistent disorder of initiating or maintaining sleep; History of foot fracture Start: 06-20-2022 End: 06-20-2022 ambulatory [facility] Work Phone: Start: 06-20-2022 End: 06-20-2022 Patient encounter procedure [facility], Specimen Start: 06-18-2022 Telephone encounter Lisa courtney MD Work Phone: [facility] [place] Comment on above: Patient Update Start: 06-18-2022 End: 06-18-2022 Patient encounter procedure Sandra Melvin APRN.MUD ANALYSIS WELL LOGGING OPERATOR Work Phone: [facility] Comment on above: Contact dermatitis, unspecified contact dermatitis type, unspecified trigger (Primary Dx) Start: 06-06-2022 ambulatory Lisa prado MD Work Phone: [facility] [place] Comment on above: Recent medical visit Start: 05-17-2022 Telephone encounter Lisa courtney MD Work Phone: [facility] [place] Comment on above: Results Start: 05-16-2022 End: 05-16-2022 Patient encounter procedure Carmen Taylor RAIL WASHER.MATERIAL RECLAIMER Work Phone: [facility] [place] Comment on above: Neck and shoulder pa in (Primary Dx); Non-seasonal allergic rhinitis due to pollen; Eczema, unspecified type; Chronic nonseasonal allergic rhinitis due to pollen; Fibromyalgia; Rib pain; Spasm of muscle; TMJ (dislocation of temporomandibular joint), subsequent encounter Start: 01-28-2022 Telephone encounter Lisa ocurtney MD Work Phone: [facility] [place] Comment on above: Results Start: 01-25-2022 End: 01-25-2022 Subsequent hospital visit by physician [facility] [place] Work Phone: Radiology Comment on above: Foot injury, left, i nitial encounter [S99.922A] Start: 01-25-2022 End: 01-25-2022 Patient encounter procedure Shai Tamez APRN.MUD ANALYSIS WELL LOGGING OPERATOR Work Phone: [facility] Comment on above: Foot injury, left, i nitial encounter (Primary Dx); Injury of left ankle, initial encounter; Closed nondisplaced fracture of second metatarsal bone of left foot, initial encounter Start: 01-16-2022 ambulatory Lisa prado MD Work Phone: [facility] [place] Start: 02-07-2021 End: 02-07-2021 Subsequent hospital visit by physician [facility] [place] Work Phone: Radiology Comment on above: Leg injuries, left, initial encounter [S89.92XA] Procedures Date Procedure Procedure Detail Performing Clinician Start: 09-28-2024 Radiologic exam ches t 2 views Lisa Bradshaw MD Work Phone: Start: 09-28-2024 PFIZER-BIONTECH COVI D-19 VACCINE AGE 12+ YR (COMIRNATY) Lisa Bradshaw MD Work Phone: Start: 11-20-2023 Radex shoulder compl ete minimum 2 views Skye Thakur RAIL WASHER.MUD ANALYSIS WELL LOGGING OPERATOR Work Phone: Start: 2023 X-ray of both feet Start: 01-25-2022 Radex ankle complete minimum 3 views Shai Tamez RAIL WASHER.MUD ANALYSIS WELL LOGGING OPERATOR Work Phone: Start: 02-07-2021 Radiologic examinati on tibia & fibula 2 views Sisi Maloney RAIL WASHER.MUD ANALYSIS WELL LOGGING OPERATOR Work Phone: Start: 12-20-2020 Lipid 1996 panel - S angelina or Plasma Lisa Bradshaw MD Work Phone: Start: 08-14-2012 Mammography Lisa lu MD Work Phone: Bacteria identificat ion test Plan of Treatment Date Care Activity Detail Author Start: 01-18-2028 Diabetes Screening Diabetes Screening [facility] Start: 03-16-2027 Urine microalbumin profile [facility] Start: 01-08-2026 Annual PCP Team Chronic Disease Visit Annual PCP Team Chronic Disease Visit [facility] Start: 12-20-2025 Lipid 1996 panel - Serum or Plasma Lipid Screening [facility] Start: 12-20-2025 Lipid panel Lipid Screening [facility] Start: 12-20-2025 LIPID SCREEN LIPID SCREEN [facility] Start: 05-05-2026 Annual PCP Team Chronic Disease Visit Annual PCP Team Chronic Disease Visit [facility] Start: 09-28-2025 Annual PCP Team Chronic Disease Visit Annual PCP Team Chronic Disease Visit [facility] Start: 09-28-2025 Hepatitis B Vaccine (1 of 3 - 19+ 3-dose series) Hepatitis B Vaccine (1 of 3 - 19+ 3-dose series) [facility] Comment on above: Postponed from 1989 (Declined at t his time) Start: 09-28-2025 Shingrix Vaccine (1 of 2) Shingrix Vaccine (1 of 2) [facility] Comment on above: Postponed from 2020 (Declined at t his time) Start: 06-22-2025 Annual PCP Team Chronic Disease Visit Annual PCP Team Chronic Disease Visit [facility] Start: 06-06-2025 DIABETES SCREEN DIABETES SCREEN [facility] Start: 06-06-2025 Diabetes Screening Diabetes Screening [facility] Start: 05-16-2025 DIABETES SCREEN DIABETES SCREEN [facility] Start: 04-09-2025 End: 04-09-2025 Patient encounter procedure 04/09/2025 11:00 AM EDT Office Visit [facility] [place] [address] [place], [place] [id number] Lisa Bradshaw MD [address] [place], [place] [id number] 3 month follow up [facility] [place] Comment on above: 3 month follow up Start: 03-23-2025 Annual PCP Team Chronic Disease Visit Annual PCP Team Chronic Disease Visit [facility] Start: 03-21-2025 Influenza vaccination Influenza Vaccine (#1) [facility] Start: 01-17-2025 End: 04-18-2025 Herpes simplex virus+Varicella zoster virus DNA [Presence] in Unspecified specimen by KEVIN with probe detection [facility] Work Phone: Comment on above: Expected: 01/17/2025, Expires: Start: 01-08-2025 End: 07-07-2025 25-hydroxyvitamin D3 [Mass/volume] in Serum or Plasma VITAMIN D 25 HYDROXY Lab Routine Fibromyalgia Spasm of muscle Encounter for long-term current use of medication Vitamin D deficiency Expected: 01/08/2025 (Approximate), Expires: 07/07/2025 [facility] Comment on above: Expected: 01/08/2025 (Approximate), Expi res: 07/07/2025 Start: 01-08-2025 End: 04-09-2025 Borrelia burgdorferi IgG and IgM panel - Serum LYME AB LATE >30 DAYS SYMPTOMS Lab Routine Polyarthralgia Expected: 01/08/2025 (Approximate), Expires: 04/09/2025 [facility] Comment on above: Expected: 01/08/2025 (Approximate), Expi res: 04/09/2025 Start: 01-08-2025 End: 07-07-2025 CBC panel - Blood by Automated count COMPLETE BLOOD COUNT Lab Routine Fibromyalgia Spasm of muscle Encounter for long-term current use of medication Expected: 01/08/2025 (Approximate), Expires: 07/07/2025 [facility] Comment on above: Expected: 01/08/2025 (Approximate), Expi res: 07/07/2025 Start: 01-08-2025 End: 07-07-2025 Comprehensive metabolic 2000 panel - Serum or Plasma COMPREHENSIVE METABOLIC PANEL Lab Routine Fibromyalgia Spasm of muscle Encounter for long-term current use of medication Elevated hemoglobin A1c Hyponatremia Expected: 01/08/2025 (Approximate), Expires: 07/07/2025 [facility] Comment on above: Expected: 01/08/2025 (Approximate), Expi res: 07/07/2025 Start: 01-08-2025 End: 07-07-2025 COPPER BLOOD COPPER BLOOD Lab Routine Fibromyalgia Spasm of muscle Encounter for long-term current use of medication Copper deficiency Expected: 01/08/2025 (Approximate), Expires: 07/07/2025 [facility] Comment on above: Expected: 01/08/2025 (Approximate), Expi res: 07/07/2025 Start: 01-08-2025 End: 07-07-2025 Hemoglobin A1c in Blood HEMOGLOBIN A1C Lab Routine Fibromyalgia Spasm of muscle Encounter for long-term current use of medication Elevated hemoglobin A1c Expected: 01/08/2025 (Approximate), Expires: 07/07/2025 [facility] Comment on above: Expected: 01/08/2025 (Approximate), Expi res: 07/07/2025 Start: 01-08-2025 End: 02-07-2026 MR Lumbar spine WO contrast MRI LUMBAR SPINE WO IVCON Radiology Routine Radiculopathy of lumbar region Lumbar disc displacement without myelopathy Expected: 01/08/2025 (Approximate), Expires: 02/07/2026 [facility] Work Phone: Comment on above: Expected: 01/08/2025 (Approximate), Expi res: 02/07/2026 Start: 01-08-2025 End: 07-07-2025 Thyrotropin [Units/volume] in Serum or Plasma THYROID STIMULATING HORMONE Lab Routine Fibromyalgia Spasm of muscle Encounter for long-term current use of medication Expected: 01/08/2025 (Approximate), Expires: 07/07/2025 [facility] Comment on above: Expected: 01/08/2025 (Approximate), Expi res: 07/07/2025 Start: 01-08-2025 End: 07-07-2025 Thyroxine (T4) free [Mass/volume] in Serum or Plasma T4 FREE/FREE THYROXINE Lab Routine Fibromyalgia Spasm of muscle Encounter for long-term current use of medication Expected: 01/08/2025 (Approximate), Expires: 07/07/2025 [facility] Comment on above: Expected: 01/08/2025 (Approximate), Expi res: 07/07/2025 Start: 01-08-2025 End: 07-07-2025 Triiodothyronine (T3) Free [Mass/volume] in Serum or Plasma T3, FREE Lab Routine Fibromyalgia Spasm of muscle Encounter for long-term current use of medication Expected: 01/08/2025 (Approximate), Expires: 07/07/2025 [facility] Comment on above: Expected: 01/08/2025 (Approximate), Expi res: 07/07/2025 Start: 01-08-2025 End: 04-09-2025 Urinalysis complete panel - Urine URINALYSIS, WITH MICROSCOPIC Lab Routine Nocturia more than twice per night Expected: 01/08/2025, Expires: 04/09/2025 [facility] Comment on above: Expected: 01/08/2025, Expires: Start: 01-08-2025 End: 01-08-2025 Patient encounter procedure 01/08/2025 11:40 AM EDT Office Visit [facility] [place] [address] [place] [address] Lisa Bradshaw MD [address] [place] [address] 3 month follow up [facility] [place] Comment on above: 3 month follow up Start: 12-02-2024 Annual PCP Team Chronic Disease Visit Annual PCP Team Chronic Disease Visit [facility] Start: 09-21-2024 End: 09-21-2024 Patient encounter procedure 09/21/2024 2:00 PM EST Office Visit [facility] [place] [address] [place] [address] Lisa Bradshaw MD [address] [place] [address] 3 month follow up [facility] [place] Comment on above: 3 month follow up Start: 09-18-2024 End: 12-19-2024 25-hydroxyvitamin D3 [Mass/volume] in Serum or Plasma VITAMIN D 25 HYDROXY Lab Routine Vitamin D deficiency Fibromyalgia Spasm of muscle Encounter for long-term current use of medication Expected: 09/18/2024 (Approximate), Expires: 12/19/2024 [facility] Work Phone: Comment on above: Expected: 09/18/2024 (Approximate), Expi res: 12/19/2024 Start: 09-18-2024 End: 12-19-2024 CBC panel - Blood by Automated count COMPLETE BLOOD COUNT Lab Routine Fibromyalgia Spasm of muscle Encounter for long-term current use of medication Expected: 09/18/2024 (Approximate), Expires: 12/19/2024 [facility] Comment on above: Expected: 09/18/2024 (Approximate), Expi res: 12/19/2024 Start: 09-18-2024 End: 12-19-2024 Comprehensive metabolic 2000 panel - Serum or Plasma COMPREHENSIVE METABOLIC PANEL Lab Routine Fibromyalgia Spasm of muscle Encounter for long-term current use of medication Elevated hemoglobin A1c Hyponatremia Expected: 09/18/2024 (Approximate), Expires: 12/19/2024 [facility] Comment on above: Expected: 09/18/2024 (Approximate), Expi res: 12/19/2024 Start: 09-18-2024 End: 12-19-2024 COPPER BLOOD COPPER BLOOD Lab Routine Fibromyalgia Spasm of muscle Encounter for long-term current use of medication Copper deficiency Expected: 09/18/2024 (Approximate), Expires: 12/19/2024 [facility] Comment on above: Expected: 09/18/2024 (Approximate), Expi res: 12/19/2024 Start: 09-18-2024 End: 12-19-2024 Hemoglobin A1c in Blood HEMOGLOBIN A1C Lab Routine Fibromyalgia Spasm of muscle Encounter for long-term current use of medication Elevated hemoglobin A1c Expected: 09/18/2024 (Approximate), Expires: 12/19/2024 [facility] Comment on above: Expected: 09/18/2024 (Approximate), Expi res: 12/19/2024 Start: 09-18-2024 End: 12-19-2024 Thyrotropin [Units/volume] in Serum or Plasma THYROID STIMULATING HORMONE Lab Routine Fibromyalgia Spasm of muscle Encounter for long-term current use of medication Expected: 09/18/2024 (Approximate), Expires: 12/19/2024 [facility] Comment on above: Expected: 09/18/2024 (Approximate), Expi res: 12/19/2024 Start: 09-18-2024 End: 12-19-2024 Thyroxine (T4) free [Mass/volume] in Serum or Plasma T4 FREE/FREE THYROXINE Lab Routine Fibromyalgia Spasm of muscle Encounter for long-term current use of medication Expected: 09/18/2024 (Approximate), Expires: 12/19/2024 [facility] Comment on above: Expected: 09/18/2024 (Approximate), Expi res: 12/19/2024 Start: 09-18-2024 End: 12-19-2024 Triiodothyronine (T3) Free [Mass/volume] in Serum or Plasma T3, FREE Lab Routine Fibromyalgia Spasm of muscle Encounter for long-term current use of medication Expected: 09/18/2024 (Approximate), Expires: 12/19/2024 [facility] Comment on above: Expected: 09/18/2024 (Approximate), Expi res: 12/19/2024 Start: 09-12-2024 Annual PCP Team Chronic Disease Visit Annual PCP Team Chronic Disease Visit [facility] Start: 09-12-2024 Hepatitis B Vaccine (1 of 3 - 19+ 3-dose series) Hepatitis B Vaccine (1 of 3 - 19+ 3-dose series) [facility] Comment on above: Postponed from 1989 (Declined at t his time) Start: 09-12-2024 Hepatitis B Vaccine (1 of 3 - 3-dose series) Hepatitis B Vaccine (1 of 3 - 3-dose series) [facility] Comment on above: Postponed from 1970 (Declined at t his time) Start: 09-12-2024 Screening for malignant neoplasm of cervix [facility] Comment on above: Postponed from 03/05/2015 (Declined at t his time) Start: 06-22-2024 End: 06-22-2024 Patient encounter procedure 06/22/2024 3:40 PM EST Office Visit [facility] [place] [address] [place] [address] Lisa Bradshaw MD [address] [place] [address] 3 month follow up [facility] [place] Comment on above: 3 month follow up Start: 03-23-2024 End: 03-23-2024 Patient encounter procedure 03/23/2024 3:40 PM EDT Office Visit [facility] [place] [address] [place] [address] Lisa Bradshaw MD [address] [place] [address] 3 month follow up [facility] [place] Comment on above: 3 month follow up Start: 03-21-2024 Covid-19 Vaccine ( season) Covid-19 Vaccine ( season) [facility] Start: 03-21-2024 Influenza vaccination Influenza Vaccine (#1) [facility] Start: 03-12-2024 Screening for malignant neoplasm of colon Colorectal Cancer Screening [facility] Comment on above: Postponed from 2015 (Declined at t his time) Start: 03-12-2024 Shingrix Vaccine (1 of 2) Shingrix Vaccine (1 of 2) [facility] Comment on above: Postponed from 2020 (Declined at t his time) Start: 01-21-2024 End: 01-21-2024 ambulatory 01/21/2024 3:00 PM EDT OT/PT/Speech Visit [facility] [address] [place] [address] Junito Rice, PT [address] [facility] [place] [address] Left Shoulder Pain [facility] Comment on above: Left Shoulder Pain Start: 01-19-2024 End: 01-19-2024 Patient encounter procedure 01/19/2024 1:00 PM EDT Office Visit Orthopaedics [address] [place] [address] Dana Sandoval PA-C [address] [place] [address] Acute pain of left shoulder [M25.512] Orthopaedics Comment on above: Acute pain of left shoulder [M25.512] Start: 01-13-2024 End: 01-13-2024 ambulatory 01/13/2024 1:15 PM EDT OT/PT/Speech Visit [facility] [address] [facility] [place] [address] Keren Hayward, TANNING WHEEL OPERATOR [address] [place] [address] [place] [address] Left Shoulder Pain [facility] Comment on above: Left Shoulder Pain Start: 01-07-2024 Documentation procedure 01/07/2024 Plan of Care Documentation [facility] [address] [place] [address] [facility] Start: 01-06-2024 End: 01-06-2024 ambulatory 01/06/2024 3:00 PM EDT OT/PT/Speech Visit [facility] [address] [place] [address] Junito Rice, PT [address] [place] [address] Left Shoulder Pain [facility] Comment on above: Left Shoulder Pain Start: 12-21-2023 DIABETES SCREEN DIABETES SCREEN [facility] Start: 12-13-2023 ANNUAL PCP TEAM CHRONIC DISEASE VISIT ANNUAL PCP TEAM CHRONIC DISEASE VISIT [facility] Start: 12-04-2023 End: 12-04-2023 ambulatory 12/04/2023 12:00 PM EDT OT/PT/Speech Visit [facility] [address] [facility] [place] [address] Junito Rice, PT [address] [place] [address] Acute pain of left shoulder [M25.512] [facility] Comment on above: Acute pain of left shoulder [M25.512] Start: 12-03-2023 End: 12-03-2023 Patient encounter procedure 12/03/2023 1:40 PM EDT Office Visit [facility] [address] [place] [address] Lisa Bradshaw MD [address] [place] [address] follow up [facility] Comment on above: follow up Start: 07-29-2023 ANNUAL PCP TEAM CHRONIC DISEASE VISIT ANNUAL PCP TEAM CHRONIC DISEASE VISIT [facility] Start: 03-21-2023 Covid-19 Vaccine ( season) Covid-19 Vaccine ( season) [facility] Start: 03-21-2023 Influenza vaccination [facility] Start: 06-17-2022 End: 08-17-2022 Basic metabolic 2000 panel - Serum or Plasma BASIC METABOLIC PNL Lab Routine Hyponatremia Expected: 06/17/2022 (Approximate), Expires: 08/17/2022 [facility] Work Phone: Comment on above: Expected: 06/17/2022 (Approximate), Expi res: 08/17/2022 Start: 05-16-2022 End: 07-16-2022 CBC W Auto Differential panel - Blood [facility] Work Phone: Comment on above: Expected: 05/16/2022, Expires: 2 Start: 05-16-2022 End: 07-16-2022 Comprehensive metabolic 2000 panel - Serum or Plasma [facility] Work Phone: Comment on above: Expected: 05/16/2022, Expires: 2 Start: 05-16-2022 End: 07-16-2022 Erythrocyte sedimentation rate [facility] Work Phone: Comment on above: Expected: 05/16/2022, Expires: 2 Start: 05-16-2022 End: 07-16-2022 Thyrotropin [Units/volume] in Serum or Plasma [facility] Work Phone: Comment on above: Expected: 05/16/2022, Expires: 2 Start: 03-27-2022 ANNUAL PCP TEAM CHRONIC DISEASE VISIT ANNUAL PCP TEAM CHRONIC DISEASE VISIT [facility] Start: 03-21-2022 Influenza vaccination INFLUENZA (#1) [facility] Start: 12-14-2021 COVID-19 VACCINE (4 - Booster for Pfizer series) COVID-19 VACCINE (4 - Booster for Pfizer series) [facility] Start: 10-11-2021 COVID-19 VACCINE (4 - Booster for Pfizer series) COVID-19 VACCINE (4 - Booster for Pfizer series) [facility] Start: 03-31-2021 COVID-19 VACCINE (3 - Booster for Pfizer series) COVID-19 VACCINE (3 - Booster for Pfizer series) [facility] Start: 2020 Influenza vaccination LUNG CANCER SCREENING [facility] Start: 2020 Screening for malignant neoplasm of lung Lung Cancer Screening [facility] Start: 2020 SHINGRIX VACCINE (1 of 2) SHINGRIX VACCINE (1 of 2) [facility] Start: 08-13-2018 PNEUMOCOCCAL (2 - PCV) PNEUMOCOCCAL (2 - PCV) [facility] Start: 08-13-2018 Pneumococcal vaccination Pneumococcal Vaccine (2 - PCV) [facility] Start: 2015 COLOGUARD (FIT-DNA) COLOGUARD (FIT-DNA) [facility] Start: 2015 Colonoscopy COLONOSCOPY [facility] Start: 2015 COLORECTAL CANCER SCREENING COLORECTAL CANCER SCREENING [facility] Start: [address] COLONOGRAPHY [facility] Start: 2015 FECAL OCCULT BLOOD FECAL OCCULT BLOOD [facility] Start: 2015 Screening for malignant neoplasm of colon [facility] Start: 2015 SIGMOIDOSCOPY SIGMOIDOSCOPY [facility] Start: 03-05-2015 HPV TESTING HPV TESTING [facility] Start: 03-05-2015 PAP TESTING PAP TESTING [facility] Start: 03-05-2015 Screening for malignant neoplasm of cervix Cervical Cancer Screening [facility] Start: 08-14-2013 Mammography [facility] Start: 08-14-2013 Screening for malignant neoplasm of breast Mammogram Screening [facility] Start: 2000 Zoledronic acid therapy ALPHA-1 ANTITRYPSIN DEFICIENCY SCREENING [facility] Start: 1970 HEPATITIS B (1 of 3 - 3-dose series) HEPATITIS B (1 of 3 - 3-dose series) [facility] Start: 1970 Hepatitis B Vaccine (1 of 3 - 3-dose series) Hepatitis B Vaccine (1 of 3 - 3-dose series) [facility] End: 07-29-2023 Basic metabolic 2000 panel - Serum or Plasma BASIC METABOLIC PNL Lab Routine Hyponatremia 6 Occurrences starting 07/29/2022 until 07/29/2023 [facility] Work Phone: Comment on above: 6 Occurrences starting 07/29/2022 until 07/29/2023 End: 11-25-2025 DBT Breast - bilateral screening JYOTI SCREENING W CHARU Radiology Routine Encounter for screening mammogram for breast cancer 1 Occurrences starting 10/26/2024 until 11/25/2025 [facility] Work Phone: Comment on above: 1 Occurrences starting 10/26/2024 until 11/25/2025 End: 01-17-2024 JYOTI SCREENING JYOTI SCREENING Radiology Routine Encounter for screening mammogram for breast cancer 1 Occurrences starting 12/18/2022 until 01/17/2024 [facility] Work Phone: Comment on above: 1 Occurrences starting 12/18/2022 until 01/17/2024 End: 12-25-2024 MG Breast Screening JYOTI SCREENING Radiology Routine Encounter for screening mammogram for breast cancer 1 Occurrences starting 11/26/2023 until 12/25/2024 [facility] Work Phone: Comment on above: 1 Occurrences starting 11/26/2023 until 12/25/2024 Patient Education ED Fracture, T oe, Closed [facility] Work Phone: Patient referral [facility] Work Phone: End: 02-15-2023 Screening mammography bi 2-view breast inc cad JYOTI SCREENING Radiology Routine Encounter for screening mammogram for breast cancer 1 Occurrences starting 01/16/2022 until 02/15/2023 [facility] Work Phone: Comment on above: 1 Occurrences starting 01/16/2022 until 02/15/2023 XR Thoracic spine AP and Lateral and Swimmers XR THORACIC GENERAL 3V AP/LAT/SWIMMERS Radiology Routine Chronic midline thoracic back pain 09/28/2024 4:22 PM EDT [facility] Work Phone: [facility] Immunizations Immunization Date Immunization Notes Care Provider Mindi cortez 09-28-2024 COVID-19 vaccine, ag e 12+ yr (PFIZER-BIONTECH COMIRNATY) [facility] [place] Work Phone: [facility] 09-28-2024 influenza, seasonal, injectable [facility] [place] Work Phone: [facility] 09-28-2024 influenza virus vacc ine, unspecified formulation Skye Thakur APRN.[employer]NAL[employer] LOGGING OPERATOR Work Phone: [facility] 09-12-2023 COVID-19 vaccine, ag e 12+ yr, 2022- season (PFIZER-BIONTECH) Norma Orellana PA-C Work Phone: [facility] 09-12-2023 influenza, injectabl e, quadrivalent, contains preservative Norma Reyna PA-C Work Phone: [facility] 09-12-2023 pneumococcal conjuga te (PCV20) vaccine, 20 valent (PREVNAR 20) Norma Reyna PA-C Work Phone: [facility] 09-12-2023 influenza virus vacc ine, unspecified formulation Dana Sandoval PA-C Work Phone: [facility] 08-16-2021 COVID-19 original vaccine, age 12+ yr, monovalent (PFIZER-BIONTECH - AGUSTIN TOP) Norma Reyna PA-C Work Phone: [facility] Work Phone: 07-15-2021 influenza, injectabl e, quadrivalent, preservative free Norma Reyna PA-C Work Phone: [facility] Work Phone: 07-15-2021 influenza, seasonal, injectable Lisa Bradshaw MD Work Phone: [facility] Work Phone: 07-15-2021 influenza virus vacc ine, unspecified formulation Lisa Bradshaw MD Work Phone: [facility] 10-29-2020 COVID-19 vaccine, ag e 12+ yr (PFIZER-BIONTECH - PURPLE TOP) Lisa Bradshaw MD Work Phone: [facility] Work Phone: 10-07-2020 COVID-19 vaccine, ag e 12+ yr (PFIZER-BIONTECH - PURPLE TOP) Lisa Bradshaw MD Work Phone: [facility] Work Phone: 05-18-2019 influenza, injectabl e, quadrivalent, contains preservative Lisa Bradshaw MD Work Phone: [facility] 06-15-2018 influenza, injectabl e, quadrivalent, contains preservative Lisa Bradshaw MD Work Phone: [facility] 08-13-2017 influenza, injectabl e, quadrivalent, contains preservative Lisa Bradshaw MD Work Phone: [facility] 08-13-2017 pneumococcal polysaccharide vaccine, 23 valent Lisa Bradshaw MD Work Phone: [facility] 03-16-2017 tetanus toxoid, redu regi diphtheria toxoid, and acellular pertussis vaccine, adsorbed Lisa Bradshaw MD Work Phone: [facility] Work Phone: 06-18-2016 influenza, injectabl e, quadrivalent, contains preservative Lisa Bradshaw MD Work Phone: [facility] 07-03-2015 influenza, injectabl e, quadrivalent, contains preservative Lisa Bradshaw MD Work Phone: [facility] 05-16-2014 influenza, seasonal, injectable Lisa Bradshaw MD Work Phone: [facility] 05-16-2014 pneumococcal polysaccharide vaccine, 23 valent Lisa Bradshaw MD Work Phone: [facility] 07-22-2006 tetanus and diphther ia toxoids, not adsorbed, for adult use Lisa Bradshaw MD Work Phone: [facility] Payers Date Payer Category Payer Self-pay [id number] 2022 Unknown [id number] 2019 Medicaid [employer] [facility] [facility] [id number] 2019-Present [phone] [address] [place] [address] Medicaid [id number] 2019 Medicaid [id number] 2016 Unknown [employer] [id number] Unknown [id number] Social History Date Type Detail Facility Start: 03-24-1989 End: 11-18-2024 Tobacco smoking status NHIS Smokes tobacco daily [facility] Start: 03-24-1989 History of tobacco use Cigarette Smoker [facility] Start: 03-27-2021 End: 01-17-2025 Alcohol intake Current drinker of alcohol (finding) [facility] Start: 11-16-2019 End: 12-12-2022 History SDOH Alcohol Frequency 2 [facility] Start: 11-16-2019 End: 12-12-2022 History SDOH Alcohol Binge 1 [facility] Start: 03-24-2014 History SDOH Alcohol Comment Occasionally, but not when . [facility] Start: 11-16-2019 End: 12-12-2022 History SDOH Social Connections Phone 5 [facility] Start: 11-16-2019 End: 12-12-2022 History SDOH Physical Activity DPW 0 [facility] Start: 11-16-2019 Education 12 [facility]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 evaluation and consents to proceed with the evaluation remotely. Helena Potter is a 54-year-old female with a history of chronic right ankle swelling, asthma, and herniated discs, presenting for evaluation of recurrent right ankle swelling and follow-up on multiple chronic conditions. Helena reports recurrent right ankle swelling, which occurs intermittently and is described as miserable. The swelling is located over the lateral malleolus and is associated with a history of ankle instability due to previous damage. Episodes of swelling typically last a couple of weeks. She has tried various treatments, including ice, elevation, an ankle brace, and Voltaren gel applied 2-3 times daily, but reports minimal relief from the gel. She has previously seen Dr. Lindo, a cylinder dyer, who performed an MRI of the ankle, but no inflammation was noted at that time. Helena also reports worsening symptoms related to her herniated discs since an emergency visit in August, where she was tackled by her son during a meltdown. She describes her symptoms as debilitating and notes an increase in leg weakness, electric shock-like sensations, and a feeling of ice-cold water dripping down her legs. She also reports a stabbing pain in the crotch area and increased urinary incontinence since the incident. She has a history of injections for her herniated discs but is unsure of their efficacy. Helena has been experiencing polydipsia and polyuria, with frequent nocturia (6-7 times per night) and clear urine. She reports a long-standing history of increased urinary frequency since childhood and has previously undergone a 24-hour urine volume test, which showed a volume of 5 liters. She has tried various dietary modifications, including reducing caffeine and increasing fruit and vegetable intake, but reports no improvement in symptoms. Prior evaluation with Dr. Trujillo (urology)--diagnosed with urinary retention and occasional incontinence. Symptoms resolved and did not need to do self catheterization. Helena also reports ongoing issues with sinus drainage, describing it as thick and persistent. She is currently using azelastine, fluticasone, and saline spray to manage her symptoms. She inquires about the frequency of saline spray use and reports that she has not tried a neti pot. Helena is currently taking a long-acting bronchodilator and Mucinex for her asthma and reports improvement in her breathing since starting prednisone and antibiotics. She also requests a refill of hydroxyzine, which was last filled in June. Helena reports difficulty sleeping and is currently taking estazolam 1 mg at bedtime, prescribed by NATE Dinero. She reports that the medication helps her fall asleep and stay asleep but takes a long time to take effect. She has a history of sleepwalking with amitriptyline and is unable to take it. She also requests a refill of Fioricet, which was last prescribed in 2019, and reports that it helps with her headaches. HISTORY REVIEWED (electronic chart updated): PAST MEDICAL HISTORY Diagnosis Date Abnormal glandular Papanicolaou smear of cervix Abn. Pap smear (cervix) ADHD (attention deficit hyperactivity disorder) 07/29/2013 Atherosclerosis of abdominal aorta 02/19/2012 <70% stenosisof celiac and superior mesenteric arteries; <60% stenosis of bilateral renal arteries COPD (chronic obstructive pulmonary disease) (HCC) Degenerative disc disease lumbar Dysthymic disorder Depression (non-psychotic). 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 TO 03/24/14 PAST SURGICAL HISTORY Procedure Laterality Date APPENDECTOMY DELIVERY ONLY 08/2010 , low transverse PAST SURGICAL HISTORY OF RIGHT FOOT FAMILY HISTORY Problem Relation Age of Onset Alcohol/Drug Paternal Grandfather Arthritis Maternal Grandmother Arthritis Mother Cancer Paternal Grandfather Cancer Father prostate and bladder Diabetes Father Diabetes Maternal Grandfather Emphysema Maternal Grandfather Emphysema Paternal Uncle Heart Father Hypertension Father Hypertension Paternal Uncle Lipids Father Lipids Paternal Grandmother Lipids Paternal Uncle Lipids Brother Lipids Paternal Uncle Thyroid Paternal Grandmother Emphysema Maternal Grandmother Social History Tobacco Use Smoking status: Every Day Current packs/day: 1.30 Average packs/day: 1.3 packs/day for 35.8 years (46.5 ttl pk-yrs) Types: Cigarettes Start date: 03/24/1989 Smokeless tobacco: Never Tobacco comments: Parents smoked in childhood home. Ex-spouse was smoker. Vaping Use Vaping status: current everyday user Substance Use Topics Alcohol use: Yes Comment: Occasionally, but not when . Drug use: Yes Types: Marijuana Comment: uses medical Current Outpatient Medications Medication Sig Estazolam 1 mg tablet Take 1 mg by mouth at bedtime as needed. hydrOXYzine HCl (ATARAX) 25 mg tablet Take 1-4 tablets by mouth every 4 hours as needed for itching/rash (and allergic rhinitis). Maximum dose 400 mg per day. acetaminophen 325 mg-caffeine 40 mg-butalbital 50 mg (FIORICET) per tablet Take 1 tablet by mouth every 6 hours as needed for headache for up to 60 days. guaiFENesin (MUCINEX) 600 mg 12 hr tablet Take 1-2 tablets by mouth two times a day. As needed albuterol HFA (VENTOLIN HFA) 90 mcg/actuation inhaler Inhale 2 puffs as instructed every 4 hours as needed for wheezing/shortness of breath. predniSONE (DELTASONE) 20 mg tablet Take 40 mg by mouth once daily. diclofenac (VOLTAREN) 1 % topical gel Apply 2 g to affected area four times daily. cyclobenzaprine (FLEXERIL) 10 mg tablet Take 1 tablet by mouth two times a day as needed for muscle spasm. FOR PAIN OR SPASMS hydrocortisone 2.5 % ointment Apply 1 application to affected area two times a day as needed. Avoid use on the eyelids or face. Up to 2 weeks at a time ketoconazole (NIZORAL) 2 % cream Apply 1 application to affected area two times a day. Continue to use for another week after rash resolves (Patient not taking: Reported on 11/18/2024) mupirocin (BACTROBAN) 2 % ointment Apply to affected area three times a day. triamcinolone acetonide (KENALOG) 0.1 % ointment Apply to affected areas twice a day as needed. Avoid use on the face. Use up to 2 weeks as directed per rash recurrence azelastine 0.1% nasal spray Use 1-2 Sprays in each nostril two times a day. As directed Cholecalciferol, Vitamin D3, 125 mcg (5,000 unit) cap Take 1 capsule by mouth once daily. fluticasone (FLONASE) 50 mcg/actuation nasal spray Use 2 Sprays in each nostril once daily. Use 2 sprays to each nostril one to two times daily fluticasone-salmeterol HFA (ADVAIR HFA) 230-21 mcg/actuation inhaler Inhale 2 Puffs as instructed two times a day. albuterol (PROVENTIL) 2.5 mg /3 mL (0.083 %) nebulizer solution Use 3 mL via nebulizer every 6 hours as needed for wheezing/shortness of breath. 1 vial contains 3 ml. Nebulizer Accessories kit Nebulizer tubing and mouthpiece, etc needed for her home nebulizer. methylphenidate LA (RITALIN LA) 10 mg biphasic capsule Take 10 mg by mouth once daily. quercetin 500 mg cap Take 500 mg by mouth two times a day as needed (allergies). (Patient not taking: Reported on 09/28/2024) tacrolimus (PROTOPIC) 0.1 % ointment Apply to affected area two times a day. Apply thin layer to affected skin on forearm (area approximately 20 square centimeters). Use till rash clears. If not resolved in 6 weeks, re-evaluate. May treat other areas of eczema that occur dexmethylphenidate HCl (FOCALIN) 5 mg tablet Take 5 mg by mouth every afternoon. with 2.5mg dose Dexmethylphenidate HCl (FOCALIN) 2.5 mg tablet Take 5 mg by mouth every afternoon. with 5mg tablet diazePAM (VALIUM) 5 mg tablet Take 0.25-1 tablets by mouth two times a day as needed. EPINEPHrine (EPIPEN) 0.3 mg/0.3 mL auto-injector Inject 0.3 mL intramuscularly as needed (for allergic reaction.Seek emergent medical care immediately after use. Disp:One 2-pack). cetirizine (ZYRTEC) 10 mg tablet Take 1 tablet by mouth once daily. (Patient not taking: Reported on 09/12/2023) TENS Units Layne Use as directed. Copper Gluconate 5 mg Tab Take by mouth. vitamin b complex Tab Take 1 tablet by mouth once daily. (Patient not taking: Reported on 11/22/2024) multivitamin tablet Take 1 tablet by mouth once daily. CALCIUM CARBONATE/VITAMIN D3 (CALCIUM + D ORAL) Take by mouth. No current facility-administered medications for this visit. ALLERGIES Allergen Reactions Doxycycline Rash 07/13/13 Latex Rash Positive Latex Skin Test 11/29/13 Aleve [Naproxen Sod* Vomiting DIZZINESS Amitriptyline SLEEPWALKING Camel Hair Rash Celebrex [Celecoxib] Mental Status Change RAGE Chlorhexidine Rash Itching then systemic rash and trouble with breathing. Cymbalta [Duloxetin* Mental Status Change Made her angry, in a rage Darvocet A500 [Prop* Mental Status Change HALLUCINATIONS Dulera [Mometasone-* Shortness of Breath Feathers Rash Fragrances Rash Insecticides Rash Lyrica [Pregabalin] Intolerance Did not tolerate even lowest dose; did not help much; made her loopy and happy Naproxen Vomiting DIZZINESS Penicillins Rash Pollen Rash Pseudoephedrine Intolerance SPASMS of blood vesselsIN FEET Relafen [Nabumetone] Intolerance SPASMS of blood vessels IN FEET Sagebrush Rash, Itching Seasonal Allergies Other: See Comments Cats Horses Cockroach Dust mites trees (September, October and November) grasses (November and December) weeds (February, March and April) ragweed (February, March and April) Sulfa (Sulfonamide * Rash Symbicort [Budesoni* Other: See Comments Stinging/burning mouth, itchy roof of throat/palette Tramadol Hcl Intolerance States it made her dizzy and nauseated REVIEW OF SYSTEMS: As noted in HPI PHYSICAL EXAMINATION: VIDEO EXAM: (if completed, performed via video enabled technology) GENERAL: alert and appropriate, in no distress, well-hydrated, well nourished, appears tired, coughs occasionally, and noted depressed mood but afffect is appropriately reactive HEAD: normocephalic, no abnormality or lesion noted EYES: no injection RESPIRATORY: breathing non-labored ASSESSMENTand PLAN: # Right ankle swelling (M25.471) # Bursitis of right ankle (M77.51) - Intermittent swelling observed over the lateral malleolus, consistent with bursitis. - Recommended continued use of ice, elevation, and compression brace for support. - Discussed potential referral to cylinder dyer Dr. Patton if symptoms persist or worsen. # Chronic nonseasonal allergic rhinitis due to pollen (J30.89) - Managed with azelastine and fluticasone nasal sprays. - Advised use of saline spray as needed for nasal congestion. - Discussed potential use of saline gel for better adherence and moisture. # Radiculopathy of lumbar region (M54.16) # Lumbar disc displacement without myelopathy (M51.26) - Symptoms include electric shock-like sensations, cold water dripping feeling, and leg weakness. - Ordered MRI of the lumbar spine to assess for disc displacement and nerve root compression. - Discussed potential referral to timber management specialist or pain management for injections if MRI indicates. # Fibromyalgia (M79.7) - Chronic pain management ongoing. - Discussed importance of sleep hygiene and pain management strategies. # Eczema, unspecified type (L30.9) - No specific treatment changes discussed. # Spasm of muscle (M62.838) - No specific treatment changes discussed. # Elevated hemoglobin A1c (R73.09) - Ordered A1c test to monitor glycemic control. # Hyponatremia (E87.1) - Ordered comprehensive metabolic panel to assess electrolyte levels. # Copper deficiency (E61.0) - Ordered copper level test. # Vitamin D deficiency (E55.9) - Ordered vitamin D level test. # Polyarthralgia (M25.50) - Ordered Lyme antibodies test due to history of tick bite and hair loss around the bite area. # Nocturia more than twice per night (R35.1) # Polydipsia (R63.1) # Polyuria (R35.89) - Ordered urinalysis to assess for potential causes of increased urination. - Discussed previous urology evaluation and 24-hour urine volume test. # Tension headache (G44.209) - Refilled Fioricet prescription for management of tension headaches. # Chronic pain syndrome (G89.4) - Ongoing management with multiple modalities. # Insomnia due to medical condition (G47.01) - Currently managed with estazolam 1 mg at bedtime, prescribed by [employer]IC[employer]ANCE SALES AGENT Wanda Dinero. - Discussed continuation of current medication and sleep hygiene practices. # Encounter for long-term current use of medication (Z79.899) - Refilled hydroxyzine prescription for allergy management. - Reviewed and confirmed refills for current medications including Mucinex, albuterol, and Voltaren gel. There are no Patient Instructions on file for this visit. I spent a total of 49 minutes on the date of the service which included preparing to see the patient, [id number] patient care, completing clinical documentation, obtaining and/or reviewing separately obtained history, performing a medically appropriate examination, counseling and educating the patient/family/caregiver, ordering medications, tests, or procedures, independently interpreting results (not separately reported), and communicating results to the patient/family/caregiver Lisa Bradshaw MD documented in this encounter [facility] 01-07-2025 Telephone encounter Note Brian rankin [facility] 01-07-2025 Miscellaneous Notes Brian rankin Please review Viridiana Syed MA Patient called to request her appointment for tomorrow 01/08/25 be changed from in office to a virtual visit due to lack of care for her autistic son. PSS changed appointment to virtual visit but is routing message to PCP to have patient advised if needing to be seen in office for physical evaluation. Patient stated that she would only need to be contacted if she needs to reschedule for a later date if needing to be seen in person. OK to leave detailed VM if she is unavailable. documented in this encounter [facility] 01-07-2025 Telephone encounter Note Please review Viridiana Syed MA [facility] 01-07-2025 Telephone encounter Note Patient called to request her appointment for tomorrow 01/08/25 be changed from in office to a virtual visit due to lack of care for her autistic son. PSS changed appointment to virtual visit but is routing message to PCP to have patient advised if needing to be seen in office for physical evaluation. Patient stated that she would only need to be contacted if she needs to reschedule for a later date if needing to be seen in person. OK to leave detailed VM if she is unavailable. [facility] 11-23-2024 Telephone encounter Note Prescription Refill Information The patient has been identified by name and date of : Yes Caregiver verified no other encounters exist for this prescription request: Yes Caregiver confirmed with patient/requestor that no other refills are due, in the near future, with this provider at this time: Yes The last office visit in the department: 11/23/24 Does the patient have a future office visit with this provider/department: Yes 01/08/25 Requested Prescriptions Pending Prescriptions Disp Refills albuterol HFA (VENTOLIN HFA) 90 mcg/actuation inhaler 18 g 3 Sig: Inhale 2 puffs as instructed every 4 hours as needed for wheezing/shortness of breath. Jessica Galvez LPN November 23, 2024 12:07 PM [facility] 11-23-2024 Miscellaneous Notes Prescription Refill Information The patient has been identified by name and date of : Yes Caregiver verified no other encounters exist for this prescription request: Yes Caregiver confirmed with patient/requestor that no other refills are due, in the near future, with this provider at this time: Yes The last office visit in the department: 11/23/24 Does the patient have a future office visit with this provider/department: Yes 01/08/25 Requested Prescriptions Pending Prescriptions Disp Refills albuterol HFA (VENTOLIN HFA) 90 mcg/actuation inhaler 18 g 3 Sig: Inhale 2 puffs as instructed every 4 hours as needed for wheezing/shortness of breath. Jessica Galvez LPN November 23, 2024 12:07 PM documented in this encounter [facility] 11-23-2024 Telephone encounter Note Patient requesting an increase in quantity of medications Prescription Refill Information The patient has been identified by name and date of : Yes Caregiver verified no other encounters exist for this prescription request: Yes Caregiver confirmed with patient/requestor that no other refills are due, in the near future, with this provider at this time: Yes The last office visit in the department: 11/23/24 Does the patient have a future office visit with this provider/department: Yes Requested Prescriptions Pending Prescriptions Disp Refills guaiFENesin (MUCINEX) 600 mg 12 hr tablet 60 tablet 5 Sig: Take 1-2 tablets by mouth two times a day. As needed Sharon Farmer LPN November 23, 2024 10:54 AM [facility] 11-23-2024 Miscellaneous Notes Patient requesting an increase in quantity of medications Prescription Refill Information The patient has been identified by name and date of : Yes Caregiver verified no other encounters exist for this prescription request: Yes Caregiver confirmed with patient/requestor that no other refills are due, in the near future, with this provider at this time: Yes The last office visit in the department: 11/23/24 Does the patient have a future office visit with this provider/department: Yes Requested Prescriptions Pending Prescriptions Disp Refills guaiFENesin (MUCINEX) 600 mg 12 hr tablet 60 tablet 5 Sig: Take 1-2 tablets by mouth two times a day. As needed Sharon Farmer LPN November 23, 2024 10:54 AM documented in this encounter [facility] 11-22-2024 Note HNO ID: [id number] Author: SHANTELLE FLOWERS APRN.[employer]NAL[employer] WELL LOGGING OPERATOR Service: ? Author Type: Nurse Practitioner Type: Progress Notes Filed: 11/22/2024 11:28 Note Text: SUBJECTIVE Helena Potter is a 54 year old female here today for an ER follow up. Chief Complaint Patient presents with: ER F/U: [facility] ER 11/18/24 follow up from a fall while being tackled. Was given injection of toradol, prednisone, and Tylenol 3 HPI Helena Potter is a 54 year old female. She is an established patient of Lisa Bradshaw MD. She is here today for an ER follow up. Seen in ER at [facility] on 11/18/2024. Seen for follow up from a fall that was the result of being tackled. ER note is available to review. Injury occurred as a result of a fall from autistic son. She landed on the coccyx/sacral area. She then developed right leg numbness, coldness, pain. Xray in ER showed no fracture. She has a known history of low back pain and disk herniations and fibromyalgia. She was treated with a Toradol injection, prednisone and tylenol with codeine. Toradol was helpful, pain has improved some but pain continues. MRI of the lower back last done 2017, results were reviewed with today's visit along with prior xrays. No loss of bowel or bladder control and no saddle paresthesias. Her medications were reviewed today and her list is now up to date. Medications Current Outpatient Medications Medication Sig predniSONE (DELTASONE) 20 mg tablet Take 40 mg by mouth once daily. cyclobenzaprine (FLEXERIL) 10 mg tablet Take 1 tablet by mouth two times a day as needed for muscle spasm. FOR PAIN OR SPASMS guaiFENesin (MUCINEX) 600 mg 12 hr tablet Take 1-2 tablets by mouth two times a day. As needed hydrocortisone 2.5 % ointment Apply 1 application to affected area two times a day as needed. Avoid use on the eyelids or face. Up to 2 weeks at a time mupirocin (BACTROBAN) 2 % ointment Apply to affected area three times a day. triamcinolone acetonide (KENALOG) 0.1 % ointment Apply to affected areas twice a day as needed. Avoid use on the face. Use up to 2 weeks as directed per rash recurrence azelastine 0.1% nasal spray Use 1-2 Sprays in each nostril two times a day. As directed Cholecalciferol, Vitamin D3, 125 mcg (5,000 unit) cap Take 1 capsule by mouth once daily. fluticasone (FLONASE) 50 mcg/actuation nasal spray Use 2 Sprays in each nostril once daily. Use 2 sprays to each nostril one to two times daily fluticasone-salmeterol HFA (ADVAIR HFA) 230-21 mcg/actuation inhaler Inhale 2 Puffs as instructed two times a day. hydrOXYzine HCl (ATARAX) 25 mg tablet Take 1-4 tablets by mouth every 4 hours as needed for itching/rash (and allergic rhinitis). Maximum dose 400 mg per day. albuterol (PROVENTIL) 2.5 mg /3 mL (0.083 %) nebulizer solution Use 3 mL via nebulizer every 6 hours as needed for wheezing/shortness of breath. 1 vial contains 3 ml. methylphenidate LA (RITALIN LA) 10 mg biphasic capsule Take 10 mg by mouth once daily. albuterol HFA (VENTOLIN HFA) 90 mcg/actuation inhaler Inhale 2 Puffs as instructed every 4 hours as needed for wheezing/shortness of breath. tacrolimus (PROTOPIC) 0.1 % ointment Apply to affected area two times a day. Apply thin layer to affected skin on forearm (area approximately 20 square centimeters). Use till rash clears. If not resolved in 6 weeks, re-evaluate. May treat other areas of eczema that occur dexmethylphenidate HCl (FOCALIN) 5 mg tablet Take 5 mg by mouth every afternoon. with 2.5mg dose Dexmethylphenidate HCl (FOCALIN) 2.5 mg tablet Take 5 mg by mouth every afternoon. with 5mg tablet diazePAM (VALIUM) 5 mg tablet Take 0.25-1 tablets by mouth two times a day as needed. EPINEPHrine (EPIPEN) 0.3 mg/0.3 mL auto-injector Inject 0.3 mL intramuscularly as needed (for allergic reaction.Seek emergent medical care immediately after use. Disp:One 2-pack). Copper Gluconate 5 mg Tab Take by mouth. multivitamin tablet Take 1 tablet by mouth once daily. CALCIUM CARBONATE/VITAMIN D3 (CALCIUM + D ORAL) Take by mouth. diclofenac (VOLTAREN) 1 % topical gel Apply 2 g to affected area four times daily. keTORolac (TORADOL) 10 mg tablet Take 1 tablet by mouth every 6 hours as needed for up to 4 days. ketoconazole (NIZORAL) 2 % cream Apply 1 application to affected area two times a day. Continue to use for another week after rash resolves (Patient not taking: Reported on 11/18/2024) Nebulizer Accessories kit Nebulizer tubing and mouthpiece, etc needed for her home nebulizer. quercetin 500 mg cap Take 500 mg by mouth two times a day as needed (allergies). (Patient not taking: Reported on 09/28/2024) acetaminophen-codeine (TYLENOL-COD #3) 300-30 mg per tablet Take 1-2 tablets by mouth three times daily as needed for up to 7 days. Takes up to 5 pills max per day during a flare up acetaminophen 325 mg-caffeine 40 mg-butalbital 50 mg (FIORICET) per tablet Take 1 tablet by mouth every 6 hours a (more content not included)... [facility] 11-22-2024 History of Present illness Narrative SUBJECTIVE Helena Potter is a 54 year old female here today for an ER follow up. Chief Complaint Patient presents with: ER F/U: [facility] ER 11/18/24 follow up from a fall while being tackled. Was given injection of toradol, prednisone, and Tylenol 3 HPI Helena Potter is a 54 year old female. She is an established patient of Lisa Bradshaw MD. She is here today for an ER follow up. Seen in ER at [facility] on 11/18/2024. Seen for follow up from a fall that was the result of being tackled. ER note is available to review. Injury occurred as a result of a fall from autistic son. She landed on the coccyx/sacral area. She then developed right leg numbness, coldness, pain. Xray in ER showed no fracture. She has a known history of low back pain and disk herniations and fibromyalgia. She was treated with a Toradol injection, prednisone and tylenol with codeine. Toradol was helpful, pain has improved some but pain continues. MRI of the lower back last done 2016, results were reviewed with today's visit along with prior xrays. No loss of bowel or bladder control and no saddle paresthesias. Her medications were reviewed today and her list is now up to date. Medications Current Outpatient Medications Medication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 [[id number]] Order #: [id number] FUTURE Prescriptions as of 11/26/2024 - guaiFENesin (MUCINEX) 600 mg 12 hr tablet Take 1-2 tablets by mouth two times a day. As needed - albuterol HFA (VENTOLIN HFA) 90 mcg/actuation inhaler Inhale 2 puffs as instructed every 4 hours as needed for wheezing/shortness of breath. - predniSONE (DELTASONE) 20 mg tablet Take 40 mg by mouth once daily. - diclofenac (VOLTAREN) 1 % topical gel Apply 2 g to affected area four times daily. - keTORolac (TORADOL) 10 mg tablet Take 1 tablet by mouth every 6 hours as needed for up to 4 days. - cyclobenzaprine (FLEXERIL) 10 mg tablet Take 1 tablet by mouth two times a day as needed for muscle spasm. FOR PAIN OR SPASMS - hydrocortisone 2.5 % ointment Apply 1 application to affected area two times a day as needed. Avoid use on the eyelids or face. Up to 2 weeks at a time - ketoconazole (NIZORAL) 2 % cream Apply 1 application to affected area two times a day. Continue to use for another week after rash resolves - mupirocin (BACTROBAN) 2 % ointment Apply to affected area three times a day. - triamcinolone acetonide (KENALOG) 0.1 % ointment Apply to affected areas twice a day as needed. Avoid use on the face. Use up to 2 weeks as directed per rash recurrence - azelastine 0.1% nasal spray Use 1-2 Sprays in each nostril two times a day. As directed - Cholecalciferol, Vitamin D3, 125 mcg (5,000 unit) cap Take 1 capsule by mouth once daily. - fluticasone (FLONASE) 50 mcg/actuation nasal spray Use 2 Sprays in each nostril once daily. Use 2 sprays to each nostril one to two times daily - fluticasone-salmeterol HFA (ADVAIR HFA) 230-21 mcg/actuation inhaler Inhale 2 Puffs as instructed two times a day. - hydrOXYzine HCl (ATARAX) 25 mg tablet Take 1-4 tablets by mouth every 4 hours as needed for itching/rash (and allergic rhinitis). Maximum dose 400 mg per day. - albuterol (PROVENTIL) 2.5 mg /3 mL (0.083 %) nebulizer solution Use 3 mL via nebulizer every 6 hours as needed for wheezing/shortness of breath. 1 vial contains 3 ml. - Nebulizer Accessories kit Nebulizer tubing and mouthpiece, etc needed for her home nebulizer. - methylphenidate LA (RITALIN LA) 10 mg biphasic capsule Take 10 mg by mouth once daily. - quercetin 500 mg cap Take 500 mg by mouth two times a day as needed (allergies). - tacrolimus (PROTOPIC) 0.1 % ointment Apply to affected area two times a day. Apply thin layer to affected skin on forearm (area approximately 20 square centimeters). Use till rash clears. If not resolved in 6 weeks (more content not included)... [facility] 09-28-2024 History of Present illness Narrative Radiology Service Progress Note PATIENT NAME: Helena Potter DATE OF SERVICE: September 28, 2024 TIME: 4:09 PM PATIENT IDENTITY VERIFICATION COMPLETED USING TWO (2) IDENTIFIERS: Name and Date of confirmed by patient verbally. FALL SCREENING: Has the patient had 2 falls in the last year or 1 fall with injury or currently using an Ambulatory Assistive Device (Walker, Cane, Wheelchair, Crutches, etc.)? No PATIENT GENDER DATA: Assigned female at . status: : No status: NO. PATIENT RELEVANT IMPLANT DATA REVIEWED: Not Applicable PATIENT PRESENTS WITH AN IMPLANTABLE OR ATTACHED TOOL CHASER: No RADIOLOGY DEPARTMENT: General X-ray: Exam(s) Completed: Chest X-Ray Spine X-Ray(s): Thoracic PERIPHERAL IV DATA: Not applicable SIGNED BY: RT Dilan(R) September 28, 2024 4:09 PM documented in this encounter [facility] 09-28-2024 Note HNO ID: [id number] Author: JOSEPH TERRELL RT(R) Service: Radiology Author Type: Technologist Type: Progress Notes Filed: 09/28/2024 16:23 Note Text: Radiology Service Progress Note PATIENT NAME: Helena Potter DATE OF SERVICE: September 28, 2024 TIME: 4:09 PM PATIENT IDENTITY VERIFICATION COMPLETED USING TWO (2) IDENTIFIERS: Name and Date of confirmed by patient verbally. FALL SCREENING: Has the patient had 2 falls in the last year or 1 fall with injury or currently using an Ambulatory Assistive Device (Walker, Cane, Wheelchair, Crutches, etc.)? No PATIENT GENDER DATA: Assigned female at . status: : No status: NO. PATIENT RELEVANT IMPLANT DATA REVIEWED: Not Applicable PATIENT PRESENTS WITH AN IMPLANTABLE OR ATTACHED TOOL CHASER: No RADIOLOGY DEPARTMENT: General X-ray: Exam(s) Completed: Chest X-Ray Spine X-Ray(s): Thoracic PERIPHERAL IV DATA: Not applicable SIGNED BY: RT Dilan(R) September 28, 2024 4:09 PM [facility] 09-28-2024 Instructions Lisa Bradshaw MD - 09/28/2024 3:51 PM EDT - Take the prescribed Z-Danny (antibiotic) as directed; sent to [facility]. - Start the prescribed prednisone taper: 4 mg for 3 days, 2 mg for 3 days, 1 mg for 3 days. - Continue using Flonase and azelastine as directed. - Complete chest and thoracic spine x-rays as scheduled. - Follow up in 3 months; the appointment has been scheduled. documented in this encounter [facility] 09-28-2024 Note HNO ID: [id number] Author: LISA BRADSHAW MD Service: ? Author Type: Physician Type: Progress Notes Filed: 10/21/2024 13:44 Note Text: This note was created using [employer]. Subjective Helena Potter is a 54 year old female. Patient presents with: F/U 3 Month SUBJECTIVE: Helena Potter is a 54 year old year old lady here today for 3 month follow up appointment for review of medical conditions. Helena Potter is a 54-year-old female, with a history of fibromyalgia, asthma, and COPD, presenting for a 3-month follow-up and evaluation of mid-thoracic back pain and persistent cough. Helena reports a persistent mid-thoracic back pain that began in late June or early July following a severe coughing episode triggered by an allergen exposure. The pain is described as a cramping sensation that occurs multiple times daily and is exacerbated by certain movements. Helena has attempted various treatments, including alternating ice and heat, massages, and topical applications such as Biofreeze and sarsaparilla, but notes that the pain has progressively worsened. She also reports difficulty taking deep breaths, attributing this to either muscle tightness or potential respiratory issues. 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 In addition to back pain, Helena reports a persistent cough accompanied by thick drainage that is difficult to expectorate. She is a smoker and acknowledges that this may be contributing to her respiratory issues. Helena has a history of intolerance to inhalers such as Dulera and Symbicort, citing stinging and burning sensations in the mouth. She also reports experiencing random fevers, cold flashes, and night sweats, which she initially attributed to hormonal changes but now suspects may be related to her current illness. Helena has a known allergy to penicillin and sulfa drugs, both of which cause rashes. Helena is currently taking Flonase, azelastine, and Atarax for chronic allergies and has a prescription for Mucinex pending prior authorization. She also has a history of asthma and COPD and was last prescribed prednisone on July 04, which she reports was effective but felt the dosage was too short. Helena has a history of being treated with Z-Danny and doxycycline for respiratory issues, with a preference for Z-Danny. Helena also has a history of PTSD, ADHD, autism spectrum disorder, and selective mutism, and is under the care of a psychiatrist. 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 Helena reports feeling overwhelmed and experiencing a breakdown due to these stressors. PAST MEDICAL HISTORY Diagnosis Date Abnormal glandular Papanicolaou smear of cervix Abn. Pap smear (cervix) ADHD (attention deficit hyperactivity disorder) 07/29/2013 Atherosclerosis of abdominal aorta (HCC) 02/19/2012 <70% stenosisof celiac and superior mesenteric arteries; <60% stenosis of bilateral renal arteries COPD (chronic obstructive pulmonary disease) (HCC) Degenerative disc disease lumbar Dysthymic disorder Depression (non-psychotic). 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 TO 03/24/14 Current Outpatient Medications Medication Sig azelastine 0.1% nasal spray Use 1-2 Sprays in each nostril two times a day. As directed Cholecalciferol, Vitamin D3, 125 mcg (5,000 unit) cap Take 1 capsule by mouth once daily. fluticasone (FLONASE) 50 mcg/actuation nasal spray Use 2 Sprays in each nostril once daily. Use 2 sprays to each nostril one to two times daily fluticasone-salmeterol HFA (ADVAIR HFA) 230-21 mcg/actuation inhaler Inhale 2 Puffs as instructed two times a day. hydrOXYzine HCl (ATARAX) 25 mg tablet Take 1-4 tablets by mouth every 4 hours as needed for itching/rash (and allergic rhinitis). Maximum dose 400 mg per day. albuterol (PROVENTIL) 2.5 mg /3 mL (0.083 %) nebulizer solution Use 3 mL via nebulizer every 6 hours as needed for wheezing/shortness of breath. 1 vial contains 3 ml. Nebulizer Accessories kit Nebulizer tubing and mouthpiece, etc needed for her home nebulizer. ketoconazole (NIZORAL) 2 % cream Apply 1 application to affected area two times a day. Continue to use for another w (more content not included)... [facility] 09-28-2024 History of Present illness Narrative This note was created using [employer]. Subjective Helena Potter is a 54 year old female. Patient presents with: F/U 3 Month SUBJECTIVE: Helena Potter is a 54 year old year old lady here today for 3 month follow up appointment for review of medical conditions. Helena Potter is a 54-year-old female, with a history of fibromyalgia, asthma, and COPD, presenting for a 3-month follow-up and evaluation of mid-thoracic back pain and persistent cough. Helena reports a persistent mid-thoracic back pain that began in late June or early July following a severe coughing episode triggered by an allergen exposure. The pain is described as a cramping sensation that occurs multiple times daily and is exacerbated by certain movements. Helena has attempted various treatments, including alternating ice and heat, massages, and topical applications such as Biofreeze and sarsaparilla, but notes that the pain has progressively worsened. She also reports difficulty taking deep breaths, attributing this to either muscle tightness or potential respiratory issues. 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 In addition to back pain, Helena reports a persistent cough accompanied by thick drainage that is difficult to expectorate. She is a smoker and acknowledges that this may be contributing to her respiratory issues. Helena has a history of intolerance to inhalers such as Dulera and Symbicort, citing stinging and burning sensations in the mouth. She also reports experiencing random fevers, cold flashes, and night sweats, which she initially attributed to hormonal changes but now suspects may be related to her current illness. Helena has a known allergy to penicillin and sulfa drugs, both of which cause rashes. Helena is currently taking Flonase, azelastine, and Atarax for chronic allergies and has a prescription for Mucinex pending prior authorization. She also has a history of asthma and COPD and was last prescribed prednisone on July 04, which she reports was effective but felt the dosage was too short. Helena has a history of being treated with Z-Danny and doxycycline for respiratory issues, with a preference for Z-Danny. Helena also has a history of PTSD, ADHD, autism spectrum disorder, and selective mutism, and is under the care of a psychiatrist. She reports significant emotional stress over the past few years, including the recent of her father, for whom she was the primary caregiver, and the health issues of her daughter's luis and her autistic son. Helena reports feeling overwhelmed and experiencing a breakdown due to these stressors. PAST MEDICAL HISTORY Diagnosis Date Abnormal glandular Papanicolaou smear of cervix Abn. Pap smear (cervix) ADHD (attention deficit hyperactivity disorder) 07/29/2013 Atherosclerosis of abdominal aorta (HCC) 02/19/2012 <70% stenosisof celiac and superior mesenteric arteries; <60% stenosis of bilateral renal arteries COPD (chronic obstructive pulmonary disease) ([facility]) Degenerative disc disease lumbar Dysthymic disorder Depression (non-psychotic). Patient contests this, Full Psychiatric evaluation found no evidence of this, 03/24/2014, TO Eczema Fibromyalgia Hypercholesterolemia with LDL greater than 190 mg/dL Genetic with multiple family members; declines treatment and rechecking labs IBS (irritable bowel syndrome) Migraine, unspecified, with intractable migraine, so stated, without mention of status migrainosus Migraine Shingles Smoker Steroid long-term use 3 months1979, prescribed by Photogram[employer] Surveyor. TO 03/24/14 Current Outpatient Medications Medication Sig azelastine 0.1% nasal spray Use 1-2 Sprays in each nostril two times a day. As directed Cholecalciferol, Vitamin D3, 125 mcg (5,000 unit) cap Take 1 capsule by mouth once daily. fluticasone (FLONASE) 50 mcg/actuation nasal spray Use 2 Sprays in each nostril once daily. Use 2 sprays to each nostril one to two times daily fluticasone-salmeterol HFA (ADVAIR HFA) 230-21 mcg/actuation inhaler Inhale 2 Puffs as instructed two times a day. hydrOXYzine HCl (ATARAX) 25 mg tablet Take 1-4 tablets by mouth every 4 hours as needed for itching/rash (and allergic rhinitis). Maximum dose 400 mg per day. albuterol (PROVENTIL) 2.5 mg /3 mL (0.083 %) nebulizer solution Use 3 mL via nebulizer every 6 hours as needed for wheezing/shortness of breath. 1 vial contains 3 ml. Nebulizer Accessories kit Nebulizer tubing and mouthpiece, etc needed for her home nebulizer. ketoconazole (NIZORAL) 2 % cream Apply 1 application to affected area two times a day. Continue to use for another week after rash resolves methylphenidate LA (RITALIN LA) 10 mg biphasic capsule Take 10 mg by mouth once daily. albuterol HFA (VENTOLIN HFA) 90 mcg/actuation inhaler Inhale 2 Puffs as instructed every 4 hours as needed for wheezing/shortness of breath. tacrolimus (PROTOPIC) 0.1 % ointment Apply to affected area two times a day. Apply thin layer to affected skin on forearm (area approximately 20 square centimeters). Use till rash clears. If not resolved in 6 weeks, re-evaluate. May treat other areas of eczema that occur cyclobenzaprine (FLEXERIL) 10 mg tablet Take 1 tablet by mouth two times a day as needed for muscle spasm. FOR PAIN OR SPASMS guaiFENesin (MUCINEX) 600 mg 12 hr tablet Take 1-2 tablets by mouth two times a day. As needed triamcinolone acetonide (KENALOG) 0.1 % ointment Apply to affected areas twice a day as needed. Avoid use on the face. Use up to 2 weeks as directed per rash recurrence hydrocortisone 2.5 % ointment Apply 1 application to affected area two times a day as needed. Avoid use on the eyelids or face. Up to 2 weeks at a time mupirocin (BACTROBAN) 2 % ointment Apply to affected area three times a day. dexmethylphenidate HCl (FOCALIN) 5 mg tablet Take 5 mg by mouth every afternoon. with 2.5mg dose Dexmethylphenidate HCl (FOCALIN) 2.5 mg tablet Take 5 mg by mouth every afternoon. with 5mg tablet diazePAM (VALIUM) 5 mg tablet Take 0.25-1 tablets by mouth two times a day as needed. EPINEPHrine (EPIPEN) 0.3 mg/0.3 mL auto-injector Inject 0.3 mL intramuscularly as needed (for allergic reaction.Seek emergent medical care immediately after use. Disp:One 2-pack). diclofenac sodium (VOLTAREN) 1 % topical gel Apply 2 g to affected area four times daily. TENS Units Layne Use as directed. Copper Gluconate 5 mg Tab Take by mouth. vitamin b complex Tab Take 1 tablet by mouth once daily. multivitamin tablet Take 1 tablet by mouth once daily. CALCIUM CARBONATE/VITAMIN D3 (CALCIUM + D ORAL) Take by mouth. quercetin 500 mg cap Take 500 mg by mouth two times a day as needed (allergies). (Patient not taking: Reported on 09/28/2024) acetaminophen-codeine (TYLENOL-COD #3) 300-30 mg per tablet Take 1-2 tablets by mouth three times daily as needed for up to 7 days. Takes up to 5 pills max per day during a flare up acetaminophen 325 mg-caffeine 40 mg-butalbital 50 mg (FIORICET) per tablet Take 1 tablet by mouth every 6 hours as needed for Headache. (Patient not taking: Reported on 11/20/2023) cetirizine (ZYRTEC) 10 mg tablet Take 1 tablet by mouth once daily. (Patient not taking: Reported on 09/12/2023) No current facility-administered medications for this visit. Review of Systems Objective BP 130/82 (BP Site: Right Arm, BP Position: Sitting, BP Cuff Size: Large Adult) Pulse 84 Temp 36.8 C (98.3 F) (Right Tympanic) Wt 80.6 kg (177 lb 11.1 oz) LMP 02/13/2018 (Within Days) BMI 31.48 kg/m Physical Exam Constitutional: Appearance: Normal appearance. HENT: Head: Normocephalic. Eyes: Conjunctiva/sclera: Conjunctivae normal. Cardiovascular: Rate and Rhythm: Normal rate and regular rhythm. Heart sounds: Normal heart sounds. Pulmonary: Effort: Pulmonary effort is normal. Breath sounds: Wheezing and rhonchi present. Musculoskeletal: Right lower leg: No edema. Left lower leg: No edema. Skin: General: Skin is warm and dry. Neurological: General: No focal deficit present. Mental Status: She is alert and oriented to person, place, and time. Psychiatric: Mood and Affect: Mood normal. Behavior: Behavior normal. Thought Content: Thought content normal. Judgment: Judgment normal. Assessment and Plan # Chronic midline thoracic back pain (M54.6) # Rib pain (R07.81) # Spasm of muscle (M62.838) - Chronic midline thoracic back pain with associated muscle spasms and rib pain, exacerbated by recent coughing episodes. - Ordered thoracic spine X-ray to evaluate for potential disc issues, arthritis, or nerve impingement. - Discussed potential treatment options including physical therapy, medical care manager, acupuncture, NSAIDs, steroids, and muscle relaxants. - Advised patient to consider pain management and back injections if necessary. - Follow-up in 3 months to reassess. # Fibromyalgia (M79.7) - Chronic condition with intermittent exacerbations. - Continue current management strategies. # Asthma with chronic obstructive pulmonary disease (COPD) ([facility]) (J44.89) # Subacute cough (R05.2) - COPD exacerbation with subacute cough, wheezing, and mucous production. - Ordered chest X-ray to rule out pneumonia. - Prescribed Z-Danny, instructed not to take concurrently with Atarax due to potential interaction. - Prescribed prednisone 4, 3, 2, 1 taper; advised to contact if taper needs adjustment. - Administered influenza and COVID vaccines. - Declined shingles and Hepatitis B vaccines. - Follow-up in 3 months to reassess. # Eczema, unspecified type (L30.9) - Continue current management with hydrocortisone, ketoconazole, and Bactroban as needed. # Smoker (F17.200) - Acknowledged smoking status; discussed potential impact on respiratory symptoms. - Future discussion planned with psychiatrist regarding smoking cessation. # PTSD (post-traumatic stress disorder) (F43.10) # Autism spectrum disorder (F84.0) # Selective mutism (F94.0) # Attention deficit hyperactivity disorder, predominantly hyperactive impulsive type (F90.1) - Diagnoses confirmed by psychiatrist ADRIENNE Ireland. - Continue current psychiatric management. # Encounter for immunization (Z23) - Administered influenza and COVID vaccines. - Declined shingles and Hepatitis B vaccines. Lisa Bradshaw MD documented in this encounter [facility] 09-04-2024 Miscellaneous Notes The following approved medication requests have been transmitted electronically. Requested Prescriptions Signed Prescriptions Disp Refills azelastine 0.1% nasal spray 30 mL 11 Sig: Use 1-2 Sprays in each nostril two times a day. As directed Authorizing Provider: LISA BRADSHAW Cholecalciferol, Vitamin D3, 125 mcg (5,000 unit) cap 30 capsule 11 Sig: Take 1 capsule by mouth once daily. Authorizing Provider: LISA BRADSHAW fluticasone (FLONASE) 50 mcg/actuation nasal spray 2 Each 11 Sig: Use 2 Sprays in each nostril once daily. Use 2 sprays to each nostril one to two times daily Authorizing Provider: LISA BRADSHAW fluticasone-salmeterol HFA (ADVAIR HFA) 230-21 mcg/actuation inhaler 12 g 11 Sig: Inhale 2 Puffs as instructed two times a day. Authorizing Provider: LISA BRADSHAW MD The patient has been identified by name and date of : Yes Caregiver verified no other encounters exist for this prescription request: Yes Caregiver confirmed with patient/requestor that no other refills are due, in the near future, with this provider at this time: Yes The last office visit in the department: 09/12/2023 Does the patient have a future office visit with this provider/department: Yes 09/21/2024 Requested Prescriptions Pending Prescriptions Disp Refills azelastine 0.1% nasal spray 30 mL 11 Sig: Use 1-2 Sprays in each nostril two times a day. As directed Cholecalciferol, Vitamin D3, 125 mcg (5,000 unit) cap 30 capsule 11 Sig: Take 1 capsule by mouth once daily. fluticasone (FLONASE) 50 mcg/actuation nasal spray 2 Each 11 Sig: Use 2 Sprays in each nostril once daily. Use 2 sprays to each nostril one to two times daily fluticasone-salmeterol HFA (ADVAIR HFA) 230-21 mcg/actuation inhaler 12 g 11 Sig: Inhale 2 Puffs as instructed two times a day. Yenifer Mancuso RN September 02, 2024 4:01 PM documented in this encounter [facility] 09-04-2024 Telephone encounter Note The following approved medication requests have been transmitted electronically. Requested Prescriptions Signed Prescriptions Disp Refills azelastine 0.1% nasal spray 30 mL 11 Sig: Use 1-2 Sprays in each nostril two times a day. As directed Authorizing Provider: LISA BRADSHAW Cholecalciferol, Vitamin D3, 125 mcg (5,000 unit) cap 30 capsule 11 Sig: Take 1 capsule by mouth once daily. Authorizing Provider: LISA BRADSHAW fluticasone (FLONASE) 50 mcg/actuation nasal spray 2 Each 11 Sig: Use 2 Sprays in each nostril once daily. Use 2 sprays to each nostril one to two times daily Authorizing Provider: LISA BRADSHAW fluticasone-salmeterol HFA (ADVAIR HFA) 230-21 mcg/actuation inhaler 12 g 11 Sig: Inhale 2 Puffs as instructed two times a day. Authorizing Provider: LISA BRADSHAW MD [facility] 09-02-2024 Telephone encounter Note The patient has been identified by name and date of : Yes Caregiver verified no other encounters exist for this prescription request: Yes Caregiver confirmed with patient/requestor that no other refills are due, in the near future, with this provider at this time: Yes The last office visit in the department: 09/12/2023 Does the patient have a future office visit with this provider/department: Yes 09/21/2024 Requested Prescriptions Pending Prescriptions Disp Refills azelastine 0.1% nasal spray 30 mL 11 Sig: Use 1-2 Sprays in each nostril two times a day. As directed Cholecalciferol, Vitamin D3, 125 mcg (5,000 unit) cap 30 capsule 11 Sig: Take 1 capsule by mouth once daily. fluticasone (FLONASE) 50 mcg/actuation nasal spray 2 Each 11 Sig: Use 2 Sprays in each nostril once daily. Use 2 sprays to each nostril one to two times daily fluticasone-salmeterol HFA (ADVAIR HFA) 230-21 mcg/actuation inhaler 12 g 11 Sig: Inhale 2 Puffs as instructed two times a day. Yenifer Mancuso RN September 02, 2024 4:01 PM [facility] 07-08-2024 Telephone encounter Note The following approved medication requests have been transmitted electronically. Requested Prescriptions Pending Prescriptions Disp Refills hydrOXYzine HCl (ATARAX) 25 mg tablet 180 tablet 1 Sig: Take 1-4 tablets by mouth every 4 hours as needed for itching/rash (and allergic rhinitis). Maximum dose 400 mg per day. Lisa Bradshaw MD [facility] 07-08-2024 Miscellaneous Notes The following approved medication requests have been transmitted electronically. Requested Prescriptions Pending Prescriptions Disp Refills hydrOXYzine HCl (ATARAX) 25 mg tablet 180 tablet 1 Sig: Take 1-4 tablets by mouth every 4 hours as needed for itching/rash (and allergic rhinitis). Maximum dose 400 mg per day. Lisa Bradshaw MD Patient has been identified by name and date of : Yes Patient phones for refill(s): Requested Prescriptions Pending Prescriptions Disp Refills hydrOXYzine HCl (ATARAX) 25 mg tablet 180 tablet 1 Sig: Take 1-4 tablets by mouth every 4 hours as needed for itching/rash (and allergic rhinitis). Maximum dose 400 mg per day. Date of last office visit in primary care: 09/12/2023 Date of next office visit in primary care: 09/21/2024 Please advise. Thank you. Larisa Meza LPN. documented in this encounter [facility] 07-08-2024 Telephone encounter Note Patient has been identified by name and date of : Yes Patient phones for refill(s): Requested Prescriptions Pending Prescriptions Disp Refills hydrOXYzine HCl (ATARAX) 25 mg tablet 180 tablet 1 Sig: Take 1-4 tablets by mouth every 4 hours as needed for itching/rash (and allergic rhinitis). Maximum dose 400 mg per day. Date of last office visit in primary care: 09/12/2023 Date of next office visit in primary care: 09/21/2024 Please advise. Thank you. Larisa Meza LPN. 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 - Use your albuterol inhaler as needed for bronchospasm; you may take more than 2 puffs if necessary. - Use your nebulizer with albuterol vials as needed every 6 hours; prescription sent to [facility]. - Obtain nebulizer tubing and mouthpiece from [facility]. - Take prednisone as prescribed for costochondritis; prescription sent to [place]. - Apply ketoconazole cream to the affected areas twice daily; prescription sent to [place]. - Keep the affected areas dry; use cornstarch powder or a religion department chair on a cool setting to help with moisture. - Complete the following lab tests in September: vitamin D, thyroid labs, hemoglobin A1c, copper, metabolic panel, and CBC. - Next appointment in September. documented in this encounter [facility] 06-22-2024 Note HNO ID: [id number] Author: LISA BRADSHAW MD Service: ? Author Type: Physician Type: Progress Notes Filed: 06/22/2024 17:42 Note Text: VIRTUAL VISIT PROGRESS NOTE This is a virtual visit using [employer] Video Visit. It required patient-provider interaction for the medical decision making as documented below. I have communicated my name and active licensure. The patient's identity and physical location were verified at the time of this visit. Either the patient or their legal medical field representative has been informed of the risks and benefits of -- and alternatives to -- treatment through a remote evaluation and consents to proceed with the evaluation remotely. Helena Potter is a 54 year old female seen for 3 months FU. Helena Potter is a 54-year-old female with a history of PTSD, anxiety, fibromyalgia, and ADHD, presenting for a jury duty excuse letter and evaluation of multiple acute and chronic issues. Helena is requesting a jury duty excuse letter due to her PTSD, anxiety, fibromyalgia, and ADHD. She reports that her PTSD and anxiety are exacerbated by the thought of jury duty, making it difficult for her to function. She reports a recent severe allergic reaction triggered by an unknown allergen brought into her home by her daughter. She experienced immediate systemic symptoms, including severe coughing, sinus congestion, and drainage. She did not have her albuterol inhaler on hand at the time and questions whether she should have used her EpiPen. She has a history of similar reactions where she experiences severe coughing and difficulty breathing, but denies throat swelling. She has a nebulizer but needs new tubing and mouthpieces. She also reports symptoms consistent with costochondritis, including pain along the sternum and where the ribs attach to the sternum. She has tried ibuprofen, which provides some relief but is not sufficient. Heat worsens the pain, although it helps with muscle discomfort. She has a history of costochondritis and has previously found relief with prednisone. Additionally, she reports a rash and odor in the area of her scar and the crease of her legs, which she attributes to moisture and heat. She has been using deodorant and antiperspirant multiple times a day and has tried ketoconazole cream with some improvement. The rash has been present for a few days, but the odor has been ongoing. She also mentions that her fibromyalgia has been particularly challenging this year, both physically and emotionally, due to the recent of her father and other stressors. She is currently seeing a counselor twice a week to help manage her mental health. HISTORY REVIEWED (electronic chart updated): PAST MEDICAL HISTORY Diagnosis Date Abnormal glandular Papanicolaou smear of cervix Abn. Pap smear (cervix) ADHD (attention deficit hyperactivity disorder) 07/29/2013 Atherosclerosis of abdominal aorta ([facility]) 02/19/2012 <70% stenosisof celiac and superior mesenteric arteries; <60% stenosis of bilateral renal arteries COPD (chronic obstructive pulmonary disease) ([facility]) Degenerative disc disease lumbar Dysthymic disorder Depression (non-psychotic). 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 TO 03/24/14 PAST SURGICAL HISTORY Procedure Laterality Date APPENDECTOMY DELIVERY ONLY 08/2010 , low transverse PAST SURGICAL HISTORY OF RIGHT FOOT FAMILY HISTORY Problem Relation Age of Onset Alcohol/Drug Paternal Grandfather Arthritis Maternal Grandmother Arthritis Mother Cancer Paternal Grandfather Cancer Father prostate and bladder Diabetes Father Diabetes Maternal Grandfather Emphysema Maternal Grandfather Emphysema Paternal Uncle Heart Father Hypertension Father Hypertension Paternal Uncle Lipids Father Lipids Paternal Grandmother Lipids Paternal Uncle Lipids Brother Lipids Paternal Uncle Thyroid Paternal Grandmother Emphysema Maternal Grandmother Social History Tobacco Use Smoking status: Every Day Current packs/day: 1.30 Average packs/day: 1.3 packs/day for 35.2 years (45.8 ttl pk-yrs) Types: Cigarettes Start date: 03/24/1989 Smokeless tobacco: Never Tobacco comments: Parents smoked in childhood home. Ex-spouse was smoker. Vaping Use Vaping status: current everyday user Substance Use Topics Alcohol use: Yes Comment: Occasionally, but not when . Drug use: Yes Types: Marijuana Comment: uses medical Current Outpatient Medicati (more content not included)... [facility] 06-22-2024 History of Present illness Narrative VIRTUAL VISIT PROGRESS NOTE This is a virtual visit using [employer] Video Visit. It required patient-provider interaction for the medical decision making as documented below. I have communicated my name and active licensure. The patient's identity and physical location were verified at the time of this visit. Either the patient or their legal medical field representative has been informed of the risks and benefits of -- and alternatives to -- treatment through a remote evaluation and consents to proceed with the evaluation remotely. Helena Potter is a 54 year old female seen for 3 months FU. Helena Potter is a 54-year-old female with a history of PTSD, anxiety, fibromyalgia, and ADHD, presenting for a jury duty excuse letter and evaluation of multiple acute and chronic issues. Helena is requesting a jury duty excuse letter due to her PTSD, anxiety, fibromyalgia, and ADHD. She reports that her PTSD and anxiety are exacerbated by the thought of jury duty, making it difficult for her to function. She reports a recent severe allergic reaction triggered by an unknown allergen brought into her home by her daughter. She experienced immediate systemic symptoms, including severe coughing, sinus congestion, and drainage. She did not have her albuterol inhaler on hand at the time and questions whether she should have used her EpiPen. She has a history of similar reactions where she experiences severe coughing and difficulty breathing, but denies throat swelling. She has a nebulizer but needs new tubing and mouthpieces. She also reports symptoms consistent with costochondritis, including pain along the sternum and where the ribs attach to the sternum. She has tried ibuprofen, which provides some relief but is not sufficient. Heat worsens the pain, although it helps with muscle discomfort. She has a history of costochondritis and has previously found relief with prednisone. Additionally, she reports a rash and odor in the area of her scar and the crease of her legs, which she attributes to moisture and heat. She has been using deodorant and antiperspirant multiple times a day and has tried ketoconazole cream with some improvement. The rash has been present for a few days, but the odor has been ongoing. She also mentions that her fibromyalgia has been particularly challenging this year, both physically and emotionally, due to the recent of her father and other stressors. She is currently seeing a counselor twice a week to help manage her mental health. HISTORY REVIEWED (electronic chart updated): PAST MEDICAL HISTORY Diagnosis Date Abnormal glandular Papanicolaou smear of cervix Abn. Pap smear (cervix) ADHD (attention deficit hyperactivity disorder) 07/29/2013 Atherosclerosis of abdominal aorta (HCC) 02/19/2012 <70% stenosisof celiac and superior mesenteric arteries; <60% stenosis of bilateral renal arteries COPD (chronic obstructive pulmonary disease) (HCC) Degenerative disc disease lumbar Dysthymic disorder Depression (non-psychotic). 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 TO 03/24/14 PAST SURGICAL HISTORY Procedure Laterality Date APPENDECTOMY DELIVERY ONLY 08/2010 , low transverse PAST SURGICAL HISTORY OF RIGHT FOOT FAMILY HISTORY Problem Relation Age of Onset Alcohol/Drug Paternal Grandfather Arthritis Maternal Grandmother Arthritis Mother Cancer Paternal Grandfather Cancer Father prostate and bladder Diabetes Father Diabetes Maternal Grandfather Emphysema Maternal Grandfather Emphysema Paternal Uncle Heart Father Hypertension Father Hypertension Paternal Uncle Lipids Father Lipids Paternal Grandmother Lipids Paternal Uncle Lipids Brother Lipids Paternal Uncle Thyroid Paternal Grandmother Emphysema Maternal Grandmother Social History Tobacco Use Smoking status: Every Day Current packs/day: 1.30 Average packs/day: 1.3 packs/day for 35.2 years (45.8 ttl pk-yrs) Types: Cigarettes Start date: 03/24/1989 Smokeless tobacco: Never Tobacco comments: Parents smoked in childhood home. Ex-spouse was smoker. Vaping Use Vaping status: current everyday user Substance Use Topics Alcohol use: Yes Comment: Occasionally, but not when . Drug use: Yes Types: Marijuana Comment: uses medical Current Outpatient Medications Medication Sig methylphenidate LA (RITALIN LA) 10 mg biphasic capsule Take 10 mg by mouth once daily. quercetin 500 mg cap Take 500 mg by mouth two times a day as needed (allergies). albuterol HFA (VENTOLIN HFA) 90 mcg/actuation inhaler Inhale 2 Puffs as instructed every 4 hours as needed for wheezing/shortness of breath. azelastine 0.1% nasal spray Use 1-2 Sprays in each nostril two times a day. As directed tacrolimus (PROTOPIC) 0.1 % ointment Apply to affected area two times a day. Apply thin layer to affected skin on forearm (area approximately 20 square centimeters). Use till rash clears. If not resolved in 6 weeks, re-evaluate. May treat other areas of eczema that occur fluticasone (FLONASE) 50 mcg/actuation nasal spray Use 2 Sprays in each nostril once daily. Use 2 sprays to each nostril one to two times daily fluticasone-salmeterol HFA (ADVAIR HFA) 230-21 mcg/actuation inhaler Inhale 2 Puffs as instructed two times a day. hydrOXYzine HCl (ATARAX) 25 mg tablet Take 1-4 tablets by mouth every 4 hours as needed for itching/rash (and allergic rhinitis). Maximum dose 400 mg per day. Cholecalciferol, Vitamin D3, 125 mcg (5,000 unit) cap Take 1 capsule by mouth once daily. cyclobenzaprine (FLEXERIL) 10 mg tablet Take 1 tablet by mouth two times a day as needed for muscle spasm. FOR PAIN OR SPASMS guaiFENesin (MUCINEX) 600 mg 12 hr tablet Take 1-2 tablets by mouth two times a day. As needed triamcinolone acetonide (KENALOG) 0.1 % ointment Apply to affected areas twice a day as needed. Avoid use on the face. Use up to 2 weeks as directed per rash recurrence hydrocortisone 2.5 % ointment Apply 1 application to affected area two times a day as needed. Avoid use on the eyelids or face. Up to 2 weeks at a time mupirocin (BACTROBAN) 2 % ointment Apply to affected area three times a day. dexmethylphenidate HCl (FOCALIN) 5 mg tablet Take 5 mg by mouth every afternoon. with 2.5mg dose Dexmethylphenidate HCl (FOCALIN) 2.5 mg tablet Take 5 mg by mouth every afternoon. with 5mg tablet diazePAM (VALIUM) 5 mg tablet Take 0.25-1 tablets by mouth two times a day as needed. ketoconazole (NIZORAL) 2 % cream Apply 1 application to affected area twice daily. Continue to use for another week after rash resolves acetaminophen-codeine (TYLENOL-COD #3) 300-30 mg per tablet Take 1-2 tablets by mouth three times daily as needed for up to 7 days. Takes up to 5 pills max per day during a flare up EPINEPHrine (EPIPEN) 0.3 mg/0.3 mL auto-injector Inject 0.3 mL intramuscularly as needed (for allergic reaction.Seek emergent medical care immediately after use. Disp:One 2-pack). acetaminophen 325 mg-caffeine 40 mg-butalbital 50 mg (FIORICET) per tablet Take 1 tablet by mouth every 6 hours as needed for Headache. (Patient not taking: Reported on 11/20/2023) diclofenac sodium (VOLTAREN) 1 % topical gel Apply 2 g to affected area four times daily. cetirizine (ZYRTEC) 10 mg tablet Take 1 tablet by mouth once daily. (Patient not taking: Reported on 09/12/2023) albuterol (PROVENTIL) 2.5 mg /3 mL (0.083 %) nebulizer solution Use 3 mL via nebulizer every 6 hours as needed for Wheezing/Shortness of Breath. 1 vial contains 3 ml. TENS Units Layne Use as directed. Copper Gluconate 5 mg Tab Take by mouth. vitamin b complex Tab Take 1 tablet by mouth once daily. multivitamin tablet Take 1 tablet by mouth once daily. CALCIUM CARBONATE/VITAMIN D3 (CALCIUM + D ORAL) Take by mouth. No current facility-administered medications for this visit. ALLERGIES Allergen Reactions Doxycycline Rash 07/13/13 Latex Rash Positive Latex Skin Test 11/29/13 Aleve [Naproxen Sod* Vomiting DIZZINESS Amitriptyline SLEEPWALKING Camel Hair Rash Celebrex [Celecoxib] Mental Status Change RAGE Chlorhexidine Rash Itching then systemic rash and trouble with breathing. Cymbalta [Duloxetin* Mental Status Change Made her angry, in a rage Darvocet A500 [Prop* Mental Status Change HALLUCINATIONS Dulera [Mometasone-* Shortness of Breath Feathers Rash Fragrances Rash Insecticides Rash Lyrica [Pregabalin] Intolerance Did not tolerate even lowest dose; did not help much; made her loopy and happy Naproxen Vomiting DIZZINESS Penicillins Rash Pollen Rash Pseudoephedrine Intolerance SPASMS of blood vesselsIN FEET Relafen [Nabumetone] Intolerance SPASMS of blood vessels IN FEET Sagebrush Rash, Itching Seasonal Allergies Other: See Comments Cats Horses Cockroach Dust mites trees (September, October and November) grasses (November and December) weeds (February, March and April) ragweed (February, March and April) Sulfa (Sulfonamide * Rash Symbicort [Budesoni* Other: See Comments Stinging/burning mouth, itchy roof of throat/palette Tramadol Hcl Intolerance States it made her dizzy and nauseated REVIEW OF SYSTEMS: As noted in HPI PHYSICAL EXAMINATION: VIDEO EXAM: (if completed, performed via video enabled technology) GENERAL: alert and appropriate, in no distress, well-hydrated, well nourished, and happy, smiling, interactive HEAD: normocephalic, no abnormality or lesion noted EYES: no injection and visual acuity is grossly normal RESPIRATORY: breathing non-labored CHEST: equal chest rise with normal respiratory effort and indicated areas of pain along lower sternum and costal margin ASSESSMENT and PLAN: # PTSD (post-traumatic stress disorder) (F43.10) # Attention deficit hyperactivity disorder (ADHD), combined type (F90.2) # ARMANDO (generalized anxiety disorder) (F41.1) - Provided a jury duty excuse letter citing PTSD, ADHD, and anxiety disorder as reasons for exemption due to potential exacerbation of medical issues. - Patient is seeing a counselor twice a week. # Asthma with chronic obstructive pulmonary disease (COPD) ([facility]) (J44.89) - Recent exacerbation due to allergen exposure; albuterol inhaler was insufficient. - Educated on the use of albuterol inhaler, advising that more than two puffs may be necessary during severe bronchospasm. - Prescribed albuterol nebulizer solution with tubing and mouthpiece; sent to [facility]. - Reinforced the use of EpiPen for anaphylactic reactions involving swelling of the tongue, throat, or lips. # Candidal intertrigo (B37.2) - Rash and odor noted in the scar and inguinal folds. - Prescribed ketoconazole cream to be applied twice daily; sent to [facility]. - Advised to keep the area dry using cornstarch powder and to continue treatment for one week after the rash resolves. # Sternocostal pain (R07.89) # Costochondritis (M94.0) - Pain localized to the lower half of the sternum and adjacent ribs. - Previous episodes managed with NSAIDs; current episode not fully responsive to ibuprofen. - Prescribed prednisone taper: 40 mg daily for 4 days, 30 mg daily for 3 days, 20 mg daily for 2 days, 10 mg daily for 1 day; sent to [facility]. # Vitamin D deficiency (E55.9) # Elevated hemoglobin A1c (R73.09) # Copper deficiency (E61.0) # Hyponatremia (E87.1) - Reordered labs including vitamin D, thyroid panel, hemoglobin A1c, copper level, comprehensive metabolic panel, and CBC. - Labs to be completed before the next appointment in September. # Fibromyalgia (M79.7) - Symptoms remain severe; patient experiencing significant physical and emotional stress. - Continue current management. # Spasm of muscle (M62.838) Muscle relaxant helps some but not the pain along sternocostal margin. Med helps for fibromyalgia. # Encounter for long-term current use of medication (Z79.899) There are no Patient Instructions on file for this visit. Lisa Bradshaw MD documented in this encounter [facility] 05-14-2024 Note HNO ID: [id number] Author: JUNITO RICE PT Service: ? Author Type: Physical Therapist Type: Progress Notes Filed: 05/14/2024 11:14 Note Text: 05/14/2024 [facility] PHYSICAL THERAPY DISCONTINUANCE OF CARE Plan of Care Period: Start of Care Date: 12/04/23 Last Visit Date: 01/13/2024 Therapy Program: The following is a summary of the interventions provided for this episode of care; Therapeutic exercise and Manual therapy Assessment: Based on most recent visit, patient was progressing slower than expected toward functional goals based on pain levels and documented subjective information on progress. Unable to formally assess goal achievement, as patient has not returned to therapy or scheduled additional follow-up appointments. Reason for Discontinuation of Care: Patient has not returned to therapy or scheduled additional follow-up appointments. Junito Rice, PT [facility] 03-23-2024 Instructions Lisa Bradshaw MD - 03/23/2024 5:00 PM EDT -Continue taking Ritalin LA (methylphenidate) 10 mg orally daily, as prescribed by Dr. Jason and Nurse Practitioner Jane. - Continue taking Focalin (dexamethylphenidate) 5 mg and 2.5 mg in the afternoon as needed. - Consider trying quercetin 500 mg twice daily as needed for allergies, which may help with asthma control. - Continue using albuterol inhaler as needed, but monitor for muscle cramps and consider increasing electrolyte intake. - Consider scheduling an appointment to discuss disability paperwork when ready. - Monitor your allergy and asthma symptoms, and let us know if they worsen or do not improve. documented in this encounter [facility] 03-23-2024 Note HNO ID: [id number] Author: LISA BRADSHAW MD Service: ? Author Type: Physician Type: Progress Notes Filed: 03/23/2024 17:01 Note Text: VIRTUAL VISIT PROGRESS NOTE This is a virtual visit using [employer] Video Visit. It required patient-provider interaction for the medical decision making as documented below. I have communicated my name and active licensure. The patient's identity and physical location were verified at the time of this visit. Either the patient or their legal medical field representative has been informed of the risks and benefits of -- and alternatives to -- treatment through a remote evaluation and consents to proceed with the evaluation remotely. Helena Potter is a 54 year old female seen for 3 months follow up. Patient is a 54-year-old female with a history of fibromyalgia, autism, and PTSD, presenting today for follow-up. Patient reports worsening seasonal allergies, particularly during ragweed and goldenrod seasons, which exacerbates her asthma symptoms. She has been using her albuterol inhaler more frequently, up to twice a day, and has noticed a correlation between increased inhaler use and muscle cramps, including charley horses. She has tried topical magnesium oil for the cramps without relief and experiences bowel issues with oral magnesium supplements. Patient is currently on Advair 230 for asthma control but feels her symptoms are flaring due to the season. She is also a medical marijuana patient for fibromyalgia and found relief from a strain high in [facility], but has been unable to find it recently. She has not heard of quercetin for allergies. Patient is taking Ritalin LA 10 mg, prescribed by her psychiatrist, Dr. Jason, and nurse practitioner, Jane. She also takes dexmethylphenidate 5 mg and 2.5 mg in the late afternoon. She has hydroxyzine prescribed as needed, but recently took her son's 10 mg dose instead of her own, which she reports as less effective. She is unsure of her current hydroxyzine supply. Patient has a history of anxiety and has experienced panic attacks in the past. She has been considering applying for disability due to her fibromyalgia, but has not followed through due to anxiety and a belief that her condition is temporary. She reports that her autism diagnosis has made it harder to function, as she feels her coping mechanisms have crumbled. She recalls experiencing pain and motor difficulties in childhood, which were often dismissed by others. She also reports a history of being called a hypochondriac by a doctor. HISTORY REVIEWED (electronic chart updated): PAST MEDICAL HISTORY No date: Abnormal glandular Papanicolaou smear of cervix Comment: Abn. Pap smear (cervix) 07/29/2013: ADHD (attention deficit hyperactivity disorder) 02/19/2012: Atherosclerosis of abdominal aorta ([facility]) Comment: <70% stenosisof celiac and superior mesenteric arteries; <60% stenosis of bilateral renal arteries No date: COPD (chronic obstructive pulmonary disease) (HCC) No date: Degenerative disc disease Comment: lumbar No date: Dysthymic disorder Comment: Depression (non-psychotic). Patient contests this, Full Psychiatric evaluation found no evidence of this, 03/24/2014, TO No date: Eczema No date: Fibromyalgia No date: Hypercholesterolemia with LDL greater than 190 mg/dL Comment: Genetic with multiple family members; declines treatment and rechecking labs No date: IBS (irritable bowel syndrome) No date: Migraine, unspecified, with intractable migraine, so stated, without mention of status migrainosus Comment: Migraine No date: Shingles No date: Smoker No date: Steroid long-term use Comment: 3 months, 1979, prescribed by [employer]. TO 03/24/14 PAST SURGICAL HISTORY No date: APPENDECTOMY 08/2010: DELIVERY ONLY Comment: , low transverse No date: PAST SURGICAL HISTORY OF Comment: RIGHT FOOT FAMILY HISTORY Problem Relation Age of Onset Alcohol/Drug Paternal Grandfather Arthritis Maternal Grandmother Arthritis Mother Cancer Paternal Grandfather Cancer Father prostate and bladder Diabetes Father Diabetes Maternal Grandfather Emphysema Maternal Grandfather Emphysema Paternal Uncle Heart Father Hypertension Father Hypertension Paternal Uncle Lipids Father Lipids Paternal Grandmother Lipids Paternal Uncle Lipids Brother Lipids Paternal Uncle Thyroid Paternal Grandmother Emphysema Maternal Grandmother Social History Tobacco Use Smoking status: Every Day Current packs/day: 1.30 Average packs/day: 1.3 packs/day for 35.0 years (45.5 ttl pk-yrs) Types: Cigarettes Start date: 03/24/1989 Smokeless tobacco: Never Tobacco comments: Parents smoked in childhood home. Ex-spouse was smoker. Vaping Use Vaping status: current everyday user Substance Use Topics Alcohol use: Yes Comment: Occasionally, but not when . Drug use: Yes Types: Marijuana Comment: us (more content not included)... [facility] 03-23-2024 History of Present illness Narrative VIRTUAL VISIT PROGRESS NOTE This is a virtual visit using [employer] Video Visit. It required patient-provider interaction for the medical decision making as documented below. I have communicated my name and active licensure. The patient's identity and physical location were verified at the time of this visit. Either the patient or their legal medical field representative has been informed of the risks and benefits of -- and alternatives to -- treatment through a remote evaluation and consents to proceed with the evaluation remotely. Helena Potter is a 54 year old female seen for 3 months follow up. Patient is a 54-year-old female with a history of fibromyalgia, autism, and PTSD, presenting today for follow-up. Patient reports worsening seasonal allergies, particularly during ragweed and goldenrod seasons, which exacerbates her asthma symptoms. She has been using her albuterol inhaler more frequently, up to twice a day, and has noticed a correlation between increased inhaler use and muscle cramps, including charley horses. She has tried topical magnesium oil for the cramps without relief and experiences bowel issues with oral magnesium supplements. Patient is currently on Advair 230 for asthma control but feels her symptoms are flaring due to the season. She is also a medical marijuana patient for fibromyalgia and found relief from a strain high in [facility], but has been unable to find it recently. She has not heard of quercetin for allergies. Patient is taking Ritalin LA 10 mg, prescribed by her psychiatrist, Dr. Jason, and nurse practitioner, Jane. She also takes dexmethylphenidate 5 mg and 2.5 mg in the late afternoon. She has hydroxyzine prescribed as needed, but recently took her son's 10 mg dose instead of her own, which she reports as less effective. She is unsure of her current hydroxyzine supply. Patient has a history of anxiety and has experienced panic attacks in the past. She has been considering applying for disability due to her fibromyalgia, but has not followed through due to anxiety and a belief that her condition is temporary. She reports that her autism diagnosis has made it harder to function, as she feels her coping mechanisms have crumbled. She recalls experiencing pain and motor difficulties in childhood, which were often dismissed by others. She also reports a history of being called a hypochondriac by a doctor. HISTORY REVIEWED (electronic chart updated): PAST MEDICAL HISTORY No date: Abnormal glandular Papanicolaou smear of cervix Comment: Abn. Pap smear (cervix) 07/29/2013: ADHD (attention deficit hyperactivity disorder) 02/19/2012: Atherosclerosis of abdominal aorta ([facility]) Comment: <70% stenosisof celiac and superior mesenteric arteries; <60% stenosis of bilateral renal arteries No date: COPD (chronic obstructive pulmonary disease) (HCC) No date: Degenerative disc disease Comment: lumbar No date: Dysthymic disorder Comment: Depression (non-psychotic). Patient contests this, Full Psychiatric evaluation found no evidence of this, 03/24/2014, TO No date: Eczema No date: Fibromyalgia No date: Hypercholesterolemia with LDL greater than 190 mg/dL Comment: Genetic with multiple family members; declines treatment and rechecking labs No date: IBS (irritable bowel syndrome) No date: Migraine, unspecified, with intractable migraine, so stated, without mention of status migrainosus Comment: Migraine No date: Shingles No date: Smoker No date: Steroid long-term use Comment: 3 months, 1979, prescribed by [employer]. TO 03/24/14 PAST SURGICAL HISTORY No date: APPENDECTOMY 08/2010: DELIVERY ONLY Comment: , low transverse No date: PAST SURGICAL HISTORY OF Comment: RIGHT FOOT FAMILY HISTORY Problem Relation Age of Onset Alcohol/Drug Paternal Grandfather Arthritis Maternal Grandmother Arthritis Mother Cancer Paternal Grandfather Cancer Father prostate and bladder Diabetes Father Diabetes Maternal Grandfather Emphysema Maternal Grandfather Emphysema Paternal Uncle Heart Father Hypertension Father Hypertension Paternal Uncle Lipids Father Lipids Paternal Grandmother Lipids Paternal Uncle Lipids Brother Lipids Paternal Uncle Thyroid Paternal Grandmother Emphysema Maternal Grandmother Social History Tobacco Use Smoking status: Every Day Current packs/day: 1.30 Average packs/day: 1.3 packs/day for 35.0 years (45.5 ttl pk-yrs) Types: Cigarettes Start date: 03/24/1989 Smokeless tobacco: Never Tobacco comments: Parents smoked in childhood home. Ex-spouse was smoker. Vaping Use Vaping status: current everyday user Substance Use Topics Alcohol use: Yes Comment: Occasionally, but not when . Drug use: Yes Types: Marijuana Comment: uses medical Current Outpatient Medications Medication Sig methylphenidate LA (RITALIN LA) 10 mg biphasic capsule Take 10 mg by mouth once daily. albuterol HFA (VENTOLIN HFA) 90 mcg/actuation inhaler Inhale 2 Puffs as instructed every 4 hours as needed for wheezing/shortness of breath. cyclobenzaprine (FLEXERIL) 10 mg tablet Take 1 tablet by mouth three times a day as needed for muscle spasm. azelastine 0.1% nasal spray Use 1-2 Sprays in each nostril two times a day. As directed tacrolimus (PROTOPIC) 0.1 % ointment Apply to affected area two times a day. Apply thin layer to affected skin on forearm (area approximately 20 square centimeters). Use till rash clears. If not resolved in 6 weeks, re-evaluate. May treat other areas of eczema that occur fluticasone (FLONASE) 50 mcg/actuation nasal spray Use 2 Sprays in each nostril once daily. Use 2 sprays to each nostril one to two times daily fluticasone-salmeterol HFA (ADVAIR HFA) 230-21 mcg/actuation inhaler Inhale 2 Puffs as instructed two times a day. hydrOXYzine HCl (ATARAX) 25 mg tablet Take 1-4 tablets by mouth every 4 hours as needed for itching/rash (and allergic rhinitis). Maximum dose 400 mg per day. Cholecalciferol, Vitamin D3, 125 mcg (5,000 unit) cap Take 1 capsule by mouth once daily. cyclobenzaprine (FLEXERIL) 10 mg tablet Take 1 tablet by mouth two times a day as needed for muscle spasm. FOR PAIN OR SPASMS guaiFENesin (MUCINEX) 600 mg 12 hr tablet Take 1-2 tablets by mouth two times a day. As needed triamcinolone acetonide (KENALOG) 0.1 % ointment Apply to affected areas twice a day as needed. Avoid use on the face. Use up to 2 weeks as directed per rash recurrence hydrocortisone 2.5 % ointment Apply 1 application to affected area two times a day as needed. Avoid use on the eyelids or face. Up to 2 weeks at a time mupirocin (BACTROBAN) 2 % ointment Apply to affected area three times a day. dexmethylphenidate HCl (FOCALIN) 5 mg tablet Take 5 mg by mouth every afternoon. with 2.5mg dose Dexmethylphenidate HCl (FOCALIN) 2.5 mg tablet Take 5 mg by mouth every afternoon. with 5mg tablet diazePAM (VALIUM) 5 mg tablet Take 0.25-1 tablets by mouth two times a day as needed. ketoconazole (NIZORAL) 2 % cream Apply 1 application to affected area twice daily. Continue to use for another week after rash resolves acetaminophen-codeine (TYLENOL-COD #3) 300-30 mg per tablet Take 1-2 tablets by mouth three times daily as needed for up to 7 days. Takes up to 5 pills max per day during a flare up EPINEPHrine (EPIPEN) 0.3 mg/0.3 mL auto-injector Inject 0.3 mL intramuscularly as needed (for allergic reaction.Seek emergent medical care immediately after use. Disp:One 2-pack). acetaminophen 325 mg-caffeine 40 mg-butalbital 50 mg (FIORICET) per tablet Take 1 tablet by mouth every 6 hours as needed for Headache. (Patient not taking: Reported on 11/20/2023) diclofenac sodium (VOLTAREN) 1 % topical gel Apply 2 g to affected area four times daily. cetirizine (ZYRTEC) 10 mg tablet Take 1 tablet by mouth once daily. (Patient not taking: Reported on 09/12/2023) albuterol (PROVENTIL) 2.5 mg /3 mL (0.083 %) nebulizer solution Use 3 mL via nebulizer every 6 hours as needed for Wheezing/Shortness of Breath. 1 vial contains 3 ml. TENS Units Layne Use as directed. Copper Gluconate 5 mg Tab Take by mouth. vitamin b complex Tab Take 1 tablet by mouth once daily. multivitamin tablet Take 1 tablet by mouth once daily. CALCIUM CARBONATE/VITAMIN D3 (CALCIUM + D ORAL) Take by mouth. No current facility-administered medications for this visit. ALLERGIES Allergen Reactions Doxycycline Rash 07/13/13 Latex Rash Positive Latex Skin Test 11/29/13 Aleve [Naproxen Sod* Vomiting DIZZINESS Amitriptyline SLEEPWALKING Camel Hair Rash Celebrex [Celecoxib] Mental Status Change RAGE Chlorhexidine Rash Itching then systemic rash and trouble with breathing. Cymbalta [Duloxetin* Mental Status Change Made her angry, in a rage Darvocet A500 [Prop* Mental Status Change HALLUCINATIONS Dulera [Mometasone-* Shortness of Breath Feathers Rash Fragrances Rash Insecticides Rash Lyrica [Pregabalin] Intolerance Did not tolerate even lowest dose; did not help much; made her loopy and happy Naproxen Vomiting DIZZINESS Penicillins Rash Pollen Rash Pseudoephedrine Intolerance SPASMS of blood vesselsIN FEET Relafen [Nabumetone] Intolerance SPASMS of blood vessels IN FEET Sagebrush Rash, Itching Seasonal Allergies Other: See Comments Cats Horses Cockroach Dust mites trees (September, October and November) grasses (November and December) weeds (February, March and April) ragweed (February, March and April) Sulfa (Sulfonamide * Rash Symbicort [Budesoni* Other: See Comments Stinging/burning mouth, itchy roof of throat/palette Tramadol Hcl Intolerance States it made her dizzy and nauseated REVIEW OF SYSTEMS: As noted in HPI PHYSICAL EXAMINATION: VIDEO EXAM: (if completed, performed via video enabled technology) GENERAL: alert and appropriate, in no distress, well-hydrated, well nourished, happy, smiling, interactive, and appears anxious HEAD: normocephalic, no abnormality or lesion noted EYES: no injection and visual acuity is grossly normal RESPIRATORY: breathing non-labored NEUROLOGIC: no obvious deficit ASSESSMENT AND PLAN # Seasonal allergic rhinitis due to pollen - Symptoms exacerbated during current pollen season. - Discussed use of quercetin 500 mg orally twice daily as a natural antihistamine alternative. # Asthma with chronic obstructive pulmonary disease (COPD) ([facility]) - Increased use of albuterol inhaler due to seasonal exacerbation. - Current medication: Advair HFA 230 mcg. - Discussed potential side effects of albuterol, including muscle cramps. - Recommended increasing Advair dosage; will submit prior authorization for higher dose. - Discussed alternative treatment with Airsupra, but patient declined due to cost concerns. # Fibromyalgia - Managed with medical marijuana; difficulty finding effective strain. - Discussed potential disability application; will assist with paperwork when patient is ready. # Spasm of muscle - Experiencing muscle cramps, possibly related to increased albuterol use. - Recommended ensuring adequate hydration and electrolyte intake, including magnesium, calcium, and potassium. - Advised on stretching exercises and isometric exercises to prevent muscle shortening and cramping. # ARMANDO (generalized anxiety disorder) - Current medication: Hydroxyzine as needed; patient has sufficient supply. - Discussed patient's anxiety related to medication changes and disability application process. - Encouraged use of breathing exercises and guided imagery to manage stress and muscle tension. - Scheduled follow-up appointments to monitor and support anxiety management. Lisa Bradshaw MD documented in this encounter [facility] 01-19-2024 History of Present illness Narrative Dana Sandoval PA-C Department of Orthopaedics Orthopaedics [address] [facility] [address] Dept: [phone] Dept January 19, [address] Skye Thakur for an opinion regarding left shoulder pain. My final recommendations will be communicated back to the requesting physician by way of shared Medical record or letter to requesting physician via US mail. CHIEF COMPLAINT: New and Pain of the Left Shoulder Ms. Helena Potter is a 53 year old female who presents with pain in her left shoulder since an injury that occurred about 2 months ago. Patient was leaning over a banister when she came back over the banister she struck her shoulder on the ceiling. She was seen in urgent care and had x-rays which were normal. Pain is a deep aching throughout the clavicle region the entire shoulder and upper back area. Patient is unable to localize her pain to one area. No issues with range of motion, no weakness. Patient is right-hand dominant. She has a topical CBD cream which she has been using, she has multiple allergies some of which are NSAIDs. She tells me things are improving with time. The patient has fibromyalgia. ASSESSMENT: M19.012 Arthritis of left acromioclavicular joint (primary encounter diagnosis) M25.512 Acute pain of left shoulder M79.7 Fibromyalgia PLAN: She is difficult to examine as she is acutely tender secondary to her fibromyalgia. Exam is relatively benign. She does have some mild AC joint arthritis. I wonder if she is not having a flare of her fibromyalgia secondary to her injury. Things are getting better with time, we discussed giving it a bit more time to see if things do completely resolve on their own. Ms. Helena Potter was advised as to contrast therapies and/or to take analgesics/anti-inflammatories as needed and all contraindications were reviewed. OBJECTIVE: Ms. Helena Potter is a pleasant 53 year old in no apparent distress. Gen:LMP 02/13/2018 nl development, obese, no deformities ENT: Normocephalic, normal hearing, moist mucosa CV: Pulses:Radial= 2+ and symmetric, capillary refill < 2 secs, no peripheral edema/varicosities Skin: no rash, bruising or lesions. Good turgor. Psych: cooperative and appropriate, alert and oriented x 3, good mood and affect. Musculoskeletal: Supple range of motion of the cervical spine without pain. Spurling signs are negative. No atrophy of the deltoid and shoulder musculature. Left shoulder is tender to palpation over the SC joint, clavicle and AC joint. Positive tenderness to palpation over the posterior shoulder, tender at the anterior lateral corner of the shoulder and greater tuberosity. Tender at the bicipital groove and coracoid. Active range of motion is 155 degrees of forward elevation, 60 degrees external rotation, and internal rotation to the upper lumbar spine. Passive range of motion is 165 degrees, 65 degrees, respectively. No laxity with anterior and posterior stress. Negative Neer and negative Lentz impingement signs. 5/5 strength with supraspinatus, infraspinatus and subscapularis. Sensation is intact in the axillary, radial, median and ulnar nerve distribution Imaging: IMPRESSION: No acute osseous abnormalities are identified. Oncology Social Worker: [facility] Transcribe Date/Time: Nov 20 2023 7:09P Dictated by : BAILEE ISBELL MD This examination was interpreted and the report reviewed and electronically signed by: BAILEE ISBELL MD on Nov 20 2023 7:10PM EST Results-Findings * * *Final Report* * * DATE OF EXAM: Nov 20 2023 5:23PM WOX 5252 - XR SHLDR >/=3V AP/VELMA AP/OTHR LT / PROCEDURE REASON: Acute pain of left shoulder * * * * Physician Interpretation * * * * LEFT SHOULDER X-RAY SERIES HISTORY: Acute pain of left shoulder TECHNIQUE: AP, Grashey, and axillary view COMPARISON: None available. RESULT: No fracture, dislocation or destructive changes. AC joint degenerative changes. Supporting Subjective Information Below: Past Surgical History: PAST SURGICAL HISTORY Procedure Laterality Date APPENDECTOMY DELIVERY ONLY 08/2010 , low transverse PAST SURGICAL HISTORY OF RIGHT FOOT Medications: Current Outpatient Medications Medication Sig albuterol HFA (VENTOLIN HFA) 90 mcg/actuation inhaler Inhale 2 Puffs as instructed every 4 hours as needed for wheezing/shortness of breath. azelastine 0.1% nasal spray Use 1-2 Sprays in each nostril two times a day. As directed tacrolimus (PROTOPIC) 0.1 % ointment Apply to affected area two times a day. Apply thin layer to affected skin on forearm (area approximately 20 square centimeters). Use till rash clears. If not resolved in 6 weeks, re-evaluate. May treat other areas of eczema that occur fluticasone (FLONASE) 50 mcg/actuation nasal spray Use 2 Sprays in each nostril once daily. Use 2 sprays to each nostril one to two times daily fluticasone-salmeterol HFA (ADVAIR HFA) 230-21 mcg/actuation inhaler Inhale 2 Puffs as instructed two times a day. hydrOXYzine HCl (ATARAX) 25 mg tablet Take 1-4 tablets by mouth every 4 hours as needed for itching/rash (and allergic rhinitis). Maximum dose 400 mg per day. Cholecalciferol, Vitamin D3, 125 mcg (5,000 unit) cap Take 1 capsule by mouth once daily. cyclobenzaprine (FLEXERIL) 10 mg tablet Take 1 tablet by mouth two times a day as needed for muscle spasm. FOR PAIN OR SPASMS triamcinolone acetonide (KENALOG) 0.1 % ointment Apply to affected areas twice a day as needed. Avoid use on the face. Use up to 2 weeks as directed per rash recurrence hydrocortisone 2.5 % ointment Apply 1 application to affected area two times a day as needed. Avoid use on the eyelids or face. Up to 2 weeks at a time mupirocin (BACTROBAN) 2 % ointment Apply to affected area three times a day. dexmethylphenidate HCl (FOCALIN) 5 mg tablet Take 5 mg by mouth every afternoon. with 2.5mg dose Dexmethylphenidate HCl (FOCALIN) 2.5 mg tablet Take 5 mg by mouth every afternoon. with 5mg tablet diazePAM (VALIUM) 5 mg tablet Take 0.25-1 tablets by mouth two times a day as needed. methylphenidate LA (RITALIN LA) 20 mg biphasic capsule Take 20 mg by mouth every morning. ketoconazole (NIZORAL) 2 % cream Apply 1 application to affected area twice daily. Continue to use for another week after rash resolves diclofenac sodium (VOLTAREN) 1 % topical gel Apply 2 g to affected area four times daily. Copper Gluconate 5 mg Tab Take by mouth. vitamin b complex Tab Take 1 tablet by mouth once daily. multivitamin tablet Take 1 tablet by mouth once daily. CALCIUM CARBONATE/VITAMIN D3 (CALCIUM + D ORAL) Take by mouth. cyclobenzaprine (FLEXERIL) 10 mg tablet Take 1 tablet by mouth three times a day as needed for muscle spasm. guaiFENesin (MUCINEX) 600 mg 12 hr tablet Take 1-2 tablets by mouth two times a day. As needed acetaminophen-codeine (TYLENOL-COD #3) 300-30 mg per tablet Take 1-2 tablets by mouth three times daily as needed for up to 7 days. Takes up to 5 pills max per day during a flare up EPINEPHrine (EPIPEN) 0.3 mg/0.3 mL auto-injector Inject 0.3 mL intramuscularly as needed (for allergic reaction.Seek emergent medical care immediately after use. Disp:One 2-pack). acetaminophen 325 mg-caffeine 40 mg-butalbital 50 mg (FIORICET) per tablet Take 1 tablet by mouth every 6 hours as needed for Headache. (Patient not taking: Reported on 11/20/2023) cetirizine (ZYRTEC) 10 mg tablet Take 1 tablet by mouth once daily. (Patient not taking: Reported on 09/12/2023) albuterol (PROVENTIL) 2.5 mg /3 mL (0.083 %) nebulizer solution Use 3 mL via nebulizer every 6 hours as needed for Wheezing/Shortness of Breath. 1 vial contains 3 ml. TENS Units Layne Use as directed. No current facility-administered medications for this visit. Allergies: Doxycycline, Latex, Aleve [Naproxen Sodium], Amitriptyline, Camel Hair, Celebrex [Celecoxib], Chlorhexidine, Cymbalta [Duloxetine], Darvocet A500 [Propoxyphene N-Acetaminophen], Dulera [Mometasone-Formoterol], Feathers, Fragrances, Insecticides, Lyrica [Pregabalin], Naproxen, Penicillins, Pollen, Pseudoephedrine, Relafen [Nabumetone], Sagebrush, Seasonal Allergies, Sulfa (Sulfonamide Antibiotics), Symbicort [Budesonide-Formoterol], and Tramadol Hcl ROS: General (negative for fatigue, malaise, weight loss/gain) HEENT (negative for headache, earache, recent vision changes, sinus pain, sore throat) Respiratory (no recent shortness of breath, hemoptysis) CV (negative for chest tightness, palpitations) Musculoskeletal (see HPI) Psych (no depression, anxiety) This note was partially generated using [employer] voice recognition system, and there may be some incorrect words, spellings, and punctuation that were not noted in checking the note before saving. Dana Sandoval PA-C AMB ROOMING INTAKE FLOWSHEET DATA Pain Pain Level: (unable to rate) Pain Location: Shoulder-Left Description: Aching, Other: See comment (bruised) Duration Amount of Time: 2 Duration Units: Months Frequency: Continuous Intervention/Comfort measure: Exercise, Cold Patient here today for left shoulder pain x 2 months. States that she was leaning over the stairs talking and when she came back up she hit her shoulder on the ceiling. She was seen at Urgent Care about a month after the injury and they gave her prednisone. She reports some relief with that. She is right hand dominant. Does not work outside the home. documented in this encounter [facility] 01-13-2024 History of Present illness Narrative Program_ID:[id number] Access Code: [email or web address] URL: [email or web address] Date: 01-13-2024 Prepared By: Junito Rice Program Notes Exercises - Upper Trapezius Stretch - 2 x daily - 5-7 x weekly - 2-3 sets - reps - Seated Levator Scapulae Stretch - 2 x daily - 5-7 x weekly - 2-3 sets - reps - Supine Chin Tuck - 2 x daily - 5-7 x weekly - 2 sets - 10 reps - Seated Cervical Retraction - 2 x daily - 5-7 x weekly - 2 sets - 10 reps - Doorway Pec Stretch at 60 Degrees Abduction with Arm Straight - 2 x daily - 5-7 x weekly - 2-3 sets - reps - Seated Scapular Retraction - 2 x daily - 5-7 x weekly - 2 sets - 10 reps - Supine Shoulder Horizontal Abduction with Resistance - 1-2 x daily - 5-7 x weekly - 2 sets - 10 reps - Supine Shoulder External Rotation with Resistance - 1-2 x daily - 5-7 x weekly - 2 sets - 10 reps - Single Arm Scaption with Dumbbell - 1-2 x daily - 5-7 x weekly - 2 sets - 8-10 reps - Seated Shoulder Abduction Towel Slide at Table Top - 1 x daily - 7 x weekly - 2 sets - 10 reps - Seated Shoulder Flexion Towel Slide at Table Top - 1 x daily - 7 x weekly - 2 sets - 10 reps Episode Visit Count: 3 Therapist That Will Accept/Oversee The Plan Of Care: Junito Rice PT Start of Care Date: 12/04/23 Onset Date: 11/13/23 Plan of Care Certification Date: 01/09/24 Next Certification Due Date: 03/05/24 Patient Identified by Name and Date of : Yes REHABILITATION AND SPORTS THERAPY PHYSICAL THERAPY TREATMENT NOTE ASSESSMENT: Helena Potter tolerated the session with decreased activity tolerance due to increased pain due to fibromyalgia, fatigue, and expected muscle soreness. She demonstrated difficulty with AAROM flexion of L shoulder . The patient will continue to benefit from ongoing skilled physical therapy to progress toward set goals. PLAN FOR NEXT VISIT: Continue with exercises per tolerance. SUBJECTIVE: Pt reports that her L shoulder is hurting a lot due to the rain. She states that her whole body is hurting. Pain is severely limiting what she can do, reached for door knob and regretted it. 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 Pt feels her AROM with ER has decreased Pain: Pain Pain Level: (no value given, states pain scales are hard when you are in chronic pain.) Pain Location: Shoulder - Left Post Treatment Pain Post Treatment Pain Level: No Change Post Treatment Pain Location: Shoulder - Left OBJECTIVE MEASURES WITH LEVEL OF FUNCTION: Very hesitant with moving her L shoulder today. TREATMENT: Therapeutic Exercise: 1: Supine chin tuck x 6 (unable to complete more reps) 2: Supine B ER: 1x10 No resistance. 3: Supine wand AAROM press x4 (discontinued due to pain) 4: Supine wand AAROM flexion x 2 (discontinued due to pain) 5: *Seated table slides for flexion x 5 6: *Seated table slide for abduction-shown for HEP, but pt did not perform in clinic Skilled Intervention: Patient was educated in proper exercise technique and purpose for exercises. Reviewed and educated patient on additions/changes for home exercise program as above (*). Skilled judgment was used in selection of appropriate interventions. Provided written instruction for home exercise program to facilitate proper performance and compliance. Correct performance of therapeutic exercises was facilitated with verbal and visual cuing. Billing Therapeutic Exercise Treatment Minutes: 33 Skilled Treatment Time Minutes (timed and untimed codes): 33 Total Session Time (minutes): 33 Session Start Time : 1315 Session Stop Time : 1348 ARACELI Porras PT documented in this encounter [facility] 01-06-2024 History of Present illness Narrative Program_ID:[id number] Access Code: [email or web address] URL: [email or web address] Date: 01-06-2024 Prepared By: Junito Rice Program Notes Exercises - Upper Trapezius Stretch - 2 x daily - 5-7 x weekly - 2-3 sets - reps - Seated Levator Scapulae Stretch - 2 x daily - 5-7 x weekly - 2-3 sets - reps - Supine Chin Tuck - 2 x daily - 5-7 x weekly - 2 sets - 10 reps - Seated Cervical Retraction - 2 x daily - 5-7 x weekly - 2 sets - 10 reps - Doorway Pec Stretch at 60 Degrees Abduction with Arm Straight - 2 x daily - 5-7 x weekly - 2-3 sets - reps - Seated Scapular Retraction - 2 x daily - 5-7 x weekly - 2 sets - 10 reps - Supine Shoulder Horizontal Abduction with Resistance - 1-2 x daily - 5-7 x weekly - 2 sets - 10 reps - Supine Shoulder External Rotation with Resistance - 1-2 x daily - 5-7 x weekly - 2 sets - 10 reps - Single Arm Scaption with Dumbbell - 1-2 x daily - 5-7 x weekly - 2 sets - 8-10 reps Images from the original note were not included. Episode Visit Count: 2 Therapist That Will Accept/Oversee The Plan Of Care: Junito Rice PT Start of Care Date: 12/04/23 Onset Date: 11/13/23 Plan of Care Certification Date: 01/09/24 Next Certification Due Date: 03/05/24 Patient Identified by Name and Date of : Yes REHABILITATION AND SPORTS THERAPY PHYSICAL THERAPY PROGRESS REPORT PLAN OF CARE UPDATE: Assessment: Helena Potter reports minor progress in symptom reduction and mild improved condition overall. Currently, she demonstrates no improvement in objective findings. She is progressing toward goals as able. Patient continues to present with impairments in ADL's/IADLs, independence in exercise, overall function, posture, strength, stress management, symptom management, and tissue tenderness that interfere with pulling, pushing, carrying, use hand with arm at shoulder level, reaching overhead, reaching behind back, physical activities (Any Movement in Any Direction per patient.) . Due to the recent decline in health of her father (hospice) -- she is now dealing with increased physical and emotional barriers with helping care for her father at home. Current prognosis is Fair due to: clinical presentation, limited tolerance to activity, Prognosis may be improved by (Fibromyalgia.) acuteness of injury, positive past response to therapy, within-session changes. She will benefit from continued skilled therapy services to meet the updated goals for this plan of care as noted below. Updated: 01/07/24. Goals for Episode of Care: created on 12/04/23 through 02/11/24 Patient reported outcome of physical function will increase T-score by a minimum 5 points. (Goal Dismissed, Patient Unable to complete PROMIS d/t anxiety attack). Louisa in home exercise program. (MET per patient, continuing) Patient will decrease pain rating by 2 points to meet minimal clinical important difference for numeric pain rating scale. (Progressing) Perform gross L shoulder movement with decreased report of symptoms/pain in 6 weeks. (Progressing) Restore pain free cervical ROM to WNL to allow for improved ADL/IADLs. Pt will demo left upper extremity strength of 5/5 on MMT & = to RUE for return to prior level of function (Progressing) Decreased gross tissue tenderness in left upper extremity/L Neck. (Progressing) Patient Goals: Return to PLOF. Planned Interventions, Frequency, and Duration: 1x/week (Patient to complete 4 more weeks before new f/u order placed. Patient had a delay in authorization to get a 2nd appt following eval.), 4 weeks Total Number of Visits Planned: 4 Patient to be seen for Therapeutic exercise (43381), Neuromuscular re-education (16728), Manual therapy (93166), Therapeutic activities (67259), Self-snf management (06477), Patient/Family/Caregiver Education, Body Mechanics Training PLAN FOR NEXT VISIT: gentle Manual PRN, scap strengthening as able. SUBJECTIVE: Patient reports recent hospital visit and now on hospice; having a lot to deal with emotionally/mentallly and that is affecting her physically. Notes pain today is at the L Shoulder joint itself and working into the periscap area. Ortho visit coming up for the shoulder. Reports when she does to much exercise/activity of the L Shoulder, she can get pain going proximal neck and into the jaw line. Functional Limitations: pulling, pushing, carrying, use hand with arm at shoulder level, reaching overhead, reaching behind back, physical activities (Any Movement in Any Direction per patient.) Pain: Pain Pain Level: (Patient denies using the pain scale to state her pain.) Pain Location: Shoulder - Left Description: Aching Post Treatment Pain Post Treatment Pain Level: No Change Post Treatment Pain Location: Shoulder - Left PROMIS Scales 12/04/2023 Higher is Better Phys Func - Score 41 (mild dysfunction) Phys Func - Percentile 18 Self-Eff Symptom - Score 45 (Average) Self-Eff Symptom - Percentile 31 T-scores: mean of general population = 50. 5 points is clinically meaningfully difference Percentiles provide an indication of how the patient's score ranks in relation to the general population. Higher percentile rankings indicate better function/quality of life. 50th percentile is the average of the general population and indicates half of respondents had a worse score. OBJECTIVE MEASURES WITH LEVEL OF FUNCTION: Posture / Alignment Posture: Forward head, Rounded shoulders Shoulder Observations L Shoulder Palpation Tenderness: Trapezius, Supraspinatus, Infraspinatus, Comments L Shoulder Palpation Tenderness Comments: Lat Dorsi. Cervical Spine ROM Cervical Flexion AROM: Normal, Increased pain Cervical Extension AROM: Normal Cervical Side-Bend Right AROM: Minimal limitation Cervical Side-Bend Left AROM: Minimal limitation Cervical Rotation Right AROM: Minimal limitation Cervical Rotation Left AROM: Minimal limitation, Increased pain UE AROM L UE AROM: WNL for motion when compared bilat. However, increased pain with movement. UE and Cervical Strength L UE Strength: Grossly 3+/5, Limited due to pain. Pt. needed time following examining motion to recover. (Increased pain with shoulder flexion & ext, ER, IR, elbow flexion, horz. abd.) Special Tests - Shoulder Empty Can: Left Positive Lentz-Alejo: Left Positive TREATMENT: Therapeutic Exercise: 1: Reassessment per above, discussed goals, prior HEP, current symptoms and progress so far. 2: Supine Chin Tucks: 1x5, 5-sec hold 3: *Supine Horz ABD: 1x10, no resistance. 4: *Supine B ER: 1x10 No resistance. 5: *Standing LUE Scaption: 1x10, no resistance. 6: Supine B Flexion Raises: 1x5, discontinued due to pain. 7: Discussed purpose of the HEP; New HEP handout was provided to the pt with NEW exercises added as well as the old; HEP discussed in detail with how to safely and properly perform each therapeutic exercise. Skilled Intervention: Patient was educated in proper exercise technique and purpose for exercises. Reviewed and educated patient on additions/changes for home exercise program as above (*). Skilled judgment was used in selection of appropriate interventions. Provided written instruction for home exercise program to facilitate proper performance and compliance. Correct performance of therapeutic exercises was facilitated with verbal, visual, and tactile cuing. Manual Therapy: 1: Active Release to L Lat Dorsi: Push to tolerance. 2: Gentle STM with hands to L Lat Dorsi & L UT: Push to patient tolerance. Skilled Intervention: Manual skills to improve joint mobility, ROM, and decrease pain. Utilized anatomy knowledge of the therapist, and assessment of patient's response to intervention. Billing Therapeutic Exercise Treatment Minutes: 28 Manual TherapyTreatment Minutes: 15 Skilled Treatment Time Minutes (timed and untimed codes): 43 Total Session Time (minutes): 43 Session Start Time : 1502 Session Stop Time : 1545 Junito Rice PT documented in this encounter [facility] 01-02-2024 Telephone encounter Note Prescription Refill Information The patient has been identified by name and date of : Yes Caregiver verified no other encounters exist for this prescription request: Yes Caregiver confirmed with patient/requestor that no other refills are due, in the near future, with this provider at this time: Yes The last office visit in the department: 12-03-23 Does the patient have a future office visit with this provider/department: Yes Requested Prescriptions Pending Prescriptions Disp Refills albuterol HFA (VENTOLIN HFA) 90 mcg/actuation inhaler 18 g 3 Sig: Inhale 2 Puffs as instructed every 4 hours as needed for wheezing/shortness of breath. Mervat Schaffer January 02, 2024 9:53 AM [facility] Work Phone: 01-02-2024 Miscellaneous Notes Prescription Refill Information The patient has been identified by name and date of : Yes Caregiver verified no other encounters exist for this prescription request: Yes Caregiver confirmed with patient/requestor that no other refills are due, in the near future, with this provider at this time: Yes The last office visit in the department: 12-03-23 Does the patient have a future office visit with this provider/department: Yes Requested Prescriptions Pending Prescriptions Disp Refills albuterol HFA (VENTOLIN HFA) 90 mcg/actuation inhaler 18 g 3 Sig: Inhale 2 Puffs as instructed every 4 hours as needed for wheezing/shortness of breath. Mervat Schaffer January 02, 2024 9:53 AM documented in this encounter [facility] 12-04-2023 History of Present illness Narrative Program_ID:[id number] Access Code: [email or web address] URL: [email or web address] Date: 12-04-2023 Prepared By: Junito Rice Program Notes Exercises - Upper Trapezius Stretch - 2 x daily - 5-7 x weekly - 2-3 sets - reps - Seated Levator Scapulae Stretch - 2 x daily - 5-7 x weekly - 2-3 sets - reps - Supine Chin Tuck - 2 x daily - 5-7 x weekly - 2 sets - 10 reps - Seated Cervical Retraction - 2 x daily - 5-7 x weekly - 2 sets - 10 reps - Doorway Pec Stretch at 60 Degrees Abduction with Arm Straight - 2 x daily - 5-7 x weekly - 2-3 sets - reps - Seated Scapular Retraction - 2 x daily - 5-7 x weekly - 2 sets - 10 reps Images from the original note were not included. Episode Visit Count: 1 Therapist That Will Accept/Oversee The Plan Of Care: Junito Rice PT Start of Care Date: 12/04/23 Onset Date: 11/13/23 Plan of Care Certification Date: 12/04/23 Next Certification Due Date: 01/09/24 Patient Identified by Name and Date of : Yes REHABILITATION AND SPORTS THERAPY PHYSICAL THERAPY EVALUATION PLAN OF CARE: Assessment: Helena Potter presents with chief complaint of L Shoulder and Neck Pain that interferes with pulling, pushing, carrying, use hand with arm at shoulder level, reaching overhead, reaching behind back, physical activities (Any Movement in Any Direction per patient.) . She presents with impairments in ADL's, independence in exercise, overall function, posture, strength, stress management, symptom management, and tissue tenderness. PROMIS (Patient-Reported Outcomes Measurement Information System) scores were reviewed and identified as a rehabilitation concern. Prognosis for therapy is Fair due to: clinical presentation, limited tolerance to activity, Prognosis may be improved by (Fibromyalgia.) acuteness of injury, positive past response to therapy, within-session changes.She will benefit from skilled therapy services to meet the goals established for this plan of care as noted below. Goals for Episode of Care: created on 12/04/23 through 01/08/24 Patient reported outcome of physical function will increase T-score by a minimum 5 points. [place] in home exercise program. Patient will decrease pain rating by 2 points to meet minimal clinical important difference for numeric pain rating scale. Perform gross L shoulder movement with decreased report of symptoms/pain in 6 weeks. Restore pain free cervical ROM to WNL to allow for improved ADL/IADLs. Pt will demo left upper extremity strength of 5/5 on MMT & = to RUE for return to prior level of function Decreased gross tissue tenderness in left upper extremity/L Neck. Patient Goals: Return to PLOF. Planned Interventions, Frequency, and Duration: Current Frequency: 1x/week Duration: 5 weeks Total Number of Visits Planned: 5 Planned Treatment Interventions: Therapeutic exercise (47890), Neuromuscular re-education (15776), Manual therapy (71188), Therapeutic activities (01051), Self-snf management (63581), Patient/Family/Caregiver Education, Body Mechanics Training PLAN FOR NEXT VISIT: Assess and review HEP; manual PRN; scapular strengthening. Patient demonstrates good understanding of plan of care and treatment. The above goals and plan of care were discussed and agreed upon by patient/family. SUBJECTIVE: Patient reports hitting the top of her shoulder on the ceiling injury 3-weeks ago; first started out as localized pain to the L Shoulder and then started referring down the arm. Localized pain in the L Shoulder is more of a strain/achy type pain. Notes N/T, cramping down the LUE intermittently. The more she uses the arm throughout the day the worse it gets. Pain is continous. Patient Goals: Return to PLOF. Functional Limitations: pulling, pushing, carrying, use hand with arm at shoulder level, reaching overhead, reaching behind back, physical activities (Any Movement in Any Direction per patient.) Prior Level of Function: Independent without limitations Relevant History Past Relevant Medical Conditions: Fibromyalgia (See Note.) Right or Left Handed: Right Intake Information: Prescription present Previous Treatment: Steroids , Muscle relaxer PAST MEDICAL HISTORY Diagnosis Date Abnormal glandular Papanicolaou smear of cervix Abn. Pap smear (cervix) ADHD (attention deficit hyperactivity disorder) 07/29/2013 Atherosclerosis of abdominal aorta (HCC) 02/19/2012 <70% stenosisof celiac and superior mesenteric arteries; <60% stenosis of bilateral renal arteries COPD (chronic obstructive pulmonary disease) (HCC) Degenerative disc disease lumbar Dysthymic disorder Depression (non-psychotic). 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 TO 03/24/14 Pain: Pain Pain Level: (Patient denies using the pain scale to state her pain.) Pain Location: Shoulder - Left Description: Aching Post Treatment Pain Post Treatment Symptoms: Patient reports increased pain following evaluation of shoulder motion and strength, however some relief with exercises given and notes she is happy PT didn't push her to go to pain limits. PROMIS Scales 12/04/2023 Higher is Better Phys Func - Score 41 (mild dysfunction) Phys Func - Percentile 18 Self-Eff Symptom - Score 45 (Average) Self-Eff Symptom - Percentile 31 T-scores: mean of general population = 50. 5 points is clinically meaningfully difference Percentiles provide an indication of how the patient's score ranks in relation to the general population. Higher percentile rankings indicate better function/quality of life. 50th percentile is the average of the general population and indicates half of respondents had a worse score. OBJECTIVE MEASURES WITH LEVEL OF FUNCTION: Posture / Alignment Posture: Forward head, Rounded shoulders Shoulder Observations L Shoulder Palpation Tenderness: (Gross Tenderness: Increased tenderness with RC Muscles (supra and infra patient needed time to recover from palpation), Lat Dorsi and Upper Trap.) Cervical Spine ROM Cervical ROM : Limitation AROM Cervical Flexion AROM: Normal, Increased pain Cervical Extension AROM: Normal Cervical Side-Bend Right AROM: Normal Cervical Side-Bend Left AROM: Normal Cervical Rotation Right AROM: Normal Cervical Rotation Left AROM: Minimal limitation, Increased pain UE AROM R UE AROM: WNL L UE AROM: WNL for motion when compared bilat. However, increased pain with movement. Pt. needed time following examining motion to recover. UE and Cervical Strength Strength Tested: Shoulder All R UE Strength: Grossly 5/5 L UE Strength: Grossly 3+/5, Limited due to pain. Pt. needed time following examining motion to recover. (Increased pain with shoulder flexion & ext, ER, IR, elbow flexion, horz. abd.) Special Tests - Shoulder Shoulder Special Tests: Lentz-Alejo, Empty Can Empty Can: Left Positive Lentz-Alejo: Left Positive Education: Education Learning/educational needs: Health promotion, Safety, Home exercise program, Plan of Care, Posture, Body Mechanics TREATMENT: PT Treatment Interventions: Therapeutic Exercise, Manual Therapy Evaluation Therapeutic Exercise: 1: *L Levator Stretch: 1x30 2: *L UT Stretch: 1x30. (L Arm behind back w/ right pull, SB neck to R.) 3: *L Pec Stretch <50deg abd: 2x30. (Patient with most relief during this stretch.) 4: *Supine Chin Tucks: 1x8., 5-sec hold 5: *Scapular Squeeze and Seated C/S Retraction given this date for HEP as well. 6: Trialed rows, overhead UT stretch, rhomboid stretch, pec stretch at 90deg - all discontinued due to pain. 7: Discussed therapy goals, exercise purpose, HEP handout provided. Discussed exam findings and treatment options going forward. Pt was advised to stop any exercise or activity that causes increased pain. Skilled Intervention: Patient was educated in proper exercise technique and purpose for exercises. Reviewed and educated patient on additions/changes for home exercise program as above (*). Skilled judgment was used in selection of appropriate interventions. Provided written instruction for home exercise program to facilitate proper performance and compliance. Correct performance of therapeutic exercises was facilitated with verbal, visual, and tactile cuing. Manual Therapy: 1: Cervical Distraction: x3 Min - discontinued due to patient report of increasing UT pain and sxs down the L arm. 2: STM to L Lat Dorsi (@ inferior angle of the scapula and insertion point), L UT, Subscapularis, Suboccipitals: Push to patient tolerance. (Increased pain with LUT.) 3: Active Release to L Subscap: Push to tolerance. Skilled Intervention: Manual skills to improve joint mobility, ROM, and decrease pain. Utilized anatomy knowledge of the therapist, and assessment of patient's response to intervention. Billing * Evaluation Low Complexity: 1 Unit Therapeutic Exercise Treatment Minutes: 10 Manual TherapyTreatment Minutes: 15 Skilled Treatment Time Minutes (timed and untimed codes): 45 Total Session Time (minutes): 45 Session Start Time : 1200 Session Stop Time : 1245 Junito Rice PT documented in this encounter [facility] 12-03-2023 History of Present illness Narrative VIRTUAL VISIT PROGRESS NOTE This is a virtual visit using MyChart Zoom Video Visit. It required patient-provider interaction for the medical decision making as documented below. I have communicated my name and active licensure. The patient's identity and physical location were verified at the time of this visit. Either the patient or their legal medical field representative has been informed of the risks and benefits of -- and alternatives to -- treatment through a remote evaluation and consents to proceed with the evaluation remotely. Helena Potter is a 53 year old female seen for follow up. Bad allergies now. Atarax and Mucinex and nasal steroid Needing albuterol more.Using Advair. Issues with basement and water leaking. Was doing well with medical marijuana till recently not able to get strain that has helped her allergies. Let shoulder pain--getting worse. Starts PT tomorrow. Stood up quickly and hit shoulder. Was just at joint at first; now pain spread out. Better when first gets up in AM. Any movement makes it worse. Ice helps. Steroid helped at first but with taper from 4 to 2 pills pain got worse. HISTORY REVIEWED (electronic chart updated): PAST MEDICAL HISTORY Diagnosis Date Abnormal glandular Papanicolaou smear of cervix Abn. Pap smear (cervix) ADHD (attention deficit hyperactivity disorder) 07/29/2013 Atherosclerosis of abdominal aorta ([facility]) 02/19/2012 <70% stenosisof celiac and superior mesenteric arteries; <60% stenosis of bilateral renal arteries COPD (chronic obstructive pulmonary disease) ([facility]) Degenerative disc disease lumbar Dysthymic disorder Depression (non-psychotic). 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 TO 03/24/14 PAST SURGICAL HISTORY Procedure Laterality Date APPENDECTOMY DELIVERY ONLY 08/2010 , low transverse PAST SURGICAL HISTORY OF RIGHT FOOT FAMILY HISTORY Problem Relation Age of Onset Alcohol/Drug Paternal Grandfather Arthritis Maternal Grandmother Arthritis Mother Cancer Paternal Grandfather Cancer Father prostate and bladder Diabetes Father Diabetes Maternal Grandfather Emphysema Maternal Grandfather Emphysema Paternal Uncle Heart Father Hypertension Father Hypertension Paternal Uncle Lipids Father Lipids Paternal Grandmother Lipids Paternal Uncle Lipids Brother Lipids Paternal Uncle Thyroid Paternal Grandmother Emphysema Maternal Grandmother Social History Tobacco Use Smoking status: Every Day Packs/day: 1.30 Years: 25.00 Additional pack years: 0.00 Total pack years: 32.50 Types: Cigarettes Start date: 03/24/1989 Smokeless tobacco: Never Tobacco comments: Parents smoked in childhood home. Ex-spouse was smoker. Substance Use Topics Alcohol use: Yes Comment: Occasionally, but not when . Drug use: Yes Types: Marijuana Comment: uses medical Current Outpatient Medications Medication Sig predniSONE (DELTASONE) 10 mg tablet Take 4 tabs daily for 3 days, then 2 tabs daily for 3 days, then 1 tab daily for 3 days with food. cyclobenzaprine (FLEXERIL) 10 mg tablet Take 1 tablet by mouth three times a day as needed for muscle spasm. azelastine 0.1% nasal spray Use 1-2 Sprays in each nostril two times a day. As directed tacrolimus (PROTOPIC) 0.1 % ointment Apply to affected area two times a day. Apply thin layer to affected skin on forearm (area approximately 20 square centimeters). Use till rash clears. If not resolved in 6 weeks, re-evaluate. May treat other areas of eczema that occur fluticasone (FLONASE) 50 mcg/actuation nasal spray Use 2 Sprays in each nostril once daily. Use 2 sprays to each nostril one to two times daily fluticasone-salmeterol HFA (ADVAIR HFA) 230-21 mcg/actuation inhaler Inhale 2 Puffs as instructed two times a day. albuterol HFA (VENTOLIN HFA) 90 mcg/actuation inhaler Inhale 2 Puffs as instructed every 4 hours as needed for wheezing/shortness of breath. hydrOXYzine HCl (ATARAX) 25 mg tablet Take 1-4 tablets by mouth every 4 hours as needed for itching/rash (and allergic rhinitis). Maximum dose 400 mg per day. Cholecalciferol, Vitamin D3, 125 mcg (5,000 unit) cap Take 1 capsule by mouth once daily. cyclobenzaprine (FLEXERIL) 10 mg tablet Take 1 tablet by mouth two times a day as needed for muscle spasm. FOR PAIN OR SPASMS guaiFENesin (MUCINEX) 600 mg 12 hr tablet Take 1-2 tablets by mouth two times a day. As needed triamcinolone acetonide (KENALOG) 0.1 % ointment Apply to affected areas twice a day as needed. Avoid use on the face. Use up to 2 weeks as directed per rash recurrence hydrocortisone 2.5 % ointment Apply 1 application to affected area two times a day as needed. Avoid use on the eyelids or face. Up to 2 weeks at a time mupirocin (BACTROBAN) 2 % ointment Apply to affected area three times a day. dexmethylphenidate HCl (FOCALIN) 5 mg tablet Take 5 mg by mouth every afternoon. with 2.5mg dose Dexmethylphenidate HCl (FOCALIN) 2.5 mg tablet Take 5 mg by mouth every afternoon. with 5mg tablet diazePAM (VALIUM) 5 mg tablet Take 0.25-1 tablets by mouth two times a day as needed. methylphenidate LA (RITALIN LA) 20 mg biphasic capsule Take 20 mg by mouth every morning. ketoconazole (NIZORAL) 2 % cream Apply 1 application to affected area twice daily. Continue to use for another week after rash resolves acetaminophen-codeine (TYLENOL-COD #3) 300-30 mg per tablet Take 1-2 tablets by mouth three times daily as needed for up to 7 days. Takes up to 5 pills max per day during a flare up EPINEPHrine (EPIPEN) 0.3 mg/0.3 mL auto-injector Inject 0.3 mL intramuscularly as needed (for allergic reaction.Seek emergent medical care immediately after use. Disp:One 2-pack). acetaminophen 325 mg-caffeine 40 mg-butalbital 50 mg (FIORICET) per tablet Take 1 tablet by mouth every 6 hours as needed for Headache. (Patient not taking: Reported on 11/20/2023) diclofenac sodium (VOLTAREN) 1 % topical gel Apply 2 g to affected area four times daily. cetirizine (ZYRTEC) 10 mg tablet Take 1 tablet by mouth once daily. (Patient not taking: Reported on 09/12/2023) albuterol (PROVENTIL) 2.5 mg /3 mL (0.083 %) nebulizer solution Use 3 mL via nebulizer every 6 hours as needed for Wheezing/Shortness of Breath. 1 vial contains 3 ml. TENS Units Layne Use as directed. Copper Gluconate 5 mg Tab Take by mouth. vitamin b complex Tab Take 1 tablet by mouth once daily. multivitamin tablet Take 1 tablet by mouth once daily. CALCIUM CARBONATE/VITAMIN D3 (CALCIUM + D ORAL) Take by mouth. No current facility-administered medications for this visit. ALLERGIES Allergen Reactions Doxycycline Rash 07/13/13 Latex Rash Positive Latex Skin Test 11/29/13 Aleve [Naproxen Sod* Vomiting DIZZINESS Amitriptyline SLEEPWALKING Camel Hair Rash Celebrex [Celecoxib] Mental Status Change RAGE Chlorhexidine Rash Itching then systemic rash and trouble with breathing. Cymbalta [Duloxetin* Mental Status Change Made her angry, in a rage Darvocet A500 [Prop* Mental Status Change HALLUCINATIONS Dulera [Mometasone-* Shortness of Breath Feathers Rash Fragrances Rash Insecticides Rash Lyrica [Pregabalin] Intolerance Did not tolerate even lowest dose; did not help much; made her loopy and happy Naproxen Vomiting DIZZINESS Penicillins Rash Pollen Rash Pseudoephedrine Intolerance SPASMS of blood vesselsIN FEET Relafen [Nabumetone] Intolerance SPASMS of blood vessels IN FEET Sagebrush Rash, Itching Seasonal Allergies Other: See Comments Cats Horses Cockroach Dust mites trees (September, October and November) grasses (November and December) weeds (February, March and April) ragweed (February, March and April) Sulfa (Sulfonamide * Rash Symbicort [Budesoni* Other: See Comments Stinging/burning mouth, itchy roof of throat/palette Tramadol Hcl Intolerance States it made her dizzy and nauseated REVIEW OF SYSTEMS: As noted in HPI PHYSICAL EXAMINATION: VIDEO EXAM: (if completed, performed via video enabled technology) GENERAL: alert and appropriate, in no distress, well-hydrated, well nourished, and happy, smiling, interactive HEAD: normocephalic, no abnormality or lesion noted RESPIRATORY: breathing non-labored Encounter Diagnosis ICD-10-CM 1. Acute pain of left shoulder M25.512 predniSONE (DELTASONE) 10 mg tablet Will treat with prednisone. Starting PT. Follow up with ortho as needed 2. Non-seasonal allergic rhinitis due to pollen J30.1 predniSONE (DELTASONE) 10 mg tablet See if improved with prednisone. Continue preset of usual meds for allergies. Photogrammetric Surveyor as needed 3. ARMANDO (generalized anxiety disorder) F41.1 Attributes not being as well controlled with not having medical marijuana.Continue following with psychiatry who also treats ADHD There are no Patient Instructions on file for this visit. Lisa Bradshaw MD documented in this encounter [facility] 11-20-2023 History of Present illness Narrative Radiology Service Progress Note PATIENT NAME: Helena Potter DATE OF SERVICE: November 20, 2023 TIME: 5:07 PM PATIENT IDENTITY VERIFICATION COMPLETED USING TWO (2) IDENTIFIERS: Name and Date of confirmed by patient verbally. FALL SCREENING: Has the patient had 2 falls in the last year or 1 fall with injury or currently using an Ambulatory Assistive Device (Walker, Cane, Wheelchair, Crutches, etc.)? No PATIENT GENDER DATA: Female. status: : No status: NO. PATIENT RELEVANT IMPLANT DATA REVIEWED: Yes PATIENT PRESENTS WITH AN IMPLANTABLE OR ATTACHED TOOL CHASER: No RADIOLOGY DEPARTMENT: General X-ray: Exam(s) Completed: Upper Extremity X-Ray(s): Shoulder, AP / TRUE AP / AXILLARY left PERIPHERAL IV DATA: Not applicable SIGNED BY: RT Brianna(R) November 20, 2023 5:07 PM documented in this encounter [facility] 11-20-2023 History of Present illness Narrative This note was created using NoteWriter. Subjective Helena Potter is a 53 year old female. 53 year old female with PMH fibromyalgia, migraine, asthma, IBS, PTSD, and ARMANDO and ADD presents for shoulder pain Acute onset 1 1/2 to 2 weeks ago Left shoulder +injury States she was hanging over a stair rail And she went to move up and the left shoulder hit the ceiling Denies seeking medical treatment Has been using Advil and Ice Denies numbness or tingling Denies weakness Denies skin rash or lesions. The history is provided by the patient. No hospital administrative assistant was used. Shoulder Injury The incident occurred more than 1 week ago. The incident occurred at home. The injury mechanism was a direct blow. The left shoulder is affected. The pain is at a severity of 6/10. The pain is moderate. The pain has been Constant since onset. The pain Does not radiate. There is No history of shoulder injury. She has No other injuries. There is No history of shoulder surgery. Pertinent negatives include no numbness, no muscle weakness and no tingling. She reports no foreign bodies present. PAST MEDICAL HISTORY Diagnosis Date Abnormal glandular Papanicolaou smear of cervix Abn. Pap smear (cervix) ADHD (attention deficit hyperactivity disorder) 07/29/2013 Atherosclerosis of abdominal aorta ([facility]) 02/19/2012 <70% stenosisof celiac and superior mesenteric arteries; <60% stenosis of bilateral renal arteries COPD (chronic obstructive pulmonary disease) ([facility]) Degenerative disc disease lumbar Dysthymic disorder Depression (non-psychotic). 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 TO 03/24/14 PAST SURGICAL HISTORY Procedure Laterality Date APPENDECTOMY DELIVERY ONLY 08/2010 , low transverse PAST SURGICAL HISTORY OF RIGHT FOOT ALLERGIES Doxycycline, Latex, Aleve [Naproxen Sodium], Amitriptyline, Camel Hair, Celebrex [Celecoxib], Chlorhexidine, Cymbalta [Duloxetine], Darvocet A500 [Propoxyphene N-Acetaminophen], Dulera [Mometasone-Formoterol], Feathers, Fragrances, Insecticides, Lyrica [Pregabalin], Naproxen, Penicillins, Pollen, Pseudoephedrine, Relafen [Nabumetone], Sagebrush, Seasonal Allergies, Sulfa (Sulfonamide Antibiotics), Symbicort [Budesonide-Formoterol], and Tramadol Hcl MEDICATIONS azelastine 0.1% nasal spray Use 1-2 Sprays in each nostril two times a day. As directed tacrolimus (PROTOPIC) 0.1 % ointment Apply to affected area two times a day. Apply thin layer to affected skin on forearm (area approximately 20 square centimeters). Use till rash clears. If not resolved in 6 weeks, re-evaluate. May treat other areas of eczema that occur fluticasone (FLONASE) 50 mcg/actuation nasal spray Use 2 Sprays in each nostril once daily. Use 2 sprays to each nostril one to two times daily fluticasone-salmeterol HFA (ADVAIR HFA) 230-21 mcg/actuation inhaler Inhale 2 Puffs as instructed two times a day. albuterol HFA (VENTOLIN HFA) 90 mcg/actuation inhaler Inhale 2 Puffs as instructed every 4 hours as needed for wheezing/shortness of breath. hydrOXYzine HCl (ATARAX) 25 mg tablet Take 1-4 tablets by mouth every 4 hours as needed for itching/rash (and allergic rhinitis). Maximum dose 400 mg per day. Cholecalciferol, Vitamin D3, 125 mcg (5,000 unit) cap Take 1 capsule by mouth once daily. cyclobenzaprine (FLEXERIL) 10 mg tablet Take 1 tablet by mouth two times a day as needed for muscle spasm. FOR PAIN OR SPASMS guaiFENesin (MUCINEX) 600 mg 12 hr tablet Take 1-2 tablets by mouth two times a day. As needed triamcinolone acetonide (KENALOG) 0.1 % ointment Apply to affected areas twice a day as needed. Avoid use on the face. Use up to 2 weeks as directed per rash recurrence hydrocortisone 2.5 % ointment Apply 1 application to affected area two times a day as needed. Avoid use on the eyelids or face. Up to 2 weeks at a time mupirocin (BACTROBAN) 2 % ointment Apply to affected area three times a day. dexmethylphenidate HCl (FOCALIN) 5 mg tablet Take 5 mg by mouth every afternoon. with 2.5mg dose Dexmethylphenidate HCl (FOCALIN) 2.5 mg tablet Take 5 mg by mouth every afternoon. with 5mg tablet diazePAM (VALIUM) 5 mg tablet Take 0.25-1 tablets by mouth two times a day as needed. methylphenidate LA (RITALIN LA) 20 mg biphasic capsule Take 20 mg by mouth every morning. ketoconazole (NIZORAL) 2 % cream Apply 1 application to affected area twice daily. Continue to use for another week after rash resolves EPINEPHrine (EPIPEN) 0.3 mg/0.3 mL auto-injector Inject 0.3 mL intramuscularly as needed (for allergic reaction.Seek emergent medical care immediately after use. Disp:One 2-pack). diclofenac sodium (VOLTAREN) 1 % topical gel Apply 2 g to affected area four times daily. albuterol (PROVENTIL) 2.5 mg /3 mL (0.083 %) nebulizer solution Use 3 mL via nebulizer every 6 hours as needed for Wheezing/Shortness of Breath. 1 vial contains 3 ml. TENS Units Layne Use as directed. Copper [...] tab daily for 3 days with food. cyclobenzaprine (FLEXERIL) 10 mg tablet Take 1 tablet by mouth three times a day as needed for muscle spasm. acetaminophen-codeine (TYLENOL-COD #3) 300-30 mg per tablet Take 1-2 tablets by mouth three times daily as needed for up to 7 days. Takes up to 5 pills max per day during a flare up acetaminophen 325 mg-caffeine 40 mg-butalbital 50 mg (FIORICET) per tablet Take 1 tablet by mouth every 6 hours as needed for Headache. (Patient not taking: Reported on 11/20/2023) cetirizine (ZYRTEC) 10 mg tablet Take 1 tablet by mouth once daily. (Patient not taking: Reported on 09/12/2023) FAMILY HISTORY Problem Relation Age of Onset Alcohol/Drug Paternal Grandfather Arthritis Maternal Grandmother Arthritis Mother Cancer Paternal Grandfather Cancer Father prostate and bladder Diabetes Father Diabetes Maternal Grandfather Emphysema Maternal Grandfather Emphysema Paternal Uncle Heart Father Hypertension Father Hypertension Paternal Uncle Lipids Father Lipids Paternal Grandmother Lipids Paternal Uncle Lipids Brother Lipids Paternal Uncle Thyroid Paternal Grandmother Emphysema Maternal Grandmother Social History Tobacco Use Smoking status: Every Day Packs/day: 1.30 Years: 25.00 Additional pack years: 0.00 Total pack years: 32.50 Types: Cigarettes Start date: 03/24/1989 Smokeless tobacco: Never Tobacco comments: Parents smoked in childhood home. Ex-spouse was smoker. Substance Use Topics Alcohol use: Yes Comment: Occasionally, but not when . Drug use: Yes Types: Marijuana Comment: uses medical Review of Systems Constitutional: Negative for activity change, appetite change, chills and fatigue. Eyes: Negative for pain, discharge and itching. Respiratory: Negative for apnea, choking and chest tightness. Cardiovascular: Negative for chest pain, palpitations and leg swelling. Gastrointestinal: Negative for abdominal pain, diarrhea, nausea and vomiting. Musculoskeletal: Left shoulder Skin: Negative for color change, pallor and rash. Allergic/Immunologic: Negative for environmental allergies, food allergies and immunocompromised state. Neurological: Negative for dizziness, tingling, facial asymmetry, numbness and headaches. Hematological: Negative for adenopathy. Does not bruise/bleed easily. Psychiatric/Behavioral: Negative for agitation and behavioral problems. Objective BP 136/99 Pulse 84 Temp 36.9 C (98.4 F) Resp 22 Wt 79 kg (174 lb 2.6 oz) LMP 02/13/2018 (Within Days) SpO2 97% BMI 30.85 kg/m Physical Exam Vitals and nursing note reviewed. Constitutional: General: She is not in acute distress. Appearance: Normal appearance. She is normal weight. She is not ill-appearing, toxic-appearing or diaphoretic. HENT: Head: Normocephalic and atraumatic. Right Ear: Ear canal and external ear normal. Left Ear: Ear canal and external ear normal. Nose: Nose normal. No congestion or rhinorrhea. Mouth/Throat: Mouth: Mucous membranes are moist. Pharynx: No oropharyngeal exudate or posterior oropharyngeal erythema. Eyes: General: Right eye: No discharge. Left eye: No discharge. Extraocular Movements: Extraocular movements intact. Conjunctiva/sclera: Conjunctivae normal. Pupils: Pupils are equal, round, and reactive to light. Cardiovascular: Rate and Rhythm: Normal rate and regular rhythm. Pulses: Normal pulses. Heart sounds: Normal heart sounds. No murmur heard. No friction rub. Pulmonary: Effort: Pulmonary effort is normal. No respiratory distress. Breath sounds: Normal breath sounds. No stridor. No wheezing, rhonchi or rales. Chest: Chest wall: No tenderness. Abdominal: General: Abdomen is flat. There is no distension. Palpations: Abdomen is soft. There is no mass. Tenderness: There is no abdominal tenderness. There is no right CVA tenderness, left CVA tenderness, guarding or rebound. Hernia: No hernia is present. Musculoskeletal: General: Tenderness and signs of injury present. No swelling or deformity. Normal range of motion. Cervical back: Normal range of motion and neck supple. No rigidity. Right lower leg: No edema. Left lower leg: No edema. Comments: Left shoulder with diffuse TTP No ecchymosis. No swelling Can extend arm above head +neuro +sensation Corporate Compliance Officer strength equal Lymphadenopathy: Cervical: No cervical adenopathy. Skin: General: Skin is warm and dry. Capillary Refill: Capillary refill takes less than 2 seconds. Coloration: Skin is not jaundiced or pale. Findings: No bruising, erythema, lesion or rash. Neurological: General: No focal deficit present. Mental Status: She is alert and oriented to person, place, and time. Cranial Nerves: No cranial nerve deficit. Sensory: No sensory deficit. Motor: No weakness. Coordination: Coordination normal. Gait: Gait normal. Psychiatric: Mood and Affect: Mood normal. Behavior: Behavior normal. Thought Content: Thought content normal. Judgment: Judgment normal. Assessment and Plan ASSESSMENT/PLAN: 1. 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 Nurse triage completed. Protocol recommends see provider within 24 hours. Patient declined available appointments. Patient has decided to go to . Care advice reviewed. Patient verbalizes understanding. Reason for Disposition Can't move injured shoulder normally (e.g., full range of motion, able to touch top of head) Answer Assessment - Initial Assessment Questions 1. MECHANISM: Patient reports twice approximately a week and a half a go smacking her left shoulder into the wall when she was going up the stairs and once when coming down. Reports the first time her son was talking to her and she turned to talk back and hit the wall. The second time she bent over the banister to talk to her mom and when she lifted up from bending down she hit her shoulder on the ceiling above. Patient reports that the area had some swelling at first but that has gone away. Patient reports she is able to move the arm but feels that she is using accessory muscles that you don't usually use. She reports in the morning pain is better and gets worse as the day goes on with more movement. 2. ONSET: 1 1/2 weeks a go 3. APPEARANCE of INJURY: Swelling at first but not now 4. SEVERITY:Patient reports moving the shoulder but thinks she is using accessory muscles that she doesn't usually use. 5. SIZE: NA at this time 6. PAIN: - MODERATE (4-7): interferes with normal activities (e.g., work or school) or awakens from sleep Patient reports pain at times a severe. Current rating is a 7/10. 7. TETANUS: NA 8. OTHER SYMPTOMS: No loss of sensation Protocols used: Shoulder [id number] [facility] 11-20-2023 Miscellaneous Notes Patient calls for left shoulder pain. Nurse triage completed. Protocol recommends see provider within 24 hours. Patient declined available appointments. Patient has decided to go to . Care advice reviewed. Patient verbalizes understanding. Reason for Disposition Can't move injured shoulder normally (e.g., full range of motion, able to touch top of head) Answer Assessment - Initial Assessment Questions 1. MECHANISM: Patient reports twice approximately a week and a half a go smacking her left shoulder into the wall when she was going up the stairs and once when coming down. Reports the first time her son was talking to her and she turned to talk back and hit the wall. The second time she bent over the banister to talk to her mom and when she lifted up from bending down she hit her shoulder on the ceiling above. Patient reports that the area had some swelling at first but that has gone away. Patient reports she is able to move the arm but feels that she is using accessory muscles that you don't usually use. She reports in the morning pain is better and gets worse as the day goes on with more movement. 2. ONSET: 1 1/2 weeks a go 3. APPEARANCE of INJURY: Swelling at first but not now 4. SEVERITY:Patient reports moving the shoulder but thinks she is using accessory muscles that she doesn't usually use. 5. SIZE: NA at this time 6. PAIN: - MODERATE (4-7): interferes with normal activities (e.g., work or school) or awakens from sleep Patient reports pain at times a severe. Current rating is a 7/10. 7. TETANUS: NA 8. OTHER SYMPTOMS: No loss of sensation Protocols used: Shoulder [id number] documented in this encounter [facility] 09-30-2023 Miscellaneous Notes Patient has been identified by name and date of : Yes Patient phones for refill(s): Requested Prescriptions Pending Prescriptions Disp Refills azelastine 0.1% nasal spray 30 mL 11 Sig: Use 1-2 Sprays in each nostril two times a day. As directed Date of last office visit in primary care: 09/12/2023 Date of next office visit in primary care: 12/03/2023 Please advise. Thank you. Larisa Meza LPN. documented in this encounter [facility] 09-22-2023 Miscellaneous Notes Message left for pt return call to a nurse. She can either check with the pharmacy about the cost of the tacrolimus and pay out of pocket or she can try 2 formularies for 30 days each is what the denial for the ointment says. Patient has been on triamcinolone and hydrocortisone. Last prescriptions were 2019, but has used till ran out recently and not controlling hand eczema symptoms. If needs to be recent 30 days, then can send for protopic RX again 10/12/23. Rec'd denial. Pt needs to try step therapy of at least 30 days of 2 topical corticosteroids. They didn't give any ones specifically. PA from covermymeds says tacrolimus is covered. Pharmacy sys they are running it this way. Completed via [facility] helena potter (Silva: [id number]) Protopic 0.1% ointment Status: Sent To Plan Created: September 19, 2023 Sent: September 19, 2023 Pharmacy called to let you know this is not covered medication. I let them know we are trying to do a PA on this and need an amount per day. Pharmacy not able to give a day supply only that the 30 g prescription would last approximately 10 days. Carmen Martinez LPN Not sure exact daily amount. See RX as clarified works. If not, see if they have guidelines on how to estimate amount per day. Might need to check with pharmacist. The following approved medication requests have been transmitted electronically. Requested Prescriptions Signed Prescriptions Disp Refills tacrolimus (PROTOPIC) 0.1 % ointment 30 g 0 Sig: Apply to affected area two times a day. Apply thin layer to affected skin on forearm (area approximately 20 square centimeters). Use till rash clears. If not resolved in 6 weeks, re-evaluate. May treat other areas of eczema that occur Authorizing Provider: LISA BRADSHAW MD For the PA they are asking specific day supply. Please send again with this info to the pharmacy. PRIOR AUTHORIZATION Medication for Prior Authorization: tacrolimus 0.1% Ointment Insurance Company: [employer] Patient insurance ID number: [id number] Yenifer Mancuso RN documented in this encounter [facility] 06-14-2023 Miscellaneous Notes My chart message to pt. Below noted.Hoping doing okay from family emergency standpoint. Last seen May due to canceled and missed appointments. If not needing any refills of controlled medications from me, can see in August as scheduled. Added meds as noted below from reconciliation list Patient calling wanted to apologize for missing her appt on 06/11 she had family emergency. Patient has new Psych Dr Nicholas Jason and is now taking new medications, Methylphenidate LA 20 mg one in morning, Focalin 5 mg one tablet and Focalin 2.5 mg one tablet together in the afternoon, Diazepam 5 mg 1/4 tablet to 1 tablet max of two tablets daily for anxiety and sleep. She said the Clonidine was discontinued. Patient said she has new diagnosis Autism level 1. documented in this encounter [facility] 10-04-2022 Miscellaneous Notes Patient has been identified by name and date of : Yes, Provider Kristine Date 10/04/22 Time 11:36am Patient phones for refill(s): Requested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 use. Disp:One 2-pack). fluticasone (FLONASE) 50 mcg/actuation nasal spray Use 2 Sprays in each nostril once daily. Use 2 sprays to each nostril one to two times daily fluticasone-salmeterol HFA (ADVAIR HFA) 230-21 mcg/actuation inhaler Inhale 2 Puffs as instructed twice daily. albuterol HFA (VENTOLIN HFA) 90 mcg/actuation inhaler Inhale 2 Puffs as instructed every 4 hours as needed for wheezing/shortness of breath. Cholecalciferol, Vitamin D3, 125 mcg (5,000 unit) cap Take 1 capsule by mouth once daily. acetaminophen 325 mg-caffeine 40 mg-butalbital 50 mg (FIORICET) per tablet Take 1 tablet by mouth every 6 hours as needed for Headache. hydrocortisone 2.5 % ointment Apply 1 application to affected area twice daily as needed. Avoid use on the eyelids. triamcinolone acetonide (KENALOG) 0.1 % ointment Apply to affected areas twice a day as needed. Avoid use on the face. guaiFENesin (MUCINEX) 600 mg 12 hr tablet Take 1-2 tablets by mouth twice daily. As needed Ipratropium Phoenix (ATROVENT) 0.03 % nasal spray Use 2 Sprays in the nose every 12 hours. As directed diclofenac sodium (VOLTAREN) 1 % topical gel Apply 2 g to affected area four times daily. cetirizine (ZYRTEC) 10 mg tablet Take 1 tablet by mouth once daily. albuterol (PROVENTIL) 2.5 mg /3 mL (0.083 %) nebulizer solution Use 3 mL via nebulizer every 6 hours as needed for Wheezing/Shortness of Breath. 1 vial contains 3 ml. TENS Units Layne Use as directed. Copper Gluconate 5 mg Tab Take by mouth. vitamin b complex Tab Take 1 tablet by mouth once daily. multivitamin tablet Take 1 tablet by mouth once daily. CALCIUM CARBONATE/VITAMIN D3 (CALCIUM + D ORAL) Take by mouth. PAST MEDICAL HISTORY Diagnosis Date Abnormal glandular Papanicolaou smear of cervix Abn. Pap smear (cervix) ADHD (attention deficit hyperactivity disorder) 07/29/2013 Atherosclerosis of abdominal aorta (HCC) 02/19/2012 <70% stenosisof celiac and superior mesenteric arteries; <60% stenosis of bilateral renal arteries COPD (chronic obstructive pulmonary disease) ([facility]) Degenerative disc disease lumbar Dysthymic disorder Depression (non-psychotic). 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 TO 03/24/14 Social History Tobacco Use Smoking status: Every Day Packs/day: 1.30 Years: 25.00 Pack years: 32.50 Types: Cigarettes Start date: 03/24/1989 Smokeless tobacco: Never Tobacco comments: Parents smoked in childhood home. Ex-spouse was smoker. Substance Use Topics Alcohol use: Yes Comment: Occasionally, but not when . Drug use: No Comment: formerly used marijuana, stopped in 1993 Component Latest Ref Rng & Units 12/20/2020 Protein, Total 6.3 - 8.0 g/dL 6.7 Albumin 3.9 - 4.9 g/dL 4.3 Calcium 8.5 - 10.2 mg/dL 9.3 Bilirubin, Total 0.2 - 1.3 mg/dL <0.2 (L) Alkaline Phosphatase 34 - 123 U/L 67 AST 13 - 35 U/L 14 Glucose 74 - 99 mg/dL 90 BUN 7 - 21 mg/dL 8 Creatinine 0.58 - 0.96 mg/dL 0.67 Sodium 136 - 144 mmol/L 132 (L) Potassium 3.7 - 5.1 mmol/L 4.3 Chloride 97 - 105 mmol/L 101 CO2 22 - 30 mmol/L 23 Anion Gap 9 - 18 mmol/L 8 (L) ALT 7 - 38 U/L 11 eGFR- >60 eGFR-All Other Races . >60 WBC 3.70 - 11.00 k/uL 6.61 RBC 3.90 - 5.20 m/uL 4.68 Hemoglobin 11.5 - 15.5 g/dL 14.6 Hematocrit 36.0 - 46.0 % 41.3 MCV 80.0 - 100.0 fL 88.2 MCH 26.0 - 34.0 pG 31.2 MCHC 30.5 - 36.0 g/dL 35.4 RDW-CV 11.5 - 15.0 % 13.2 Platelet Count 150 - 400 k/uL 289 MPV 9.0 - 12.7 fL 8.5 (L) Absolute nRBC <0.01 k/uL <0.01 Cholesterol, Total <200 mg/dL 289 (H) Triglyceride <150 mg/dL 173 (H) HDL Cholesterol >39 mg/dL 43 LDL Cholesterol <100 mg/dL 211 (H) Non HDL Cholesterol <130 mg/dL 246 (H) Fasting Time hrs 13 VLDL Cholesterol <30 mg/dL 35 (H) TC:HDL Ratio <5.10 6.72 (H) LDL:HDL Ratio <2.54 4.91 (H) Hemoglobin A1C 4.3 - 5.6 % 5.8 (H) Estimated Average Glucose mg/dL 120 Vitamin D 25 Hydroxy 31.0 - 80.0 ng/mL 34.1 TSH 0.270 - 4.200 uU/mL 1.250 Free T4 0.9 - 1.7 ng/dL 1.2 Free T3 2.3 - 4.1 pg/mL 3.2 Copper 85 - 155 ug/dL 89 Medical Decision Making: Problems: Low: Acute, uncomplicated illness or injury Data: Unique test(s) ordered: 3+ Risk: Moderate: Drug management Medical Decision Making Level: 4 - Moderate documented in this encounter [facility] 01-28-2022 Miscellaneous Notes Patient given results and verbalized understanding of instructions given. Veronica Huang She can pick these up in medical records. PT would like a copy of her x-rays on a disc to be able to picker feeder and provide to her cylinder dyer who is outside of the [facility]. PT also stated that her mom Suzanne Farias will be picking up. Thank You Valeria Trevino PSS documented in this encounter [facility] 01-25-2022 History of Present illness Narrative Subjective HPI Nontoxic appearing female presents urgent care chief complaint left ankle/foot pain. Duration of symptoms 1 day. Associated symptoms left ankle foot pain and swelling. Patient states she was walking on grass/dirt when her ankle rolled inward. This caused her to fall injuring her left foot and ankle and she said she jammed her shoulder. No head no back no neck pain. No LOC. Denies any other injuries. Patient states she is able to walk however this is painful. Denies any numbness no tingling. Slight decreased strength due to discomfort. Denies any history of fractures or injuries to this ankle/foot. No surgeries. Past medical history prescription medication use allergies reviewed. .Patient presents with: Pain (foot): L foot injury, fell x this AM PAST MEDICAL HISTORY Diagnosis Date Abnormal glandular Papanicolaou smear of cervix Abn. Pap smear (cervix) ADHD (attention deficit hyperactivity disorder) 07/29/2013 Atherosclerosis of abdominal aorta (HCC) 02/19/2012 <70% stenosisof celiac and superior mesenteric arteries; <60% stenosis of bilateral renal arteries COPD (chronic obstructive pulmonary disease) (HCC) Degenerative disc disease lumbar Dysthymic disorder Depression (non-psychotic). 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 TO 03/24/14 PAST SURGICAL HISTORY Procedure Laterality Date APPENDECTOMY DELIVERY ONLY 08/2010 , low transverse PAST SURGICAL HISTORY OF RIGHT FOOT ALLERGIES Doxycycline, Latex, Aleve [Naproxen Sodium], Amitriptyline, Camel Hair, Celebrex [Celecoxib], Chlorhexidine, Cymbalta [Duloxetine], Darvocet A500 [Propoxyphene N-Acetaminophen], Dulera [Mometasone-Formoterol], Feathers, Fragrances, Insecticides, Lyrica [Pregabalin], Naproxen, Penicillins, Pollen, Pseudoephedrine, Relafen [Nabumetone], Sagebrush, Seasonal Allergies, Sulfa (Sulfonamide Antibiotics), Symbicort [Budesonide-Formoterol], and Tramadol Hcl MEDICATIONS cyclobenzaprine (FLEXERIL) 10 mg tablet Take 1 tablet by mouth twice daily as needed for muscle spasm. FOR PAIN OR SPASMS hydrOXYzine HCl (ATARAX) 25 mg tablet Take 1-4 tablets by mouth every 4 hours as needed for itching/rash (and allergic rhinitis). acetaminophen-codeine (TYLENOL-COD #3) 300-30 mg per tablet Take 1-2 tablets by mouth three times daily as needed for up to 7 days. Takes up to 5 pills max per day during a flare up azelastine (ASTELIN) 0.1% nasal spray Use 1-2 Sprays in each nostril twice daily. As directed EPINEPHrine (EPIPEN) 0.3 mg/0.3 mL auto-injector Inject 0.3 mL intramuscularly as needed (for allergic reaction.Seek emergent medical care immediately after use. Disp:One 2-pack). fluticasone (FLONASE) 50 mcg/actuation nasal spray Use 2 Sprays in each nostril once daily. Use 2 sprays to each nostril one to two times daily fluticasone-salmeterol HFA (ADVAIR HFA) 230-21 mcg/actuation inhaler Inhale 2 Puffs as instructed twice daily. albuterol HFA (VENTOLIN HFA) 90 mcg/actuation inhaler Inhale 2 Puffs as instructed every 4 hours as needed for wheezing/shortness of breath. Cholecalciferol, Vitamin D3, 125 mcg (5,000 unit) cap Take 1 capsule by mouth once daily. acetaminophen 325 mg-caffeine 40 mg-butalbital 50 mg (FIORICET) per tablet Take 1 tablet by mouth every 6 hours as needed for Headache. hydrocortisone 2.5 % ointment Apply 1 application to affected area twice daily as needed. Avoid use on the eyelids. triamcinolone acetonide (KENALOG) 0.1 % ointment Apply to affected areas twice a day as needed. Avoid use on the face. guaiFENesin (MUCINEX) 600 mg 12 hr tablet Take 1-2 tablets by mouth twice daily. As needed Ipratropium Phoenix (ATROVENT) 0.03 % nasal spray Use 2 Sprays in the nose every 12 hours. As directed diclofenac sodium (VOLTAREN) 1 % topical gel Apply 2 g to affected area four times daily. cetirizine (ZYRTEC) 10 mg tablet Take 1 tablet by mouth once daily. albuterol (PROVENTIL) 2.5 mg /3 mL (0.083 %) nebulizer solution Use 3 mL via nebulizer every 6 hours as needed for Wheezing/Shortness of Breath. 1 vial contains 3 ml. TENS Units Layne Use as directed. Copper Gluconate 5 mg Tab Take by mouth. vitamin b complex Tab Take 1 tablet by mouth once daily. multivitamin tablet Take 1 tablet by mouth once daily. CALCIUM CARBONATE/VITAMIN D3 (CALCIUM + D ORAL) Take by mouth. FAMILY HISTORY Problem Relation Age of Onset Alcohol/Drug Paternal Grandfather Arthritis Maternal Grandmother Arthritis Mother Cancer Paternal Grandfather Cancer Father prostate and bladder Diabetes Father Diabetes Maternal Grandfather Emphysema Maternal Grandfather Emphysema Paternal Uncle Heart Father Hypertension Father Hypertension Paternal Uncle Lipids Father Lipids Paternal Grandmother Lipids Paternal Uncle Lipids Brother Lipids Paternal Uncle Thyroid Paternal Grandmother Emphysema Maternal Grandmother Social History Tobacco Use Smoking status: Current Every Day Smoker Packs/day: 1.30 Years: 25.00 Pack years: 32.50 Types: Cigarettes Start date: 03/24/1989 Smokeless tobacco: Never Used Tobacco comment: Parents smoked in childhood home. Ex-spouse was smoker. Substance Use Topics Alcohol use: Yes Comment: Occasionally, but not when . Drug use: No Comment: formerly used marijuana, stopped in 1993 BP 108/72 Pulse 98 Temp 36.7 C (98 F) Resp 20 Wt 82.6 kg (182 lb) LMP 02/13/2018 (Within Days) SpO2 97% BMI 32.24 kg/m Review of Systems Constitutional: Negative for chills, fever and malaise/fatigue. HENT: Negative for congestion, ear discharge, ear pain, sinus pain and sore throat. Eyes: Negative for blurred vision, pain, discharge and redness. Respiratory: Negative for cough, hemoptysis, sputum production, shortness of breath, wheezing and stridor. Cardiovascular: Negative for chest pain. Gastrointestinal: Negative for abdominal pain, diarrhea, nausea and vomiting. Musculoskeletal: Positive for falls and joint pain. Negative for back pain, myalgias and neck pain. Skin: Negative for itching and rash. Neurological: Negative for dizziness and headaches. Objective Physical Exam Constitutional: General: She is not in acute distress. Appearance: She is not diaphoretic. HENT: Head: Normocephalic. Mouth/Throat: Mouth: Mucous membranes are moist. Pharynx: Oropharynx is clear. No oropharyngeal exudate or posterior oropharyngeal erythema. Eyes: Conjunctiva/sclera: Conjunctivae normal. Pupils: Pupils are equal, round, and reactive to light. Cardiovascular: Rate and Rhythm: Normal rate and regular rhythm. Heart sounds: Normal heart sounds. Pulmonary: Effort: Pulmonary effort is normal. No tachypnea, accessory muscle usage or respiratory distress. Breath sounds: Normal breath sounds. No stridor. Abdominal: Palpations: Abdomen is soft. Tenderness: There is no abdominal tenderness. Musculoskeletal: Cervical back: Normal range of motion and neck supple. No rigidity or tenderness. Left knee: Normal. Left lower leg: Normal. Left ankle: Swelling present. No deformity, ecchymosis or lacerations. Tenderness present over the lateral malleolus. Decreased range of motion. Normal pulse. Left Achilles Tendon: Normal. Left foot: Normal capillary refill. Swelling, tenderness and bony tenderness present. No deformity or bunion. Normal pulse. Comments: No breaks in skin. Neurovascular intact. Lymphadenopathy: Cervical: No cervical adenopathy. Skin: General: Skin is warm and dry. Neurological: Mental Status: She is alert and oriented to person, place, and time. ASSESSMENT/PLAN: 1. Foot injury, left, initial encounter - ICD9: 959.7, ICD10: S99.922A (primary diagnosis) - XR FOOT GENERAL 3V AP/LAT/OBL LEFT 2. Injury of left ankle, initial encounter - ICD9: 959.7, ICD10: S99.912A - XR ANKLE GENERAL 3V AP/LAT/OBL LEFT 3. Closed nondisplaced fracture of second metatarsal bone of left foot, initial encounter - ICD9: 825.25, ICD10: S92.325A IMPRESSION: Second metatarsal fracture. Subtle fracture noted second metatarsal. Patient will be placed in a posterior short leg splint. Splint was comprised of 4 inch Ortho-Glass. Cast padding placed. Patient ankle placed in 90 degrees dorsiflexion. Neurovascular check pre and post splint application abnormal findings noted. This will be nonweightbearing injury. Patient will follow up with supine foot and ankle. Is established with this cylinder dyer. Patient was educated on supportive therapies. Patient will follow up with primary care provider as needed. Patient was instructed to immediately proceed to emergency room for any new, worsening, or symptoms lasting longer than anticipated. The patient's clinical presentation is otherwise unremarkable at this time. Based on exam and clinical finding, the patient is stable for discharge. Plan of care was discussed with patient. Patient verbalizes understanding and agrees to plan of care. This note was generated using Portalarium software. It may contain errors in wording, punctuation, or spelling. Shai Tamez APRN.EL documented in this encounter [facility] 02-07-2021 History of Present illness Narrative Radiology Service Progress Note PATIENT NAME: Helena Potter DATE OF SERVICE: February 07, 2021 TIME: 4:23 PM PATIENT IDENTITY VERIFICATION COMPLETED USING TWO (2) IDENTIFIERS: Name and Date of confirmed by patient verbally. FALL SCREENING: Has the patient had 2 falls in the last year or 1 fall with injury or currently using an Ambulatory Assistive Device (Walker, Cane, Wheelchair, Crutches, etc.)? No PATIENT GENDER DATA: Female. status: : No status: NO. PATIENT RELEVANT IMPLANT DATA REVIEWED: Not Applicable RADIOLOGY DEPARTMENT: General X-ray: Exam(s) Completed: Lower Extremity X-Ray(s): Tibia Fibula, Left PERIPHERAL IV DATA: Not applicable SIGNED BY: RT Dilan(R) February 07, 2021 4:23 PM documented in this encounter [facility] Evaluation note Diagnosis Encounter for screening mammogram for breast cancer [facility] Foot injury, left, initial encounter- Primary Injury of left ankle, initial encounter Closed nondisplaced fracture of second metatarsal bone of left foot, initial encounter [facility] Diagnosis Neck and shoulder pain- Primary Non-seasonal allergic rhinitis due to pollen Eczema, unspecified type Chronic nonseasonal allergic rhinitis due to pollen Fibromyalgia Mylagia and myositis, unspecified Rib pain Chest pain, unspecified Spasm of muscle TMJ (dislocation of temporomandibular joint), subsequent encounter [facility]* Diagnosis Hyponatremia- Primary Hyposmolality and/or hyponatremia [facility]* Diagnosis Contact dermatitis, unspecified contact dermatitis type, unspecified trigger- Primary [facility] noteNo assessment information availableWMercy Health [facility] Work Phone: Evaluation note* Diagnosis Hyponatremia- Primary Hyposmolality and/or hyponatremia Fibromyalgia Mylagia and myositis, unspecified Episodic tension-type headache, not intractable Episodic tension type headache Eyes sensitive to light, bilateral Sound sensitivity in both ears Persistent disorder of initiating or maintaining sleep History of foot fracture Personal history of traumatic fracture [facility]* Diagnosis Eczema, unspecified type Chronic nonseasonal allergic rhinitis due to pollen [facility]* Diagnosis Encounter for screening mammogram for breast cancer [facility]* Diagnosis Tobacco abuse Tobacco use disorder documented in this encounter [facility] note* Diagnosis Non-seasonal allergic rhinitis due to pollen [facility]* Diagnosis Dyshidrotic hand dermatitis Dyshidrosis [facility]* Diagnosis Acute pain of left shoulder- Primary Acute pain of left shoulder [facility]* Diagnosis Encounter for screening mammogram for breast cancer [facility] Diagnosis Acute pain of left shoulder- Primary [facility]* Diagnosis Acute pain of left shoulder- Primary [facility]* Diagnosis Arthritis of left acromioclavicular joint- Primary Unspecified arthropathy, shoulder region Acute pain of left shoulder Fibromyalgia Mylagia and myositis, unspecified documented in this encounter [facility] note* Diagnosis Seasonal allergic rhinitis due to pollen- Primary Asthma with chronic obstructive pulmonary disease (COPD) (HCC) Chronic obstructive asthma, unspecified Fibromyalgia Mylagia and myositis, unspecified Spasm of muscle ARMANDO (generalized anxiety disorder) Generalized anxiety disorder documented in this encounter [facility] note* Diagnosis Acute pain of left shoulder [facility] Foot injury, left, initial encounter Injury of left ankle, initial encounter [facility] Diagnosis Acute pain of left shoulder- Primary Non-seasonal allergic rhinitis due to pollen ARMANDO (generalized anxiety disorder) Generalized anxiety disorder [facility] Diagnosis Acute pain of left shoulder- Primary [facility] Diagnosis PTSD (post-traumatic stress disorder)- Primary Posttraumatic stress disorder Asthma with chronic obstructive pulmonary disease (COPD) ([facility]) Chronic obstructive asthma, unspecified Attention deficit hyperactivity disorder (ADHD), combined type Candidal intertrigo Candidiasis of skin and nails Sternocostal pain Other chest pain Fibromyalgia Mylagia and myositis, unspecified ARMANDO (generalized anxiety disorder) Generalized anxiety disorder Costochondritis Tietze's disease Vitamin D deficiency Unspecified vitamin D deficiency Spasm of muscle Encounter for long-term current use of medication Elevated hemoglobin A1c Other abnormal blood chemistry Copper deficiency Disorders of copper metabolism Hyponatremia Hyposmolality and/or hyponatremia [facility] Diagnosis Eczema, unspecified type Chronic nonseasonal allergic rhinitis due to pollen [facility] Diagnosis Non-seasonal allergic rhinitis due to pollen Vitamin D deficiency Unspecified vitamin D deficiency Chronic obstructive pulmonary disease, unspecified COPD type ([facility]) [facility] Diagnosis Chronic midline thoracic back pain Subacute cough Cough [facility] Diagnosis Chronic midline thoracic back pain- Primary Fibromyalgia Mylagia and myositis, unspecified Asthma with chronic obstructive pulmonary disease (COPD) ([facility]) Chronic obstructive asthma, unspecified Rib pain Chest pain, unspecified Spasm of muscle Eczema, unspecified type Smoker Tobacco use disorder Subacute cough Cough Encounter for immunization Need for other specified prophylactic vaccination against single bacterial disease PTSD (post-traumatic stress disorder) Posttraumatic stress disorder Autism spectrum disorder ([facility]) Autistic disorder, current or active state Selective mutism Attention deficit hyperactivity disorder, predominantly hyperactive impulsive type Attention deficit disorder with hyperactivity Chronic midline thoracic back pain Subacute cough Cough [facility] Diagnosis Leg numbness- Primary Disturbance of skin sensation Injury of back, initial encounter [facility] Diagnosis Acute midline low back pain with right-sided sciatica- Primary Lumbar disc displacement without myelopathy Displacement of lumbar intervertebral disc without myelopathy Fibromyalgia Mylagia and myositis, unspecified [facility]* Diagnosis Encounter for screening mammogram for breast cancer documented in this encounter [facility] note* Diagnosis Right ankle swelling- Primary Effusion of ankle and foot joint Chronic nonseasonal allergic rhinitis due to pollen Radiculopathy of lumbar region Thoracic or lumbosacral neuritis or radiculitis, unspecified Fibromyalgia Mylagia and myositis, unspecified Eczema, unspecified type Lumbar disc displacement without myelopathy Displacement of lumbar intervertebral disc without myelopathy Spasm of muscle Elevated hemoglobin A1c Other abnormal blood chemistry Hyponatremia Hyposmolality and/or hyponatremia Copper deficiency Disorders of copper metabolism Vitamin D deficiency Unspecified vitamin D deficiency Polyarthralgia Pain in joint, multiple sites Nocturia more than twice per night Tension headache Bursitis of right ankle Chronic pain syndrome Polydipsia Polyuria Insomnia due to medical condition Insomnia due to medical condition classified elsewhere Encounter for long-term current use of medication documented in this encounter [facility] note* Diagnosis Rash- Primary Rash and other nonspecific skin eruption documented in this encounter [facility] for referral (narrative)* Diagnostic Procedure Only (Routine) - Pending Review Specialty Diagnoses / Procedures Referred By Adelfo santiago Referred To Contact [facility] Diagnoses Encounter for screening mammogram for breast cancer Procedures JYOTI SCREENING SCREENING MAMMOGRAPHY BI 2-VIEW BREAST INC CAD Lisa Bradshaw MD [address] [place] [address] [facility] [address] [place] [id number] Referral ID Status Reason Start Date Expiration Date Visits Requested Visits Authorized [id number] Pending Review Auto-Generat ed Referral 01/16/2022 02/15/2023 1 1 [facility] for referral (narrative)* Diagnostic Procedure Only (Urgent) - Closed Specialty Diagnoses / Procedures Referred By Adelfo santiago Referred To Contact [facility] Diagnoses Injury of left ankle, initial encounter Procedures XR ANKLE GENERAL 3V AP/LAT/OBL LEFT RADEX ANKLE COMPLETE MINIMUM 3 VIEWS Shai Tamez APRN.MUD ANALYSIS WELL LOGGING OPERATOR [address] [place] [address] [facility] Referral ID Status Reason Start Date Expiration Date V isits Requested Visits Authorized [id number] Closed Auto-Generate d Referral 01/25/2022 02/24/2023 1 1 * Diagnostic Procedure Only (Urgent) - Closed Specialty Diagnoses / Procedures Referred By Contac t Referred To Contact [facility] Diagnoses Foot injury, left, initial encounter Procedures XR FOOT GENERAL 3V AP/LAT/OBL LEFT RADEX FOOT COMPLETE MINIMUM 3 VIEWS Shai Tamez APRN.CNP [address] [place] [address] [facility] Referral ID Status Reason Start Date Expiration Date V isits Requested Visits Authorized [id number] Closed Auto-Generate d Referral 01/25/2022 02/24/2023 1 1 [facility] for referral (narrative)* Diagnostic Procedure Only (Routine) - Pending Review Specialty Diagnoses / Procedures Referred By Contac t Referred To Contact [facility] Diagnoses Encounter for screening mammogram for breast cancer Procedures JYOTI SCREENING SCREENING MAMMOGRAPHY BI 2-VIEW BREAST INC Lisa Lamb MD [address] [place] [address] [facility] [address] [place] [address] Referral ID Status Reason Start Date Expiration Date Visits Requested Visits Authorized [id number] Pending Review Auto-Generat ed Referral 12/18/2022 01/17/2024 1 1 [facility] for referral (narrative)* Diagnostic Procedure Only (Routine) - Pending Review Specialty Diagnoses / Procedures Referred By Contac t Referred To Contact [facility] Diagnoses Encounter for screening mammogram for breast cancer Procedures JYOTI SCREENING SCREENING MAMMOGRAPHY BI 2-VIEW BREAST INC Lisa Lamb MD [facility] [place] [address] [facility] [address] [place] [address] Referral ID Status Reason Start Date Expiration Date Visits Requested Visits Authorized [id number] Pending Review Auto-Generat ed Referral 11/26/2023 12/25/2024 1 1 [facility] for referral (narrative)* Diagnostic Procedure Only (Urgent) - Closed Specialty Diagnoses / Procedures Referred By Contac t Referred To Contact [facility] IMAG[facility] Diagnoses Acute pain of left shoulder Procedures XR SHOULDER GENERAL 3V OR MORE AP/TRUE AP/OTHER LEFT RADEX SHOULDER COMPLETE MINIMUM 2 VIEWS Skye Thakur APRN.MUD ANALYSIS WELL LOGGING OPERATOR [address] [place] [address] [place] [address] Referral ID Status Reason Start Date Expiration Date V isits Requested Visits Authorized [id number] Closed Auto-Generate d Referral 11/20/2023 12/19/2024 1 1 [facility] for referral (narrative)* Diagnostic Procedure Only (Urgent) - Closed Specialty Diagnoses / Procedures Referred By Contac t Referred To Contact [facility] IM[facility] Diagnoses Injury of left ankle, initial encounter Procedures XR ANKLE GENERAL 3V AP/LAT/OBL LEFT RADEX ANKLE COMPLETE MINIMUM 3 VIEWS Shai Tamez APRN.MUD ANALYSIS WELL LOGGING OPERATOR [address] [place] [address] [place] [address] Referral ID Status Reason Start Date Expiration Date V isits Requested Visits Authorized [id number] Closed Auto-Generate d Referral 01/25/2022 02/24/2023 1 1 * Diagnostic Procedure Only (Urgent) - Closed Specialty Diagnoses / Procedures Referred By Contac t Referred To Contact [facility] Diagnoses Foot injury, left, initial encounter Procedures XR FOOT GENERAL 3V AP/LAT/OBL LEFT RADEX FOOT COMPLETE MINIMUM 3 VIEWS Shai Tamez APRN.MUD ANALYSIS WELL LOGGING OPERATOR [address] [place] [address] [place] [address] Referral ID Status Reason Start Date Expiration Date V isits Requested Visits Authorized [id number] Closed Auto-Generate d Referral 01/25/2022 02/24/2023 1 1 [facility] for visit Narrative* Diagnostic Procedure Only (Urgent) - Closed Specialty Diagnoses / Procedures Referred By Contac t Referred To Contact [facility] Diagnoses Acute pain of left shoulder Procedures XR SHOULDER GENERAL 3V OR MORE AP/TRUE AP/OTHER LEFT RADEX SHOULDER COMPLETE MINIMUM 2 VIEWS Skye Thakur APRN.MUD ANALYSIS WELL LOGGING OPERATOR [address] [place] [address] [place] [address] Referral ID Status Reason Start Date Expiration Date V isits Requested Visits Authorized [id number] Closed Auto-Generate d Referral 11/20/2023 12/19/2024 1 1 [facility] for visit Narrative* Diagnostic Procedure Only (Urgent) - Closed Specialty Diagnoses / Procedures Referred By Contac t Referred To Contact XR IMAGING Diagnoses Injury of left ankle, initial encounter Procedures XR ANKLE GENERAL 3V AP/LAT/OBL LEFT RADEX ANKLE COMPLETE MINIMUM 3 VIEWS Shai Tamez, RAIL WASHER.MUD ANALYSIS WELL LOGGING OPERATOR [address] [place] [address] [place] [address] Referral ID Status Reason Start Date Expiration Date V isits Requested Visits Authorized [id number] Closed Auto-Generate d Referral 01/25/2022 02/24/2023 1 1 [facility] for visit Narrative* Diagnostic Procedure Only (Routine) - Closed Specialty Diagnoses / Procedures Referred By Contac t Referred To Contact [facility] Diagnoses Chronic midline thoracic back pain Procedures XR THORACIC GENERAL 3V AP/LAT/SWIMMERS RADEX SPINE THORACIC 3 VIEWS Lisa Bradshaw MD [address] [place] [address] Phone: tel: fax: [place] [address] Referral ID Status Reason Start Date Expiration Date V isits Requested Visits Authorized [id number] Closed Auto-Generate d Referral 09/28/2024 10/28/2025 1 1 [facility] Reason for Referral Specialty Diagnoses / Procedures Referred By Contac t Referred To Contact [facility] Diagnoses Neck and shoulder pain Procedures CONSULT TO PHYSICAL THERAPY PHYSICAL THERAPY EVALUATION HIGH COMPLEX 45 MINS Carmen Taylor, RAIL WASHER.MATERIAL RECLAIMER [address] [place] [address] [facility] [place] [id number] Referral ID Status Reason Start Date Expiration Date Visits Requested Visits Authorized [id number] Pending Review Auto-Generat ed Referral 05/16/2023 1 1 Specialty Diagnoses / Procedures Referred By Contac t Referred To Contact Diagnoses Dyshidrotic hand dermatitis Lisa Bradshaw MD [address] [place] [address] Referral ID Status Reason Start Date Expiration Date Visits Re quested Visits Authorized [id number] Closed 1 1 Specialty Diagnoses / Procedures Referred By Contac t Referred To Contact Orthopedics Diagnoses Acute pain of left shoulder Procedures CONSULT TO ORTHOPAEDICS OFFICE/OUTPATIENT [facility] 60 MINUTES Skye Thakur, RAIL WASHER.MUD ANALYSIS WELL LOGGING OPERATOR [address] [place] [address] Referral ID Status Reason Start Date Expiration Date Visits Requested Visits Authorized [id number] Authorized PCP Requested Referral 11/20/2023 11/19/2024 1 1 Specialty Diagnoses / Procedures Referred By Contac t Referred To Contact [facility] Diagnoses Acute pain of left shoulder Procedures [facility] - CONSULT TO PHYSICAL THERAPY OFFICE/OUTPATIENT [facility] 60 MINUTES Skye Thakur, RAIL WASHER.MUD ANALYSIS WELL LOGGING OPERATOR [address] [place] [address] [facility] [address] [address] Referral ID Status Reason Start Date Expiration Date Visits Requested Visits Authorized [id number] Authorized Auto-Generat ed Referral 07/21/2023 07/20/2024 1 1 Specialty Diagnoses / Procedures Referred By Contac t Referred To Contact [facility] IMAG[facility] Diagnoses Acute pain of left shoulder Procedures XR SHOULDER GENERAL 3V OR MORE AP/TRUE AP/OTHER LEFT RADEX SHOULDER COMPLETE MINIMUM 2 VIEWS Skye Thakur APRN.MUD ANALYSIS WELL LOGGING OPERATOR [address] [place] [address] [place] [address] Referral ID Status Reason Start Date Expiration Date V isits Requested Visits Authorized [id number] Closed Auto-Generate d Referral 11/20/2023 12/19/2024 1 1 Specialty Diagnoses / Procedures Referred By Contac t Referred To Contact [facility] Diagnoses Acute pain of left shoulder Procedures PT REHAB FOLLOW UP ORDER THERAPEUTIC EXERCISES RE, EA 15 MIN. Pt [facility] [address] [place] [address] [facility] [place] [address] [place] [address] Referral ID Status Reason Start Date Expiration Date Visits Requested Visits Authorized [id number] Pending Review PCP Requested Referral Auto-Generate d Referral 12/04/2023 03/03/2024 1 1 Chief Complaint and Reason for Visit Chief Complaint PHARYNGITIS Chief Complaint toe injury Advance Directives No Advanced Directives Records Found Advance Directive Response Recorded Date/ Time Living Will No December 05, 2019 3 :24am Power of Printing Specialist No December 05, 2019 3:24am Advance Directive Response Recorded Date/ Time Living Will No March 10 3 2:38am Power of Printing Specialist No March 10 023 2:38am Summary Purpose Family History No Family History Records FoundNo Family History Records Found Additional Source Comments Source Comments (unrecognize d section and content) In the event this informatio n is protected by the Federal Confidentiality of Alcohol and Drug Abuse Patient Records regulations: The Federal rules restrict any use of the information to criminally investigate or prosecute any alcohol or drug abuse patient.[facility] the event this information is protected by the Federal Confidentiality of Alcohol and Drug Abuse Patient Records regulations: The Federal rules restrict any use of the information to criminally investigate or prosecute any alcohol or drug abuse patient.[facility] CenterIn the event this information is protected by the Federal Confidentiality of Alcohol and Drug Abuse Patient Records regulations: The Federal rules restrict any use of the information to criminally investigate or prosecute any alcohol or drug abuse patient.[facility] CenterIn the event this information is protected by the Federal Confidentiality of Alcohol and Drug Abuse Patient Records regulations: The Federal rules restrict any use of the information to criminally investigate or prosecute any alcohol or drug abuse patient.[facility] CenterIn the event this information is protected by the Federal Confidentiality of Alcohol and Drug Abuse Patient Records regulations: The Federal rules restrict any use of the information to criminally investigate or prosecute any alcohol or drug abuse patient.[facility] CenterIn the event this information is protected by the Federal Confidentiality of Alcohol and Drug Abuse Patient Records regulations: The Federal rules restrict any use of the information to criminally investigate or prosecute any alcohol or drug abuse patient.[facility] CenterIn the event this information is protected by the Federal Confidentiality of Alcohol and Drug Abuse Patient Records regulations: The Federal rules restrict any use of the information to criminally investigate or prosecute any alcohol or drug abuse patient.[facility] CenterIn the event this information is protected by the Federal Confidentiality of Alcohol and Drug Abuse Patient Records regulations: The Federal rules restrict any use of the information to criminally investigate or prosecute any alcohol or drug abuse patient.[facility] CenterIn the event this information is protected by the Federal Confidentiality of Alcohol and Drug Abuse Patient Records regulations: The Federal rules restrict any use of the information to criminally investigate or prosecute any alcohol or drug abuse patient.[facility] CenterIn the event this information is protected by the Federal Confidentiality of Alcohol and Drug Abuse Patient Records regulations: The Federal rules restrict any use of the information to criminally investigate or prosecute any alcohol or drug abuse patient.[facility] CenterIn the event this information is protected by the Federal Confidentiality of Alcohol and Drug Abuse Patient Records regulations: The Federal rules restrict any use of the information to criminally investigate or prosecute any alcohol or drug abuse patient.[facility] CenterIn the event this information is protected by the Federal Confidentiality of Alcohol and Drug Abuse Patient Records regulations: The Federal rules restrict any use of the information to criminally investigate or prosecute any alcohol or drug abuse patient.[facility] CenterIn the event this information is protected by the Federal Confidentiality of Alcohol and Drug Abuse Patient Records regulations: The Federal rules restrict any use of the information to criminally investigate or prosecute any alcohol or drug abuse patient.[facility] CenterIn the event this information is protected by the Federal Confidentiality of Alcohol and Drug Abuse Patient Records regulations: The Federal rules restrict any use of the information to criminally investigate or prosecute any alcohol or drug abuse patient.[facility] CenterIn the event this information is protected by the Federal Confidentiality of Alcohol and Drug Abuse Patient Records regulations: The Federal rules restrict any use of the information to criminally investigate or prosecute any alcohol or drug abuse patient.[facility] CenterIn the event this information is protected by the Federal Confidentiality of Alcohol and Drug Abuse Patient Records regulations: The Federal rules restrict any use of the information to criminally investigate or prosecute any alcohol or drug abuse patient.[facility] CenterIn the event this information is protected by the Federal Confidentiality of Alcohol and Drug Abuse Patient Records regulations: The Federal rules restrict any use of the information to criminally investigate or prosecute any alcohol or drug abuse patient.[facility] CenterIn the event this information is protected by the Federal Confidentiality of Alcohol and Drug Abuse Patient Records regulations: The Federal rules restrict any use of the information to criminally investigate or prosecute any alcohol or drug abuse patient.[facility] CenterIn the event this information is protected by the Federal Confidentiality of Alcohol and Drug Abuse Patient Records regulations: The Federal rules restrict any use of the information to criminally investigate or prosecute any alcohol or drug abuse patient.[facility] CenterIn the event this information is protected by the Federal Confidentiality of Alcohol and Drug Abuse Patient Records regulations: The Federal rules restrict any use of the information to criminally investigate or prosecute any alcohol or drug abuse patient.[facility] CenterIn the event this information is protected by the Federal Confidentiality of Alcohol and Drug Abuse Patient Records regulations: The Federal rules restrict any use of the information to criminally investigate or prosecute any alcohol or drug abuse patient.[facility] CenterIn the event this information is protected by the Federal Confidentiality of Alcohol and Drug Abuse Patient Records regulations: The Federal rules restrict any use of the information to criminally investigate or prosecute any alcohol or drug abuse patient.[facility] CenterIn the event this information is protected by the Federal Confidentiality of Alcohol and Drug Abuse Patient Records regulations: The Federal rules restrict any use of the information to criminally investigate or prosecute any alcohol or drug abuse patient.[facility] CenterIn the event this information is protected by the Federal Confidentiality of Alcohol and Drug Abuse Patient Records regulations: The Federal rules restrict any use of the information to criminally investigate or prosecute any alcohol or drug abuse patient.[facility] CenterIn the event this information is protected by the Federal Confidentiality of Alcohol and Drug Abuse Patient Records regulations: The Federal rules restrict any use of the information to criminally investigate or prosecute any alcohol or drug abuse patient.[facility] CenterIn the event this information is protected by the Federal Confidentiality of Alcohol and Drug Abuse Patient Records regulations: The Federal rules restrict any use of the information to criminally investigate or prosecute any alcohol or drug abuse patient.[facility] CenterIn the event this information is protected by the Federal Confidentiality of Alcohol and Drug Abuse Patient Records regulations: The Federal rules restrict any use of the information to criminally investigate or prosecute any alcohol or drug abuse patient.[facility] CenterIn the event this information is protected by the Federal Confidentiality of Alcohol and Drug Abuse Patient Records regulations: The Federal rules restrict any use of the information to criminally investigate or prosecute any alcohol or drug abuse patient.[facility] CenterIn the event this information is protected by the Federal Confidentiality of Alcohol and Drug Abuse Patient Records regulations: The Federal rules restrict any use of the information to criminally investigate or prosecute any alcohol or drug abuse patient.[facility] CenterIn the event this information is protected by the Federal Confidentiality of Alcohol and Drug Abuse Patient Records regulations: The Federal rules restrict any use of the information to criminally investigate or prosecute any alcohol or drug abuse patient.[facility] CenterIn the event this information is protected by the Federal Confidentiality of Alcohol and Drug Abuse Patient Records regulations: The Federal rules restrict any use of the information to criminally investigate or prosecute any alcohol or drug abuse patient.[facility] CenterIn the event this information is protected by the Federal Confidentiality of Alcohol and Drug Abuse Patient Records regulations: The Federal rules restrict any use of the information to criminally investigate or prosecute any alcohol or drug abuse patient.[facility] CenterIn the event this information is protected by the Federal Confidentiality of Alcohol and Drug Abuse Patient Records regulations: The Federal rules restrict any use of the information to criminally investigate or prosecute any alcohol or drug abuse patient.[facility] CenterIn the event this information is protected by the Federal Confidentiality of Alcohol and Drug Abuse Patient Records regulations: The Federal rules restrict any use of the information to criminally investigate or prosecute any alcohol or drug abuse patient.[facility] CenterIn the event this information is protected by the Federal Confidentiality of Alcohol and Drug Abuse Patient Records regulations: The Federal rules restrict any use of the information to criminally investigate or prosecute any alcohol or drug abuse patient.[facility] CenterIn the event this information is protected by the Federal Confidentiality of Alcohol and Drug Abuse Patient Records regulations: The Federal rules restrict any use of the information to criminally investigate or prosecute any alcohol or drug abuse patient.[facility] CenterIn the event this information is protected by the Federal Confidentiality of Alcohol and Drug Abuse Patient Records regulations: The Federal rules restrict any use of the information to criminally investigate or prosecute any alcohol or drug abuse patient.[facility] CenterIn the event this information is protected by the Federal Confidentiality of Alcohol and Drug Abuse Patient Records regulations: The Federal rules restrict any use of the information to criminally investigate or prosecute any alcohol or drug abuse patient.[facility] CenterIn the event this information is protected by the Federal Confidentiality of Alcohol and Drug Abuse Patient Records regulations: The Federal rules restrict any use of the information to criminally investigate or prosecute any alcohol or drug abuse patient.[facility] CenterIn the event this information is protected by the Federal Confidentiality of Alcohol and Drug Abuse Patient Records regulations: The Federal rules restrict any use of the information to criminally investigate or prosecute any alcohol or drug abuse patient.[facility] CenterIn the event this information is protected by the Federal Confidentiality of Alcohol and Drug Abuse Patient Records regulations: The Federal rules restrict any use of the information to criminally investigate or prosecute any alcohol or drug abuse patient.[facility] CenterIn the event this information is protected by the Federal Confidentiality of Alcohol and Drug Abuse Patient Records regulations: The Federal rules restrict any use of the information to criminally investigate or prosecute any alcohol or drug abuse patient.[facility] Care Teams (unrecognized sec tion and content) Drilling Machine Operator Relationship Specialty Start Date End Date Lisa Bradshaw MD [address] [place] [address] PCP - General Internal Medicine 04/17/10 Drilling Machine Operator Relationship Specialty Start Date End Date Lisa Bradshaw MD [address] [place] [address] PCP - General Internal Medicine 04/17/10 Drilling Machine Operator Relationship Specialty Start Date End Date Lisa Bradshaw MD [address] [place] [address] PCP - General Internal Medicine 04/17/10 Drilling Machine Operator Relationship Specialty Start Date End Date Lisa Bradshaw MD [address] [place] [address] PCP - General Internal Medicine 04/17/10 Drilling Machine Operator Relationship Specialty Start Date End Date Lisa Bradshaw MD [address] [place] [address] PCP - General Internal Medicine 04/17/10 Drilling Machine Operator Relationship Specialty Start Date End Date Lisa Bradshaw MD [address] [place] [address] PCP - General Internal Medicine 04/17/10 Drilling Machine Operator Relationship Specialty Start Date End Date Lisa Bradshaw MD [address] [place] [address] PCP - General Internal Medicine 04/17/10 Drilling Machine Operator Relationship Specialty Start Date End Date Lisa Bradshaw MD [address] [place] [address] PCP - General Internal Medicine 04/17/10 Drilling Machine Operator Relationship Specialty Start Date End Date Lisa Bradshaw MD [address] [place] [address] PCP - General Internal Medicine 04/17/10 Team Status: Active Member Role Status Dates Dr. Lisa Bradshaw MD Family Provider Active Dr. Lisa Bradshaw MD Primary Care Provider Active Team Status: Inactive Member Role Status Dates Dr. Lisa Bradshaw MD Primary Care Provider Active Dr. Mervat Crandall MD Emergency Provider Active Drilling Machine Operator Relationship Specialty Start Date End Date Lisa Bradshaw MD [address] [place] [address] PCP - General Internal Medicine 04/17/10 Drilling Machine Operator Relationship Specialty Start Date End Date Lisa Bradshaw MD [address] [facility] [place] [address] PCP - General Internal Medicine 04/17/10 Drilling Machine Operator Relationship Specialty Start Date End Date Lisa Bradshaw MD [address] [place] [address] PCP - General Internal Medicine 04/17/10 Drilling Machine Operator Relationship Specialty Start Date End Date Lisa Bradshaw MD [address] [facility] [place] [address] PCP - General Internal Medicine 04/17/10 Drilling Machine Operator Relationship Specialty Start Date End Date Lisa Bradshaw MD [address] [place] [address] PCP - General Internal Medicine 04/17/10 Drilling Machine Operator Relationship Specialty Start Date End Date Lisa Bradshaw MD [address] [place] [address] PCP - General Internal Medicine 04/17/10 Drilling Machine Operator Relationship Specialty Start Date End Date Lisa Bradshaw MD [address] [facility] [place] [address] PCP - General Internal Medicine 04/17/10 Drilling Machine Operator Relationship Specialty Start Date End Date Lisa Bradshaw MD [address] [facility] [place] [address] PCP - General Internal Medicine 04/17/10 Drilling Machine Operator Relationship Specialty Start Date End Date Lisa Bradshaw MD [address] [facility] [place] [address] PCP - General Internal Medicine 04/17/10 Drilling Machine Operator Relationship Specialty Start Date End Date Lisa Bradshaw MD [address] [facility] [place] [address] PCP - General Internal Medicine 04/17/10 Drilling Machine Operator Relationship Specialty Start Date End Date Lisa Bradshaw MD [address] [facility] [place] [address] PCP - General Internal Medicine 04/17/10 Drilling Machine Operator Relationship Specialty Start Date End Date Lisa Bradshaw MD [address] [facility] [place] [address] PCP - General Internal Medicine 04/17/10 Drilling Machine Operator Relationship Specialty Start Date End Date Lisa Bradshaw MD [address] [facility] [place] [address] PCP - General Internal Medicine 04/17/10 Drilling Machine Operator Relationship Specialty Start Date End Date Lisa Bradshaw MD [address] [facility] [place] [address] PCP - General Internal Medicine 04/17/10 Drilling Machine Operator Relationship Specialty Start Date End Date Lisa Bradshaw MD [address] [facility] [place] [address] PCP - General Internal Medicine 04/17/10 Drilling Machine Operator Relationship Specialty Start Date End Date Lisa Bradshaw MD [address] [facility] [place] [address] PCP - General Internal Medicine 04/17/10 Carmen Taylor, RAIL WASHER.MATERIAL RECLAIMER [address] [place] [address] Type Caster Internal Medicine 06/28/24 Shantelle Flowers RAIL WASHER.MUD ANALYSIS WELL LOGGING OPERATOR [address] [place] [address] Type Caster Internal Medicine 06/28/24 Drilling Machine Operator Relationship Specialty Start Date End Date Lisa Bradshaw MD [address] [place] [address] PCP - General Internal Medicine 04/17/10 Carmen Taylor, RAIL WASHER.MATERIAL RECLAIMER [address] [place] [address] Type Caster Internal Medicine 06/28/24 Shantelle Flowers RAIL WASHER.MUD ANALYSIS WELL LOGGING OPERATOR [address] [place] [address] [facility] Internal Medicine 06/28/24 Drilling Machine Operator Relationship Specialty Start Date End Date Lisa Bradshaw MD [address] [place] [address] PCP - General Internal Medicine 04/17/10 Carmen Taylor, RAIL WASHER.MATERIAL RECLAIMER [address] [place] [address] Type Caster Internal Medicine 06/28/24 Shantelle Flowers RAIL WASHER.MUD ANALYSIS WELL LOGGING OPERATOR [address] [place] [address] Type Caster Internal Medicine 06/28/24 Drilling Machine Operator Relationship Specialty Start Date End Date Lisa Bradshaw MD [address] [place] [address] PCP - General Internal Medicine 04/17/10 Carmen Taylor APRN.MATERIAL RECLAIMER [address] [place] [address] Type Caster Internal Medicine 06/28/24 Shantelle Flowers APRN.MUD ANALYSIS WELL LOGGING OPERATOR [address] [place] [address] Type Caster Internal Medicine 06/28/24 10/08/24 Drilling Machine Operator Relationship Specialty Start Date End Date Lisa Bradshaw MD [address] [place] [address] PCP - General Internal Medicine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
== END 2025-02-24 02:41 | disposition home or self-care (01) ==
LOC: ED 02:40
PROVIDERS: Emergency Provider Emergency Medicine; PCP Internal Medicine; Visit Provider Emergency Medicine
DX: K04.7 Periapical abscess without sinus (principal); K02.9 Dental caries, unspecified; F17.210 Nicotine dependence, cigarettes, uncomplicated; F17.290 Nicotine dependence, other tobacco product, uncomplicated
CPT/HCPCS: 99282